=== PATIENT | female | born 1975 | race Caucasian/White ===

== ENCOUNTER → 2016-02-15 | Outpatient (CLI) | payer OTHER ==
[~2016-02-15] MED LIST: OXYC1TAB3 PO
--- NOTE | 2016-02-16 08:38 | DIAGNOSTIC IMAGING REPORT ---
MRI OF THE LEFT ELBOW WITHOUT CONTRAST CLINICAL HISTORY: Left elbow pain. Lateral epicondylitis. COMPARISON STUDY: Left elbow radiographs November 02, 2015. TECHNIQUE: Utilizing a 1.5 Marii magnet and dedicated coil, multiplanar, multiecho imaging of the left elbow was performed without intravenous or intra-articular contrast. FINDINGS: There is a small left elbow joint effusion. No marrow replacement is present. There is no significant marrow edema. There is an abnormal appearance of the common extensor tendon with fluid located between the common extensor tendon and the lateral epicondyle. There is adjacent edema. The common flexor tendon is intact. The ulnar collateral ligament is intact. The radial collateral ligament is not well visualized on this exam. No osteochondral lesion is identified. No mass or fluid collection shown adjacent to the left elbow. The biceps and brachialis insertions are normal. IMPRESSION: 1. Findings consistent with lateral epicondylitis. Fluid signal between the lateral epicondyle and the common extensor tendon suggestive of a full-thickness tendon tear with avulsion from the lateral epicondyle. 2. Indistinctness of the radial collateral ligament. 3. Small left elbow joint effusion. Electronically signed by: Glynn Michele M.D. 02/16/2016 8:37 AM Dictated Date/Time: 02/15/2016 8:55 AM
== END | disposition home or self-care (01) ==
LOC: C.MRI 08:12
PROVIDERS: ATTEND Orthopaedic Surgery Sports Medicine
DX: M77.12 Lateral epicondylitis, left elbow (principal)

== ENCOUNTER 2016-10-11 16:56 | Emergency (ER) | payer OTHER ==
[~2016-10-11] VITALS: Ht 172.7 cm; Wt 78.1 kg
[2016-10-11 17:32] VITALS: TEMP 37; Ht 172.7 cm; Wt 78.1 kg
--- NOTE | 2016-10-11 18:07 | DIAGNOSTIC IMAGING REPORT ---
LEFT ELBOW MIN 3 VIEWS ROUTINE CLINICAL HISTORY: L elbow pain pain COMPARISON: None. DISCUSSION: The bones and joint spaces appear intact. There is no evidence of fracture, dislocation or bony disease. There is no evidence for soft tissue swelling. IMPRESSION: Negative study. The above report was generated using voice recognition software. It may contain grammatical, syntax or spelling errors. Electronically signed by: Andrea Zamora M.D. 10/11/2016 6:05 PM Dictated Date/Time: 10/11/2016 6:05 PM
[2016-10-11] MEDS ORDERED: OXYC1TAB3 PO (18:44)
[2016-10-11 18:50] VITALS: BP 119/69; PULSE 79; O2SAT 97
--- NOTE | 2016-10-11 20:17 | EMERGENCY ROOM VISIT NOTE ---
History First contact with patient: 17:42 Chief Complaint: ELBOW PAIN/INJURY Stated Complaint: LT ELBOW PAIN, TENDON History of Present Illness The patient is a 41 year old female who presents to the Emergency Room with complaints of persistent left elbow pain. The patient reports that she underwent surgery with Dr. Pike from [facility] in [place]. The surgery was performed in December. The patient reports that she had a subsequent MRI after having persistent elbow pain, and was found to have a tendon tear. She underwent another surgery on 03/01/16. The patient now reports a burning sensation through the elbow and forearm, and causing numbness/ tingling/burning of the fourth and fifth fingers. She has also noticed decreased director pediatric strength over the past several months. She reports that Dr. Pike has since then dismissed from the practice, in her office has refused to see her in follow-up. The patient reports that she tried to call [facility], and they also would not see her because of her prior surgical history and association with another orthopedic practice. The patient has not attempted to call other orthopedic offices, or discuss referral with her PCP. The patient reports that she has [facility] insurance. The patient denies any recent trauma to the elbow. She does not sleep with her left elbow bent under her head or pillow. The patient is [id number]. The patient rates her discomfort a 9 out of 10. Review of Systems 10 system review was performed and was negative except for pertinent positives and negatives as indicated in history of present illness Past Medical/Surgical History Medical Problems: (1) Cyst of gallbladder (2) Depressive Disorder Nec (3) Fem Pelv Inflam Dis Nos (4) Fem Pelvic Periton Adh-Post-Op/Inf (5) Ovarian Cyst Nec/Nos (6) Tobacco Use Disorder Surgical Problems: (1) H/O: hysterectomy (2) History of hysterectomy Family History Cancer Diabetes mellitus Gallbladder disease Heart disease Hypertension Seizures Social History Smoking Status: Current Every Day Smoker Alcohol Use: none Drug Use: none Marital Status: Occupation Status: employed Current/Historical Medications Scheduled PRN Oxycodone Ir (Roxicodone Ir), 1-2 TAB PO Q4H PRN for Pain Physical Exam Vital Signs Date Time Temp Pulse Resp B/P (MAP) Pulse Ox O2 Delivery O2 Flow Rate FiO2 10/11/16 18:50 79 16 119/69 97 9/5/17 17:32 37.0 66 18 133/86 100 Room Air Physical Exam CONSTITUTIONAL: Healthy and well nourished. Alert and oriented X 3 with positive affect. Patient appears in mild discomfort from pain. HEENT: Normocephalic, atraumatic. Pupils equal, round and reactive. NECK: Full active range of motion without discomfort. Movement of the neck does not cause any left upper extremity discomfort. RESPIRATORY: Clear to auscultation bilaterally with no wheezing, crackles, rhonchi or stridor. CARDIOVASCULAR: Regular rate and rhythm with no murmurs, rubs or gallops. MUSCULOSKELETAL: Examination of the left elbow shows evidence for a lateral surgical incision. There is no significant induration or evidence of significant scar tissue over this region. The patient has no discomfort with pronation, supination, flexion or extension. She has a positive compression test and positive Tinel at the cubital tunnel. This reproduces discomfort into her fourth and fifth fingers. Patient has mildly weakened director pediatric strength of 4 out of 5 when compared to 5 out of 5 on the right. Capillary refill is less than 2 seconds. INTEGUMENTARY: No rash or other significant dermatologic conditions noted. NEUROLOGIC: Left hand and fingers are grossly sensory intact. Medical Decision & Procedures ER Provider Diagnostic Interpretation: My interpretation of left elbow x-rays does not show any bony lesions, fractures or other significant findings. Radiologist report is as follows: LEFT ELBOW MIN 3 VIEWS ROUTINE CLINICAL HISTORY: L elbow pain pain COMPARISON: None. DISCUSSION: The bones and joint spaces appear intact. There is no evidence of fracture, dislocation or bony disease. There is no evidence for soft tissue swelling. IMPRESSION: Negative study. ED Course Patient history and physical exam were performed. Nurse's notes were reviewed. Vital signs were reviewed and were normal. The patient was advised that her history and clinical exam findings are most consistent with an ulnar neuritis. She was encouraged to avoid any further blunt trauma or injury to the inner aspect of the elbow. I did encourage her to intermittently apply ice. Ibuprofen and Tylenol in alternating fashion for baseline pain relief. She was provided a short prescription for OxyIR as needed for breakthrough pain. The patient was encouraged to try calling other local orthopedic offices to see if they will take on treatment of her ulnar neuritis. If they refuse to see her because of her prior surgical history, she was instructed to follow-up with her PCP for [facility] referral and further treatment. The patient was happy with plan of care, voiced understanding of all discharge instructions, refused any analgesics while in the emergency department, and rated her pain a 6 out of 10 at the conclusion of my exam. Medical Decision Medication Reconcilliation Current Medication List: was personally reviewed by me Blood Pressure Screening Patient's blood pressure: Normal blood pressure Impression Primary Impression: Neuritis of left ulnar nerve Departure Information Prescriptions Oxycodone Ir (Roxicodone Ir) 5 Mg Tab 1-2 TAB PO Q4H Y for Pain, #15 TAB For Initial Treatment Prov: Deonte Diaz PA 10/11/16 Referrals Scotty Diaz DO (PCP) Patient Instructions My [facility]
== END 2016-10-11 18:53 | disposition home or self-care (01) ==
LOC: C.EDB 16:57 → C.EDD 18:53
DX: G56.22 Lesion of ulnar nerve, left upper limb (principal); F32.9 Major depressive disorder, single episode, unspecified; N73.9 Female pelvic inflammatory disease, unspecified; F17.210 Nicotine dependence, cigarettes, uncomplicated; Z80.9 Family history of malignant neoplasm, unspecified; Z83.3 Family history of diabetes mellitus; Z83.79 Family history of other diseases of the digestive system; Z82.49 Family history of ischemic heart disease and other diseases of the circulatory system

== ENCOUNTER → 2017-03-08 | Outpatient (CLI) | payer OTHER ==
--- NOTE | 2017-03-08 17:36 | DIAGNOSTIC IMAGING REPORT ---
CHEST 2 VIEWS ROUTINE HISTORY: Atypical chest pain. COMPARISON: Chest 02/15/2008. FINDINGS: The lungs are clear. Cardiac silhouette is normal in size. No pleural effusions. No pneumothorax. IMPRESSION: No acute process. Electronically signed by: Castro Flores M.D. 03/08/2017 5:35 PM Dictated Date/Time: 03/08/2017 5:34 PM
== END | disposition home or self-care (01) ==
LOC: C.RAD 16:48
PROVIDERS: ATTEND Family Medicine
DX: R07.9 Chest pain, unspecified (principal)

== ENCOUNTER → 2017-03-22 | Outpatient (CLI) | payer OTHER ==
--- NOTE | 2017-03-22 17:50 | EXERCISE STRESS ECHO ---
*NOTICE TO RECEIVING [employer] This information is strictly Confidential and protected under [place] law. [place] law prohibits you from making any further disclosure of this information unless further disclosure is expressly permitted by the written consent of the person to whom it pertains or is authorized by law. A general authorization for the release of medical or other information is not sufficient for this purpose. Hospital accepts no responsibility if the information is made available to any other person, INCLUDING THE PATIENT. Interpretation Summary * Name: MINERVA WYLIE Study Date: 03/22/2017 09:37 AM BP: 88/51 mmHg * Patient Location: [facility] HR: 58 * : 1975 (M/d/yyyy) Gender: Female Height: 68 in * Age: 41 yrs Ethnicity: [place] Weight: 149 lb * Ordering Physician: Scotty Diaz * Referring Physician: Scotty Diaz * Performed By: Herminia Best RCS * * Reason For Study: CHEST PAIN * BSA: 1.8 m2 * -- Conclusions -- * 1. Negative exercise stress echo for ischemia at 92% MPHR. * 2. Negative stress ECG for ischemia. * 3. Excellent functional capacity. Exercised 11:59 min, acheiving 13.4 METS. * 4. No exercise induced chest pain. Normal hemodynamic response to exercise. * 5. Normal resting LV size and function. EF 55-60%. Normal RV size and function. No significant valvular pathology. * 6. No prior studies for comparison. Procedure Details * ECHOEX, CPT #[id number] * ECHO COLOR FLOW, CPT #[id number] * ECHO DOPPLER, CPT #[id number] Left Ventricle * The left ventricle is grossly normal size. * There is normal left ventricular wall thickness. * Ejection Fraction = 55-60%. * Resting wall motion: Normal. Stress wall motion: Appropriate increase in Left ventricular systolic function and decrease in cavity size. No stress induced segmental wall motion abnormalities. Right Ventricle * The right ventricle is grossly normal size. * The right ventricular systolic function is normal as assessed by tricuspid annular plane systolic excursion (TAPSE) (normal >1.5 cm). Atria * The left atrial size is normal. * Borderline right atrial enlargement. * No ASD detected; PFO is not assessed. Mitral Valve * The mitral valve is grossly normal. * There is no mitral valve stenosis. * There is trace mitral regurgitation. Tricuspid Valve * The tricuspid valve is not well visualized, but is grossly normal. * There is no tricuspid stenosis. * There is trace tricuspid regurgitation. Aortic Valve * The aortic valve opens well. * Aortic valve sclerosis mild, without significant aortic valvular stenosis. * No hemodynamically significant valvular aortic stenosis. * Trace aortic regurgitation. Stress Parameters * Normal baseline electrocardiogram. * Stress ECG: No ST changes. No arrhythmias. * No arrhythmia were noted with stress. * The stress portion of this study was personally supervised by the undersigned interpreting physician. * Rest heart rate was '58' BPM. * Rest blood pressure was '88/51' * Maximum heart rate achieved was 166 bpm. * Maximum heart rate was 92 % of maximum age-predicted heart rate. * Maximum blood pressure was '132/75' * Total exercise time was '11:59' * Maximum exercise MET level achieved was '13.40' METS * Maximum treadmill speed was '4.20' miles per hour. * Maximum treadmill elevation was '16.00'% grade. Left Ventricular Findings with Stress * The study was technically adequate. MMode 2D Measurements and Calculations IVSd 1.0 cm IVSs 1.3 cm LVIDd 4.4 cm LVIDs 2.8 cm LVPWd 0.95 cm LVPWs 1.4 cm IVS/LVPW 1.1 FS 35.2 % EDV(Teich) 87.0 ml ESV(Teich) 30.7 ml EF(Teich) 64.7 % EDV(cubed) 84.3 ml ESV(cubed) 23.0 ml EF(cubed) 72.7 % % IVS thick 24.6 % % LVPW thick 50.4 % LV mass(C)d 142.1 grams LV mass(C)dI 78.8 grams/m\S\2 LV mass(C)s 121.3 grams LV mass(C)sI 67.2 grams/m\S\2 SV(Teich) 56.3 ml SI(Teich) 31.2 ml/m\S\2 SV(cubed) 61.3 ml SI(cubed) 34.0 ml/m\S\2 Ao root diam 2.8 cm Ao root area 6.2 cm\S\2 LA dimension 2.9 cm LA/Ao 1.0 LVOT diam 2.0 cm LVOT area 3.0 cm\S\2 LVAd ap4 28.3 cm\S\2 LVLd ap4 7.0 cm EDV(MOD-sp4) 92.9 ml EDV(sp4-el) 97.3 ml LVAs ap4 17.7 cm\S\2 LVLs ap4 6.1 cm ESV(MOD-sp4) 42.3 ml ESV(sp4-el) 43.5 ml EF(MOD-sp4) 54.4 % EF(sp4-el) 55.3 % LVAd ap2 28.4 cm\S\2 LVLd ap2 7.0 cm EDV(MOD-sp2) 95.1 ml EDV(sp2-el) 98.1 ml LVAs ap2 15.7 cm\S\2 LVLs ap2 5.5 cm ESV(MOD-sp2) 37.0 ml ESV(sp2-el) 37.9 ml EF(MOD-sp2) 61.1 % EF(sp2-el) 61.4 % LVLd %diff -0.42 % EDV(MOD-bp) 94.2 ml LVLs %diff -11.43 % ESV(MOD-bp) 41.1 ml EF(MOD-bp) 56.4 % SV(MOD-sp4) 50.5 ml SI(MOD-sp4) 28.0 ml/m\S\2 SV(MOD-sp2) 58.1 ml SI(MOD-sp2) 32.2 ml/m\S\2 SV(MOD-bp) 53.1 ml SI(MOD-bp) 29.4 ml/m\S\2 SV(sp4-el) 53.8 ml SI(sp4-el) 29.9 ml/m\S\2 SV(sp2-el) 60.2 ml SI(sp2-el) 33.4 ml/m\S\2 Doppler Measurements and Calculations MV E max michael 89.5 cm/sec MV A max michael 43.7 cm/sec MV E/A 2.0 MV P1/2t max michael 94.0 cm/sec MV P1/2t 102.2 msec MVA(P1/2t) 2.2 cm\S\2 MV dec slope 269.5 cm/sec\S\2 MV dec time 0.30 sec Ao V2 max 144.9 cm/sec Ao max PG 8.4 mmHg Ao max PG (full) 0.17 mmHg LALA(V,A) 3.0 cm\S\2 LALA(V,D) 3.0 cm\S\2 LV V1 max PG 8.2 mmHg LV V1 max 143.4 cm/sec PA V2 max 90.6 cm/sec PA max PG 3.3 mmHg TR max michael 210.1 cm/sec
== END | disposition home or self-care (01) ==
LOC: C.CPL 09:30
PROVIDERS: ATTEND Family Medicine
DX: R07.9 Chest pain, unspecified (principal)

== ENCOUNTER → 2017-05-16 | Outpatient (CLI) | payer OTHER ==
[~2017-05-16] MED LIST changes: +ONDA4TAB46 PO
--- NOTE | 2017-05-16 08:15 | DIAGNOSTIC IMAGING REPORT ---
NECK ULTRASOUND CLINICAL HISTORY: Palpable right neck lump. COMPARISON STUDY: Sonography of the right upper neck at site of palpable abnormality was performed. TECHNIQUE: Sonography of the thyroid gland was performed. FINDINGS: Note is made of a 7 mm x 6 mm x 5 mm cystic appearing right upper neck lesion which represents the palpable abnormality. This is located within the deep subcutaneous tissues. Note is made of color flow suggestive of a vessel either within the wall or the adjacent soft tissues of this lesion. No additional abnormalities are identified. IMPRESSION: 7 mm subcutaneous cystic lesion of the right upper neck which represents the palpable abnormality. Color flow suggestive of a vessel either within the adjacent soft tissues or the wall of this lesion. This lesion is likely benign however ultrasound-guided fine needle aspiration could be performed for confirmation. Electronically signed by: Glynn Michele M.D. 05/16/2017 8:13 AM Dictated Date/Time: 05/16/2017 8:09 AM
== END | disposition home or self-care (01) ==
LOC: C.ULTRBC 07:51
PROVIDERS: ATTEND Family Medicine
DX: R22.1 Localized swelling, mass and lump, neck (principal)

== ENCOUNTER 2017-05-25 10:39 | Emergency (ER) | payer OTHER ==
[~2017-05-25] VITALS: Ht 172.7 cm; Wt 69.0 kg
[2017-05-25 10:49] VITALS: TEMP 36.8; O2SAT 99; Ht 172.7 cm; Wt 69.0 kg
--- NOTE | 2017-05-25 11:11 | DIAGNOSTIC IMAGING REPORT ---
CHEST ONE VIEW PORTABLE HISTORY: Atypical CHEST PAIN COMPARISON: Chest 03/08/2017. FINDINGS: The heart is mildly enlarged. This has progressed in the interval. No pneumothorax. No pleural effusions. Perihilar/lower lobe interstitial and vascular thickening. This is also new from the prior study. Possible small patchy density within the periphery of the left midlung zone. IMPRESSION: 1. Interval development of cardiomegaly and perihilar/lower lobe interstitial and vascular thickening. This favors mild pulmonary edema. However, an atypical pneumonitis could also have a similar appearance. 2. There is also suggestion of a small patchy density within the peripheral left midlung zone. 3. Follow up chest x-ray in 1 month is recommended to ensure resolution. Electronically signed by: Castro Flores M.D. 05/25/2017 11:10 AM Dictated Date/Time: 05/25/2017 11:07 AM
[2017-05-25] MEDS ORDERED: KETOROLAC TROMETHAMINE 30 MG/ML VIAL IV STA (11:20)
[2017-05-25] MEDS ORDERED: ONDANSETRON INJ 2 MG/ML 2 ML VIAL IV STA (11:20)
[2017-05-25] MEDS ORDERED: GI COCKTAIL PO STA (11:20)
--- NOTE | 2017-05-25 11:25 | EMERGENCY ROOM VISIT NOTE ---
History Report prepared by [facility]: Chloe De Los Santos Under the Supervision of: Dr. Rajiv Shell M.D. First contact with patient: 10:51 Chief Complaint: CHEST PAIN Stated Complaint: CHEST AND STOMACH PAIN Nursing Triage Summary: pt reports she has had intermittent mid center chest pain and right chest pain for the past month. pt reports pain radiates through to her back. pt also reports "my whole chest hurts even if you just touch it." pt reports she has seen her pcp and "i don't remember what heart dr." pt reports this am the pain woke her up and pain increased. pt reports feels short of breath. pt denies any nausea. History of Present Illness The patient is a 41 year old white female with a past medical history of a hysterectomy, cholecystectomy who presents to the ED with a cc of intermittent lower central chest pain beginning a month ago . Positive upper abdominal pain. Negative hx of blood clots, control, recent travel. The patient described her chest pain as "a grabbing pain". She denies any modifying or worsening factors. She denies any allergies to medication. The patient notes tobacco use but denies any drug or alcohol use. The patient had a negative stress echo in March. Source of History: patient Onset: a month ago Position: chest Quality: other (grabbing) Timing: intermittent Modifying Factors (Worsening): other (none) Modifying Factors (Relieving): other (none) Associated Symptoms: + chest pain, + abdominal pain Review of Systems See HPI for pertinent positives and negatives. A total of ten systems were reviewed and were otherwise negative. Past Medical & Surgical Medical Problems: (1) Cyst of gallbladder (2) Depressive Disorder Nec (3) Endometriosis (4) Fem Pelv Inflam Dis Nos (5) Fem Pelvic Periton Adh-Post-Op/Inf (6) Ovarian Cyst Nec/Nos (7) Tobacco Use Disorder Surgical Problems: (1) H/O: hysterectomy (2) History of delivery (3) History of hysterectomy (4) History of laparoscopy (5) History of tonsillectomy Family History Cancer Diabetes mellitus Gallbladder disease Heart disease Hypertension Seizures Social History Smoking Status: Current Every Day Smoker Alcohol Use: none Drug Use: none Marital Status: Occupation Status: employed Current/Historical Medications Scheduled PRN Ondansetron Hcl (Zofran), 4 MG PO Q8H PRN for Nausea Oxycodone Immediate Rel Tab (Roxicodone Ir), 0.5-1 TAB PO TID PRN for Pain Allergies Coded Allergies: No Known Allergies (Verified , 05/25/17) Physical Exam Vital Signs Date Time Temp Pulse Resp B/P (MAP) Pulse Ox O2 Delivery O2 Flow Rate FiO2 05/25/17 14:04 80 20 130/78 95 05/25/17 12:33 71 18 100/71 98 Room Air 05/25/17 11:41 89 16 113/65 98 Room Air 05/25/17 11:00 75 16 111/75 97 Room Air 05/25/17 10:54 78 05/25/17 10:49 99 Room Air 05/25/17 10:49 98 Room Air 05/25/17 10:49 36.8 79 24 133/87 99 Room Air Physical Exam GENERAL: Awake, alert, well-appearing, tearful, in pain, NAD HENT: Normocephalic, atraumatic. EYES: Normal conjunctiva. Sclera non-icteric. NECK: Supple. No nuchal rigidity. FROM. RESPIRATORY: CTAB, no rhonchi, wheezing, crackles CARDIAC: RRR, no MRG ABDOMEN: Soft, BS+. Mild epigastric discomfort, non surgical abdomen. MSK: Lower reproducible sternal pain, no LE edema, symmetric 2+ DP pulses. NEURO: GCS 15, CN 2-12 intact, moves all 4s on command SKIN: No rash or jaundice noted. Medical Decision & Procedures ER Provider Diagnostic Interpretation: Radiology results as stated below per my review and radiologist interpretation: (CHEST FOR PE) ANGIO WITH FINDINGS: Pulmonary arterial vasculature enhances appropriately. There is mild peribronchial thickening throughout both hemithoraces. Findings of moderate mediastinal and to a lesser extent hilar adenopathy. Right hilar nodes measure to 1.8 cm. Left hilar nodes are similar. Appear to be matted nodes in the pretracheal and subcarinal region with subcarinal basilio pathology measuring to 2 cm. There appears to be a mild degree of esophageal soft tissue. This extends through the distal esophageal region. Limited evaluation the upper abdomen suggest the possibility of poor periportal adenopathy although this area was not specifically scanned. There is a consolidative infiltrate versus focal mass medial aspect left base. This measures 3.1 x 2.0 cm. Mass likely L disease including focal pulmonary infarct. IMPRESSION: 1. Study is negative for pulmonary embolus. 2. Moderate mediastinal and hilar adenopathy. 3. Moderate esophageal wall thickening versus matted adenopathy. L4. Consolidative infiltrate medial aspect left lung base versus parenchymal mass/infarct. This measures 3.1 x 1.8 cm. 5. Diagnostic considerations must include inflammatory process and consolidative infiltrate with reactive adenopathy, versus the possibility of a neoplastic process. 6. Further follow-up is recommended. The above report was generated using voice recognition software. It may contain grammatical, syntax or spelling errors. Electronically signed by: Andrea Zamora M.D. CHEST ONE VIEW PORTABLE FINDINGS: The heart is mildly enlarged. This has progressed in the interval. No pneumothorax. No pleural effusions. Perihilar/lower lobe interstitial and vascular thickening. This is also new from the prior study. Possible small patchy density within the periphery of the left midlung zone. IMPRESSION: 1. Interval development of cardiomegaly and perihilar/lower lobe interstitial and vascular thickening. This favors mild pulmonary edema. However, an atypical pneumonitis could also have a similar appearance. 2. There is also suggestion of a small patchy density within the peripheral left midlung zone. 3. Follow up chest x-ray in 1 month is recommended to ensure resolution. Electronically signed by: Castro Flores M.D. Laboratory Results 05/25/17 11:09 Red Blood Count 4.67, Mean Corpuscular Volume 90.6, Mean Corpuscular Hemoglobin 30.4, Mean Corpuscular Hemoglobin Concent 33.6, Mean Platelet Volume 11.0, Neutrophils (%) (Auto) 66.3, Lymphocytes (%) (Auto) 22.4, Monocytes (%) (Auto) 7.4, Eosinophils (%) (Auto) 3.7, Basophils (%) (Auto) 0.1, Neutrophils # (Auto) 6.29, Lymphocytes # (Auto) 2.13, Monocytes # (Auto) 0.70, Eosinophils # (Auto) 0.35, Basophils # (Auto) 0.01 05/25/17 11:09 Test 05/25/17 11:09 White Blood Count 9.49 K/uL (4.8-10.8) Red Blood Count 4.67 M/uL (4.2-5.4) Hemoglobin 14.2 g/dL (12.0-16.0) Hematocrit 42.3 % (37-47) Mean Corpuscular Volume 90.6 fL (80-100) Mean Corpuscular Hemoglobin 30.4 pg (25-34) Mean Corpuscular Hemoglobin Concent 33.6 g/dl (32-36) Platelet Count 241 K/uL (130-400) Mean Platelet Volume 11.0 fL (7.4-10.4) Neutrophils (%) (Auto) 66.3 % Lymphocytes (%) (Auto) 22.4 % Monocytes (%) (Auto) 7.4 % Eosinophils (%) (Auto) 3.7 % Basophils (%) (Auto) 0.1 % Neutrophils # (Auto) 6.29 K/uL (1.4-6.5) Lymphocytes # (Auto) 2.13 K/uL (1.2-3.4) Monocytes # (Auto) 0.70 K/uL (0.11-0.59) Eosinophils # (Auto) 0.35 K/uL (0-0.5) Basophils # (Auto) 0.01 K/uL (0-0.2) RDW Standard Deviation 45.2 fL (36.4-46.3) RDW Coefficient of Variation 13.6 % (11.5-14.5) Immature Granulocyte % (Auto) 0.1 % Immature Granulocyte # (Auto) 0.01 K/uL (0.00-0.02) Prothrombin Time 10.2 SECONDS (9.0-12.0) Prothromb Time International Ratio 1.0 (0.9-1.1) Activated Partial Thromboplast Time 28.6 SECONDS (21.0-31.0) Partial Thromboplastin Ratio 1.1 Anion Gap 6.0 mmol/L (3-11) Est Creatinine Clear Calc Drug Dose 103.7 ml/min Estimated GFR () 120.6 Estimated GFR (Non- 104.0 BUN/Creatinine Ratio 14.8 (10-20) Calcium Level 9.0 mg/dl (8.5-10.1) Magnesium Level 2.0 mg/dl (1.8-2.4) Total Bilirubin 0.4 mg/dl (0.2-1) Direct Bilirubin < 0.1 mg/dl (0-0.2) Aspartate Amino Transf (AST/SGOT) 19 U/L (15-37) Alanine Aminotransferase (ALT/SGPT) 32 U/L (12-78) Alkaline Phosphatase 87 U/L (45-117) Troponin I < 0.015 ng/ml (0-0.045) Pro-B-Type Natriuretic Peptide 68 pg/ml (0-450) Total Protein 7.2 gm/dl (6.4-8.2) Albumin 3.8 gm/dl (3.4-5.0) Lipase 80 U/L (73-393) Laboratory results reviewed by me Medications Administered Medications (Trade) Dose Ordered Sig/Saul Route Start Time Stop Time Status Last Admin Dose Admin Ketorolac Tromethamine (Toradol Inj) 30 mg NOW STAT IV 05/25/17 11:20 05/25/17 11:21 DC 05/25/17 11:39 30 MG Ondansetron HCl (Zofran Inj) 4 mg NOW STAT IV 05/25/17 11:20 05/25/17 11:21 DC 05/25/17 11:38 4 MG Famotidine (Pepcid Tab) 20 mg NOW ONCE PO 05/25/17 11:30 05/25/17 11:31 DC 05/25/17 11:39 20 MG Al Hydroxide/Mg Hydroxide (Maalox Susp) 30 ml STK-MED ONCE .ROUTE 05/25/17 11:33 05/25/17 11:34 DC 05/25/17 11:38 30 ML Lidocaine HCl (Viscous Lidocaine 2% Soln) 20 ml STK-MED ONCE .ROUTE 05/25/17 11:34 05/25/17 11:35 DC 05/25/17 11:39 20 ML ECG Per My Interpretation Indication: chest pain Rate (beats per minute): 89 Rhythm: normal sinus Findings: other (normal intervals normal axis, no STS changes or TWI, no evidence of right heart stain) ED Course 1104: The patient was evaluated in room A12B. A complete history and physical exam was performed. 1214: I updated the patient on her test results. 1317: On reassessment, the patient is feeling better. 1330: Discussed the patient's case with Dr. Resendiz- Thoracic Surgery . He will see the patient on Monday for follow up. 1333: I updated the patient on the treatment plan. She is agreeable. 1401: I reevaluated the patient. Discussed results and discharge instructions: She verbalized understanding and agreement. The patient is ready for discharge. Medical Decision The patient is a 41 year old white female with a past medical history of a hysterectomy, cholecystectomy who presents to the ED with a cc of intermittent lower central chest pain beginning a month ago Nursing notes reviewed. Ancillary studies and prior records reviewed. Differential diagnosis: Etiologies such as cardiac ischemia, aortic dissection, pulmonary embolism, pneumonia, pneumothorax, musculoskeletal, infections, pericarditis, myocarditis , esophageal rupture, gastrointestinal, appendicitis, diverticulitis, PUD, biliary pathology, UTI, pancreatitis, obstruction, mesenteric ischemia, aortic pathology, infections, inflammatory bowel disease, renal colic, as well as others were entertained. Patient was seen and evaluated the bedside. Patient was complaining of some lower central chest pain along with some epigastric discomfort. This been ongoing 1 month. Of note the patient did have a negative stress echocardiogram back in March. The patient states that nothing was making her pain any better. Patient states the pain was worse with palpation. This is also confirmed on exam. The patient also did have some epigastric discomfort on exam. Patient had blood work completed, EKG, troponin, chest x-ray. Patient's EKG no signs of ischemia or arrhythmia. Patient had a negative troponin. Less likely ACS. Patient white blood cell count within normal limits. In the chest x-ray does not show a focal consolidation. There was concern for possible effusion and/or pneumonitis. CT PE protocol was ordered given the chest x-ray and clinical gestalt. Patient CT was negative for PE but did show a questionable left lower lobe mass versus infarct versus inflammatory disease. Upon reassessment of the patient the patient was informed of these findings and the patient was feeling mildly improved. I did discuss the patient's case with the on-call thoracic surgeon who would like to see the patient in clinic on Monday. The patient does have an unremarkable EKG and fairly reassuring blood work. The CT unfortunately somewhat undifferentiated but I believe that the follow-up with Dr. Alfonso will help elucidate some of these unsure findings as the etiology of the chest findings is broad. I discussed the patient with the case manager specialist who would help make the appointment for the patient. Patient was told to follow-up and to return if she had any worsening of symptoms. Patient was given strict follow-up, discharge, and return precautions. All questions were answered. Patient was deemed suitable for outpatient follow-up at this time. Patient agreed with the plan of care and was safely discharged home. Medication Reconcilliation Current Medication List: was personally reviewed by me Blood Pressure Screening Patient's blood pressure: Normal blood pressure Consults Time Called: 1319 Consulting Physician: Dr. Resendiz- Thoracic Surgery Returned Call: 1330 Discussed the patient's case with Dr. Resendiz- Thoracic Surgery . He will see the patient on Monday for follow up. Impression Primary Impression: Chest wall pain Additional Impression: Lung mass Scribe Attestation The scribe's documentation has been prepared under my direction and personally reviewed by me in its entirety. I confirm that the note above accurately reflects all work, treatment, procedures, and medical decision making performed by me. Departure Information Dispostion Home / Self-Care Prescriptions Ondansetron Hcl (ZOFRAN) 4 Mg Tab 4 MG PO Q8H Y for Nausea, #12 TAB Take with water Prov: Rajiv Shell M.D. 05/25/17 Oxycodone Immediate Rel Tab (ROXICODONE IR) 5 Mg Tab 0.5-1 TAB PO TID Y for Pain for 5 Days, #12 TAB Take w/ food Prov: Rajiv Shell M.D. 05/25/17 Referrals Scotty Diaz DO (PCP) Abdoul Reesndiz MD Forms Call Back Authorization, HOME CARE DOCUMENTATION FORM, IMPORTANT VISIT INFORMATION Patient Instructions Chest Pain - [facility], [facility] Additional Instructions Please return to the emergency department if you have worsening or recurrent symptoms not amenable to at-home treatment. Please call for a follow-up appointment with her primary care physician. Please take your medications as prescribed. If you have other concerns and/or complaints please feel free to also call your primary care physician's office or return the ED for further evaluation, management, and treatment. You received narcotic or benzodiazepene medication while in the emergency room today. This is an addictive medication that may cause drowziness as well as constipation. Do not drive, operate heavy machinery, or drink alcohol under the influence of this medication. You may take 800 mg Ibuprofen every 6 hours as needed for pain/fever with food unless told by your physician not to take NSAIDs. You may take tylenol 1000 mg every 6 hours as needed for pain/fever unless told by your physician to not take it or have liver problems. You may take motrin and tylenol separately or at the same time. If you still have discomfort you may take the narcotic medication. Please be advised that these medications are habit forming, can make you sleepy, and can cause breathing issues. Do not use if you require your full attention. Take only as prescribed. Take your medications as prescribed. You have been examined and treated today on an emergency basis only. This is not a substitute for, or an effort to provide, complete comprehensive medical care. It is impossible to recognize and treat all injuries or illnesses in a single emergency department visit. It is therefore important that you follow up closely with [facility], your PCP, and/or your specialist(s). Call as soon as possible for an appointment. Thank you for your time and consideration. I look forward to speaking with you again soon. Please don't hesitate to call us if you have any questions. Problem Qualifiers
[2017-05-25] MEDS ORDERED: FAMOTIDINE 20 MG TAB PO ONE (11:30)
[2017-05-25 11:31] LABS: BASO % 0.1 %; BASO ABS # 0.01 K/uL (0-0.2); EOS % 3.7 %; EOS ABS # 0.35 K/uL (0-0.5); HEMATOCRIT 42.3 % (37-47); HEMOGLOBIN 14.2 g/dL (12.0-16.0); IG# 0.01 K/uL (0.00-0.02); LYMPH % 22.4 %; LYMPH ABS # 2.13 K/uL (1.2-3.4); MEAN CELL VOLUME 90.6 fL (80-100); MEAN CORPUSCULAR HEMOGLOBIN 30.4 pg (25-34); MEAN CORPUSCULAR HGB CONC 33.6 g/dl (32-36); MONO % 7.4 %; NEUT % 66.3 %; NEUT ABS # 6.29 K/uL (1.4-6.5); PLATELET COUNT 241 K/uL (130-400); RED CELL DISTRIBUTION WIDTH CV 13.6 % (11.5-14.5); RED CELL DISTRIBUTION WIDTH SD 45.2 fL (36.4-46.3); WHITE BLOOD COUNT 9.49 K/uL (4.8-10.8)
[2017-05-25] MEDS ORDERED: ALUMINUM/MAGNESIUM SUSP 30 ML UDC ONE (11:33)
[2017-05-25] MEDS ORDERED: LIDOCAINE HCL 2% VISC SOLN 20 ML UDC ONE (11:34)
[2017-05-25 11:40] LABS: PTT PATIENT 28.6 SECONDS (21.0-31.0)
[2017-05-25 12:01] LABS: ALBUMIN 3.8 gm/dl (3.4-5.0); ALT/SGPT 32 U/L (12-78); AST/SGOT 19 U/L (15-37); BLOOD UREA NITROGEN 11 mg/dl (7-18); CARBON DIOXIDE 25 mmol/L (21-32); CREATININE 0.72 mg/dl (0.60-1.20); GLUCOSE 81 mg/dl (70-99); LIPASE 80 U/L (73-393); POTASSIUM 3.7 mmol/L (3.5-5.1); SODIUM 138 mmol/L (136-145)
[2017-05-25 12:07] LABS: ALKALINE PHOSPHATASE 87 U/L (45-117); TOTAL PROTEIN 7.2 gm/dl (6.4-8.2)
[2017-05-25] MEDS ORDERED: OPTIRAY 320 IV PRN (12:15)
--- NOTE | 2017-05-25 12:44 | DIAGNOSTIC IMAGING REPORT ---
(CHEST FOR PE) ANGIO WITH CT DOSE: 225.73 mGy.cm HISTORY: Chest pain dyspnea TECHNIQUE: Multiaxial CT images of the chest were performed following the intravenous administration of contrast to evaluate the pulmonary arteries. Maximal intensity projection images were also obtained. A dose lowering technique was utilized adhering to the principles of ALARA. COMPARISON STUDY: None. FINDINGS: Pulmonary arterial vasculature enhances appropriately. There is mild peribronchial thickening throughout both hemithoraces. Findings of moderate mediastinal and to a lesser extent hilar adenopathy. Right hilar nodes measure to 1.8 cm. Left hilar nodes are similar. Appear to be matted nodes in the pretracheal and subcarinal region with subcarinal basilio pathology measuring to 2 cm. There appears to be a mild degree of esophageal soft tissue. This extends through the distal esophageal region. Limited evaluation the upper abdomen suggest the possibility of poor periportal adenopathy although this area was not specifically scanned. There is a consolidative infiltrate versus focal mass medial aspect left base. This measures 3.1 x 2.0 cm. Mass likely L disease including focal pulmonary infarct. IMPRESSION: 1. Study is negative for pulmonary embolus. 2. Moderate mediastinal and hilar adenopathy. 3. Moderate esophageal wall thickening versus matted adenopathy. L4. Consolidative infiltrate medial aspect left lung base versus parenchymal mass/infarct. This measures 3.1 x 1.8 cm. 5. Diagnostic considerations must include inflammatory process and consolidative infiltrate with reactive adenopathy, versus the possibility of a neoplastic process. 6. Further follow-up is recommended. The above report was generated using voice recognition software. It may contain grammatical, syntax or spelling errors. Electronically signed by: Andrea Zamora M.D. 05/25/2017 12:43 PM Dictated Date/Time: 05/25/2017 12:35 PM
[2017-05-25] MEDS ORDERED: OXYC1TAB3 PO ×2 (13:50→14:25)
[2017-05-25] MEDS ORDERED: ONDA4TAB46 PO ×2 (13:50→14:25)
[2017-05-25 14:04] VITALS: BP 130/78; PULSE 80; O2SAT 95
== END 2017-05-25 14:05 | disposition home or self-care (01) ==
LOC: C.EDB 10:40 → C.EDA 14:05
DX: R07.89 Other chest pain (principal); R91.8 Other nonspecific abnormal finding of lung field; F17.200 Nicotine dependence, unspecified, uncomplicated; F32.9 Major depressive disorder, single episode, unspecified; N83.209 Unspecified ovarian cyst, unspecified side; N73.9 Female pelvic inflammatory disease, unspecified; Z90.710 Acquired absence of both cervix and uterus; Z90.49 Acquired absence of other specified parts of digestive tract

== ENCOUNTER 2017-05-31 18:44 | Inpatient (IN) | payer OTHER ==
[~2017-05-31] VITALS: Ht 172.7 cm; Wt 70.0 kg
[~2017-05-31 18:44] MED LIST changes: -DRGTP25 TD; -POLY335019 PO; -RANI150T85 PO
[2017-05-31] MEDS ORDERED: SODIUM CHLORIDE 0.9% 1000ML 1,000 ML IV STA ×3 (20:01→23:09)
[2017-05-31] MEDS ORDERED: ONDANSETRON INJ 2 MG/ML 2 ML VIAL IV STA (20:01)
[2017-05-31] MEDS: HYDROmorphone INJ 1 MG/ML SYR IV PRN ×3 (20:14→23:21)
[2017-05-31 20:31] LABS: BASO % 0.1 %; BASO ABS # 0.01 K/uL (0-0.2); EOS % 2.2 %; EOS ABS # 0.23 K/uL (0-0.5); HEMOGLOBIN 14.7 g/dL (12.0-16.0); IG# 0.03 K/uL (0.00-0.02); LYMPH % 14.3 %; LYMPH ABS # 1.53 K/uL (1.2-3.4); MEAN CORPUSCULAR HEMOGLOBIN 30.8 pg (25-34); MEAN CORPUSCULAR HGB CONC 34.2 g/dl (32-36); MEAN PLATELET VOLUME 10.7 fL (7.4-10.4); MONO % 10.1 %; MONO ABS # 1.08 K/uL (0.11-0.59); NEUT ABS # 7.79 K/uL (1.4-6.5); PLATELET COUNT 229 K/uL (130-400); RED CELL DISTRIBUTION WIDTH CV 13.4 % (11.5-14.5); RED CELL DISTRIBUTION WIDTH SD 44.2 fL (36.4-46.3); WHITE BLOOD COUNT 10.67 K/uL (4.8-10.8)
--- NOTE | 2017-05-31 20:31 | DIAGNOSTIC IMAGING REPORT ---
CHEST ONE VIEW PORTABLE CLINICAL HISTORY: Chest pain. COMPARISON STUDY: Chest CT May 31, 2017. FINDINGS: There is no pneumothorax or pleural effusion. Asymmetric left lower lung interstitial thickening and a left lower lobe retrocardiac nodular opacity are better depicted on prior chest CT performed earlier today. There is no evidence for pulmonary edema. IMPRESSION: Redemonstration of a left lower lung retrocardiac nodular opacity and asymmetric interstitial thickening within the left lower lung, as shown on chest CT performed earlier today. No change in appearance of the chest. Electronically signed by: Glynn Michele M.D. 05/31/2017 8:30 PM Dictated Date/Time: 05/31/2017 8:25 PM
[2017-05-31 20:42] LABS: PTT PATIENT 29.2 SECONDS (21.0-31.0)
[2017-05-31 20:51] LABS: ALBUMIN 3.7 gm/dl (3.4-5.0); ALT/SGPT 110 U/L (12-78); AST/SGOT 29 U/L (15-37); BLOOD UREA NITROGEN 5 mg/dl (7-18); CALCIUM 9.2 mg/dl (8.5-10.1); CARBON DIOXIDE 27 mmol/L (21-32); CREATININE 0.71 mg/dl (0.60-1.20); GLUCOSE 90 mg/dl (70-99); LIPASE 73 U/L (73-393); POTASSIUM 3.7 mmol/L (3.5-5.1); SODIUM 136 mmol/L (136-145)
[2017-05-31 20:56] LABS: ALKALINE PHOSPHATASE 102 U/L (45-117); CKMB < 0.5 ng/ml (0.5-3.6); TOTAL PROTEIN 7.6 gm/dl (6.4-8.2)
--- NOTE | 2017-05-31 21:12 | EMERGENCY ROOM VISIT NOTE ---
History Report prepared by [facility]: Veronique Liz Under the Supervision of: Dr. Antoni Shepherd M.D. First contact with patient: 19:51 Chief Complaint: PAIN (GENERALIZED) Stated Complaint: TUMORS ON CHEST, SEVERE PAIN History of Present Illness The patient is a 41 year old female who presents to the Emergency Room with complaints of constant chest pain since May 25, 2017. She notes that she has had the pain for two months, though it was intermittent. She currently rates her pain a 9/10 in severity with lying still. She notes her pain is worsened with breathing. She reports abdominal pain as well that has been ongoing for the same amount of time. She reports a loss of appetite. She has a history of tumors in her chest and liver, which she just found out about last week. She denies any family history of tumors. She reports a family history of blood clots and cancer. She was prescribed Oxycodone by Dr. Resendiz, thoracic surgeon. She denies any recent biopsies. She reports having a CT scan today at 0630 this morning. She reports neck pain. She states that she feels constipated , though she notes it is not new. Pt denies LOC, headache, fevers, chills, diaphoresis, visual changes, breathing difficulties, nausea, vomiting, back pain , melena, hematochezia, urinary symptoms, numbness, weakness, lymphadenopathy, rash, or other complaints. Source of History: patient Onset: since May 25, 2017 Position: chest Symptom Intensity: 9/10 Timing: constant Associated Symptoms: + abdominal pain Note: Notes loss of appetite and constipation. Review of Systems See HPI for pertinent positives and negatives. A total of ten systems were reviewed and were otherwise negative. Past Medical & Surgical Medical Problems: (1) Cyst of gallbladder (2) Depressive Disorder Nec (3) Endometriosis (4) Fem Pelv Inflam Dis Nos (5) Fem Pelvic Periton Adh-Post-Op/Inf (6) Ovarian Cyst Nec/Nos (7) Tobacco Use Disorder Surgical Problems: (1) H/O: hysterectomy (2) History of delivery (3) History of hysterectomy (4) History of laparoscopy (5) History of tonsillectomy Family History Blood clots Cancer Diabetes mellitus Gallbladder disease Heart disease Hypertension Seizures Social History Smoking Status: Current Some Day Smoker Alcohol Use: none Drug Use: none Marital Status: Occupation Status: employed Current/Historical Medications No Active Prescriptions or Reported Meds Allergies Coded Allergies: No Known Allergies (Verified , 05/31/17) Physical Exam Vital Signs Date Time Temp Pulse Resp B/P (MAP) Pulse Ox O2 Delivery O2 Flow Rate FiO2 05/31/17 23:20 73 18 92/43 93 Room Air 05/31/17 22:20 66 17 111/50 99 Room Air 05/31/17 22:10 74 05/31/17 21:00 89 22 116/64 98 Room Air 05/31/17 20:19 109 20 99 Room Air 05/31/17 20:18 98 Room Air 05/31/17 20:18 98 Room Air 05/31/17 18:49 37.0 106 18 98/64 98 Room Air Physical Exam GENERAL: Awake, alert, very uncomfortable-appearing, in no distress HENT: Normocephalic, atraumatic. Oropharynx unremarkable. EYES: Normal conjunctiva. Sclera non-icteric. NECK: Supple. No nuchal rigidity. FROM. No masses. RESPIRATORY: Clear to auscultation. No wheezes. No rales. Normal respiratory effort. CARDIAC: Normal rate. Normal rhythm. No murmurs. No rubs. Extremities warm and well perfused. Pulses equal. No JVD. GI: Soft, non-distended. RUQ tenderness to palpation. No rebound or guarding. No masses. RECTAL: Deferred. MUSCULOSKELETAL: Atraumatic. Chest examination reveals no tenderness. No joint edema. LOWER EXTREMITIES: Calves are equal size bilaterally and non-tender. No edema. No discoloration. NEURO: Normal sensorium. No sensory or motor deficits noted. SKIN: No rash or jaundice noted. Medical Decision & Procedures ER Provider Diagnostic Interpretation: Radiology results as stated below per my review and radiologist interpretation: CHEST ONE VIEW PORTABLE CLINICAL HISTORY: Chest pain. COMPARISON STUDY: Chest CT May 31, 2017. FINDINGS: There is no pneumothorax or pleural effusion. Asymmetric left lower lung interstitial thickening and a left lower lobe retrocardiac nodular opacity are better depicted on prior chest CT performed earlier today. There is no evidence for pulmonary edema. IMPRESSION: Redemonstration of a left lower lung retrocardiac nodular opacity and asymmetric interstitial thickening within the left lower lung, as shown on chest CT performed earlier today. No change in appearance of the chest. Electronically signed by: Glynn Michele M.D. 05/31/2017 8:30 PM Dictated Date/Time: 05/31/2017 8:25 PM Laboratory Results 05/31/17 20:20 Red Blood Count 4.78, Mean Corpuscular Volume 90.0, Mean Corpuscular Hemoglobin 30.8, Mean Corpuscular Hemoglobin Concent 34.2, Mean Platelet Volume 10.7, Neutrophils (%) (Auto) 73.0, Lymphocytes (%) (Auto) 14.3, Monocytes (%) (Auto) 10.1, Eosinophils (%) (Auto) 2.2, Basophils (%) (Auto) 0.1, Neutrophils # (Auto ) 7.79, Lymphocytes # (Auto) 1.53, Monocytes # (Auto) 1.08, Eosinophils # (Auto ) 0.23, Basophils # (Auto) 0.01 05/31/17 20:20 Test 05/31/17 20:20 White Blood Count 10.67 K/uL (4.8-10.8) Red Blood Count 4.78 M/uL (4.2-5.4) Hemoglobin 14.7 g/dL (12.0-16.0) Hematocrit 43.0 % (37-47) Mean Corpuscular Volume 90.0 fL (80-100) Mean Corpuscular Hemoglobin 30.8 pg (25-34) Mean Corpuscular Hemoglobin Concent 34.2 g/dl (32-36) Platelet Count 229 K/uL (130-400) Mean Platelet Volume 10.7 fL (7.4-10.4) Neutrophils (%) (Auto) 73.0 % Lymphocytes (%) (Auto) 14.3 % Monocytes (%) (Auto) 10.1 % Eosinophils (%) (Auto) 2.2 % Basophils (%) (Auto) 0.1 % Neutrophils # (Auto) 7.79 K/uL (1.4-6.5) Lymphocytes # (Auto) 1.53 K/uL (1.2-3.4) Monocytes # (Auto) 1.08 K/uL (0.11-0.59) Eosinophils # (Auto) 0.23 K/uL (0-0.5) Basophils # (Auto) 0.01 K/uL (0-0.2) RDW Standard Deviation 44.2 fL (36.4-46.3) RDW Coefficient of Variation 13.4 % (11.5-14.5) Immature Granulocyte % (Auto) 0.3 % Immature Granulocyte # (Auto) 0.03 K/uL (0.00-0.02) Prothrombin Time 10.5 SECONDS (9.0-12.0) Prothromb Time International Ratio 1.0 (0.9-1.1) Activated Partial Thromboplast Time 29.2 SECONDS (21.0-31.0) Partial Thromboplastin Ratio 1.1 Anion Gap 5.0 mmol/L (3-11) Est Creatinine Clear Calc Drug Dose 105.2 ml/min Estimated GFR () 122.6 Estimated GFR (Non- 105.8 BUN/Creatinine Ratio 6.7 (10-20) Calcium Level 9.2 mg/dl (8.5-10.1) Total Bilirubin 0.6 mg/dl (0.2-1) Direct Bilirubin 0.2 mg/dl (0-0.2) Aspartate Amino Transf (AST/SGOT) 29 U/L (15-37) Alanine Aminotransferase (ALT/SGPT) 110 U/L (12-78) Alkaline Phosphatase 102 U/L (45-117) Total Creatine Kinase 40 U/L (26-192) Creatine Kinase MB < 0.5 ng/ml (0.5-3.6) Creatine Kinase MB Ratio (0-3.0) Troponin I < 0.015 ng/ml (0-0.045) Total Protein 7.6 gm/dl (6.4-8.2) Albumin 3.7 gm/dl (3.4-5.0) Lipase 73 U/L (73-393) Laboratory results reviewed by me Medications Administered Medications (Trade) Dose Ordered Sig/Saul Route Start Time Stop Time Status Last Admin Dose Admin Ondansetron HCl (Zofran Inj) 4 mg NOW STAT IV 05/31/17 20:01 05/31/17 20:03 DC 05/31/17 20:14 4 MG Sodium Chloride 1,000 ml @ 999 mls/hr Q1H1M STAT IV 05/31/17 20:01 05/31/17 21:01 DC 05/31/17 20:14 999 MLS/HR Hydromorphone HCl (Dilaudid Inj) 1 mg Q15M PRN IV 4/25/18 20:15 06/14/17 20:14 05/31/17 23:21 1 MG Sodium Chloride 1,000 ml @ 999 mls/hr Q1H1M STAT IV 05/31/17 23:09 06/01/17 00:09 DC 05/31/17 23:09 999 MLS/HR Sodium Chloride 1,000 ml @ 125 mls/hr Q8H STAT IV 05/31/17 23:09 06/01/17 07:08 05/31/17 23:09 125 MLS/HR Promethazine HCl 12.5 mg/Sodium Chloride 50.5 ml @ 204 mls/hr NOW STAT IV 05/31/17 23:09 05/31/17 23:23 DC 05/31/17 23:31 204 MLS/HR ECG Per My Interpretation Indication: chest pain Rate (beats per minute): 94 Rhythm: normal sinus Findings: no acute ischemic change, no ectopy ED Course 1957: The patient was evaluated in room C2B. A complete history and physical exam was performed. 2001: Ordered Sodium Chloride 1,000 ml @ 999 mls/hr IV and Zofran 4 mg IV 2015: Ordered Dilaudid 1 mg IV 2021: I spoke with Dr. Michele, radiologist. We discussed the patient's case. He agrees with the treatment plan. 2: I reassessed the patient at this time. She is resting. 9: Ordered Promethazine HCl 12.5 mg/Sodium Chloride 50.5 ml @ 204 mls/hr IV, Sodium Chloride 1,000 ml @ 125 mls/hr IV, and Sodium Chloride 1,000 ml @ 999 mls /hr IV 2310: I reassessed the patient at this time. I discussed the results and treatment plan with the patient. I answered all pertaining questions that she had. She expressed understanding and verbalized agreement. The patient will be further evaluated. 2313: I spoke with Dr. Rodriguez, [facility] [place]. We discussed the patient's case. The patient will be evaluated by the [facility] for further management. Medical Decision Prior records/ancillary studies reviewed. Triage Nursing notes reviewed and agree them. Additional history obtained from the family. The patient's history was concerning for chest pain. Differential diagnosis: Etiologies such as complication of recently diagnosed tumors, cardiac ischemia, aortic dissection, pulmonary embolism, pneumonia, pneumothorax, musculoskeletal , infections, pericarditis, myocarditis, esophageal rupture, gastrointestinal, as well as others were entertained. Physical examination: As above. ER treatment provided: IV normal saline 2 IV Zofran 2 IV Dilaudid times multiple doses On reassessment the patient was still nauseated. IV Phenergan Diagnostic interpretation by me: The electrocardiogram was negative for pathologic change. The labs revealed an unremarkable CBC and chemistry panel. Cardiac markers negative. Imaging studies: Chest x-ray and CT scan as above The patient is still very symptomatic. I believe she needs IV treatment for her pain and nausea. The patient and significant other feel comfortable with this plan. Consultation: A consultation was placed with the hospitalist. The case was discussed and diagnostics were reviewed. The patient was evaluated in the ER for further treatment. Medication Reconcilliation Current Medication List: was personally reviewed by me Blood Pressure Screening Patient's blood pressure: Normal blood pressure Consults Time Called: 2016 Consulting Physician: Dr. Michele, radiologist Returned Call: [address] Michele, radiologist. We discussed the patient's case. He agrees with the treatment plan. Additional Consults: Time Called: 2312 Consulted Physician: Dr. Rodriguez [facility] hospitalist Additional Comments: I spoke with MARYLIN Liriano hospitalist. We discussed the patient's case. The patient will be evaluated by the [facility] for further management. Impression Primary Impression: Chest pain Additional Impression: Metastatic cancer Scribe Attestation The scribe's documentation has been prepared under my direction and personally reviewed by me in its entirety. I confirm that the note above accurately reflects all work, treatment, procedures, and medical decision making performed by me. Departure Information Dispostion Being Evaluated By Hospitalist Prescriptions No Active Prescriptions or Reported Meds Referrals Scotty Diaz DO (PCP) Patient Instructions My [facility] Problem Qualifiers
--- NOTE | 2017-05-31 22:01 | DIAGNOSTIC IMAGING REPORT ---
CT ANGIOGRAPHY OF THE CHEST, PULMONARY EMBOLUS PROTOCOL CLINICAL HISTORY: Severe pleuritic chest pain. COMPARISON STUDY: Chest CT May 31, 2017 at 6:48 AM and May 25, 2017. TECHNIQUE: Following IV administration of 95 mL of [id number]-320, helical axial images of the chest were obtained utilizing the pulmonary embolus protocol. Maximal intensity projections and sagittal and coronal reformats were viewed on an independent 3D workstation. IV contrast was administered without complication. A dose lowering technique was utilized adhering to the principles of ALARA. CT DOSE: 306.09 mGycm FINDINGS: No pulmonary emboli are identified. There is no evidence of thoracic aortic dissection. The size of the heart is normal. There is no pericardial effusion. Note is made of multiple mildly enlarged mediastinal and left hilar lymph nodes. Index left hilar node measures 1.1 cm in short axis diameter. A right paratracheal lymph node measures approximately 1.2 cm. A mildly enlarged subcarinal lymph node is noted. Note is made of a 3.4 x 2.4 cm left lower lobe mass-like opacity. There is interlobular septal thickening within the left lower lobe and a portion of the lingula. There is thickening of the bronchovascular bundles within the left lower lobe. No pneumothorax or pleural effusion is noted. Note is made of an indeterminate 7 mm sclerotic focus within the T2 vertebral body. Visualized portions of the upper abdomen demonstrate numerous hepatic lesions, including a 2.7 cm right hepatic lobe lesion. There are confluent lesions within the lateral segment of the liver. IMPRESSION: 1. No pulmonary emboli identified. 2. 3.4 x 2.4 cm irregular left lower lobe lesion suggestive of bronchogenic carcinoma. 3. Innumerable hepatic metastases. 4. Interlobular and bronchovascular bundle thickening within the left lower lobe and a portion of the lingula which favors lymphangitic spread of tumor. 5. Mild mediastinal and left hilar lymphadenopathy which suggests basilio spread of disease. Electronically signed by: Glynn Michele M.D. 05/31/2017 9:59 PM Dictated Date/Time: 05/31/2017 9:46 PM
[2017-05-31] MEDS ORDERED: PROMETHAZINE HCL INJ 12.5 MG in SODIUM CHLORIDE 0.9% 50ML 50 ML IV STA (23:09)
[2017-06-01] MEDS ORDERED: MoRPHine SULFATE 4 MG/ML 1 ML CARP\\VIAL IV PRN ×2 (00:45→07:45)
[2017-06-01] MEDS ORDERED: ALUMINUM/MAGNESIUM/SIMETH (MAALOX MAX) 30 ML UDC PO PRN (00:45)
[2017-06-01] MEDS ORDERED: MAGNESIUM HYDROXIDE SUSP 30 ML UDC PO PRN (00:45)
[2017-06-01] MEDS ORDERED: ACETAMINOPHEN 325 MG TAB PO PRN (00:45)
--- NOTE | 2017-06-01 01:08 | History and Physical ---
History & Physical Date & Time of Service: Jun 01, 2017 at 00:06 Chief Complaint: Tumors On Chest, Severe Pain Primary Care Physician: Scotty Diaz DO History of Present Illness Source: patient, family, clinic records, hospital records 41 yo F smoker with recent ED visit 05/25 for Chest pain found to have possible Left lower lung mass, negative PE , negative cardiac workup , discharged with f /u to Dr. Resendiz 05/29 who planned for repeat CT chest today and endobronchial u/s with biopsy tomorrow. CT chest this am 3.5cm /2.43 cm irregular left lower lobe mass lesion suggestive of lung carcinoma with multiple hepatic masses, and mediastinal lymphadenopathy. CT abdomen multiple metastatic foci of liver. She had been scheduled Astrid tomorrow for consultation She presents today for worsening chest pain throughout the day. She tried oxycodone she received from last visit in addition to nausea medication. Due to patients sedation with narcotics, she could not give history. Patient's constant burning pleuritic central chest pain radiating to the back. Pain has not subsided significantly since ED visit on 05/25. + nausea, + night sweats , fatigue, loss of 10 lbs in 4-6 wks. NO SOB, no cough, fever, chills. Thurs/Fri , Left sided abdominal pain of tearing quality which has resolved. NO diarrhea , constipation.Patient reports 6 cigs/ day for last 12 years. In ED, patient arrived today with normal O2 saturation afebrile. CT for PE was performed which was negative for PE but was consistent with morning CT chest results of Left lower lung mass suggestive of bronchogenic carcinoma. Past Medical/Surgical History Medical Problems: (1) Back pain (2) Chest wall pain (3) Cyst of gallbladder (4) Depressive Disorder Nec (5) Endometriosis (6) Fem Pelv Inflam Dis Nos (7) Fem Pelvic Periton Adh-Post-Op/Inf (8) Lung mass (9) Neuritis of left ulnar nerve (10) Neuritis of left ulnar nerve (11) Ovarian Cyst Nec/Nos (12) Tobacco Use Disorder Surgical Problems: (1) H/O: hysterectomy (2) History of delivery (3) History of hysterectomy (4) History of laparoscopy (5) History of tonsillectomy Family History Blood clots Cancer Diabetes mellitus Gallbladder disease Heart disease Hypertension Seizures Social History Smoking Status: Current Some Day Smoker Drug Use: none Marital Status: Housing status: lives with family Occupational Status: employed Immunizations History of Influenza Vaccine: No History of Tetanus Vaccine?: Unknown History of Pneumococcal: No History of Hepatitis B Vaccine: Unknown Allergies Coded Allergies: No Known Allergies (Verified , 05/31/17) Home Medications No Active Prescriptions or Reported Meds Review of Systems Constitutional: + sweats, + weight loss, + weakness, No fever, No chills Respiratory: + sputum, + shortness of breath, No cough, No hemoptysis Cardiovascular: + chest pain (central), No edema, No palpitations Abdomen: + pain (RuQ pain), + nausea, + vomiting Genitourinary - Female: No dysuria, No urinary frequency, No urinary urgency Hematologic / Lymphatic: + night sweats, No abnormal bleeding/bruising, No swollen lymph nodes Integumentary: No rash, No itch Physical Exam Vital Signs Date Time Temp Pulse Resp B/P (MAP) Pulse Ox O2 Delivery O2 Flow Rate FiO2 05/31/17 23:20 73 18 92/43 93 Room Air 05/31/17 22:20 66 17 111/50 99 Room Air 05/31/17 22:10 74 05/31/17 21:00 89 22 116/64 98 Room Air 05/31/17 20:19 109 20 99 Room Air 05/31/17 20:18 98 Room Air 05/31/17 20:18 98 Room Air 05/31/17 18:49 37.0 106 18 98/64 98 Room Air GENERAL: alert, no distress EYE EXAM: normal conjunctiva, PERRL and EOM's grossly intact OROPHARYNX: no exudate, no erythema, lips, buccal mucosa, and tongue normal and mucous membranes are moist NECK: supple, no nuchal rigidity, no adenopathy, non-tender LUNGS: bilateral scattered rhonchi HEART: no murmurs, S1 normal and S2 normal ABDOMEN: RUQ tenderness to palpation, no masses, no rebound or guarding. BACK: Back is symmetrical on inspection and there is no deformity, no midline tenderness, SKIN: no rashes and no bruising UPPER EXTREMITIES: upper extremities are grossly normal. LOWER EXTREMITIES: No pitting edema. NEURO EXAM: difficult to asses, somnolent s/p Dilaudid administration Diagnostics Laboratory Results Results Past 24 Hours Test 4/25/18 20:20 Range/Units White Blood Count 10.67 4.8-10.8 K/uL Red Blood Count 4.78 4.2-5.4 M/uL Hemoglobin 14.7 12.0-16.0 g/dL Hematocrit 43.0 37-47 % Mean Corpuscular Volume 90.0 80-100 fL Mean Corpuscular Hemoglobin 30.8 25-34 pg Mean Corpuscular Hemoglobin Concent 34.2 32-36 g/dl Platelet Count 229 130-400 K/uL Mean Platelet Volume 10.7 7.4-10.4 fL Neutrophils (%) (Auto) 73.0 % Lymphocytes (%) (Auto) 14.3 % Monocytes (%) (Auto) 10.1 % Eosinophils (%) (Auto) 2.2 % Basophils (%) (Auto) 0.1 % Neutrophils # (Auto) 7.79 1.4-6.5 K/uL Lymphocytes # (Auto) 1.53 1.2-3.4 K/uL Monocytes # (Auto) 1.08 0.11-0.59 K/uL Eosinophils # (Auto) 0.23 0-0.5 K/uL Basophils # (Auto) 0.01 0-0.2 K/uL RDW Standard Deviation 44.2 36.4-46.3 fL RDW Coefficient of Variation 13.4 11.5-14.5 % Immature Granulocyte % (Auto) 0.3 % Immature Granulocyte # (Auto) 0.03 0.00-0.02 K/uL Prothrombin Time 10.5 9.0-12.0 SECONDS Prothromb Time International Ratio 1.0 0.9-1.1 Activated Partial Thromboplast Time 29.2 21.0-31.0 SECONDS Partial Thromboplastin Ratio 1.1 Sodium Level 136 136-145 mmol/L Potassium Level 3.7 3.5-5.1 mmol/L Chloride Level 104 98-107 mmol/L Carbon Dioxide Level 27 21-32 mmol/L Anion Gap 5.0 3-11 mmol/L Blood Urea Nitrogen 5 7-18 mg/dl Creatinine 0.71 0.60-1.20 mg/dl Est Creatinine Clear Calc Drug Dose 105.2 ml/min Estimated GFR () 122.6 Estimated GFR (Non- 105.8 BUN/Creatinine Ratio 6.7 10-20 Random Glucose 90 70-99 mg/dl Calcium Level 9.2 8.5-10.1 mg/dl Total Bilirubin 0.6 0.2-1 mg/dl Direct Bilirubin 0.2 0-0.2 mg/dl Aspartate Amino Transf (AST/SGOT) 29 15-37 U/L Alanine Aminotransferase (ALT/SGPT) 110 12-78 U/L Alkaline Phosphatase 102 45-117 U/L Total Creatine Kinase 40 26-192 U/L Creatine Kinase MB < 0.5 0.5-3.6 ng/ml Creatine Kinase MB Ratio 0-3.0 Troponin I < 0.015 0-0.045 ng/ml Total Protein 7.6 6.4-8.2 gm/dl Albumin 3.7 3.4-5.0 gm/dl Lipase 73 73-393 U/L Diagnostic Radiology CHEST ONE VIEW PORTABLE CLINICAL HISTORY: Chest pain. COMPARISON STUDY: Chest CT May 31, 2017. FINDINGS: There is no pneumothorax or pleural effusion. Asymmetric left lower lung interstitial thickening and a left lower lobe retrocardiac nodular opacity are better depicted on prior chest CT performed earlier today. There is no evidence for pulmonary edema. IMPRESSION: Redemonstration of a left lower lung retrocardiac nodular opacity and asymmetric interstitial thickening within the left lower lung, as shown on chest CT performed earlier today. No change in appearance of the chest. [~ rep ct add3]] CT ANGIOGRAPHY OF THE CHEST, PULMONARY EMBOLUS PROTOCOL CLINICAL HISTORY: Severe pleuritic chest pain. COMPARISON STUDY: Chest CT May 31, 2017 at 6:48 AM and May 25, 2017. TECHNIQUE: Following IV administration of 95 mL of Optiray-320, helical axial images of the chest were obtained utilizing the pulmonary embolus protocol. Maximal intensity projections and sagittal and coronal reformats were viewed on an independent 3D workstation. IV contrast was administered without complication. A dose lowering technique was utilized adhering to the principles of ALARA. CT DOSE: 306.09 mGycm FINDINGS: No pulmonary emboli are identified. There is no evidence of thoracic aortic dissection. The size of the heart is normal. There is no pericardial effusion. Note is made of multiple mildly enlarged mediastinal and left hilar lymph nodes. Index left hilar node measures 1.1 cm in short axis diameter. A right paratracheal lymph node measures approximately 1.2 cm. A mildly enlarged subcarinal lymph node is noted. Note is made of a 3.4 x 2.4 cm left lower lobe mass-like opacity. There is interlobular septal thickening within the left lower lobe and a portion of the lingula. There is thickening of the bronchovascular bundles within the left lower lobe. No pneumothorax or pleural effusion is noted. Note is made of an indeterminate 7 mm sclerotic focus within the T2 vertebral body. Visualized portions of the upper abdomen demonstrate numerous hepatic lesions, including a 2.7 cm right hepatic lobe lesion. There are confluent lesions within the lateral segment of the liver. IMPRESSION: 1. No pulmonary emboli identified. 2. 3.4 x 2.4 cm irregular left lower lobe lesion suggestive of bronchogenic carcinoma. 3. Innumerable hepatic metastases. 4. Interlobular and bronchovascular bundle thickening within the left lower lobe and a portion of the lingula which favors lymphangitic spread of tumor. 5. Mild mediastinal and left hilar lymphadenopathy which suggests basilio spread of disease. Normal EKG, No change from prior EKG Impression Assessment and Plan 41 yo F smoker with recent ED visit 05/25 for Chest pain found to have possible Left lower lung mass, patient Dr. Resendiz presenting for worsening pleuritic chest pain , CT findings showing LLL mass, multiple Liver masses LLL mass, multiple Hepatic masses, Chest pain , sob - VSS, Chest pain , SOB likely secondary to Carcinoma - considered PE though rule out with CT, pneumonia possible but no fever or leukocytosis - likely noncardiac given unremarkable ekg, negative trop, Repeat Trop x1, - : negative Stress Echo - CXR, CT consistent with LLL mass - CT chest 05/31 shows 3.4 x 2.4 cm LLL lesion - Ct Abdomen 05/31: multiple hepatic masses - Pain control: prn morphine - Consult CT Surgery , will likely need EBUS, BX -NPO before surgery -IV NS maintenance fluids Tobacco use - as recently as last week - 6 cigs/day x 12 years - Smoking cessation counseling DVT PPX - chemical ppx held before surgery - SCD Code status: FULL Resuscitation Status VTE Prophylaxis Will order VTE Prophylaxis: Yes Social Service Consult None Apply Note Total Time: Critical Care 30 - 74 minutes Resident Tracking Resident Involvement: Resident Care Provided Care Provided: Adult Hospital Medicine History Patient seen and examined, chart reviewed, case discussed with Dr. Gage and I agree with his assessment and plan as documented above. Briefly, patient is a 41yo C female with a newly discovered LLL mass suggestive of bronchogenic carcinoma with suspected metastases to the liver and lymphangitic spread. She was being worked up as an outpatient with plan for biopsy per Dr. Resendiz. Patient presents today with severe central CP, 10/10, pleuritic in nature, unrelieved by Oxycodone as well as SOB. On exam patient is hemodynamically stable, adequate oxygenation on room air. She is resting comfortably in NAD after receiving Dilaudid. Heart +S1/S2, regular, no m/r/g, Lungs with equal breath sounds bilaterally, +crackles in left mid lung field, diminished breath sounds in left base, no rales/rhonchi or wheezes. Abdomen with tenderness in RUQ with voluntary guarding, no rebound. Extremities warm, well perfused without clubbing/cyanosis or edema. Labs and imaging reviewed . CT chest negative for PE, notable for 3.4x2.4cm LLL lesion suggestive of bronchogenic carcinoma, possibly lymphangitic and basilio spread of disease. CT abdomen with multiple metastatic foci within the liver. Assessment: 41yo C female with suspected bronchogenic carcinoma, diffusely metastatic disease presenting with severe pleuritic CP. 1. CP well controlled at present s/p Dilaudid. EKG, troponin negative, CT with no evidence of PE. No evidence of infection. Concern for pleurisy. Pain control, anti-inflammatory to start tomorrow 2. Suspected malignancy patient known to Dr. Resendiz. Will consult to assist with tissue diagnosis and management. Consult Oncology 3. Tobacco abuse smoking cessation counseling
[2017-06-01 01:30] VITALS: BP 106/67; PULSE 71; TEMP 36.9; Ht 172.7 cm; Wt 70.0 kg
[2017-06-01] MEDS: ONDANSETRON INJ 2 MG/ML 2 ML VIAL IV PRN ×2 (02:15→14:26)
[2017-06-01] MEDS: SODIUM CHLORIDE 0.9% 1000ML 1,000 ML IV SCH ×2 (02:15→12:21)
[2017-06-01 07:11] VITALS: BP 103/66; PULSE 71; TEMP 37.2; O2SAT 95
--- NOTE | 2017-06-01 07:27 | Family Medicine Progress Note ---
Progress Note Date of Service Jun 01, 2017. Subjective Pt evaluation today including: conversation w/ patient, conversation w/ family , physical exam, chart review, lab review, review of studies, conversation w/ customer relations consultant, review of inpatient medication list Patient feeling nauseous and significant pain in her lower chest and right upper abdomen. States the Zofran has not been helping and the relief from morphine does not last the full 3 hours. She otherwise denies cough. She has some SOB although she attributes this to pain preventing her from taking deep breaths. She denies fevers/chills, palpitations, lower extremity swelling or rashes. She is hungry in hospital while NPO but describes early satiety associated with abdominal stretching increasing pain. Ambulation has been recently limited due to pain. She states no issues with voiding or BM. She mentions her mom also had recurrent breast cancer, and her 21 year old daughter beat follicular thyroid cancer 1 year ago. ROS is unremarkable except as noted above. Objective Vital Signs Date Time Temp Pulse Resp B/P (MAP) Pulse Ox O2 Delivery O2 Flow Rate FiO2 06/01/17 07:11 37.2 71 16 103/66 (78) 95 Room Air 06/01/17 01:30 Room Air 06/01/17 01:30 36.9 71 16 106/67 Room Air 06/01/17 01:22 70 18 102/61 96 Room Air 05/31/17 23:20 73 18 92/43 93 Room Air 05/31/17 22:20 66 17 111/50 99 Room Air 05/31/17 22:10 74 05/31/17 21:00 89 22 116/64 98 Room Air 05/31/17 20:19 109 20 99 Room Air 05/31/17 20:18 98 Room Air 05/31/17 20:18 98 Room Air 05/31/17 18:49 37.0 106 18 98/64 98 Room Air Physical Exam General Appearance: + mild distress (from pain), + thin, + pertinent finding ( Appears fatigued) Eyes: normal inspection ENT: hearing grossly normal Respiratory/Chest: normal breath sounds, no respiratory distress, no accessory muscle use, + pertinent finding (Painful to take deep breaths) Cardiovascular: regular rate, rhythm, no murmur Abdomen: normal bowel sounds, soft, + tenderness (RUQ) Extremities: no pedal edema, no calf tenderness Neurologic/Psychiatric: alert, oriented x 3 Skin: normal color, warm/dry, no rash Laboratory Results Results Past 24 Hours Test 05/31/17 20:20 06/01/17 07:40 Range/Units White Blood Count 10.67 7.26 4.8-10.8 K/uL Red Blood Count 4.78 3.95 4.2-5.4 M/uL Hemoglobin 14.7 12.2 12.0-16.0 g/dL Hematocrit 43.0 35.9 37-47 % Mean Corpuscular Volume 90.0 90.9 80-100 fL Mean Corpuscular Hemoglobin 30.8 30.9 25-34 pg Mean Corpuscular Hemoglobin Concent 34.2 34.0 32-36 g/dl Platelet Count 229 193 130-400 K/uL Mean Platelet Volume 10.7 10.8 7.4-10.4 fL Neutrophils (%) (Auto) 73.0 % Lymphocytes (%) (Auto) 14.3 % Monocytes (%) (Auto) 10.1 % Eosinophils (%) (Auto) 2.2 % Basophils (%) (Auto) 0.1 % Neutrophils # (Auto) 7.79 1.4-6.5 K/uL Lymphocytes # (Auto) 1.53 1.2-3.4 K/uL Monocytes # (Auto) 1.08 0.11-0.59 K/uL Eosinophils # (Auto) 0.23 0-0.5 K/uL Basophils # (Auto) 0.01 0-0.2 K/uL RDW Standard Deviation 44.2 44.8 36.4-46.3 fL RDW Coefficient of Variation 13.4 13.6 11.5-14.5 % Immature Granulocyte % (Auto) 0.3 % Immature Granulocyte # (Auto) 0.03 0.00-0.02 K/uL Prothrombin Time 10.5 9.0-12.0 SECONDS Prothromb Time International Ratio 1.0 0.9-1.1 Activated Partial Thromboplast Time 29.2 21.0-31.0 SECONDS Partial Thromboplastin Ratio 1.1 Sodium Level 136 140 136-145 mmol/L Potassium Level 3.7 3.8 3.5-5.1 mmol/L Chloride Level 104 110 98-107 mmol/L Carbon Dioxide Level 27 25 21-32 mmol/L Anion Gap 5.0 5.0 3-11 mmol/L Blood Urea Nitrogen 5 3 7-18 mg/dl Creatinine 0.71 0.58 0.60-1.20 mg/dl Est Creatinine Clear Calc Drug Dose 105.2 128.7 ml/min Estimated GFR () 122.6 132.7 Estimated GFR (Non- 105.8 114.5 BUN/Creatinine Ratio 6.7 5.0 10-20 Random Glucose 90 77 70-99 mg/dl Calcium Level 9.2 8.1 8.5-10.1 mg/dl Total Bilirubin 0.6 0.7 0.2-1 mg/dl Direct Bilirubin 0.2 0.1 0-0.2 mg/dl Aspartate Amino Transf (AST/SGOT) 29 106 15-37 U/L Alanine Aminotransferase (ALT/SGPT) 110 201 12-78 U/L Alkaline Phosphatase 102 106 45-117 U/L Total Creatine Kinase 40 26-192 U/L Creatine Kinase MB < 0.5 0.5-3.6 ng/ml Creatine Kinase MB Ratio 0-3.0 Troponin I < 0.015 0-0.045 ng/ml Total Protein 7.6 6.1 6.4-8.2 gm/dl Albumin 3.7 2.9 3.4-5.0 gm/dl Lipase 73 73-393 U/L Assessment and Plan 41 yo F smoker with recent ED visit 05/25 for chest pain found to have possible left lower lung mass. Seen by Dr. Resendiz in outpatient setting. Returns to ED to for significantly worsened chest and RUQ pain with CT findings revealing an irregular left lower lobe lesion, mediastinal and hilar lymphadenopathy, and innumerable hepatic lesions. Chest and abdominal pain likely secondary to carcinoma - left lower lobe lesion and innumerable hepatic lesions seen on CT chest and CT abdomen (05/31/17). Negative cardiac work up and CT negative for PE and PNA. - Cardiothoracics consulted. Patient s/p right lymph node biopsy (04/03/27) - pathology pending. Oncology consulted - Pain control: frequency of morphine increased to 2mg q2h. Plans to assess requirement over next 24 hours to determine longer acting medication regimen - Nausea: Zofran increased to 8mg q8h, and Phenergan 12.5mg q6h - IV NSS @ 100cc/hr given nausea and early satiety contributing to decreased PO intake Tobacco use (~6 cigs/day x 12 years per patient) - Smoking cessation counseling VTE ppx - SCD - Chemical ppx held for now, in case of further procedures Code status - FULL Resident Physician Supervision Note: I was present with Dr. Dotson during the history and exam. I discussed the case with the resident and agree with the findings and plan as documented in the note. Unfortunate 41 y/o female with metastatic disease from uncertain primary , likely pulmonary. PLAN 1) Await tissue pathology; consult oncology. 2) Pain control, antiemetics, and bowel regimen to prevent constipation. If PRN medication needed at interval less than 2 hours, consider [employer]. Either way, will calculate needed medications over 24 hours and convert to long acting (MS Contin ) with oxycodone for breakthru pain. Avoid acetaminophen containing combinations given hepatic metastatic burden. 3) Add DVT prophylaxis (held for biopsy). Documented By: Jesse Brantley Continued [facility] stay due to: inadequate oral pain control Discharge planning: uncertain Resident Tracking Resident Involvement: Resident Care Provided Care Provided: Adult Hospital Medicine
[2017-06-01] MEDS ORDERED: MoRPHine SULFATE 2 MG/ML CARP IV PRN (07:45)
[2017-06-01 07:53] LABS: HEMATOCRIT 35.9 % (37-47); HEMOGLOBIN 12.2 g/dL (12.0-16.0); MEAN CELL VOLUME 90.9 fL (80-100); MEAN CORPUSCULAR HEMOGLOBIN 30.9 pg (25-34); MEAN PLATELET VOLUME 10.8 fL (7.4-10.4); PLATELET COUNT 193 K/uL (130-400); RED CELL DISTRIBUTION WIDTH CV 13.6 % (11.5-14.5); RED CELL DISTRIBUTION WIDTH SD 44.8 fL (36.4-46.3); WHITE BLOOD COUNT 7.26 K/uL (4.8-10.8)
[2017-06-01] MEDS: MoRPHine SULFATE 4 MG/ML 1 ML CARP\\VIAL IV PRN ×3 (08:25→16:49)
[2017-06-01 08:27] LABS: CALCIUM 8.1 mg/dl (8.5-10.1); CREATININE 0.58 mg/dl (0.60-1.20); POTASSIUM 3.8 mmol/L (3.5-5.1)
[2017-06-01 10:27] LABS: ALBUMIN 2.9 gm/dl (3.4-5.0); TOTAL PROTEIN 6.1 gm/dl (6.4-8.2)
[2017-06-01] MEDS ORDERED: PROMETHAZINE HCL INJ 12.5 MG in SODIUM CHLORIDE 0.9% 50ML 50 ML IV PRN (11:15)
--- NOTE | 2017-06-01 14:15 | DIAGNOSTIC IMAGING REPORT ---
ULTRASOUND-GUIDED FINAL ASPIRATION OF A RIGHT NECK NODE CLINICAL HISTORY: Right neck mass. Liver mass. Lung mass. Breast mass. COMPARISON STUDY: CT scan dated 05/31/2017, ultrasound dated 05/16/2017 FINDINGS: A timeout was performed. The risks the procedure were explained the patient informed consent was obtained. The options of performing a neck final aspiration biopsy versus performing a liver no aspiration biopsy were discussed with the patient. It was decided to first proceed with the neck fine-needle aspiration biopsy. The patient's right neck was prepped in sterile fashion. The skin was anesthetized 1% lidocaine. 3 samples with a 25-gauge needle were performed. Lesional tissue was obtained. As the neck node is pulmonary positive for carcinoma, it makes most sent to proceed with an excisional biopsy should pathologic material be insufficient to obtain optimal genomic information. It was felt that obtaining tissue would not likely add significant diagnostic information. IMPRESSION: Successful fine-needle aspiration biopsy of a superficial 7 mm right neck lymph node. Initial pathologic review indicates satisfactory material for diagnosis. Electronically signed by: Preston Dumont M.D. 06/01/2017 2:14 PM Dictated Date/Time: 06/01/2017 2:09 PM
[2017-06-01] MEDS ORDERED: MoRPHine SULFATE 2 MG/ML CARP IV STA (14:17)
--- NOTE | 2017-06-01 14:20 | SURGICAL CONSULTATION ---
DATE OF CONSULTATION: 06/01/2017 Ms. Mcgarry was seen today on 06/01/2017. I have just reviewed the patient's CT scan of her abdomen and her chest done this morning. I had tentatively planned to do electromagnetic navigational bronchoscopy and endobronchial ultrasound; however, patient's CT scan with contrast shows she has obvious hepatic metastases. For this reason, I have set her up for a needle biopsy and ultrasound or CT guidance on 06/02/2017. However, the patient developed intractable pain not only in her chest but especially her abdomen. She had to be admitted for parenteral narcotics. She states that she feels a bit better. Her physical exam is underwhelming. She did have a small subcutaneous nodule in her right neck. She also has marked mediastinal adenopathy with left lower lobe lung mass and hepatic metastases. I discussed this case in detail with the radiologist. I also had a very long discussion with the patient this morning. I have explained my suspicion is she has a left lower lobe primary lung carcinoma with lymph node metastases as well as a hepatic metastasis. This may be causing her abdominal pain. At this point, I think it is important for us to get tissue. It is also important for us to get enough tissue to do genomic testing. I discussed this case with radiology and they are going to perform an ultrasound guided or a CT guided biopsy of the liver mass. I am hopeful that they can do a core biopsy, so will have enough tissue for genomic testing. I discussed this in detail with the patient. JULIO CÉSAR
[2017-06-01 15:46] VITALS: BP 110/70; PULSE 70; TEMP 36.7; O2SAT 95
[2017-06-01] MEDS ORDERED: ONDANSETRON INJ 2 MG/ML 2 ML VIAL IV PRN (17:00)
[2017-06-01] MEDS: ONDANSETRON INJ 8 MG in DEXTROSE 5% 50ML 50 ML IV PRN (18:07)
[2017-06-01] MEDS: MoRPHine SULFATE 2 MG/ML CARP IV PRN ×2 (20:45→23:44)
[2017-06-01] MEDS: DOCUSATE SODIUM 100 MG CAP PO SCH (20:48)
[2017-06-01 22:43] VITALS: BP 97/58; PULSE 67; TEMP 37; O2SAT 97
[2017-06-02] MEDS: ONDANSETRON INJ 8 MG in DEXTROSE 5% 50ML 50 ML IV PRN (00:23)
[2017-06-02] MEDS: MoRPHine SULFATE 2 MG/ML CARP IV PRN ×2 (05:29→08:17)
[2017-06-02 05:52] LABS: BASO % 0.3 %; BASO ABS # 0.02 K/uL (0-0.2); EOS % 4.7 %; EOS ABS # 0.34 K/uL (0-0.5); HEMATOCRIT 37.3 % (37-47); HEMOGLOBIN 12.6 g/dL (12.0-16.0); IG# 0.02 K/uL (0.00-0.02); LYMPH % 30.4 %; MEAN CELL VOLUME 91.9 fL (80-100); MEAN CORPUSCULAR HGB CONC 33.8 g/dl (32-36); MEAN PLATELET VOLUME 11.3 fL (7.4-10.4); NEUT % 53.3 %; NEUT ABS # 3.86 K/uL (1.4-6.5); PLATELET COUNT 215 K/uL (130-400); RED CELL DISTRIBUTION WIDTH CV 13.6 % (11.5-14.5); RED CELL DISTRIBUTION WIDTH SD 45.7 fL (36.4-46.3); WHITE BLOOD COUNT 7.24 K/uL (4.8-10.8)
[2017-06-02 06:18] LABS: ALT/SGPT 138 U/L (12-78); AST/SGOT 42 U/L (15-37); BLOOD UREA NITROGEN 7 mg/dl (7-18); CALCIUM 8.3 mg/dl (8.5-10.1); CARBON DIOXIDE 28 mmol/L (21-32); CREATININE 0.75 mg/dl (0.60-1.20); GLUCOSE 80 mg/dl (70-99); SODIUM 139 mmol/L (136-145)
[2017-06-02 06:22] LABS: ALKALINE PHOSPHATASE 105 U/L (45-117); TOTAL PROTEIN 6.6 gm/dl (6.4-8.2)
--- NOTE | 2017-06-02 07:23 | Family Medicine Progress Note ---
Progress Note Date of Service Jun 02, 2017. Subjective Pt evaluation today including: conversation w/ patient, physical exam, chart review, lab review, conversation w/ animal nutrition consultant Pain: Continues to have ongoing pain PO Intake: Good, no nausea Voiding: no voiding problems, no incontinence Today complains of ongoing chest and RUQ abdomen discomfort States that Morphine helps but she is not getting it frequently enough Has been able to sleep Family at bedside and questions answered No new concerns from nursing overnight Constitutional: No fever, No chills, No sweats Eyes: No worsening of vision, No redness, No discharge ENT: No nasal symptoms, No sore throat, No tinnitus Respiratory: No cough, No shortness of breath, No dyspnea on exertion Cardiovascular: + chest pain, No orthopnea, No palpitations Abdomen: + pain (RUQ), No nausea, No vomiting, No diarrhea Musculoskeletal: No joint pain, No muscle pain Female : No urinary frequency Neurologic: No weakness, No numbness/tingling, No vertigo Heme: No clotting problems, No swollen lymph nodes, No night sweats Endo: No fatigue, No excessive thirst, No excessive urination Skin: No rash, No new/changing skin lesions, No color change All Other Systems: Reviewed and Negative Medications Current Inpatient Medications Medications (Trade) Dose Ordered Sig/Saul Route Start Time Stop Time Status Last Admin Dose Admin Acetaminophen (Tylenol Tab) 650 mg Q4H PRN PO 06/01/17 00:45 07/01/17 00:44 Al Hydrox/Mg Hydrox/Simethicone (Maalox Max Susp) 15 ml Q4H PRN PO 06/01/17 00:45 07/01/17 00:44 Magnesium Hydroxide (Milk Of Magnesia Susp) 30 ml Q6H PRN PO 06/01/17 00:45 07/01/17 00:44 Promethazine HCl 12.5 mg/Sodium Chloride 50.5 ml @ 204 mls/hr Q6H PRN IV 06/01/17 11:15 07/01/17 11:14 06/01/17 12:23 204 MLS/HR Docusate Sodium (coLACE CAP) 100 mg BID PO 06/01/17 21:00 07/01/17 20:59 06/02/17 08:17 100 MG Ondansetron HCl 8 mg/Dextrose 54 ml @ 216 mls/hr Q6H PRN IV 06/01/17 17:00 07/01/17 16:59 06/02/17 00:23 216 MLS/HR Enoxaparin Sodium (Lovenox Inj) 40 mg QAM SQ 06/02/17 09:00 07/02/17 08:59 06/02/17 08:58 40 MG Morphine Sulfate (MoRPHine SULFATE INJ) 2 mg Q2H IV 06/02/17 09:00 06/15/17 07:44 06/02/17 10:54 2 MG Fentanyl Citrate (Fentanyl Inj) 25 mcg Q5M PRN IV 06/02/17 12:30 06/02/17 17:00 Hydromorphone HCl (Dilaudid Inj) 0.5 mg Q5M PRN IV 06/02/17 12:30 06/02/17 17:00 Ondansetron HCl (Zofran Inj) 4 mg ONE PRN IV 06/02/17 12:30 06/02/17 17:00 Promethazine HCl 12.5 mg/Sodium Chloride 50.5 ml @ 202 mls/hr ONE PRN IV 06/02/17 12:30 06/02/17 17:00 Ephedrine Sulfate (EpHEDrine SULFATE INJ) 5 mg Q5M PRN IV 06/02/17 12:30 06/02/17 17:00 Atropine Sulfate (Atropine Sulfate 0.1mg/ml Inj) 0.5 mg Q1M PRN IV 06/02/17 12:30 06/02/17 17:00 Acetaminophen/ Hydrocodone Bitart (Yoder 5/325 Tab) 1 tab Q4H PRN PO 06/02/17 13:15 06/16/17 13:14 Objective Vital Signs Date Time Temp Pulse Resp B/P (MAP) Pulse Ox O2 Delivery O2 Flow Rate FiO2 06/02/17 14:09 2 Nasal Cannula 100.0 06/02/17 13:45 36.5 66 16 106/71 99 Nasal Cannula 3 06/02/17 13:35 69 16 118/71 98 Nasal Cannula 3 06/02/17 13:25 60 16 112/76 98 Nasal Cannula 3 06/02/17 13:15 62 16 105/76 98 Nasal Cannula 3 06/02/17 13:06 36.4 72 12 106/57 98 Nasal Cannula 4 06/02/17 08:00 Room Air 06/02/17 07:47 37.0 72 16 92/58 (69) 95 Room Air 06/01/17 23:41 Room Air 06/01/17 22:43 37.0 67 15 97/58 (71) 97 Room Air 06/01/17 16:00 Room Air 06/01/17 15:46 36.7 70 16 110/70 (83) 95 Room Air Physical Exam General Appearance: WD/WN, no apparent distress Eyes: normal inspection, EOMI ENT: hearing grossly normal, pharynx normal Neck: supple, no adenopathy, no JVD Respiratory/Chest: lungs clear, no respiratory distress Cardiovascular: regular rate, rhythm, no gallop, no murmur Abdomen: normal bowel sounds, no organomegaly, no pulsatile mass, + pertinent finding (discomfort with RUQ palpation) Extremities: non-tender, no pedal edema Neurologic/Psychiatric: alert, oriented x 3 Skin: normal color, warm/dry, no rash Lymphatic: no adenopathy Laboratory Results Last 24 Hours Test 06/02/17 05:28 White Blood Count 7.24 K/uL Red Blood Count 4.06 M/uL Hemoglobin 12.6 g/dL Hematocrit 37.3 % Mean Corpuscular Volume 91.9 fL Mean Corpuscular Hemoglobin 31.0 pg Mean Corpuscular Hemoglobin Concent 33.8 g/dl Platelet Count 215 K/uL Mean Platelet Volume 11.3 fL Neutrophils (%) (Auto) 53.3 % Lymphocytes (%) (Auto) 30.4 % Monocytes (%) (Auto) 11.0 % Eosinophils (%) (Auto) 4.7 % Basophils (%) (Auto) 0.3 % Neutrophils # (Auto) 3.86 K/uL Lymphocytes # (Auto) 2.20 K/uL Monocytes # (Auto) 0.80 K/uL Eosinophils # (Auto) 0.34 K/uL Basophils # (Auto) 0.02 K/uL RDW Standard Deviation 45.7 fL RDW Coefficient of Variation 13.6 % Immature Granulocyte % (Auto) 0.3 % Immature Granulocyte # (Auto) 0.02 K/uL Sodium Level 139 mmol/L Potassium Level 4.0 mmol/L Chloride Level 108 mmol/L Carbon Dioxide Level 28 mmol/L Anion Gap 3.0 mmol/L Blood Urea Nitrogen 7 mg/dl Creatinine 0.75 mg/dl Est Creatinine Clear Calc Drug Dose 99.5 ml/min Estimated GFR () 114.8 Estimated GFR (Non- 99.0 BUN/Creatinine Ratio 8.7 Random Glucose 80 mg/dl Calcium Level 8.3 mg/dl Total Bilirubin 0.4 mg/dl Aspartate Amino Transf (AST/SGOT) 42 U/L Alanine Aminotransferase (ALT/SGPT) 138 U/L Alkaline Phosphatase 105 U/L Troponin I < 0.015 ng/ml Total Protein 6.6 gm/dl Albumin 3.0 gm/dl Globulin 3.6 gm/dl Albumin/Globulin Ratio 0.8 Assessment and Plan 41 yo F smoker with multiple recent ED visits for chest pain. On most recent visit, had CT which showed left lung mass likely primary carcinoma, suspected liver metastases caught on imaging. She is day 1 s/p U/S guided bx. Pathology is not sufficient, so additional tissue specimen is required. She is for lymph node biopsy by general surgery today. Current goals of care are achieving adequate pain control. Chest and abdominal pain likely secondary to carcinoma - CT surgery consultation recommendations appreciated - Oncology consultation placed - Surgical evaluation appreciated; to have excisional biopsy today - Will make Morphine 2 mg q2h scheduled to ensure she gets it on time will total 24 hour and give long-acting morphine as needed - Zofran and Phenergan for nausea Tobacco use - Smoking cessation counseling VTE ppx - SCD - Lovenox 40 mg Code status - FULL Disposition - Remain in hospital due to uncontrolled pain - Plan to discharge patient back to home when ready Continued [facility] stay due to: inadequate oral pain control Discharge planning: home Assessment/Plan Resident Physician Supervision Note: I was present with Dr. Lobo during the history and exam. I discussed the case with the resident and agree with the findings and plan as documented in the note. Any exceptions or clarifications are listed here: Pt seen following excisional biopsy - reports pain is routinely 5/10, but was better on the higher dose of morphine, though she would have required it more frequently (q3-4 ) than on the lower q2 standing order. Based on her medication use, will increase and then choose delivery chronically based on choice of medication. Of note, the patient complains of a ripping/tearing left central abdominal pain which has been persistent for some time which occurs with engagement of the abdominal muscles and movement, and abates at rest today. Will discuss and manage with remainder of pain - CT abd reviewed for potential cause.
[2017-06-02 07:47] VITALS: BP 92/58; PULSE 72; TEMP 37; O2SAT 95
[2017-06-02] MEDS: DOCUSATE SODIUM 100 MG CAP PO SCH ×2 (08:17→21:31)
[2017-06-02] MEDS: ENOXAPARIN 40 MG/0.4 ML SYR SQ SCH (08:58)
--- NOTE | 2017-06-02 10:07 | Surgery Consultation ---
Consultation Date of Consultation: Jun 02, 2017. Attending Physician: Jorge Lala MD Reason for Consultation: Posterior neck lymph node biopsy History of Present Illness 41-year-old female that I saw in the clinic a few days ago for evaluation of a right posterior neck mass as well as a small breast mass. She had a recent CT scan shows a lung mass and some hilar lymphadenopathy, and then we performed a CT scan of her abdomen which showed liver metastasis. She was also seen by Dr. Resendiz for evaluation of the lung mass. She had severe pain in her chest and was admitted to the hospital Monday evening. I fine-needle aspiration was performed of the right posterior neck mass and it returned metastatic lung cancer. There was not enough tissue to perform further testing on the specimen , therefore we are being consulted for excisional biopsy of the right posterior neck mass. Past Medical/Surgical History Medical Problems: (1) Chest pain Status: Acute (2) Chest wall pain Status: Acute (3) Lung mass Status: Acute (4) Metastatic cancer Status: Acute (5) Neuritis of left ulnar nerve Status: Acute Past surgical history: Abdominal plasty, section, laparoscopic cholecystectomy, elbow surgery, hysterectomy, lumpectomy Family History Blood clots Cancer Diabetes mellitus Gallbladder disease Heart disease Hypertension Seizures Mother with breast cancer, daughter with thyroid cancer Social History Smoking Status: Former Smoker Drug Use: none Marital Status: Occupation Status: employed Allergies Coded Allergies: No Known Allergies (Verified , 05/31/17) Home Medications No Active Prescriptions or Reported Meds Current Inpatient Medications Current Inpatient Medications Medications (Trade) Dose Ordered Sig/Saul Route Start Time Stop Time Status Last Admin Dose Admin Acetaminophen (Tylenol Tab) 650 mg Q4H PRN PO 06/01/17 00:45 07/01/17 00:44 Al Hydrox/Mg Hydrox/Simethicone (Maalox Max Susp) 15 ml Q4H PRN PO 06/01/17 00:45 07/01/17 00:44 Magnesium Hydroxide (Milk Of Magnesia Susp) 30 ml Q6H PRN PO 06/01/17 00:45 07/01/17 00:44 Promethazine HCl 12.5 mg/Sodium Chloride 50.5 ml @ 204 mls/hr Q6H PRN IV 06/01/17 11:15 07/01/17 11:14 06/01/17 12:23 204 MLS/HR Docusate Sodium (coLACE CAP) 100 mg BID PO 06/01/17 21:00 07/01/17 20:59 06/02/17 08:17 100 MG Ondansetron HCl 8 mg/Dextrose 54 ml @ 216 mls/hr Q6H PRN IV 06/01/17 17:00 07/01/17 16:59 06/02/17 00:23 216 MLS/HR Enoxaparin Sodium (Lovenox Inj) 40 mg QAM SQ 06/02/17 09:00 07/02/17 08:59 06/02/17 08:58 40 MG Morphine Sulfate (MoRPHine SULFATE INJ) 2 mg Q2H IV 06/02/17 09:00 06/15/17 07:44 Review of Systems Ten point review of systems negative except as above Physical Exam Date Time Temp Pulse Resp B/P (MAP) Pulse Ox O2 Delivery O2 Flow Rate FiO2 06/02/17 07:47 37.0 72 16 92/58 (69) 95 Room Air 06/01/17 23:41 Room Air 06/01/17 22:43 37.0 67 15 97/58 (71) 97 Room Air 06/01/17 16:00 Room Air 06/01/17 15:46 36.7 70 16 110/70 (83) 95 Room Air General Appearance: WD/WN, no apparent distress Head: normocephalic, atraumatic Eyes: normal inspection, PERRL, EOMI ENT: normal ENT inspection, hearing grossly normal, TMs normal Neck: supple, thyroid normal, + pertinent finding (On the posterior right neck there is approximately 1 centimeter firm and partially mobile mass in the posterior chain approximately level of C4.) Respiratory/Chest: lungs clear, normal breath sounds, no respiratory distress, no accessory muscle use Cardiovascular: regular rate, rhythm, no edema, no gallop, no JVD, no murmur, normal peripheral pulses Abdomen/GI: normal bowel sounds, non tender, soft, no organomegaly, no pulsatile mass, + pertinent finding (Abdominal incisions well healed, no evidence of hernia) Back: normal inspection, no CVA tenderness, no muscle spasm, normal range of motion Extremities/Musculoskelatal: normal inspection, no calf tenderness, normal capillary refill, no pedal edema Neurologic/Psych: head counselor II-XII nml as tested, no motor/sensory deficits, alert, normal mood/affect, normal reflexes, oriented x 3 Skin: normal color, warm/dry, no rash Laboratory Results Last 24 Hours Test 06/02/17 05:28 White Blood Count 7.24 K/uL Red Blood Count 4.06 M/uL Hemoglobin 12.6 g/dL Hematocrit 37.3 % Mean Corpuscular Volume 91.9 fL Mean Corpuscular Hemoglobin 31.0 pg Mean Corpuscular Hemoglobin Concent 33.8 g/dl Platelet Count 215 K/uL Mean Platelet Volume 11.3 fL Neutrophils (%) (Auto) 53.3 % Lymphocytes (%) (Auto) 30.4 % Monocytes (%) (Auto) 11.0 % Eosinophils (%) (Auto) 4.7 % Basophils (%) (Auto) 0.3 % Neutrophils # (Auto) 3.86 K/uL Lymphocytes # (Auto) 2.20 K/uL Monocytes # (Auto) 0.80 K/uL Eosinophils # (Auto) 0.34 K/uL Basophils # (Auto) 0.02 K/uL RDW Standard Deviation 45.7 fL RDW Coefficient of Variation 13.6 % Immature Granulocyte % (Auto) 0.3 % Immature Granulocyte # (Auto) 0.02 K/uL Sodium Level 139 mmol/L Potassium Level 4.0 mmol/L Chloride Level 108 mmol/L Carbon Dioxide Level 28 mmol/L Anion Gap 3.0 mmol/L Blood Urea Nitrogen 7 mg/dl Creatinine 0.75 mg/dl Est Creatinine Clear Calc Drug Dose 99.5 ml/min Estimated GFR () 114.8 Estimated GFR (Non- 99.0 BUN/Creatinine Ratio 8.7 Random Glucose 80 mg/dl Calcium Level 8.3 mg/dl Total Bilirubin 0.4 mg/dl Aspartate Amino Transf (AST/SGOT) 42 U/L Alanine Aminotransferase (ALT/SGPT) 138 U/L Alkaline Phosphatase 105 U/L Troponin I < 0.015 ng/ml Total Protein 6.6 gm/dl Albumin 3.0 gm/dl Globulin 3.6 gm/dl Albumin/Globulin Ratio 0.8 ABD/PELVIS IV AND ORAL CONT CT DOSE: 547.78 mGycm HISTORY: Pain ABDOMINAL PAIN TECHNIQUE: Multiaxial CT images of the abdomen and pelvis were performed following the use of intravenous and oral contrast. A dose lowering technique was utilized adhering to the principles of ALARA. COMPARISON STUDY: 07/27/2015 FINDINGS: 2.8 x 2.3 cm mass medial left base. Ill-defined parenchymal infiltrative changes left lung base. Right base is clear. Multiple hypodensities within the right as well as left hepatic lobes which were not present on the prior exam. Maximum dimension involving the right hepatic lobe is 2.8 cm. Maximum dimension posterior left hepatic lobe is 2.3 cm. Multiple additional smaller deposits are identified throughout. These is suggestive of metastatic deposits. The spleen is uniform. Pancreas appears unremarkable. Kidneys enhance uniformly. No evidence of mass or hydronephrosis. Moderate increase in fecal load throughout the colon consistent with a component of fecal stasis. Nonobstructive bowel pattern. Bilateral cystic changes of the ovaries. On the left largest measures 2.4 cm and on the right 2.1 cm. There is no significant abdominal pelvic or inguinal adenopathy. IMPRESSION: 1. Multiple metastatic foci within the liver. 2. Prior cholecystectomy. 3. Increased fecal load within the colon consistent with fecal stasis. 4. Bilateral ovarian cysts. The above report was generated using voice recognition software. It may contain grammatical, syntax or spelling errors. [~ rep ct add3]] CT SCAN OF THE CHEST WITHOUT IV CONTRAST CLINICAL HISTORY: Pulmonary nodule. COMPARISON STUDY: Chest CT dated 05/25/2017. Abdominal CT scans dated 05/31/2017 an 07/27/2015. TECHNIQUE: CT scan of the thorax was performed from the thoracic inlet to the upper abdomen. Images are reviewed in the axial, sagittal, and coronal planes. IV contrast was not administered for this examination as per the referring clinician. A dose lowering technique was utilized adhering to the principles of ALARA. CT DOSE: 266.18 mGycm FINDINGS: Thyroid: Imaged portions of the thyroid gland are normal in size and attenuation. Thoracic aorta: The thoracic aorta is normal in caliber and demonstrates standard 3-vessel arch anatomy. Heart: The heart is normal in size and there is a small pericardial effusion. Lungs and pleural spaces: There is a 3.5 x 2.3 cm irregular mass lesion at the medial left lung base seen on image #194. The appearance is highly concerning for neoplasm. Intralobular septal thickening is noted in the left lower lobe and lingula with foci of nodularity. This suggests lymphocytic spread of tumor. Thickening and nodularity seen along the left major fissure on image #135. The right lung appears clear. No airspace consolidation is seen typical for pneumonia and there is no pleural effusion. The trachea and central airways are patent. Mediastinum: There is mediastinal lymphadenopathy. Peritracheal nodes measure up to 11 mm in short axis. A subcarinal node measures up to 12 mm short axis. Glenna: Not well assessed without IV contrast. Axillae: There is no axillary lymphadenopathy. Upper abdomen: There are numerous low-attenuation hepatic lesions identified. The largest is seen in the left lobe and measures up to 4.9 cm. These are new from 2016 and consistent with metastatic disease. Skeletal structures: No lytic or blastic bony lesions are seen. IMPRESSION: 1. There is a 3.5 x 2.3 cm irregular mass lesion at the medial left lung base. This should be considered lung cancer until proven otherwise. 2. Findings are highly concerning for lymphangitic spread of tumor in the left lower lobe and lingula. 3. The right lung appears clear. 4. There is evidence of multifocal hepatic metastatic disease. 5. Mediastinal lymphadenopathy is concerning for metastatic involvement. 6. There is no airspace consolidation typical for pneumonia or pleural effusion. 7. Trace pericardial effusion. Assessment & Plan 41-year-old female with metastatic lung cancer. This was confirmed by FNA of a right posterior neck lymph node, however, there is not enough tissue to perform further testing such as EGFR testing. Excisional biopsy has been determined to be necessary. Plan for excisional biopsy right posterior neck mass The risks of the procedure were discussed to include but are not limited to bleeding, infection, need for future more extensive surgery, seroma/hematoma, damage to surrounding structures and nerve tissue, and the risks of anesthesia The diagnosis, details of the procedure and recovery, and plan of care were discussed the patient, all questions were answered, the patient expressed understanding agrees the plan of care as stated.
--- NOTE | 2017-06-02 10:31 | SURGERY PROGRESS NOTE ---
DATE: 06/02/2017 Ms. Mcgarry was seen today on 06/02/2017. She has been of course devastated by the news that this is a carcinoma. I discussed this case with Dr. Jovan Amador, Dr. Lino Cardenas, and Dr. Jhonathan De Oliveira. I also had a long discussion with the patient, her significant other and her 2 daughters. We are going to proceed with an excision of this mass. Dr. Cardenas will do this today. We do not have enough tissue from FNA of this right subcutaneous neck nodule for any genomic studies, which would probably be first-line. Dr. Cardenas is going to excise this mass. We will not do a frozen section. We will submit it directly to pathology to send off for genomic studies.
[2017-06-02] MEDS: MoRPHine SULFATE 4 MG/ML 1 ML CARP\\VIAL IV SCH ×7 (10:54→22:30)
[2017-06-02] MEDS ORDERED: MIDAZOLAM HCL 1 MG/ML 2ML VIAL ONE (10:55)
[2017-06-02] MEDS ORDERED: FENTANYL CITRATE INJ 50 MCG/1 ML 2 ML VIAL ONE (10:56)
[2017-06-02] MEDS ORDERED: CEFAZOLIN SOD 2000MG/15 ML IV PUSH IV ONE (11:15)
[2017-06-02] MEDS ORDERED: BUPIVACAINE 0.5 % 5 MG/1 ML MPF 30ML VIAL ONE (11:31)
[2017-06-02] MEDS ORDERED: LIDOCAINE/EPINEPHRINE 1% 20 ML VIAL ONE (11:31)
[2017-06-02] MEDS ORDERED: ONDANSETRON INJ 2 MG/ML 2 ML VIAL IV PRN (12:30)
[2017-06-02] MEDS ORDERED: PROMETHAZINE HCL INJ 12.5 MG in SODIUM CHLORIDE 0.9% 50ML 50 ML IV PRN (12:30)
[2017-06-02] MEDS ORDERED: FENTANYL CITRATE INJ 50 MCG/1 ML 2 ML VIAL IV PRN (12:30)
[2017-06-02] MEDS ORDERED: HYDROmorphone INJ 2 MG/ML SYR/VIAL IV PRN (12:30)
[2017-06-02] MEDS ORDERED: ATROPINE SULFATE 0.1 MG/ML 5ML SYR IV PRN (12:30)
[2017-06-02] MEDS ORDERED: EpHEDrine SULFATE INJ 50 MG/ML AMP IV PRN (12:30)
[2017-06-02] MEDS ORDERED: PROPOFOL IV EMULSION 10 MG/ML 20 ML VIAL IV ONE (12:56)
--- NOTE | 2017-06-02 12:56 | [facility] Post Operative Brief Note ---
Immediate Operative Summary Operative Date Jun 02, 2017. Pre-Operative Diagnosis metastatic lung cancer Post-Operative Diagnosis same as preop Procedure(s) Performed Right Posterior Neck Excision Surgeon Dr. Cardenas Electrotype Servicer Surgeon(s) Meño Andrew PA-C Estimated Blood Loss 1ml Findings Consistent with Post-Op Diagnosis 7 mm lymph node excised. Specimens Fresh Specimen: A.) Right Cervical Lymph Node - sent out of room to lab by OR marshall Larson at 1253. Drains None Anesthesia Type MAC Complication(s) none Disposition Accompanied Pt To Recover: no Disposition: Recovery Room / PACU
--- NOTE | 2017-06-02 13:00 | [facility] Operative Report ---
Operative Report Operative Date Jun 02, 2017. Pre-Operative Diagnosis metastatic lung cancer Post-Operative Diagnosis Same Procedure(s) Performed Excisional biopsy right cervical lymph node Surgeon Dr. Cardenas Senior Product Analyst Surgeon(s) Meño Andrew PA-C Estimated Blood Loss 1ml Findings 7 mm lymph node excised and sent as specimen Specimens Fresh Specimen: A.) Right Cervical Lymph Node - sent out of room to lab by BAHMAN Larson at 1253. Drains None Anesthesia MAC/local Complication(s) None Disposition Recovery Room / PACU Indications 41-year-old female with recent diagnosis of metastatic lung cancer. She had an FNA of a cervical lymph node that confirmed the diagnosis, but needs more tissue for further analysis. Plan for excisional biopsy of right posterior neck mass. The risks of the procedure were discussed, all questions were answered, and the patient agreed to proceed with surgery as planned. Description of Procedure The patient was properly identified, consented, and taken to the operating room where she was placed in the lateral decubitus position with the left side down. Monitored anesthesia care was induced. SCDs and a safety belt were placed. Preoperative antibiotics were administered. The patient's right neck was prepped and draped in the standard sterile fashion. Surgical timeout was performed and all parties were in agreement that this was the correct patient and procedure to be performed and we continued as planned. Local anesthetic was injected along the skin incision. A transverse incision was made overlying the mass and deepened down through the subcutaneous tissue with electrocautery. The platysma was divided. The lymph node was circumferentially dissected, excised, and passed off the table as fresh specimen. The stalk was controlled with 3-0 silk tie. The wound was irrigated and hemostasis was confirmed. The skin was closed with interrupted 3-0 Vicryl deep dermal sutures, followed by 4-0 Monocryl running subcuticular suture. Dermabond was placed over the wound. Anesthesia was ceased in the operating room and the patient was taken to the PACU where she recovered without apparent incident. All sponge, instrument and needle counts were correct at the conclusion of the procedure. The patient tolerated the procedure well. The physician's licensed physical therapy assistant was present and scrubbed for the entirety of the case. He was essential in positioning the patient, prepping and draping, retraction and exposure, excision of the lymph node, closure of the skin incision, placement of the dressings. I attest to the content of the Intraoperative Record and any orders documented therein. Any exceptions are noted below.
[2017-06-02] MEDS ORDERED: HYDROCODONE/ACETAMIN 5/325MG TAB PO PRN (13:15)
--- NOTE | 2017-06-02 14:03 | Anesthesiology Progress Note ---
Anesthesia Post Op Note Date & Time Jun 02, 2017 at 14:03 Vital Signs Pain Intensity: 0 Vital Signs Past 12 Hours Date Time Temp Pulse Resp B/P (MAP) Pulse Ox O2 Delivery O2 Flow Rate FiO2 06/02/17 13:45 36.5 66 16 106/71 99 Nasal Cannula 3 06/02/17 13:35 69 16 118/71 98 Nasal Cannula 3 06/02/17 13:25 60 16 112/76 98 Nasal Cannula 3 06/02/17 13:15 62 16 105/76 98 Nasal Cannula 3 06/02/17 13:06 36.4 72 12 106/57 98 Nasal Cannula 4 06/02/17 08:00 Room Air 06/02/17 07:47 37.0 72 16 92/58 (69) 95 Room Air Notes Mental Status: alert / awake / arousable, participated in evaluation Pt Amnestic to Procedure: Yes Nausea / Vomiting: adequately controlled Pain: adequately controlled Airway Patency, RR, SpO2: stable & adequate BP & HR: stable & adequate Hydration State: stable & adequate Anesthetic Complications: no major complications apparent
[2017-06-02 14:09] VITALS: O2SAT 2
[2017-06-02 15:00] VITALS: BP 105/69; PULSE 61; TEMP 37; O2SAT 97
--- NOTE | 2017-06-02 16:51 | Oncology Consultation ---
Oncology/Heme Consultation Date of Consultation: Jun 02, 2017. Attending Physician: Jorge Lala MD Reason for Consultation: Abdominal pain CT evidence of metastatic cancer History of Present Illness Ms. Mcgarry is an otherwise healthy 41 year old woman. She is a <1 PPD smoker. She developed worsening chest and RUQ pain over the last month or two that finally brought her to attention. She lost a bit of weight, but not markedly so. She denies any hemoptysis, changes in bowel habits, breast masses, new or enlarging skin lesions, or unexplained vaginal bleeding. She has noticed a roughly marble-sized nodule in her right neck that has waxed and waned a bit over the last month. Scans here reveal a LLL lung mass, mediastinal adenopathy, and evidence of numerous liver lesions. The right neck nodule, a lymph node, was biopsied by FNA yesterday, with a preliminary interpretation suggesting cancer. She is still in a considerable amount of pain and is using IV morphine every 2-3 hours. The pain is mostly in her RUQ. The morphine helps but she falls behind at night. Past Medical/Surgical History Medical Problems: (1) Chest pain Status: Acute (2) Chest wall pain Status: Acute (3) Lung mass Status: Acute (4) Metastatic cancer Status: Acute (5) Neuritis of left ulnar nerve Status: Acute Family History Blood clots Cancer Diabetes mellitus Gallbladder disease Heart disease Hypertension Seizures Social History Smoking Status: Former Smoker Drug Use: none Marital Status: Occupation Status: employed Allergies Coded Allergies: No Known Allergies (Verified , 06/02/17) Home Medications No Active Prescriptions or Reported Meds Current Inpatient Medications Current Inpatient Medications Medications (Trade) Dose Ordered Sig/Saul Route Start Time Stop Time Status Last Admin Dose Admin Acetaminophen (Tylenol Tab) 650 mg Q4H PRN PO 06/01/17 00:45 07/01/17 00:44 Al Hydrox/Mg Hydrox/Simethicone (Maalox Max Susp) 15 ml Q4H PRN PO 06/01/17 00:45 07/01/17 00:44 Magnesium Hydroxide (Milk Of Magnesia Susp) 30 ml Q6H PRN PO 06/01/17 00:45 07/01/17 00:44 Promethazine HCl 12.5 mg/Sodium Chloride 50.5 ml @ 204 mls/hr Q6H PRN IV 06/01/17 11:15 07/01/17 11:14 06/01/17 12:23 204 MLS/HR Docusate Sodium (coLACE CAP) 100 mg BID PO 06/01/17 21:00 07/01/17 20:59 06/02/17 08:17 100 MG Ondansetron HCl 8 mg/Dextrose 54 ml @ 216 mls/hr Q6H PRN IV 06/01/17 17:00 07/01/17 16:59 06/02/17 00:23 216 MLS/HR Enoxaparin Sodium (Lovenox Inj) 40 mg QAM SQ 06/02/17 09:00 07/02/17 08:59 06/02/17 08:58 40 MG Morphine Sulfate (MoRPHine SULFATE INJ) 2 mg Q2H IV 06/02/17 09:00 06/15/17 07:44 06/02/17 14:59 2 MG Fentanyl Citrate (Fentanyl Inj) 25 mcg Q5M PRN IV 06/02/17 12:30 06/02/17 17:00 Hydromorphone HCl (Dilaudid Inj) 0.5 mg Q5M PRN IV 06/02/17 12:30 06/02/17 17:00 Ondansetron HCl (Zofran Inj) 4 mg ONE PRN IV 06/02/17 12:30 06/02/17 17:00 Promethazine HCl 12.5 mg/Sodium Chloride 50.5 ml @ 202 mls/hr ONE PRN IV 06/02/17 12:30 06/02/17 17:00 Ephedrine Sulfate (EpHEDrine SULFATE INJ) 5 mg Q5M PRN IV 06/02/17 12:30 06/02/17 17:00 Atropine Sulfate (Atropine Sulfate 0.1mg/ml Inj) 0.5 mg Q1M PRN IV 06/02/17 12:30 06/02/17 17:00 Acetaminophen/ Hydrocodone Bitart ([place] 5/325 Tab) 1 tab Q4H PRN PO 06/02/17 13:15 06/16/17 13:14 Review of Systems Constitutional: + weight loss, + fatigue, No fever, No sweats ENT: No nasal symptoms Respiratory: No cough, No hemoptysis Cardiovascular: + chest pain Abdomen: + pain, No nausea, No vomiting, No GI bleeding Musculoskeletal: No joint pain, No muscle pain Genitourinary - Female: No hematuria, No vaginal bleeding Hematologic / Lymphatic: No abnormal bleeding/bruising, No night sweats Physical Exam Date Time Temp Pulse Resp B/P (MAP) Pulse Ox O2 Delivery O2 Flow Rate FiO2 06/02/17 15:00 37.0 61 18 105/69 (81) 97 Room Air 06/02/17 14:09 2 Nasal Cannula 100.0 06/02/17 13:45 36.5 66 16 106/71 99 Nasal Cannula 3 06/02/17 13:35 69 16 118/71 98 Nasal Cannula 3 06/02/17 13:25 60 16 112/76 98 Nasal Cannula 3 06/02/17 13:15 62 16 105/76 98 Nasal Cannula 3 06/02/17 13:06 36.4 72 12 106/57 98 Nasal Cannula 4 06/02/17 08:00 Room Air 06/02/17 07:47 37.0 72 16 92/58 (69) 95 Room Air 06/01/17 23:41 Room Air 06/01/17 22:43 37.0 67 15 97/58 (71) 97 Room Air General Appearance: WD/WN, no apparent distress ENT: pharynx normal Respiratory/Chest: lungs clear Cardiovascular: regular rate, rhythm Abdomen/GI: soft, + tenderness (in the RUQ) Extremities/Musculoskelatal: no pedal edema Neurologic/Psych: alert, oriented x 3 Lymphatic: + cervical node abnormality (round, hard 1 cm right posterior cervical lymph node) Laboratory Results Last 24 Hours Test 06/02/17 05:28 White Blood Count 7.24 K/uL Red Blood Count 4.06 M/uL Hemoglobin 12.6 g/dL Hematocrit 37.3 % Mean Corpuscular Volume 91.9 fL Mean Corpuscular Hemoglobin 31.0 pg Mean Corpuscular Hemoglobin Concent 33.8 g/dl Platelet Count 215 K/uL Mean Platelet Volume 11.3 fL Neutrophils (%) (Auto) 53.3 % Lymphocytes (%) (Auto) 30.4 % Monocytes (%) (Auto) 11.0 % Eosinophils (%) (Auto) 4.7 % Basophils (%) (Auto) 0.3 % Neutrophils # (Auto) 3.86 K/uL Lymphocytes # (Auto) 2.20 K/uL Monocytes # (Auto) 0.80 K/uL Eosinophils # (Auto) 0.34 K/uL Basophils # (Auto) 0.02 K/uL RDW Standard Deviation 45.7 fL RDW Coefficient of Variation 13.6 % Immature Granulocyte % (Auto) 0.3 % Immature Granulocyte # (Auto) 0.02 K/uL Sodium Level 139 mmol/L Potassium Level 4.0 mmol/L Chloride Level 108 mmol/L Carbon Dioxide Level 28 mmol/L Anion Gap 3.0 mmol/L Blood Urea Nitrogen 7 mg/dl Creatinine 0.75 mg/dl Est Creatinine Clear Calc Drug Dose 99.5 ml/min Estimated GFR () 114.8 Estimated GFR (Non- 99.0 BUN/Creatinine Ratio 8.7 Random Glucose 80 mg/dl Calcium Level 8.3 mg/dl Total Bilirubin 0.4 mg/dl Aspartate Amino Transf (AST/SGOT) 42 U/L Alanine Aminotransferase (ALT/SGPT) 138 U/L Alkaline Phosphatase 105 U/L Troponin I < 0.015 ng/ml Total Protein 6.6 gm/dl Albumin 3.0 gm/dl Globulin 3.6 gm/dl Albumin/Globulin Ratio 0.8 Assessment & Plan Ms. Mcgarry's scans are very suggestive of a metastatic malignancy. Based on the pattern, I would suspect a lung primary. Cervical adenopathy is a somewhat uncommon but not rare site of disease for lung cancer. The FNA obtained yesterday sounds like it might not be sufficient for diagnosis. I spoke with Dr. Resendiz today and he will arrange for an excisional biopsy. This should provide ample tissue for both diagnosis and for molecular testing as needed. The treatment of her cancer and prognosis will obviously depend upon her diagnosis. In the meantime, she is still in a great deal of pain and is not getting the relief she needs with her current regimen. I might consider a palliative care consult and a CLINICAL CARE COORDINATOR to help titrate her narcotic dosage.
[2017-06-02] MEDS ORDERED: OXYCODONE/ACETAMINOPHEN 5-325 TAB PO SCH (18:15)
[2017-06-02] MEDS ORDERED: MoRPHine SULFATE 2 MG/ML CARP IV PRN (18:30)
[2017-06-02 19:27] VITALS: BP 103/65; PULSE 68; TEMP 36.7; O2SAT 96
[2017-06-02 22:49] VITALS: BP 102/66; PULSE 55; TEMP 36.6; O2SAT 99
[2017-06-03] MEDS: MoRPHine SULFATE 4 MG/ML 1 ML CARP\\VIAL IV SCH ×6 (00:33→11:26)
[2017-06-03] MEDS: ONDANSETRON INJ 8 MG in DEXTROSE 5% 50ML 50 ML IV PRN ×2 (02:55→11:26)
[2017-06-03 03:22] VITALS: BP 104/68; PULSE 63; TEMP 36.6; O2SAT 95
[2017-06-03 07:26] VITALS: BP 105/64; PULSE 59; TEMP 36.7; O2SAT 94
--- NOTE | 2017-06-03 07:32 | Family Medicine Progress Note ---
Progress Note Date of Service Jun 03, 2017. Subjective Pt evaluation today including: conversation w/ patient, conversation w/ family , physical exam, chart review, lab review Patient remarks that abdominal pain is better controlled today. Constitutional: No fever, No chills, No sweats Respiratory: No cough, No sputum, No wheezing, No shortness of breath Cardiovascular: No chest pain, No palpitations Abdomen: + pain, + nausea, No vomiting, No diarrhea Female : No dysuria Medications Current Inpatient Medications Medications (Trade) Dose Ordered Sig/Saul Route Start Time Stop Time Status Last Admin Dose Admin Acetaminophen (Tylenol Tab) 650 mg Q4H PRN PO 06/01/17 00:45 07/01/17 00:44 Al Hydrox/Mg Hydrox/Simethicone (Maalox Max Susp) 15 ml Q4H PRN PO 06/01/17 00:45 07/01/17 00:44 Magnesium Hydroxide (Milk Of Magnesia Susp) 30 ml Q6H PRN PO 06/01/17 00:45 07/01/17 00:44 Promethazine HCl 12.5 mg/Sodium Chloride 50.5 ml @ 204 mls/hr Q6H PRN IV 06/01/17 11:15 07/01/17 11:14 06/01/17 12:23 204 MLS/HR Docusate Sodium (coLACE CAP) 100 mg BID PO 06/01/17 21:00 07/01/17 20:59 06/03/17 13:15 100 MG Ondansetron HCl 8 mg/Dextrose 54 ml @ 216 mls/hr Q6H PRN IV 06/01/17 17:00 07/01/17 16:59 06/03/17 11:26 216 MLS/HR Enoxaparin Sodium (Lovenox Inj) 40 mg QAM SQ 06/02/17 09:00 07/02/17 08:59 06/03/17 11:30 40 MG Polyethylene (Miralax Powder Packet) 17 gm DAILY PO 06/03/17 09:00 07/03/17 08:59 06/03/17 13:14 17 GM Fentanyl (Duragesic Patch) 25 mcg Q3D@1215 TD 06/03/17 12:15 06/17/17 12:14 06/03/17 13:12 25 MCG Miscellaneous (Fentanyl Patch Remove & Waste) 1 ea Q3D@1214 N/A 06/03/17 12:14 07/03/17 12:13 Miscellaneous Information (Check Fentanyl Patch Placement) 1 ea QS N/A 06/03/17 16:00 07/03/17 15:59 Objective Vital Signs Date Time Temp Pulse Resp B/P (MAP) Pulse Ox O2 Delivery O2 Flow Rate FiO2 06/03/17 07:26 36.7 59 16 105/64 (78) 94 Room Air 06/03/17 03:22 36.6 63 15 104/68 (80) 95 Room Air 06/03/17 00:30 Nasal Cannula 2.0 06/02/17 22:49 36.6 55 15 102/66 (78) 99 Nasal Cannula 2.0 06/02/17 19:27 36.7 68 18 103/65 (78) 96 Nasal Cannula 2.0 06/02/17 15:55 Nasal Cannula 2.0 06/02/17 15:00 37.0 61 18 105/69 (81) 97 Room Air Physical Exam General Appearance: WD/WN, no apparent distress Neck: supple, + pertinent finding (small incision on right lateral neck ) Respiratory/Chest: lungs clear, normal breath sounds, no respiratory distress, no accessory muscle use Cardiovascular: regular rate, rhythm, no edema, no murmur Abdomen: + tenderness (ruq pain, light palpation ) Extremities: non-tender, normal inspection Neurologic/Psychiatric: alert, normal mood/affect, oriented x 3 Skin: normal color, warm/dry, no rash Laboratory Results 06/03/17 07:03 Red Blood Count 4.27, Mean Corpuscular Volume 91.3, Mean Corpuscular Hemoglobin 30.7, Mean Corpuscular Hemoglobin Concent 33.6, Mean Platelet Volume 11.2, Neutrophils (%) (Auto) 59.3, Lymphocytes (%) (Auto) 26.1, Monocytes (%) (Auto) 9.2, Eosinophils (%) (Auto) 5.2, Basophils (%) (Auto) 0.1, Neutrophils # (Auto) 4.52, Lymphocytes # (Auto) 1.99, Monocytes # (Auto) 0.70, Eosinophils # (Auto) 0.40, Basophils # (Auto) 0.01 06/03/17 07:03 Test 06/03/17 07:03 White Blood Count 7.63 K/uL (4.8-10.8) Red Blood Count 4.27 M/uL (4.2-5.4) Hemoglobin 13.1 g/dL (12.0-16.0) Hematocrit 39.0 % (37-47) Mean Corpuscular Volume 91.3 fL (80-100) Mean Corpuscular Hemoglobin 30.7 pg (25-34) Mean Corpuscular Hemoglobin Concent 33.6 g/dl (32-36) Platelet Count 205 K/uL (130-400) Mean Platelet Volume 11.2 fL (7.4-10.4) Neutrophils (%) (Auto) 59.3 % Lymphocytes (%) (Auto) 26.1 % Monocytes (%) (Auto) 9.2 % Eosinophils (%) (Auto) 5.2 % Basophils (%) (Auto) 0.1 % Neutrophils # (Auto) 4.52 K/uL (1.4-6.5) Lymphocytes # (Auto) 1.99 K/uL (1.2-3.4) Monocytes # (Auto) 0.70 K/uL (0.11-0.59) Eosinophils # (Auto) 0.40 K/uL (0-0.5) Basophils # (Auto) 0.01 K/uL (0-0.2) RDW Standard Deviation 44.5 fL (36.4-46.3) RDW Coefficient of Variation 13.4 % (11.5-14.5) Immature Granulocyte % (Auto) 0.1 % Immature Granulocyte # (Auto) 0.01 K/uL (0.00-0.02) Anion Gap 3.0 mmol/L (3-11) Est Creatinine Clear Calc Drug Dose 102.3 ml/min Estimated GFR () 118.6 Estimated GFR (Non- 102.3 BUN/Creatinine Ratio 9.4 (10-20) Calcium Level 8.7 mg/dl (8.5-10.1) Total Bilirubin 0.4 mg/dl (0.2-1) Aspartate Amino Transf (AST/SGOT) 98 U/L (15-37) Alanine Aminotransferase (ALT/SGPT) 141 U/L (12-78) Alkaline Phosphatase 116 U/L (45-117) Total Protein 6.7 gm/dl (6.4-8.2) Albumin 3.2 gm/dl (3.4-5.0) Globulin 3.5 gm/dl (2.5-4.0) Albumin/Globulin Ratio 0.9 (0.9-2) Assessment and Plan 41 yo female with recent dx of metastatic disease--lung mass likely primary lesion, followed by surgery and heme/onc Excision biopsy today---awaiting path results in 3-5 days Plan today; Pain control and discharge planning-- -Patient received approx 30 mg in 24hr period---switching to fentanyl patch 25 mcg. -Will discuss discharge plan with subspecialist Chest and abdominal pain likely secondary to carcinoma - CT surgery consultation recommendations appreciated - Oncology recs; likely primary lung cancer, awaiting path results for prognosis and treatment - Surgical evaluation appreciated; to have excisional biopsy today - Fentanyl patch 25 mcg - Zofran and Phenergan for nausea Tobacco use - Smoking cessation counseling VTE ppx - SCD - Lovenox 40 mg Assessment/Plan Resident Physician Supervision Note: I was present with Dr. Taylor during the history and exam. I discussed the case with the resident and agree with the findings and plan as documented in the note. Any exceptions or clarifications are listed here: Pt reports considerable improvement in pain on 4mg morphine q2hrs without need for breakthrough overnight and through the AM. After discussion, agree w/ transition to fentanyl patch 25mcg, though this is a moderate increase in dose, so would CAREFULLY watch for sedation and pull back to 12.5 mcg if needed, vs. breakthrough. Otherwise, awaiting pathology results and input from oncology. Would likely be stable for outpatient follow up once pain management is settled , if acceptable to consulting services.
[2017-06-03 07:36] LABS: BASO % 0.1 %; BASO ABS # 0.01 K/uL (0-0.2); EOS % 5.2 %; HEMOGLOBIN 13.1 g/dL (12.0-16.0); IG# 0.01 K/uL (0.00-0.02); LYMPH % 26.1 %; LYMPH ABS # 1.99 K/uL (1.2-3.4); MEAN CELL VOLUME 91.3 fL (80-100); MEAN CORPUSCULAR HEMOGLOBIN 30.7 pg (25-34); MEAN CORPUSCULAR HGB CONC 33.6 g/dl (32-36); MEAN PLATELET VOLUME 11.2 fL (7.4-10.4); MONO % 9.2 %; NEUT % 59.3 %; NEUT ABS # 4.52 K/uL (1.4-6.5); PLATELET COUNT 205 K/uL (130-400); RED CELL DISTRIBUTION WIDTH CV 13.4 % (11.5-14.5); RED CELL DISTRIBUTION WIDTH SD 44.5 fL (36.4-46.3); WHITE BLOOD COUNT 7.63 K/uL (4.8-10.8)
[2017-06-03 08:11] LABS: ALBUMIN 3.2 gm/dl (3.4-5.0); CALCIUM 8.7 mg/dl (8.5-10.1); CREATININE 0.73 mg/dl (0.60-1.20)
[2017-06-03 08:14] LABS: TOTAL PROTEIN 6.7 gm/dl (6.4-8.2)
--- NOTE | 2017-06-03 09:05 | SURGERY PROGRESS NOTE ---
DATE: 06/03/2017 Ms. Mcgarry was seen this morning. She had a much quieter night. She underwent her excisional biopsy of right cervical lymph node yesterday by Dr. Cardenas. She tolerated this well. Incision looks fine this morning. The patient really has not walked since she got here. I explained, with metastatic cancer she is to setup for a hypercoagulable state and needs to be ambulating in the hallway. I have ordered that to be done. It should be noted, she is on Lovenox and I am still concerned about her lack of ambulation. Her pain is difficult to control. I would recommend getting her off of the parenteral narcotics. A fentanyl patch would probably be helpful. I will leave that up to the primary service. The patient has not moved her bowels. We will give her MiraLax today. I had a long talk with the patient and her significant other at the bedside. Clinically, I think she looks fine, but she is complaining of pain which is probably due to her hepatic metastases. MTDD
[2017-06-03] MEDS: ENOXAPARIN 40 MG/0.4 ML SYR SQ SCH (11:30)
[2017-06-03] MEDS ORDERED: FENTANYL PATCH REMOVE & WASTE SCH (12:14)
[2017-06-03] MEDS ORDERED: FENTANYL 25 MCG/HR TDSY TD SCH (12:15)
--- NOTE | 2017-06-03 12:31 | Surgery Progress Note ---
Surgery Progress Note Date of Service Jun 03, 2017. Subjective Post OP Day: 1 Pain more controlled today. No new complaints at this time. Objective Vital Signs: Date Time Temp Pulse Resp B/P (MAP) Pulse Ox O2 Delivery O2 Flow Rate FiO2 06/03/17 07:26 36.7 59 16 105/64 (78) 94 Room Air 06/03/17 03:22 36.6 63 15 104/68 (80) 95 Room Air 06/03/17 00:30 Nasal Cannula 2.0 06/02/17 22:49 36.6 55 15 102/66 (78) 99 Nasal Cannula 2.0 06/02/17 19:27 36.7 68 18 103/65 (78) 96 Nasal Cannula 2.0 06/02/17 15:55 Nasal Cannula 2.0 06/02/17 15:00 37.0 61 18 105/69 (81) 97 Room Air 06/02/17 14:09 2 Nasal Cannula 100.0 06/02/17 13:45 36.5 66 16 106/71 99 Nasal Cannula 3 06/02/17 13:35 69 16 118/71 98 Nasal Cannula 3 06/02/17 13:25 60 16 112/76 98 Nasal Cannula 3 06/02/17 13:15 62 16 105/76 98 Nasal Cannula 3 06/02/17 13:06 36.4 72 12 106/57 98 Nasal Cannula 4 Incision(s): clean, dry, intact, no erythema, no drainage Laboratory Results: Results Past 24 Hours Test 06/03/17 07:03 Range/Units White Blood Count 7.63 4.8-10.8 K/uL Red Blood Count 4.27 4.2-5.4 M/uL Hemoglobin 13.1 12.0-16.0 g/dL Hematocrit 39.0 37-47 % Mean Corpuscular Volume 91.3 80-100 fL Mean Corpuscular Hemoglobin 30.7 25-34 pg Mean Corpuscular Hemoglobin Concent 33.6 32-36 g/dl Platelet Count 205 130-400 K/uL Mean Platelet Volume 11.2 7.4-10.4 fL Neutrophils (%) (Auto) 59.3 % Lymphocytes (%) (Auto) 26.1 % Monocytes (%) (Auto) 9.2 % Eosinophils (%) (Auto) 5.2 % Basophils (%) (Auto) 0.1 % Neutrophils # (Auto) 4.52 1.4-6.5 K/uL Lymphocytes # (Auto) 1.99 1.2-3.4 K/uL Monocytes # (Auto) 0.70 0.11-0.59 K/uL Eosinophils # (Auto) 0.40 0-0.5 K/uL Basophils # (Auto) 0.01 0-0.2 K/uL RDW Standard Deviation 44.5 36.4-46.3 fL RDW Coefficient of Variation 13.4 11.5-14.5 % Immature Granulocyte % (Auto) 0.1 % Immature Granulocyte # (Auto) 0.01 0.00-0.02 K/uL Sodium Level 139 136-145 mmol/L Potassium Level 4.0 3.5-5.1 mmol/L Chloride Level 106 98-107 mmol/L Carbon Dioxide Level 30 21-32 mmol/L Anion Gap 3.0 3-11 mmol/L Blood Urea Nitrogen 7 7-18 mg/dl Creatinine 0.73 0.60-1.20 mg/dl Est Creatinine Clear Calc Drug Dose 102.3 ml/min Estimated GFR () 118.6 Estimated GFR (Non- 102.3 BUN/Creatinine Ratio 9.4 10-20 Random Glucose 88 70-99 mg/dl Calcium Level 8.7 8.5-10.1 mg/dl Total Bilirubin 0.4 0.2-1 mg/dl Aspartate Amino Transf (AST/SGOT) 98 15-37 U/L Alanine Aminotransferase (ALT/SGPT) 141 12-78 U/L Alkaline Phosphatase 116 45-117 U/L Total Protein 6.7 6.4-8.2 gm/dl Albumin 3.2 3.4-5.0 gm/dl Globulin 3.5 2.5-4.0 gm/dl Albumin/Globulin Ratio 0.9 0.9-2 Assessment & Plan 41-year-old female with metastatic lung cancer. s/p excisional biopsy of right cervical lymph node with Dr. Cardenas Patient seen and examined with Dr. Cardenas. Incision clean, dry and intact. Pain more controlled today. General Surgery will continue to follow peripherally. Please call with any questions or concerns.
[2017-06-03] MEDS: POLYETHYLENE (MIRALAX) 17 GM PACK PO SCH (13:14)
[2017-06-03] MEDS: DOCUSATE SODIUM 100 MG CAP PO SCH ×2 (13:15→20:46)
[2017-06-03 14:52] VITALS: BP 106/69; PULSE 88; TEMP 37.1; O2SAT 94
[2017-06-03] MEDS: CHECK FENTANYL PATCH PLACEMENT SCH ×2 (15:54→23:38)
[2017-06-03] MEDS: MoRPHine SULFATE 2 MG/ML CARP IV PRN ×4 (16:37→23:32)
[2017-06-03 23:09] VITALS: BP 96/57; PULSE 63; TEMP 36.9; O2SAT 98
[2017-06-04] MEDS ORDERED: OXYCODONE HCL IR 5 MG TAB (IMMEDIATE RELEASE) PO SCH
[2017-06-04 05:59] LABS: BASO % 0.2 %; BASO ABS # 0.02 K/uL (0-0.2); EOS % 4.5 %; EOS ABS # 0.42 K/uL (0-0.5); HEMATOCRIT 42.6 % (37-47); HEMOGLOBIN 14.5 g/dL (12.0-16.0); IG# 0.02 K/uL (0.00-0.02); LYMPH % 22.4 %; LYMPH ABS # 2.07 K/uL (1.2-3.4); MEAN CELL VOLUME 91.2 fL (80-100); MEAN PLATELET VOLUME 11.4 fL (7.4-10.4); MONO % 7.4 %; MONO ABS # 0.68 K/uL (0.11-0.59); NEUT % 65.3 %; NEUT ABS # 6.04 K/uL (1.4-6.5); PLATELET COUNT 254 K/uL (130-400); RED CELL DISTRIBUTION WIDTH CV 13.2 % (11.5-14.5); RED CELL DISTRIBUTION WIDTH SD 44.2 fL (36.4-46.3); WHITE BLOOD COUNT 9.25 K/uL (4.8-10.8)
[2017-06-04 06:22] LABS: ALBUMIN 3.3 gm/dl (3.4-5.0); CALCIUM 9.1 mg/dl (8.5-10.1); CREATININE 0.66 mg/dl (0.60-1.20); POTASSIUM 3.7 mmol/L (3.5-5.1)
[2017-06-04 06:25] LABS: TOTAL PROTEIN 7.5 gm/dl (6.4-8.2)
[2017-06-04 07:08] VITALS: BP 105/64; PULSE 58; TEMP 36.9; O2SAT 96
[2017-06-04] MEDS: CHECK FENTANYL PATCH PLACEMENT SCH ×2 (07:50→15:42)
--- NOTE | 2017-06-04 07:54 | Family Medicine Progress Note ---
Progress Note Date of Service Jun 04, 2017. Assessment and Plan 41 yo female with recent dx of metastatic disease--lung mass likely primary lesion, followed by surgery and heme/onc Excision biopsy today---awaiting path results in 3-5 days Plan today; Pain control and discharge planning-- -Patient tolerating Fentanyl patch--yesterday patient was prescribed 2mg morphine q 3 for break through pain experienced in the interim of reaching Fentanyl steady state. -Plan on dcing today--with fentanyl patch for pain control. Chest and abdominal pain likely secondary to carcinoma - CT surgery consultation recommendations appreciated - Oncology recs; likely primary lung cancer, awaiting path results for prognosis and treatment - Surgical evaluation appreciated; to have excisional biopsy today - Fentanyl patch 25 mcg - Zofran and Phenergan for nausea Tobacco use - Smoking cessation counseling VTE ppx - SCD - Lovenox 40 mg Assessment/Plan See discharge summary
--- NOTE | 2017-06-04 07:54 | Discharge Instructions ---
Discharge Instructions Date of Service Jun 04, 2017. Admission Reason for Admission: Abnormal Ct Scan, Chest Pain Activity Recommendations . Current Hospital Diet Patient's current hospital diet: Regular Diet Procedures Procedures Performed: Right Posterior Neck Excision Medical Emergencies . Who to Call and When: Medical Emergencies: If at any time you feel your situation is an emergency, please call 911 immediately. . Non-Emergent Contact . . "Provider Documentation" section prepared by Obdulio Taylor. .
[2017-06-04] MEDS: POLYETHYLENE (MIRALAX) 17 GM PACK PO SCH (07:58)
[2017-06-04] MEDS: MoRPHine SULFATE 2 MG/ML CARP IV PRN ×3 (07:59→15:46)
[2017-06-04] MEDS: DOCUSATE SODIUM 100 MG CAP PO SCH (08:57)
[2017-06-04] MEDS: ENOXAPARIN 40 MG/0.4 ML SYR SQ SCH (08:58)
--- NOTE | 2017-06-04 10:10 | Surgery Progress Note ---
Surgery Progress Note Date of Service Jun 04, 2017. Subjective Post OP Day: 2 Objective Vital Signs: Date Time Temp Pulse Resp B/P (MAP) Pulse Ox O2 Delivery O2 Flow Rate FiO2 06/04/17 08:53 Room Air 06/04/17 07:08 36.9 58 16 105/64 (78) 96 Room Air 06/03/17 23:29 Nasal Cannula 2.0 06/03/17 23:09 36.9 63 14 96/57 (70) 98 Room Air 06/03/17 16:00 Room Air 06/03/17 14:52 37.1 88 18 106/69 (81) 94 Room Air General Appearance: WD/WN, no apparent distress Incision(s): clean, dry, intact, no erythema, no drainage Laboratory Results: Results Past 24 Hours Test 06/04/17 05:26 Range/Units White Blood Count 9.25 4.8-10.8 K/uL Red Blood Count 4.67 4.2-5.4 M/uL Hemoglobin 14.5 12.0-16.0 g/dL Hematocrit 42.6 37-47 % Mean Corpuscular Volume 91.2 80-100 fL Mean Corpuscular Hemoglobin 31.0 25-34 pg Mean Corpuscular Hemoglobin Concent 34.0 32-36 g/dl Platelet Count 254 130-400 K/uL Mean Platelet Volume 11.4 7.4-10.4 fL Neutrophils (%) (Auto) 65.3 % Lymphocytes (%) (Auto) 22.4 % Monocytes (%) (Auto) 7.4 % Eosinophils (%) (Auto) 4.5 % Basophils (%) (Auto) 0.2 % Neutrophils # (Auto) 6.04 1.4-6.5 K/uL Lymphocytes # (Auto) 2.07 1.2-3.4 K/uL Monocytes # (Auto) 0.68 0.11-0.59 K/uL Eosinophils # (Auto) 0.42 0-0.5 K/uL Basophils # (Auto) 0.02 0-0.2 K/uL RDW Standard Deviation 44.2 36.4-46.3 fL RDW Coefficient of Variation 13.2 11.5-14.5 % Immature Granulocyte % (Auto) 0.2 % Immature Granulocyte # (Auto) 0.02 0.00-0.02 K/uL Sodium Level 137 136-145 mmol/L Potassium Level 3.7 3.5-5.1 mmol/L Chloride Level 105 98-107 mmol/L Carbon Dioxide Level 31 21-32 mmol/L Anion Gap 1.0 3-11 mmol/L Blood Urea Nitrogen 7 7-18 mg/dl Creatinine 0.66 0.60-1.20 mg/dl Est Creatinine Clear Calc Drug Dose 113.1 ml/min Estimated GFR () 127.2 Estimated GFR (Non- 109.7 BUN/Creatinine Ratio 10.7 10-20 Random Glucose 90 70-99 mg/dl Calcium Level 9.1 8.5-10.1 mg/dl Total Bilirubin 0.4 0.2-1 mg/dl Aspartate Amino Transf (AST/SGOT) 33 15-37 U/L Alanine Aminotransferase (ALT/SGPT) 111 12-78 U/L Alkaline Phosphatase 126 45-117 U/L Total Protein 7.5 6.4-8.2 gm/dl Albumin 3.3 3.4-5.0 gm/dl Globulin 4.2 2.5-4.0 gm/dl Albumin/Globulin Ratio 0.8 0.9-2 Assessment & Plan 06/04/17 Patient seen and examined with Dr. Cardenas- patient ambulating in [facility]. Doing well, pain controlled at this time. Incision healing nicely, no signs of infection. Possible D/C today. 06/03/17 41-year-old female with metastatic lung cancer. s/p excisional biopsy of right cervical lymph node with Dr. Cardenas Patient seen and examined with Dr. Cardenas. Incision clean, dry and intact. Pain more controlled today. General Surgery will continue to follow peripherally. Please call with any questions or concerns.
--- NOTE | 2017-06-04 10:13 | SURGERY PROGRESS NOTE ---
DATE: 06/04/2017 Jose looks better this morning. Her pain is a bit better controlled. She has been ambulating in the hallways. She is on room air. She still has breakthrough pain requiring parenteral narcotics; however, the medical service is working on this. Currently, I would get her to the point where she can be discharged. When we get the results of the genomic studies, I mean the molecular studies back, it will help Dr. De Oliveira determine her next course of therapy.
--- NOTE | 2017-06-04 12:09 | Hematology/Oncology Prog Note ---
Hematology/Onc Progress Note Date of Service Jun 04, 2017. Diagnoses This metastatic carcinoma rule out primary lung carcinoma Medications Medications Administered Medications (Trade) Dose Ordered Sig/Saul Route Start Time Stop Time Status Last Admin Dose Admin Ondansetron HCl (Zofran Inj) 4 mg NOW STAT IV 05/31/17 20:01 05/31/17 20:03 DC 05/31/17 20:14 4 MG Sodium Chloride 1,000 ml @ 999 mls/hr Q1H1M STAT IV 05/31/17 20:01 05/31/17 21:01 DC 05/31/17 20:14 999 MLS/HR Hydromorphone HCl (Dilaudid Inj) 1 mg Q15M PRN IV 05/31/17 20:15 06/01/17 01:06 DC 05/31/17 23:21 1 MG Sodium Chloride 1,000 ml @ 999 mls/hr Q1H1M STAT IV 05/31/17 23:09 06/01/17 00:09 DC 05/31/17 23:09 999 MLS/HR Sodium Chloride 1,000 ml @ 125 mls/hr Q8H STAT IV 05/31/17 23:09 06/01/17 03:31 DC 05/31/17 23:09 125 MLS/HR Promethazine HCl 12.5 mg/Sodium Chloride 50.5 ml @ 204 mls/hr NOW STAT IV 05/31/17 23:09 05/31/17 23:23 DC 05/31/17 23:31 204 MLS/HR Ondansetron HCl (Zofran Inj) 4 mg Q6H PRN IV 06/01/17 00:45 06/01/17 16:55 DC 06/01/17 14:26 4 MG Morphine Sulfate (MoRPHine SULFATE INJ) 4 mg Q3H PRN IV 06/01/17 00:45 06/01/17 07:32 DC 06/01/17 02:15 4 MG Sodium Chloride 1,000 ml @ 100 mls/hr Q10H IV 06/01/17 01:00 06/01/17 20:59 DC 06/01/17 12:21 100 MLS/HR Morphine Sulfate (MoRPHine SULFATE INJ) 4 mg Q3H PRN IV 06/01/17 07:45 06/01/17 16:55 DC 06/01/17 16:49 4 MG Promethazine HCl 12.5 mg/Sodium Chloride 50.5 ml @ 204 mls/hr Q6H PRN IV 06/01/17 11:15 07/01/17 11:14 06/01/17 12:23 204 MLS/HR Morphine Sulfate (MoRPHine SULFATE INJ) 2 mg NOW STAT IV 06/01/17 14:17 06/01/17 14:21 DC 06/01/17 14:25 2 MG Morphine Sulfate (MoRPHine SULFATE INJ) 2 mg Q2H PRN IV 06/01/17 17:00 06/02/17 08:54 DC 06/02/17 08:17 2 MG Docusate Sodium (coLACE CAP) 100 mg BID PO 06/01/17 21:00 07/01/17 20:59 06/04/17 08:57 100 MG Ondansetron HCl 8 mg/Dextrose 54 ml @ 216 mls/hr Q6H PRN IV 06/01/17 17:00 07/01/17 16:59 06/03/17 11:26 216 MLS/HR Enoxaparin Sodium (Lovenox Inj) 40 mg QAM SQ 06/02/17 09:00 07/02/17 08:59 06/04/17 08:58 40 MG Morphine Sulfate (MoRPHine SULFATE INJ) 2 mg Q2H IV 06/02/17 09:00 06/02/17 18:19 DC 06/02/17 17:05 2 MG Cefazolin Sodium (Ancef 2000mg Iv Push) 2,000 mg PREOP ONCE IV 06/02/17 11:15 06/02/17 11:16 DC 06/02/17 12:19 2,000 MG Bupivacaine HCl (Marcaine 0.5% MPF Inj) 30 ml STK-MED ONCE .ROUTE 06/02/17 11:31 06/02/17 11:32 DC 06/02/17 12:56 4 ML Lidocaine/ Epinephrine (Xylocaine/Epine 1% Inj) 20 ml STK-MED ONCE .ROUTE 06/02/17 11:31 06/02/17 11:32 DC 06/02/17 12:55 4 ML Oxycodone/ Acetaminophen (Percocet 5-325mg Tab) 1 tab Q4H PO 06/02/17 18:15 06/02/17 19:25 DC 4/27/18 18:48 1 TAB Morphine Sulfate (MoRPHine SULFATE INJ) 4 mg Q2H IV 06/02/17 20:30 06/03/17 12:07 DC 06/03/17 11:26 4 MG Polyethylene (Miralax Powder Packet) 17 gm DAILY PO 06/03/17 09:00 07/03/17 08:59 06/04/17 07:58 17 GM Fentanyl (Duragesic Patch) 25 mcg Q3D@1215 TD 06/03/17 12:15 06/17/17 12:14 06/03/17 13:12 25 MCG Miscellaneous Information (Check Fentanyl Patch Placement) 1 ea QS N/A 06/03/17 16:00 07/03/17 15:59 06/04/17 07:50 1 EA Morphine Sulfate (MoRPHine SULFATE INJ) 2 mg Q2H PRN IV 06/03/17 16:00 06/17/17 15:59 06/04/17 11:56 2 MG Subjective She states she has some abdominal pain over right upper quadrant otherwise seems to be doing generally well. The room was a family friend and her fianc Review of Systems: Constitutional: Negative for weight loss, night sweats, or fever Eyes: Negative for event change of vision ENT: Negative for epistaxis, nasal discharge, sore throat, or deafness Cardiovascular: Negative for new chest pain, palpitations, dizziness, diaphoresis. Has had a feeling of some chest tightness leading to this admission Respiratory: Negative for new shortness of breath,hemoptysis, or purulent cough. Gastrointestinal: Negative for diarrhea, hematemesis, melena, nausea, vomiting , or dyspepsia Integumentary (skin): Negative for rash or jaundice discoloration Genitourinary: Negative for urinary frequency, hematuria, or dysuria Neurological: Negative for weakness, seizure activity, headache, or dizziness Lymphatic/Hematologic: Negative for petechiae, bleeding or new adenopathy Musculoskeletal: Negative for new joint or back pain Allergic/Immunologic: Negative for unusual rash or pruritis. Vital Signs Vital Signs Past 12 Hours Date Time Temp Pulse Resp B/P (MAP) Pulse Ox O2 Delivery O2 Flow Rate FiO2 06/04/17 08:53 Room Air 06/04/17 07:08 36.9 58 16 105/64 (78) 96 Room Air Physical Exam Constitutional: vitals are stable. Eyes: Eyes are MARSHALL EOMI without conjuctival erythema or icterus. ENT: External examination was negative for masses. Neck: Negative for masses or palpable thyromegaly Gastrointestinal: No palpable hepatic or splenomegaly. The abdomen was soft with normal bowel sounds. Lymphatic system: there was no palpable peripheral lymphadenopathy Musculoskeletal System: The musculoskeletal system seemed concordant with age. Skin: The skin was negative for jaundice. Neurologic exam: The exam was negative for any focal findings. Deep tendon reflexes were equal and symmetrical. Psychiatric exam: Was essentially negative with normal mood and effect. Breast exam: Not done today Laboratory Last 24 Hours Test 06/04/17 05:26 White Blood Count 9.25 K/uL Red Blood Count 4.67 M/uL Hemoglobin 14.5 g/dL Hematocrit 42.6 % Mean Corpuscular Volume 91.2 fL Mean Corpuscular Hemoglobin 31.0 pg Mean Corpuscular Hemoglobin Concent 34.0 g/dl Platelet Count 254 K/uL Mean Platelet Volume 11.4 fL Neutrophils (%) (Auto) 65.3 % Lymphocytes (%) (Auto) 22.4 % Monocytes (%) (Auto) 7.4 % Eosinophils (%) (Auto) 4.5 % Basophils (%) (Auto) 0.2 % Neutrophils # (Auto) 6.04 K/uL Lymphocytes # (Auto) 2.07 K/uL Monocytes # (Auto) 0.68 K/uL Eosinophils # (Auto) 0.42 K/uL Basophils # (Auto) 0.02 K/uL RDW Standard Deviation 44.2 fL RDW Coefficient of Variation 13.2 % Immature Granulocyte % (Auto) 0.2 % Immature Granulocyte # (Auto) 0.02 K/uL Sodium Level 137 mmol/L Potassium Level 3.7 mmol/L Chloride Level 105 mmol/L Carbon Dioxide Level 31 mmol/L Anion Gap 1.0 mmol/L Blood Urea Nitrogen 7 mg/dl Creatinine 0.66 mg/dl Est Creatinine Clear Calc Drug Dose 113.1 ml/min Estimated GFR () 127.2 Estimated GFR (Non- 109.7 BUN/Creatinine Ratio 10.7 Random Glucose 90 mg/dl Calcium Level 9.1 mg/dl Total Bilirubin 0.4 mg/dl Aspartate Amino Transf (AST/SGOT) 33 U/L Alanine Aminotransferase (ALT/SGPT) 111 U/L Alkaline Phosphatase 126 U/L Total Protein 7.5 gm/dl Albumin 3.3 gm/dl Globulin 4.2 gm/dl Albumin/Globulin Ratio 0.8 Assessment & Plan 21-year-old female with radiologic findings consistent with metastatic neoplasm. Biopsies are currently pending. She seems comfortable. Results of the pathology and biomarkers are still pending. I reviewed with her and her family that it could be a good 3-5 working days before we know any of the biomarkers. Will probably have results of histology late tomorrow. I stated that no matter what is found our goal is to try and diminish the burden of tumors and hopefully create a good response (tumor diminsihment) and along with that the setting of a chronic disease. With that then she will have a follow-up in our clinic.
[2017-06-04] MEDS ORDERED: OXYC1TAB3 PO (14:46)
[2017-06-04] MEDS ORDERED: DRGTP25 TD (14:46)
[2017-06-04] MEDS ORDERED: RANI150T85 PO (14:47)
[2017-06-04 14:55] VITALS: BP 98/61; PULSE 69; TEMP 36.4; O2SAT 96
--- NOTE | 2017-06-04 15:06 | Discharge Instructions ---
Discharge Instructions Date of Service Jun 04, 2017. Admission Reason for Admission: Abnormal Ct Scan, Chest Pain Discharge Discharge Diagnosis / Problem: Metastatic Disease Discharge Goals Goal(s): Decrease discomfort, Improve function, Improve nutritional status, Learn about illness Activity Recommendations Activity Limitations: per Instructions/Follow-up section . Instructions / Follow-Up Instructions / Follow-Up Ms. Mcgarry, In addition to following up closely with your oncologist and surgeon, we are discharging with the following recommendations: 1. Pain control--apply a new Fentanyl patch 25 mcg every 3 days. We have also prescribed Oxycodone 5mg for break through pain which can be taken every 6 hours. 2. Antacid medications--take Zantac 150 mg BID for 2 weeks 3. Bowel regimen--take one packet of Miralax daily Your results for your biopsy should be available in the next 3-[address] Resendiz and Dr. De Oliveira's office will be contacting you. We also recommend that you also follow up with your primary care doctor. We will forward all information pertaining to your hospitalization to these providers. It was a pleasure to take care of you. You and your family are very special people. We wish you well. Thank you, Dr. Иван Taylor Current Hospital Diet Patient's current hospital diet: Regular Diet Discharge Diet Recommended Diet: Regular Diet Procedures Procedures Performed: Right Posterior Neck Excision Pending Studies Studies pending at discharge: no Laboratory Results 06/04/17 05:26 Red Blood Count 4.67, Mean Corpuscular Volume 91.2, Mean Corpuscular Hemoglobin 31.0, Mean Corpuscular Hemoglobin Concent 34.0, Mean Platelet Volume 11.4, Neutrophils (%) (Auto) 65.3, Lymphocytes (%) (Auto) 22.4, Monocytes (%) (Auto) 7.4, Eosinophils (%) (Auto) 4.5, Basophils (%) (Auto) 0.2, Neutrophils # (Auto) 6.04, Lymphocytes # (Auto) 2.07, Monocytes # (Auto) 0.68, Eosinophils # (Auto) 0.42, Basophils # (Auto) 0.02 06/04/17 05:26 Test 06/04/17 05:26 White Blood Count 9.25 K/uL (4.8-10.8) Red Blood Count 4.67 M/uL (4.2-5.4) Hemoglobin 14.5 g/dL (12.0-16.0) Hematocrit 42.6 % (37-47) Mean Corpuscular Volume 91.2 fL (80-100) Mean Corpuscular Hemoglobin 31.0 pg (25-34) Mean Corpuscular Hemoglobin Concent 34.0 g/dl (32-36) Platelet Count 254 K/uL (130-400) Mean Platelet Volume 11.4 fL (7.4-10.4) Neutrophils (%) (Auto) 65.3 % Lymphocytes (%) (Auto) 22.4 % Monocytes (%) (Auto) 7.4 % Eosinophils (%) (Auto) 4.5 % Basophils (%) (Auto) 0.2 % Neutrophils # (Auto) 6.04 K/uL (1.4-6.5) Lymphocytes # (Auto) 2.07 K/uL (1.2-3.4) Monocytes # (Auto) 0.68 K/uL (0.11-0.59) Eosinophils # (Auto) 0.42 K/uL (0-0.5) Basophils # (Auto) 0.02 K/uL (0-0.2) RDW Standard Deviation 44.2 fL (36.4-46.3) RDW Coefficient of Variation 13.2 % (11.5-14.5) Immature Granulocyte % (Auto) 0.2 % Immature Granulocyte # (Auto) 0.02 K/uL (0.00-0.02) Anion Gap 1.0 mmol/L (3-11) Est Creatinine Clear Calc Drug Dose 113.1 ml/min Estimated GFR () 127.2 Estimated GFR (Non- 109.7 BUN/Creatinine Ratio 10.7 (10-20) Calcium Level 9.1 mg/dl (8.5-10.1) Total Bilirubin 0.4 mg/dl (0.2-1) Aspartate Amino Transf (AST/SGOT) 33 U/L (15-37) Alanine Aminotransferase (ALT/SGPT) 111 U/L (12-78) Alkaline Phosphatase 126 U/L (45-117) Total Protein 7.5 gm/dl (6.4-8.2) Albumin 3.3 gm/dl (3.4-5.0) Globulin 4.2 gm/dl (2.5-4.0) Albumin/Globulin Ratio 0.8 (0.9-2) Medical Emergencies . Who to Call and When: Medical Emergencies: If at any time you feel your situation is an emergency, please call 911 immediately. . Non-Emergent Contact Non-Emergency issues call your: Primary Care Provider, Oncologist, Surgeon Call Non-Emergent contact if: you have a fever, temperature is above 100.5, your pain is not controlled, your pain is worsening, your pain is concerning you . . "Provider Documentation" section prepared by Obdulio Taylor. .
[2017-06-04] MEDS ORDERED: POLY335019 PO (15:10)
[2017-06-04 16:06] VITALS: BP 98/61; PULSE 69; TEMP 36.4; O2SAT 96
--- NOTE | 2017-06-04 17:39 | Discharge Summary ---
Discharge Summary Date of Service Jun 04, 2017. Discharge Summary Admission Date: Jun 01, 2017 at 00:48 Discharge Date: Jun 04, 2017 Discharge Disposition: Home Principal Diagnosis: Metastatic disease Immunizations: Have You Had Influenza Vaccine: No History of Tetanus Vaccine?: Unknown History of Pneumococcal: No History of Hepatitis B Vaccine: Unknown Procedures: ULTRASOUND-GUIDED FINAL ASPIRATION OF A RIGHT NECK NODE CLINICAL HISTORY: Right neck mass. Liver mass. Lung mass. Breast mass. COMPARISON STUDY: CT scan dated 05/31/2017, ultrasound dated 05/16/2017 FINDINGS: A timeout was performed. The risks the procedure were explained the patient informed consent was obtained. The options of performing a neck final aspiration biopsy versus performing a liver no aspiration biopsy were discussed with the patient. It was decided to first proceed with the neck fine-needle aspiration biopsy. The patient's right neck was prepped in sterile fashion. The skin was anesthetized 1% lidocaine. 3 samples with a 25-gauge needle were performed. Lesional tissue was obtained. As the neck node is pulmonary positive for carcinoma, it makes most sent to proceed with an excisional biopsy should pathologic material be insufficient to obtain optimal genomic information. It was felt that obtaining tissue would not likely add significant diagnostic information. IMPRESSION: Successful fine-needle aspiration biopsy of a superficial 7 mm right neck lymph node. Initial pathologic review indicates satisfactory material for diagnosis. CHEST ONE VIEW PORTABLE CLINICAL HISTORY: Chest pain. COMPARISON STUDY: Chest CT May 31, 2017. FINDINGS: There is no pneumothorax or pleural effusion. Asymmetric left lower lung interstitial thickening and a left lower lobe retrocardiac nodular opacity are better depicted on prior chest CT performed earlier today. There is no evidence for pulmonary edema. IMPRESSION: Redemonstration of a left lower lung retrocardiac nodular opacity and asymmetric interstitial thickening within the left lower lung, as shown on chest CT performed earlier today. No change in appearance of the chest. CT ANGIOGRAPHY OF THE CHEST, PULMONARY EMBOLUS PROTOCOL CLINICAL HISTORY: Severe pleuritic chest pain. COMPARISON STUDY: Chest CT May 31, 2017 at 6:48 AM and May 25, 2017. TECHNIQUE: Following IV administration of 95 mL of Optiray-320, helical axial images of the chest were obtained utilizing the pulmonary embolus protocol. Maximal intensity projections and sagittal and coronal reformats were viewed on an independent 3D workstation. IV contrast was administered without complication. A dose lowering technique was utilized adhering to the principles of ALARA. CT DOSE: 306.09 mGycm FINDINGS: No pulmonary emboli are identified. There is no evidence of thoracic aortic dissection. The size of the heart is normal. There is no pericardial effusion. Note is made of multiple mildly enlarged mediastinal and left hilar lymph nodes. Index left hilar node measures 1.1 cm in short axis diameter. A right paratracheal lymph node measures approximately 1.2 cm. A mildly enlarged subcarinal lymph node is noted. Note is made of a 3.4 x 2.4 cm left lower lobe mass-like opacity. There is interlobular septal thickening within the left lower lobe and a portion of the lingula. There is thickening of the bronchovascular bundles within the left lower lobe. No pneumothorax or pleural effusion is noted. Note is made of an indeterminate 7 mm sclerotic focus within the T2 vertebral body. Visualized portions of the upper abdomen demonstrate numerous hepatic lesions, including a 2.7 cm right hepatic lobe lesion. There are confluent lesions within the lateral segment of the liver. IMPRESSION: 1. No pulmonary emboli identified. 2. 3.4 x 2.4 cm irregular left lower lobe lesion suggestive of bronchogenic carcinoma. 3. Innumerable hepatic metastases. 4. Interlobular and bronchovascular bundle thickening within the left lower lobe and a portion of the lingula which favors lymphangitic spread of tumor. 5. Mild mediastinal and left hilar lymphadenopathy which suggests basilio spread of disease. Medication Reconciliation New Medications: Oxycodone Ir (Roxicodone Ir) 5 Mg Tab 5 MG PO Q6H PRN for Pain for 7 Days, #28 TAB Polyethylene Glycol 3350 (Miralax) 1 Pow Pow 17 GM PO DAILY for 15 Days, #255 GM Ranitidine (Zantac) 150 Mg Tab 150 MG PO BID for 14 Days, #28 TAB Fentanyl (Fentanyl) 25 Mcg Tdsy 25 MCG TD Q3D@1215 for 30 Days, #10 EA Discharge Exam Review of Systems: Constitutional: No fever, No chills, No sweats Respiratory: No cough, No sputum, No wheezing, No shortness of breath, No dyspnea on exertion Abdomen: + pain, + constipation, No nausea, No vomiting Physical Exam: General Appearance: WD/WN, no apparent distress Neck: supple, + pertinent finding Respiratory/Chest: chest non-tender, lungs clear, normal breath sounds, no respiratory distress Cardiovascular: regular rate, rhythm, no edema, no gallop, no murmur Abdomen / GI: + tenderness (RUQ and diffussed abdominal tenderness ) Neurologic/Psychiatric: alert, normal mood/affect, normal reflexes, oriented x 3 Skin: normal color, warm/dry, no rash Hospital Course 41 yo female with dx of metastatic disease--lung mass likely primary lesion, with numerous liver mets and subcutaneous cervical nodes. Followed by surgery and heme/onc--seen by Dr. De Oliveira, Dr. Alfonso and Dr. Cardenas FNA of a cervical node did not yield enough tissue and excisional biopsy was subsequently performed and sent for pathology. The remainder of the patients hospital course centered around supportive care and pain control. Plan at discharge; Currently awaiting excisional biopsy results--3-5 days. In the meantime, we are controlling the patients severe RUQ pain with a 25 mcg Fentanyl patch and Oxy IR 5mg q6hrs. We are also giving symptomatic medications for reflux and constipation. Total Time Spent: Greater than 30 minutes This includes examination of the patient, discharge planning, medication reconciliation, and communication with other providers. Discharge Instructions Please refer to the electronic Patient Visit Report (Discharge Instructions) for additional information. Follow-Up Follow up with heme/onc and CT surgery Additional Copies To Bryant Cardenas DO; Jhonathan De Oliveira MD; Abdoul Resendiz MD Assessment/Plan Resident Physician Supervision Note: I was present with Dr. Taylor during the history and exam. I discussed the case with the resident and agree with the findings and plan as documented in the note. Any exceptions or clarifications are listed here: Pain control considerably improved on fentanyl patch and will transition to PO oxy for breakthrough at discharge. Pt reports feeling bloating/constipation since escalation of opiate therapy, so rec'd increased bowel regimen with primary care titration. Also reporting some epigastric discomfort and belching, so addition of H2 jessica for GI irritation without N/V. Pending pathology to be followed outpatient by oncology.
== END 2017-06-04 18:00 | disposition home or self-care (01) | DRG 824 ==
LOC: C.EDB 18:45 → C.MSN 06-01 00:48 → ENRESERV 06-01 01:19
PROVIDERS: ADMIT Internal Medicine; ATTEND Family Medicine
PROC: 07B13ZX Excision of Right Neck Lymphatic, Percutaneous Approach, Diagnostic (ICD-10-PCS; principal; 2017-06-01)
PROC: 07B10ZX Excision of Right Neck Lymphatic, Open Approach, Diagnostic (ICD-10-PCS; 2017-06-02)
DX: C77.9 Secondary and unspecified malignant neoplasm of lymph node, unspecified (principal); C78.7 Secondary malignant neoplasm of liver and intrahepatic bile duct; C34.32 Malignant neoplasm of lower lobe, left bronchus or lung; F32.9 Major depressive disorder, single episode, unspecified; F17.210 Nicotine dependence, cigarettes, uncomplicated; Z80.3 Family history of malignant neoplasm of breast; Z80.7 Family history of other malignant neoplasms of lymphoid, hematopoietic and related tissues

== ENCOUNTER → 2017-05-31 | Outpatient (CLI) | payer OTHER ==
[~2017-05-31] MED LIST changes: +DRGTP25 TD; +OPTIRAY 320 IV PRN; +POLY335019 PO; +RANI150T85 PO
--- NOTE | 2017-05-31 07:29 | DIAGNOSTIC IMAGING REPORT ---
ABD/PELVIS IV AND ORAL CONT CT DOSE: 547.78 mGycm HISTORY: Pain ABDOMINAL PAIN TECHNIQUE: Multiaxial CT images of the abdomen and pelvis were performed following the use of intravenous and oral contrast. A dose lowering technique was utilized adhering to the principles of ALARA. COMPARISON STUDY: 07/27/2015 FINDINGS: 2.8 x 2.3 cm mass medial left base. Ill-defined parenchymal infiltrative changes left lung base. Right base is clear. Multiple hypodensities within the right as well as left hepatic lobes which were not present on the prior exam. Maximum dimension involving the right hepatic lobe is 2.8 cm. Maximum dimension posterior left hepatic lobe is 2.3 cm. Multiple additional smaller deposits are identified throughout. These is suggestive of metastatic deposits. The spleen is uniform. Pancreas appears unremarkable. Kidneys enhance uniformly. No evidence of mass or hydronephrosis. Moderate increase in fecal load throughout the colon consistent with a component of fecal stasis. Nonobstructive bowel pattern. Bilateral cystic changes of the ovaries. On the left largest measures 2.4 cm and on the right 2.1 cm. There is no significant abdominal pelvic or inguinal adenopathy. IMPRESSION: 1. Multiple metastatic foci within the liver. 2. Prior cholecystectomy. 3. Increased fecal load within the colon consistent with fecal stasis. 4. Bilateral ovarian cysts. The above report was generated using voice recognition software. It may contain grammatical, syntax or spelling errors. Electronically signed by: Andrea Zamora M.D. 05/31/2017 7:28 AM Dictated Date/Time: 05/31/2017 7:19 AM
== END | disposition home or self-care (01) ==
LOC: C.CTS 06:32
PROVIDERS: ATTEND Surgery
DX: R10.9 Unspecified abdominal pain (principal)

== ENCOUNTER → 2017-05-31 | Outpatient (CLI) | payer OTHER ==
[~2017-05-31] MED LIST changes: -OPTIRAY 320 IV PRN
--- NOTE | 2017-05-31 07:59 | DIAGNOSTIC IMAGING REPORT ---
CT SCAN OF THE CHEST WITHOUT IV CONTRAST CLINICAL HISTORY: Pulmonary nodule. COMPARISON STUDY: Chest CT dated 05/25/2017. Abdominal CT scans dated 05/31/2017 an 07/27/2015. TECHNIQUE: CT scan of the thorax was performed from the thoracic inlet to the upper abdomen. Images are reviewed in the axial, sagittal, and coronal planes. IV contrast was not administered for this examination as per the referring clinician. A dose lowering technique was utilized adhering to the principles of ALARA. CT DOSE: 266.18 mGycm FINDINGS: Thyroid: Imaged portions of the thyroid gland are normal in size and attenuation. Thoracic aorta: The thoracic aorta is normal in caliber and demonstrates standard 3-vessel arch anatomy. Heart: The heart is normal in size and there is a small pericardial effusion. Lungs and pleural spaces: There is a 3.5 x 2.3 cm irregular mass lesion at the medial left lung base seen on image #194. The appearance is highly concerning for neoplasm. Intralobular septal thickening is noted in the left lower lobe and lingula with foci of nodularity. This suggests lymphocytic spread of tumor. Thickening and nodularity seen along the left major fissure on image #135. The right lung appears clear. No airspace consolidation is seen typical for pneumonia and there is no pleural effusion. The trachea and central airways are patent. Mediastinum: There is mediastinal lymphadenopathy. Peritracheal nodes measure up to 11 mm in short axis. A subcarinal node measures up to 12 mm short axis. Glenna: Not well assessed without IV contrast. Axillae: There is no axillary lymphadenopathy. Upper abdomen: There are numerous low-attenuation hepatic lesions identified. The largest is seen in the left lobe and measures up to 4.9 cm. These are new from 2016 and consistent with metastatic disease. Skeletal structures: No lytic or blastic bony lesions are seen. IMPRESSION: 1. There is a 3.5 x 2.3 cm irregular mass lesion at the medial left lung base. This should be considered lung cancer until proven otherwise. 2. Findings are highly concerning for lymphangitic spread of tumor in the left lower lobe and lingula. 3. The right lung appears clear. 4. There is evidence of multifocal hepatic metastatic disease. 5. Mediastinal lymphadenopathy is concerning for metastatic involvement. 6. There is no airspace consolidation typical for pneumonia or pleural effusion. 7. Trace pericardial effusion. Electronically signed by: Donaldo Velazquez M.D. 05/31/2017 7:58 AM Dictated Date/Time: 05/31/2017 7:45 AM
== END | disposition home or self-care (01) ==
LOC: C.CTS 06:51
PROVIDERS: ATTEND Surgery
DX: R59.0 Localized enlarged lymph nodes (principal); R91.1 Solitary pulmonary nodule

== ENCOUNTER 2017-06-17 10:55 | Inpatient (IN) | payer BC, OTHER ==
[~2017-06-17] VITALS: Ht 172.7 cm; Wt 65.6 kg
[~2017-06-17 10:55] MED LIST changes: +DRGTP25 TD; -ONDA4TAB46 PO; -OXYC1TAB3 PO; +POLY335019 PO; +RANI150T85 PO
[2017-06-17] MEDS ORDERED: SODIUM CHLORIDE 0.9% 1000ML 500 ML IV STA (11:10)
[2017-06-17] MEDS ORDERED: ONDANSETRON INJ 2 MG/ML 2 ML VIAL IV STA (11:10)
[2017-06-17] MEDS ORDERED: OPTIRAY 320 IV PRN (11:15)
[2017-06-17] MEDS ORDERED: HYDROmorphone INJ 2 MG/ML SYR/VIAL IV PRN (11:15)
[2017-06-17] MEDS ORDERED: HYDROmorphone INJ 1 MG/ML SYR ONE ×2 (11:26→12:11)
[2017-06-17 11:29] LABS: BASO % 0.1 %; BASO ABS # 0.01 K/uL (0-0.2); EOS % 5.1 %; EOS ABS # 0.37 K/uL (0-0.5); HEMOGLOBIN 14.1 g/dL (12.0-16.0); IG# 0.01 K/uL (0.00-0.02); LYMPH % 15.2 %; LYMPH ABS # 1.11 K/uL (1.2-3.4); MEAN CORPUSCULAR HEMOGLOBIN 29.9 pg (25-34); MEAN CORPUSCULAR HGB CONC 33.6 g/dl (32-36); MEAN PLATELET VOLUME 10.4 fL (7.4-10.4); MONO % 9.3 %; MONO ABS # 0.68 K/uL (0.11-0.59); NEUT % 70.2 %; PLATELET COUNT 242 K/uL (130-400); RED CELL DISTRIBUTION WIDTH CV 12.9 % (11.5-14.5); RED CELL DISTRIBUTION WIDTH SD 42.4 fL (36.4-46.3); WHITE BLOOD COUNT 7.28 K/uL (4.8-10.8)
[2017-06-17 11:47] LABS: ALBUMIN 3.5 gm/dl (3.4-5.0); ALT/SGPT 45 U/L (12-78); BLOOD UREA NITROGEN 8 mg/dl (7-18); CALCIUM 8.7 mg/dl (8.5-10.1); CARBON DIOXIDE 28 mmol/L (21-32); CREATININE 0.76 mg/dl (0.60-1.20); GLUCOSE 87 mg/dl (70-99); POTASSIUM 3.7 mmol/L (3.5-5.1); SODIUM 137 mmol/L (136-145)
[2017-06-17] MEDS ORDERED: DRGTP12 TD (11:49)
[2017-06-17] MEDS ORDERED: FNTTP25 TD (11:49)
[2017-06-17] MEDS ORDERED: RANITAB6 PO (11:49)
[2017-06-17] MEDS ORDERED: ATV1 PO (11:49)
[2017-06-17 11:50] LABS: PTT PATIENT 29.2 SECONDS (21.0-31.0)
[2017-06-17] MEDS ORDERED: GABA100C13 PO (11:50)
--- NOTE | 2017-06-17 11:53 | DIAGNOSTIC IMAGING REPORT ---
CHEST ONE VIEW PORTABLE HISTORY: 41 years-old Female sob acute shortness of breath COMPARISON: Chest radiograph 05/31/2017, CTA chest 05/31/2017 TECHNIQUE: Portable AP view of the chest FINDINGS: Cardiac silhouette is within normal limits. Subsegmental mixed interstitial and alveolar opacities of the left lung base and left perihilar distribution are noted without pneumothorax, large pleural effusion or overt pulmonary edema. Previously described focal lesion of the basal left lower lobe is again noted measuring up to 2.5 cm. Bones of the chest appear grossly intact. IMPRESSION: 2.5 cm nodule of the left lower lobe redemonstrated with associated mixed interstitial and alveolar opacities of the left lung base and left perihilar distribution suggesting postobstructive pneumonitis and/or metastatic disease. The above report was generated using voice recognition software. It may contain grammatical, syntax or spelling errors. Electronically signed by: Teddy Montoya M.D. 06/17/2017 11:51 AM Dictated Date/Time: 06/17/2017 11:46 AM
[2017-06-17 11:57] LABS: ALKALINE PHOSPHATASE 116 U/L (45-117); AST/SGOT 37 U/L (15-37); TOTAL PROTEIN 7.3 gm/dl (6.4-8.2)
[2017-06-17] MEDS ORDERED: HYDROmorphone INJ 1 MG/ML SYR IV PRN (12:15)
--- NOTE | 2017-06-17 12:36 | DIAGNOSTIC IMAGING REPORT ---
(CHEST FOR PE) ANGIO WITH CT DOSE: 545.55 mGy.cm HISTORY: 41 years-old Female presents with acute atypical chest pain. History of stage IV lung cancer TECHNIQUE: Multiple CTA images of the chest were obtained after the intravenous administration of 119 ml Optiray 320. Coronal and sagittal MIPS were obtained from the axial data set and were submitted for review. A dose lowering technique was utilized adhering to the principles of ALARA. COMPARISON: CT abdomen and pelvis of same day, CTA chest 05/31/2017, CT abdomen and pelvis 05/31/2017 FINDINGS: CTA: Heart is normal in size without large pericardial effusion. Thoracic aorta is normal in course and caliber without aneurysm or dissection. The imaged great vessels appear patent. The pulmonary arterial tree is opacified to the level of the subsegmental branches and demonstrates no focal filling defects to suggest pulmonary thromboembolic disease. CT CHEST: No dominant thyroid nodule identified. Multiple enlarged hilar and mediastinal lymph nodes redemonstrated with stable 11 mm right hilar lymph node, stable 12 mm left hilar lymph node and unchanged 11 mm right paratracheal lymph node considered as index lesions. Interval development of a trace left pleural effusion. Mild subsegmental dependent right basilar atelectasis. No suspicious pulmonary nodules or masses about the right lung. Irregular soft tissue attenuating mass of the basal left lower lobe redemonstrated measuring 3.4 x 2.7 cm on image 77 series 4, previously measured at 3.4 x 2.4 cm. There is progressive adjacent consolidative opacities about the left lower lobe with progressive nodular intralobular septal thickening throughout the left lung involving the left upper and lower lobes with moderate diffuse left lung bronchial wall thickening. No pneumothorax. Multiple hepatic metastasis redemonstrated. 8 mm sclerotic focus involves left aspect of the T2 vertebral body on image 226 series 4 which appears unchanged. No additional suspicious lytic or blastic bony lesions. IMPRESSION: 1. Irregular soft tissue attenuating mass of the basal left lower lobe redemonstrated, 3.4 cm compatible with primary bronchogenic carcinoma with progressively worsened nodular intralobular septal thickening throughout the left lung compatible with lymphangitic carcinomatosis. 2. No acute aortic pathology or evidence of pulmonary thromboembolic disease. 3. Development of trace left pleural effusion with worsened consolidative opacities about the left lower lobe suggesting postobstructive postobstructive pneumonitis. 4. Hilar and mediastinal lymphatic metastasis. 5. Subsegmental right basilar opacities suggest atelectasis. 6. Multiple hepatic metastasis redemonstrated. The above report was generated using voice recognition software. It may contain grammatical, syntax or spelling errors. Electronically signed by: Teddy Montoya M.D. 06/17/2017 12:35 PM Dictated Date/Time: 06/17/2017 12:23 PM
--- NOTE | 2017-06-17 12:47 | DIAGNOSTIC IMAGING REPORT ---
ABDOMEN AND PELVIS CT WITH IV CONTRAST HISTORY: Acute generalized abdominal pain with hepatic metastasis. ABD PAIN, tumors--poss bleeding, IV CONTRAST ONLY TECHNIQUE: Multiaxial CT images of the abdomen and pelvis were performed following the use of intravenous contrast. A dose lowering technique was utilized adhering to the principles of ALARA. COMPARISON STUDY: CTA chest of same day, CT abdomen and pelvis 05/31/2017 FINDINGS: Findings of the lung bases as described on CTA chest of same day. Trace pericardial effusion. No pneumatosis or pneumoperitoneum. Multiple ill-defined hepatic metastasis redemonstrated throughout the right and left hepatic lobes without significant change from comparison study. Prior cholecystectomy. Mild intrahepatic biliary ductal dilation is likely postsurgical. Spleen, pancreas and adrenal glands are within normal limits. Mild periportal lymph nodes are seen measuring up to 1.3 cm in short axis suggesting hepatic metastasis. Contrast within the bilateral renal collecting systems. Kidneys and ureters and bladder are unremarkable. 5.9 cm ovoid cyst of the left ovary with mild free fluid within the dependent pelvis. Uterus appears surgically absent. No abnormality of the right adnexum. Aorta appears normal. No bulky adenopathy. No bowel obstruction or focal bowel wall thickening. Visualized appendix appears normal. There are a few loops of mildly prominent nondilated fluid-filled small bowel the central abdomen along with a few loops of small bowel which demonstrate internal fecal material. Soft tissues are unremarkable. No suspicious lytic or blastic bony lesions to suggest osseous metastasis. IMPRESSION: 1. Multiple hepatic metastasis redemonstrated. 2. Findings of the bilateral lung bases, further characterized and discussed on CTA chest of same day. 3. No bowel obstruction or focal bowel wall thickening. 4. No evidence of osseous metastatic disease. 5. A few loops of mildly prominent nondilated fluid-filled small bowel within the left midabdomen are nonspecific and may reflect enteritis or ileus. 6. 5.9 cm left ovarian cyst with mild free pelvic fluid. 7. Prior cholecystectomy. Electronically signed by: Teddy Montoya M.D. 06/17/2017 12:46 PM Dictated Date/Time: 06/17/2017 12:35 PM
[2017-06-17] MEDS ORDERED: SODIUM CHLORIDE 0.9% 1000ML 1,000 ML IV SCH (13:31)
--- NOTE | 2017-06-17 13:44 | EMERGENCY ROOM VISIT NOTE ---
History Report prepared by [facility]: Jhonathan Mercedes Under the Supervision of: Dr. Donaldo Robertson M.D. First contact with patient: 11:02 Chief Complaint: RESPIRATORY PROBLEMS Stated Complaint: STAGE 4 LUNG CANCER - SEVERE PAIN History of Present Illness The patient is a 41 year old female who presents to the Emergency Room with complaints of constant right-sided abdominal pain beginning yesterday. The patient states that she has a history of stage four lung cancer which has metastasized to her neck and liver. She notes that she was here on 06/04/2017 for similar pain and was discharged with pain medication. She reports that her current pain feels similar to her pain when she last came into the emergency department. The patient states that her abdominal pain radiates into her right shoulder. She notes that her abdomen occasionally becomes distended. She also complains of SOB and nausea. She denies any vomiting, fever, and recent trauma that would worsen her symptoms. She reports that movement and breathing makes her pain worse. The patient states that she has no history of blood clots but notes that she has a family history of blood clots. Source of History: patient Onset: yesterday Position: abdomen (right-sided) Timing: constant Modifying Factors (Worsening): breathing, movement Associated Symptoms: + SOB, + nausea, No fevers, No vomiting Note: The patient also complains of right shoulder pain and occasional distension. Review of Systems See HPI for pertinent positives & negatives. A total of 10 systems reviewed and were otherwise negative. Past Medical & Surgical Medical Problems: (1) Abnormal CT scan (2) Cyst of gallbladder (3) Depressive Disorder Nec (4) Endometriosis (5) Fem Pelv Inflam Dis Nos (6) Fem Pelvic Periton Adh-Post-Op/Inf (7) Intractable pain (8) Lung cancer (9) Metastatic cancer to lung (10) Metastatic primary lung cancer (11) Ovarian Cyst Nec/Nos (12) Tobacco Use Disorder Surgical Problems: (1) H/O: hysterectomy (2) History of delivery (3) History of hysterectomy (4) History of laparoscopy (5) History of tonsillectomy (6) Hx of elbow surgery Family History Blood clots Cancer Diabetes mellitus Gallbladder disease Heart disease Hypertension Seizures Social History Smoking Status: Former Smoker Alcohol Use: none Drug Use: none Marital Status: single Housing Status: lives with family Occupation Status: employed Current/Historical Medications Scheduled Fentanyl (Fentanyl), 12 MCG TD CQ72HR Fentanyl (Fentanyl), 25 MCG TD CQ72HR Gabapentin (Neurontin), 100 MG PO TID Ranitidine Hcl (Zantac 150 Maximum Streng), 150 MG PO BID Scheduled PRN Lorazepam (Lorazepam), 1 MG PO BID PRN for Anxiety Allergies Coded Allergies: No Known Allergies (Verified , 06/02/17) Physical Exam Vital Signs Date Time Temp Pulse Resp B/P (MAP) Pulse Ox O2 Delivery O2 Flow Rate FiO2 06/17/17 12:25 67 15 92 06/17/17 11:55 73 22 06/17/17 11:12 71 06/17/17 11:10 97 Room Air 06/17/17 11:10 97 Room Air 06/17/17 11:07 113/77 06/17/17 10:58 36.4 81 18 122/81 94 Room Air Physical Exam GENERAL: Patient is in no acute distress. HEENT: No acute trauma, normocephalic atraumatic, mucous membranes moist, no nasal congestion, no scleral icterus. NECK: No stridor, no adenopathy, no meningismus, trachea is midline. LUNGS: Decreased breath sounds bilaterally, splinting to take a deep breath, no wheezes, no rhonchi, increased respiratory rate. HEART: Without murmurs gallops or rubs, regular rate and rhythm. ABDOMEN: Soft, nontender, bowel sounds positive, no hernias, no peritonitis. EXTREMITIES: No cyanosis or edema, full range of motion of all the joints without pain or difficulty, no signs for acute trauma. NEUROLOGIC: Oriented x 3, no acute motor or sensory deficits, no focal weakness. SKIN: No rash, no jaundice, no diaphoresis. Medical Decision & Procedures ER Provider Diagnostic Interpretation: Radiology results as stated below per my review and radiologist interpretation: (CHEST FOR PE) ANGIO WITH FINDINGS: CTA: Heart is normal in size without large pericardial effusion. Thoracic aorta is normal in course and caliber without aneurysm or dissection. The imaged great vessels appear patent. The pulmonary arterial tree is opacified to the level of the subsegmental branches and demonstrates no focal filling defects to suggest pulmonary thromboembolic disease. CT CHEST: No dominant thyroid nodule identified. Multiple enlarged hilar and mediastinal lymph nodes redemonstrated with stable 11 mm right hilar lymph node, stable 12 mm left hilar lymph node and unchanged 11 mm right paratracheal lymph node considered as index lesions. Interval development of a trace left pleural effusion. Mild subsegmental dependent right basilar atelectasis. No suspicious pulmonary nodules or masses about the right lung. Irregular soft tissue attenuating mass of the basal left lower lobe redemonstrated measuring 3.4 x 2.7 cm on image 77 series 4, previously measured at 3.4 x 2.4 cm. There is progressive adjacent consolidative opacities about the left lower lobe with progressive nodular intralobular septal thickening throughout the left lung involving the left upper and lower lobes with moderate diffuse left lung bronchial wall thickening. No pneumothorax. Multiple hepatic metastasis redemonstrated. 8 mm sclerotic focus involves left aspect of the T2 vertebral body on image 226 series 4 which appears unchanged. No additional suspicious lytic or blastic bony lesions. IMPRESSION: 1. Irregular soft tissue attenuating mass of the basal left lower lobe redemonstrated, 3.4 cm compatible with primary bronchogenic carcinoma with progressively worsened nodular intralobular septal thickening throughout the left lung compatible with lymphangitic carcinomatosis. 2. No acute aortic pathology or evidence of pulmonary thromboembolic disease. 3. Development of trace left pleural effusion with worsened consolidative opacities about the left lower lobe suggesting postobstructive postobstructive pneumonitis. 4. Hilar and mediastinal lymphatic metastasis. 5. Subsegmental right basilar opacities suggest atelectasis. 6. Multiple hepatic metastasis redemonstrated. The above report was generated using voice recognition software. It may contain grammatical, syntax or spelling errors. Electronically signed by: Teddy Montoya M.D. 06/17/2017 12:35 PM CHEST ONE VIEW PORTABLE FINDINGS: Cardiac silhouette is within normal limits. Subsegmental mixed interstitial and alveolar opacities of the left lung base and left perihilar distribution are noted without pneumothorax, large pleural effusion or overt pulmonary edema. Previously described focal lesion of the basal left lower lobe is again noted measuring up to 2.5 cm. Bones of the chest appear grossly intact. IMPRESSION: 2.5 cm nodule of the left lower lobe redemonstrated with associated mixed interstitial and alveolar opacities of the left lung base and left perihilar distribution suggesting postobstructive pneumonitis and/or metastatic disease. The above report was generated using voice recognition software. It may contain grammatical, syntax or spelling errors. Electronically signed by: Teddy Montoya M.D. 06/17/2017 11:51 AM ABDOMEN AND PELVIS CT WITH IV CONTRAST FINDINGS: Findings of the lung bases as described on CTA chest of same day. Trace pericardial effusion. No pneumatosis or pneumoperitoneum. Multiple ill-defined hepatic metastasis redemonstrated throughout the right and left hepatic lobes without significant change from comparison study. Prior cholecystectomy. Mild intrahepatic biliary ductal dilation is likely postsurgical. Spleen, pancreas and adrenal glands are within normal limits. Mild periportal lymph nodes are seen measuring up to 1.3 cm in short axis suggesting hepatic metastasis. Contrast within the bilateral renal collecting systems. Kidneys and ureters and bladder are unremarkable. 5.9 cm ovoid cyst of the left ovary with mild free fluid within the dependent pelvis. Uterus appears surgically absent. No abnormality of the right adnexum. Aorta appears normal. No bulky adenopathy. No bowel obstruction or focal bowel wall thickening. Visualized appendix appears normal. There are a few loops of mildly prominent nondilated fluid-filled small bowel the central abdomen along with a few loops of small bowel which demonstrate internal fecal material. Soft tissues are unremarkable. No suspicious lytic or blastic bony lesions to suggest osseous metastasis. IMPRESSION: 1. Multiple hepatic metastasis redemonstrated. 2. Findings of the bilateral lung bases, further characterized and discussed on CTA chest of same day. 3. No bowel obstruction or focal bowel wall thickening. 4. No evidence of osseous metastatic disease. 5. A few loops of mildly prominent nondilated fluid-filled small bowel within the left midabdomen are nonspecific and may reflect enteritis or ileus. 6. 5.9 cm left ovarian cyst with mild free pelvic fluid. 7. Prior cholecystectomy. Electronically signed by: Teddy Montoya M.D. 06/17/2017 12:46 PM Laboratory Results 06/17/17 11:21 Red Blood Count 4.72, Mean Corpuscular Volume 89.0, Mean Corpuscular Hemoglobin 29.9, Mean Corpuscular Hemoglobin Concent 33.6, Mean Platelet Volume 10.4, Neutrophils (%) (Auto) 70.2, Lymphocytes (%) (Auto) 15.2, Monocytes (%) (Auto) 9.3, Eosinophils (%) (Auto) 5.1, Basophils (%) (Auto) 0.1, Neutrophils # (Auto) 5.10, Lymphocytes # (Auto) 1.11, Monocytes # (Auto) 0.68, Eosinophils # (Auto) 0.37, Basophils # (Auto) 0.01 06/17/17 11:21 Test 06/17/17 11:21 06/17/17 13:05 White Blood Count 7.28 K/uL (4.8-10.8) Red Blood Count 4.72 M/uL (4.2-5.4) Hemoglobin 14.1 g/dL (12.0-16.0) Hematocrit 42.0 % (37-47) Mean Corpuscular Volume 89.0 fL (80-100) Mean Corpuscular Hemoglobin 29.9 pg (25-34) Mean Corpuscular Hemoglobin Concent 33.6 g/dl (32-36) Platelet Count 242 K/uL (130-400) Mean Platelet Volume 10.4 fL (7.4-10.4) Neutrophils (%) (Auto) 70.2 % Lymphocytes (%) (Auto) 15.2 % Monocytes (%) (Auto) 9.3 % Eosinophils (%) (Auto) 5.1 % Basophils (%) (Auto) 0.1 % Neutrophils # (Auto) 5.10 K/uL (1.4-6.5) Lymphocytes # (Auto) 1.11 K/uL (1.2-3.4) Monocytes # (Auto) 0.68 K/uL (0.11-0.59) Eosinophils # (Auto) 0.37 K/uL (0-0.5) Basophils # (Auto) 0.01 K/uL (0-0.2) RDW Standard Deviation 42.4 fL (36.4-46.3) RDW Coefficient of Variation 12.9 % (11.5-14.5) Immature Granulocyte % (Auto) 0.1 % Immature Granulocyte # (Auto) 0.01 K/uL (0.00-0.02) Prothrombin Time 10.1 SECONDS (9.0-12.0) Prothromb Time International Ratio 1.0 (0.9-1.1) Activated Partial Thromboplast Time 29.2 SECONDS (21.0-31.0) Partial Thromboplastin Ratio 1.1 Anion Gap 4.0 mmol/L (3-11) Est Creatinine Clear Calc Drug Dose 98.2 ml/min Estimated GFR () 112.9 Estimated GFR (Non- 97.4 BUN/Creatinine Ratio 11.2 (10-20) Calcium Level 8.7 mg/dl (8.5-10.1) Total Bilirubin 0.4 mg/dl (0.2-1) Aspartate Amino Transf (AST/SGOT) 37 U/L (15-37) Alanine Aminotransferase (ALT/SGPT) 45 U/L (12-78) Alkaline Phosphatase 116 U/L (45-117) Troponin I < 0.015 ng/ml (0-0.045) Total Protein 7.3 gm/dl (6.4-8.2) Albumin 3.5 gm/dl (3.4-5.0) Globulin 3.8 gm/dl (2.5-4.0) Albumin/Globulin Ratio 0.9 (0.9-2) Urine Color YELLOW Urine Appearance CLEAR (CLEAR) Urine pH 5.0 (4.5-7.5) Urine Specific [place] > 1.045 (1.000-1.030) Urine Protein NEG (NEG) Urine Glucose (UA) NEG (NEG) Urine Ketones NEG (NEG) Urine Occult Blood TRACE (NEG) Urine Nitrite NEG (NEG) Urine Bilirubin NEG (NEG) Urine Urobilinogen NEG (NEG) Urine Leukocyte Esterase NEG (NEG) Urine WBC (Auto) 1-5 /hpf (0-5) Urine RBC (Auto) 0-4 /hpf (0-4) Urine Hyaline Casts (Auto) 1-5 /lpf (0-5) Urine Epithelial Cells (Auto) 10-20 /lpf (0-5) Urine Bacteria (Auto) NEG (NEG) Laboratory results reviewed by me. Medications Administered Medications (Trade) Dose Ordered Sig/Saul Route Start Time Stop Time Status Last Admin Dose Admin Sodium Chloride 500 ml @ 999 mls/hr Q31M STAT IV 06/17/17 11:10 06/17/17 11:40 DC 06/17/17 11:33 999 MLS/HR Ondansetron HCl (Zofran Inj) 4 mg NOW STAT IV 06/17/17 11:10 06/17/17 11:14 DC 06/17/17 11:33 4 MG Hydromorphone HCl (Dilaudid Inj) 1 mg STK-MED ONCE .ROUTE 06/17/17 11:26 06/17/17 11:27 DC 06/17/17 11:32 1 MG Hydromorphone HCl (Dilaudid Inj) 1 mg STK-MED ONCE .ROUTE 06/17/17 12:11 06/17/17 12:12 DC 06/17/17 12:18 1 MG ECG Per My Interpretation Indication: abdominal pain Rate (beats per minute): 66 Rhythm: normal sinus Findings: no ectopy, other (No ST elevation, no PVCs) ED Course 1106: The patient was evaluated in room C9. A complete history and physical exam was performed. 1110: Zofran Inj 4mg IV, Sodium Chloride 500 ml @ 999 mls/hr IV 1115: Dilaudid Inj 1mg IV 1130: I discussed the patients case with Dr. Carrillo Hematology, Medical Oncology, [facility]. We discussed options for the patient. He suggests admission for pain control. 1305: I reevaluated and updated the patient. 1307: Upon reexamination the patient is stable. I discussed results and treatment plan with the patient. She verbalizes agreement and understanding. I spoke with Dr. Blackwell of the [facility] Hospitalist Service. We discussed the patient' s results and findings. The patient will be evaluated by Dr. Blackwell for further management. Medical Decision Differential diagnoses include: worsening tumor burden, PE, pneumonia, pneumothorax, NH, renal/liver failure, UTI, and tumor bleeding. There is no leukocytosis or concerning anemia. No significant electrolyte abnormality, kidney failure, hepatitis. EKG shows a sinus rhythm, no acute ischemia. Cardiac enzyme testing 1 is not consistent with acute cardiac injury. Chest CT does not show PE, multiple findings consistent with metastases and tumor were seen. Abdominal and pelvis CT shows multiple masses in the liver, no evidence for intra-abdominal bleeding. No bowel obstruction. Chest film does not show pneumonia or pneumothorax, no free air. Urinalysis does not show infection. The patient received IV Dilaudid and IV Zofran. She received IV saline. Patient presents with increasing pain. The pain appears to be coming from her tumors and metastases. Her pain is not controlled as an outpatient. Hematology oncology did visit the patient here in the ED. A hospital stay for symptom control was advised. I spoke to the patient and case management. She is feeling better since being medicated. The on-call hospitalist was consulted. Medication Reconcilliation Current Medication List: was personally reviewed by me Blood Pressure Screening Patient's blood pressure: Normal blood pressure Blood pressure disposition: Did not require urgent referral Consults Time Called: 1128 Consulting Physician: Dr. Carrillo - Hematology, Medical Oncology, [facility] Returned Call: 1130 I discussed the patients case with Dr. Carrillo. We discussed options for the patient. He suggests admission for pain control. Additional Consults: Time Called: 1301 Consulted Physician: Dr. Blackwell - Hospitalist, [facility] Returned Call: [phone] Additional Comments: Discussed the patient's case. The patient will be evaluated for further management. Impression Primary Impression: Right-sided chest pain Additional Impressions: RUQ abdominal pain Failure of outpatient treatment Metastatic disease Scribe Attestation The scribe's documentation has been prepared under my direction and personally reviewed by me in its entirety. I confirm that the note above accurately reflects all work, treatment, procedures, and medical decision making performed by me. Departure Information Dispostion Being Evaluated By Hospitalist Referrals Scotty Diaz DO (PCP) Patient Instructions My [facility] Problem Qualifiers
[2017-06-17] MEDS ORDERED: HYDROmorphone HCL 0.5MG/ML 50 ML CASSETTE IV PRN (13:45)
[2017-06-17] MEDS ORDERED: ALUMINUM/MAGNESIUM/SIMETH (MAALOX MAX) 30 ML UDC PO PRN (13:45)
[2017-06-17] MEDS ORDERED: MAGNESIUM HYDROXIDE SUSP 30 ML UDC PO PRN (13:45)
[2017-06-17] MEDS ORDERED: ACETAMINOPHEN 325 MG TAB PO PRN (13:45)
[2017-06-17] MEDS ORDERED: NALOXONE HCL 0.4 MG/1 ML VIAL/CARP IV PRN ×2 (13:45→17:45)
[2017-06-17] MEDS ORDERED: POLYETHYLENE (MIRALAX) 17 GM PACK PO PRN (13:45)
--- NOTE | 2017-06-17 13:49 | History and Physical ---
History & Physical Date & Time of Service: June 17, 2017 at 13:25 Chief Complaint: Stage 4 Lung Cancer - Severe Pain Primary Care Physician: Scotty Diaz DO History of Present Illness Source: patient, family, hospital records 41 y/o F Hx recently diagnosed metastatic lung CA with liver mets. She presents with intractable R upper abdominal pain. The pt is prescribed Fentanyl at 37mcg and Q6H oxycodone 5-10mg. She has not had any relief with this regimen and her pain has been difficult to control in the ER. She denies any CP, SOB, N/V, fevers at present. She does state that she feels better when wearing oxygen but does not have a history of desaturation. The pt is presently awaiting a delivery of an oral immune therapy agent to commence treatment. She has not had any chemotherapy or radiation to date. Past Medical/Surgical History 1) Metastatic lung CA - diagnosed 05/2017 - Primary in LLL - mets to LNs in hilum and mediastinum and liver 2) PID Surgical: 1) Aspiration of superficial LN in R neck 2) Hysterectomy Family History Blood clots Cancer Diabetes mellitus Gallbladder disease Heart disease Hypertension Seizures Former smoker - does not drink alcohol - employed at a [employer] Social History Smoking Status: Former Smoker Drug Use: none Marital Status: Housing status: lives with family Occupational Status: employed Immunizations History of Influenza Vaccine: No History of Tetanus Vaccine?: Unknown History of Pneumococcal: No History of Hepatitis B Vaccine: Unknown Allergies Coded Allergies: No Known Allergies (Verified , 06/02/17) Home Medications Scheduled Fentanyl (Fentanyl), 12 MCG TD CQ72HR Fentanyl (Fentanyl), 25 MCG TD CQ72HR Gabapentin (Neurontin), 100 MG PO TID Ranitidine Hcl (Zantac 150 Maximum Streng), 150 MG PO BID Scheduled PRN Lorazepam (Lorazepam), 1 MG PO BID PRN for Anxiety Review of Systems Constitutional: No fever, No chills, No sweats Eyes: No worsening of vision ENT: No hearing loss, No nasal symptoms Respiratory: No cough, No sputum, No wheezing Cardiovascular: No chest pain, No orthopnea, No PND Abdomen: + pain, No nausea, No vomiting Musculoskeletal: No joint pain Genitourinary - Female: No dysuria, No urinary frequency Neurologic: No memory loss, No paralysis Hematologic / Lymphatic: No abnormal bleeding/bruising Integumentary: No rash Allergic / Immunologic: No environmental allergies Physical Exam Vital Signs Date Time Temp Pulse Resp B/P (MAP) Pulse Ox O2 Delivery O2 Flow Rate FiO2 06/17/17 12:25 67 15 92 06/17/17 11:55 73 22 06/17/17 11:12 71 06/17/17 11:10 97 Room Air 06/17/17 11:10 97 Room Air 06/17/17 11:07 113/77 06/17/17 10:58 36.4 81 18 122/81 94 Room Air General Appearance: WD/WN, no apparent distress Head: normocephalic Eyes: normal inspection ENT: normal ENT inspection Neck: supple, no JVD Respiratory/Chest: chest non-tender, + pertinent finding (Crackles are audible in her left base) Cardiovascular: regular rate, rhythm, no edema, no gallop Abdomen/GI: normal bowel sounds, non tender Extremities/Musculoskelatal: normal inspection, no calf tenderness Neurologic/Psych: bulldozer/loader/compactor/scraper II-XII nml as tested, no motor/sensory deficits, alert, oriented x 3 Skin: normal color Diagnostics Laboratory Results Results Past 24 Hours Test 06/17/17 11:21 06/17/17 13:05 Range/Units White Blood Count 7.28 4.8-10.8 K/uL Red Blood Count 4.72 4.2-5.4 M/uL Hemoglobin 14.1 12.0-16.0 g/dL Hematocrit 42.0 37-47 % Mean Corpuscular Volume 89.0 80-100 fL Mean Corpuscular Hemoglobin 29.9 25-34 pg Mean Corpuscular Hemoglobin Concent 33.6 32-36 g/dl Platelet Count 242 130-400 K/uL Mean Platelet Volume 10.4 7.4-10.4 fL Neutrophils (%) (Auto) 70.2 % Lymphocytes (%) (Auto) 15.2 % Monocytes (%) (Auto) 9.3 % Eosinophils (%) (Auto) 5.1 % Basophils (%) (Auto) 0.1 % Neutrophils # (Auto) 5.10 1.4-6.5 K/uL Lymphocytes # (Auto) 1.11 1.2-3.4 K/uL Monocytes # (Auto) 0.68 0.11-0.59 K/uL Eosinophils # (Auto) 0.37 0-0.5 K/uL Basophils # (Auto) 0.01 0-0.2 K/uL RDW Standard Deviation 42.4 36.4-46.3 fL RDW Coefficient of Variation 12.9 11.5-14.5 % Immature Granulocyte % (Auto) 0.1 % Immature Granulocyte # (Auto) 0.01 0.00-0.02 K/uL Prothrombin Time 10.1 9.0-12.0 SECONDS Prothromb Time International Ratio 1.0 0.9-1.1 Activated Partial Thromboplast Time 29.2 21.0-31.0 SECONDS Partial Thromboplastin Ratio 1.1 Sodium Level 137 136-145 mmol/L Potassium Level 3.7 3.5-5.1 mmol/L Chloride Level 105 98-107 mmol/L Carbon Dioxide Level 28 21-32 mmol/L Anion Gap 4.0 3-11 mmol/L Blood Urea Nitrogen 8 7-18 mg/dl Creatinine 0.76 0.60-1.20 mg/dl Est Creatinine Clear Calc Drug Dose 98.2 ml/min Estimated GFR () 112.9 Estimated GFR (Non- 97.4 BUN/Creatinine Ratio 11.2 10-20 Random Glucose 87 70-99 mg/dl Calcium Level 8.7 8.5-10.1 mg/dl Total Bilirubin 0.4 0.2-1 mg/dl Aspartate Amino Transf (AST/SGOT) 37 15-37 U/L Alanine Aminotransferase (ALT/SGPT) 45 12-78 U/L Alkaline Phosphatase 116 45-117 U/L Troponin I < 0.015 0-0.045 ng/ml Total Protein 7.3 6.4-8.2 gm/dl Albumin 3.5 3.4-5.0 gm/dl Globulin 3.8 2.5-4.0 gm/dl Albumin/Globulin Ratio 0.9 0.9-[address] chest: 1. Irregular soft tissue attenuating mass of the basal left lower lobe redemonstrated, 3.4 cm compatible with primary bronchogenic carcinoma with progressively worsened nodular intralobular septal thickening throughout the left lung compatible with lymphangitic carcinomatosis. 2. No acute aortic pathology or evidence of pulmonary thromboembolic disease. 3. Development of trace left pleural effusion with worsened consolidative opacities about the left lower lobe suggesting postobstructive postobstructive pneumonitis. 4. Hilar and mediastinal lymphatic metastasis. 5. Subsegmental right basilar opacities suggest atelectasis. 6. Multiple hepatic metastasis redemonstrated. Impression Assessment and Plan 41 y/o F Hx recently diagnosed metastatic lung CA with liver mets. She presents with intractable R upper abdominal pain. The pt is prescribed Fentanyl at 37mcg and Q6H oxycodone 5-10mg. She has not had any relief with this regimen and her pain has been difficult to control in the ER. She denies any CP, SOB, N/V, fevers at present. She does state that she feels better when wearing oxygen but does not have a history of desaturation. 1) Intractable pain - the pt will be placed on a HOBBER to determine her requirements. We will increase her Fentanyl to 50mcg. Antiemetics and laxatives provided. She will be monitored on telemetry for respiratory depression. 2) Met lung CA - to commence immune therapy within a few weeks - will follow up with her fine hairer Full code Lovenox prophylaxis Total time for this admit including review of labs, meds, imaging, records - discussion with pt, family and ER attending - 35 min Resuscitation Status VTE Prophylaxis Will order VTE Prophylaxis: Yes
[2017-06-17 13:55] VITALS: O2SAT 92; BMI 22.7
[2017-06-17 13:56] VITALS: BP 101/61; PULSE 61; TEMP 36.7; O2SAT 97
[2017-06-17] MEDS ORDERED: GABAPENTIN 100 MG CAP PO SCH (14:00)
[2017-06-17] MEDS ORDERED: IV FLUIDS COMPLETED PRN (14:00)
[2017-06-17] MEDS: FENTANYL PATCH REMOVE & WASTE SCH (15:29)
[2017-06-17] MEDS: ONDANSETRON INJ 2 MG/ML 2 ML VIAL IV PRN (15:48)
[2017-06-17] MEDS ORDERED: METOCLOPRAMIDE HCL INJ 5 MG/ML 2 ML VIAL ONE (16:39)
[2017-06-17] MEDS: FENTANYL 50 MCG/HR TDSY TD SCH (17:04)
[2017-06-17] MEDS: SODIUM CHLORIDE 0.9% 1000ML 1,000 ML IV SCH (17:41)
[2017-06-17] MEDS ORDERED: PROCHLORPERAZINE INJ 5 MG in SYRINGE 4 ML IV PRN (17:45)
[2017-06-17] MEDS ORDERED: PROCHLORPERAZINE INJ 5 MG in SYRINGE 4 ML IV ONE (18:30)
[2017-06-17] MEDS: MoRPHine SULFATE 1 MG/ML 50 ML PCA CASS IV PRN (19:19)
[2017-06-17 19:31] VITALS: BP 94/59; PULSE 82; TEMP 36.6; O2SAT 90
[2017-06-17 20:00] VITALS: O2SAT 98
[2017-06-17] MEDS: ENOXAPARIN 40 MG/0.4 ML SYR SC SCH (20:41)
[2017-06-17] MEDS: RANITIDINE HCL 150 MG TAB PO SCH (20:41)
[2017-06-17] MEDS ORDERED: DOCUSATE SODIUM/SENNA 50/8.6MG TAB PO SCH (21:00)
[2017-06-17 21:08] VITALS: BP 114/73; PULSE 106; TEMP 36.6; O2SAT 98
[2017-06-17] MEDS: LORAZEPAM 1 MG TAB PO PRN (21:15)
[2017-06-17 23:44] VITALS: BP 114/73; PULSE 106; TEMP 36.6; O2SAT 98
[2017-06-18] VITALS (8 sets, daily range): BP systolic 92–117; BP diastolic 56–73; PULSE 68–98; TEMP 36.4–36.8; O2SAT 95–98; Ht 172.7 cm; Wt 65.6 kg
[2017-06-18] MEDS: CHECK FENTANYL PATCH PLACEMENT SCH ×4 (00:28→21:28)
[2017-06-18] MEDS: ONDANSETRON INJ 2 MG/ML 2 ML VIAL IV PRN (06:01)
[2017-06-18] MEDS: LORAZEPAM 1 MG TAB PO PRN ×3 (07:40→21:28)
[2017-06-18] MEDS ORDERED: PROMETHAZINE HCL INJ 25 MG in SODIUM CHLORIDE 0.9% 50ML 50 ML IV PRN (08:00)
[2017-06-18] MEDS ORDERED: PROMETHAZINE HCL INJ 25 MG/ML 1 ML VIAL IM ONE (08:15)
[2017-06-18] MEDS ORDERED: NURSING VERBAL MED ORDER ONE ×2 (08:45)
[2017-06-18] MEDS: RANITIDINE HCL 150 MG TAB PO SCH ×2 (11:16→21:28)
[2017-06-18] MEDS ORDERED: BISACODYL 10 MG SUPP PR STA (12:16)
--- NOTE | 2017-06-18 13:07 | Oncology Consultation ---
Oncology/Heme Consultation Date of Consultation: June 18, 2017. Attending Physician: Kody Martins MD, PhD Reason for Consultation: Adenocarcinoma the lung Hepatic metastasis Refractory pain History of Present Illness Ms. Guevara is a 41-year-old female that presented in May with 1-2 months of chest and right upper quadrant abdominal pain. CTA of the chest revealed an infiltrate versus focal mass the medial aspect of the left base along with bilateral hilar and mediastinal lymphadenopathy. Multiple hypodensities were also noted in the right as well as left hepatic lobes. She in addition had a palpable high right cervical lymph node that was excised. This revealed metastatic adenocarcinoma. It was consistent with a lung primary. Molecular targets have shown this to be EGF are positive. She is being readied for targeted therapy with a drug afatinib. She called Monday evening stated that her pain had worsened in the right upper quadrant of her abdomen. So much so that it was affecting her breathing. She was told to increase her oxycodone but if the pain was still unbearable that she should make her way to the emergency room. She did so yesterday morning. I visited with her briefly in the emergency room and suggested that that she be admitted for pain control. CT images done yesterday continued to show the same findings. Her blood work both CBC and general chemistries are all stable. She is now on a PNEUDRAULIC SYSTEMS MECHANIC pump and the pain seems fairly well controlled. She is being visited with her by her daughters and fiestela and enjoying Mother's Day. Past Medical/Surgical History Medical Problems: (1) Chest pain Status: Acute (2) Chest wall pain Status: Acute (3) Failure of outpatient treatment Status: Acute (4) Lung mass Status: Acute (5) Metastatic cancer Status: Acute (6) Metastatic disease Status: Acute (7) Neuritis of left ulnar nerve Status: Acute (8) Right-sided chest pain Status: Acute (9) RUQ abdominal pain Status: Acute Family History Blood clots Cancer Diabetes mellitus Gallbladder disease Heart disease Hypertension Seizures Mother and sister both have breast cancer Social History Former smoker Smoking Status: Former Smoker Drug Use: none Marital Status: Housing Status: lives with family Occupation Status: employed Allergies Coded Allergies: No Known Allergies (Verified , 06/02/17) Home Medications Scheduled Fentanyl (Fentanyl), 12 MCG TD CQ72HR Fentanyl (Fentanyl), 25 MCG TD CQ72HR Gabapentin (Neurontin), 100 MG PO TID Ranitidine Hcl (Zantac 150 Maximum Streng), 150 MG PO BID Scheduled PRN Lorazepam (Lorazepam), 1 MG PO BID PRN for Anxiety Current Inpatient Medications Current Inpatient Medications Medications (Trade) Dose Ordered Sig/Saul Route Start Time Stop Time Status Last Admin Dose Admin Ioversol (Optiray 320) 100 ml UD PRN IV 06/17/17 11:15 06/21/17 11:14 Fentanyl (Duragesic Patch) 50 mcg Q72H TD 06/17/17 15:30 07/01/17 15:29 06/17/17 17:04 50 MCG Ranitidine HCl (zANTac TAB) 150 mg BID PO 06/17/17 21:00 07/17/17 20:59 06/18/17 11:16 150 MG Enoxaparin Sodium (Lovenox Inj) 40 mg Q24H SC 06/17/17 21:00 07/17/17 20:59 06/17/17 20:41 40 MG Acetaminophen (Tylenol Tab) 650 mg Q4H PRN PO 06/17/17 13:45 07/17/17 13:44 Al Hydrox/Mg Hydrox/Simethicone (Maalox Max Susp) 15 ml Q4H PRN PO 06/17/17 13:45 07/17/17 13:44 Magnesium Hydroxide (Milk Of Magnesia Susp) 30 ml Q12H PRN PO 06/17/17 13:45 07/17/17 13:44 Ondansetron HCl (Zofran Inj) 4 mg Q6H PRN IV 06/17/17 13:45 07/17/17 13:44 06/18/17 06:01 4 MG Polyethylene (Miralax Powder Packet) 17 gm DAILY PRN PO 06/17/17 13:45 07/17/17 13:44 Miscellaneous (Iv Fluids Completed) 1 ea PRN PRN N/A 06/17/17 14:00 06/17/18 13:59 Miscellaneous (Fentanyl Patch Remove & Waste) 1 ea Q3D@1529 N/A 06/17/17 15:29 07/17/17 15:28 06/17/17 15:29 1 EA Miscellaneous Information (Check Fentanyl Patch Placement) 1 ea QS N/A 06/18/17 00:00 07/18/17 00:00 06/18/17 08:00 1 EA Metoclopramide HCl (Reglan Inj) 5 mg Q6H PRN IV. 06/17/17 16:45 07/17/17 16:44 Naloxone HCl (Narcan Inj) 0.1 mg Q5M PRN IV 06/17/17 17:45 07/17/17 17:44 Morphine Sulfate (moRPHine SULFATE PNEUDRAULIC SYSTEMS MECHANIC) 50 mg PRN PRN IV 06/17/17 17:45 07/01/17 17:44 06/17/17 19:19 50 MG Sodium Chloride 1,000 ml @ 15 mls/hr Q24H IV 06/17/17 17:41 07/17/17 17:40 06/17/17 17:41 15 MLS/HR Prochlorperazine Edisylate 5 mg/ Syringe 5 ml @ 5 mls/min Q12H PRN IV 06/17/17 17:45 07/17/17 17:44 Lorazepam (Ativan Tab) 1 mg TID PRN PO 06/18/17 08:15 07/17/17 13:44 Promethazine HCl 25 mg/Sodium Chloride 51 ml @ 204 mls/hr Q6H PRN IV 06/18/17 08:00 07/18/17 07:59 06/18/17 09:06 204 MLS/HR Bisacodyl (Dulcolax Supp) 10 mg DAILY PRN OR 06/18/17 12:30 07/18/17 12:29 Polyethylene (Miralax Powder Packet) 17 gm DAILY PO 06/19/17 09:00 07/19/17 08:59 Review of Systems Constitutional: Negative for weight loss, night sweats, or fever Eyes: Negative for event change of vision ENT: Negative for epistaxis, nasal discharge, sore throat, or deafness Cardiovascular: Negative for chest pain, palpitations, dizziness, diaphoresis Respiratory: Negative for hemoptysis, or purulent cough Gastrointestinal: Negative for diarrhea, hematemesis, melena, nausea, vomiting , or dyspepsia Integumentary (skin): Negative for rash or jaundice discoloration Genitourinary: Negative for urinary frequency, hematuria, or dysuria Neurological: Negative for weakness, seizure activity, headache, or dizziness Lymphatic/Hematologic: Negative for petechiae, bleeding or new adenopathy Musculoskeletal: Negative for new joint or back pain Allergic/Immunologic: Negative for unusual rash or pruritis. Physical Exam Date Time Temp Pulse Resp B/P (MAP) Pulse Ox O2 Delivery O2 Flow Rate FiO2 06/18/17 11:16 36.8 98 16 109/71 (84) 97 Room Air 06/18/17 07:08 36.7 68 18 92/57 (69) 96 Nasal Cannula 3.0 06/18/17 04:00 36.7 73 18 97/57 (70) 95 Nasal Cannula 2.0 06/18/17 04:00 Nasal Cannula 2.0 06/18/17 00:00 Nasal Cannula 2.0 06/17/17 23:44 36.6 106 18 114/73 (87) 98 Nasal Cannula 2.0 06/17/17 21:08 36.6 106 28 114/73 (87) 98 Nasal Cannula 2.0 06/17/17 20:00 98 Nasal Cannula 2.0 06/17/17 19:31 36.6 82 20 94/59 (71) 90 Room Air 06/17/17 14:46 36.4 67 15 113/77 92 06/17/17 13:56 36.7 61 18 101/61 (74) 97 Room Air 06/17/17 13:55 92 Room Air Constitutional: vitals are stable. Eyes: Eyes are MARSHALL EOMI without conjuctival erythema or icterus. ENT: External examination was negative for masses. Neck: Negative for masses or palpable thyromegaly Respiratory: Lung sounds were generally clear bilaterally Cardiovascular: Heart was RRR without significant murmur, gallops aoe rubs Gastrointestinal: No palpable hepatic or splenomegaly. The abdomen was soft today while on narcotics and with normal bowel sounds. Lymphatic system: there was no palpable peripheral lymphadenopathy Musculoskeletal System: The musculoskeletal system seemed concordant with age. Skin: The skin was negative for jaundice. Neurologic exam: The exam was negative for any focal findings. Deep tendon reflexes were equal and symmetrical. Psychiatric exam: Was essentially negative with normal mood and effect. Breast exam:Not done Extremities: negative fro tenderness or edema Laboratory Results Last 24 Hours Test 06/17/17 13:05 Urine Color YELLOW Urine Appearance CLEAR Urine pH 5.0 Urine Specific [place] > 1.045 Urine Protein NEG Urine Glucose (UA) NEG Urine Ketones NEG Urine Occult Blood TRACE Urine Nitrite NEG Urine Bilirubin NEG Urine Urobilinogen NEG Urine Leukocyte Esterase NEG Urine WBC (Auto) 1-5 /hpf Urine RBC (Auto) 0-4 /hpf Urine Hyaline Casts (Auto) 1-5 /lpf Urine Epithelial Cells (Auto) 10-20 /lpf Urine Bacteria (Auto) NEG Assessment & Plan Metastatic EGFR positive lung adenocarcinoma. The patient is being readied for targeted therapy with afatinib. Her pain relegated to the liver and metastasis to the liver has grown uncontrollable. I would recommend that Dr. Karie Ham become involved. Dr. Gomez can follow her then in our clinic. She currently is on a PNEUDRAULIC SYSTEMS MECHANIC pump and pain is reasonably controlled at this time. We will continue to follow along with you. Reviewed with Dr. aMrtins and appreciate his help in her care.
[2017-06-18] MEDS: MoRPHine SULFATE 1 MG/ML 50 ML PCA CASS IV PRN (14:42)
--- NOTE | 2017-06-18 15:29 | Progress Note ---
Subjective Date of Service: June 18, 2017. Subjective Pt evaluation today including: conversation w/ patient, conversation w/ family , physical exam, chart review, lab review, review of studies, conversation w/ farm service consultant, review of inpatient medication list Was having significant nausea vomiting after admission, which helped with Phenergan IV, No more nausea vomiting, tolerate some breakfast, Is on morphine drip for pain control Report constipation, no bowel movement for 2-3 days Problem List Medical Problems: (1) Chest pain Status: Acute (2) Chest wall pain Status: Acute (3) Failure of outpatient treatment Status: Acute (4) Lung mass Status: Acute (5) Metastatic cancer Status: Acute (6) Metastatic disease Status: Acute (7) Neuritis of left ulnar nerve Status: Acute (8) Right-sided chest pain Status: Acute (9) RUQ abdominal pain Status: Acute Review of Systems Constitutional: + weakness, + fatigue, No fever, No chills, No sweats, No weight loss, No problem reported Eyes: No worsening of vision, No eye pain, No redness, No discharge, No diplopia ENT: No hearing loss, No unusual epistaxis, No nasal symptoms, No sore throat, No tinnitus, No dental problems, No trouble swallowing Respiratory: No cough, No sputum, No wheezing, No shortness of breath, No dyspnea on exertion, No dyspnea at rest, No hemoptysis Cardiac: No chest pain, No orthopnea, No PND, No edema, No claudication, No palpitations Abdomen: No pain, No nausea, No vomiting, No diarrhea, No constipation Musculoskeletal: No joint pain, No muscle pain, No swelling, No calf pain Female : No dysuria, No urinary frequency, No hematuria, No incontinence, No abnormal vaginal bleeding, No vaginal discharge Neurologic: No memory loss, No paralysis, No weakness, No numbness/tingling, No vertigo, No balance problems Psychiatric: No depression symptoms, No anhedonism, No anxiety, No insomnia, No substance abuse Heme: No abnormal bleeding/bruising, No clotting problems, No swollen lymph nodes, No night sweats Endo: No fatigue, No excessive thirst, No excessive urination Skin: No rash, No itch, No new/changing skin lesions, No color change, No bleeding Objective Vital Signs Date Time Temp Pulse Resp B/P (MAP) Pulse Ox O2 Delivery O2 Flow Rate FiO2 06/18/17 14:46 36.6 73 16 93/56 (68) 98 Nasal Cannula 2.0 06/18/17 11:16 36.8 98 16 109/71 (84) 97 Room Air 06/18/17 07:08 36.7 68 18 92/57 (69) 96 Nasal Cannula 3.0 06/18/17 04:00 36.7 73 18 97/57 (70) 95 Nasal Cannula 2.0 06/18/17 04:00 Nasal Cannula 2.0 06/18/17 00:00 Nasal Cannula 2.0 06/17/17 23:44 36.6 106 18 114/73 (87) 98 Nasal Cannula 2.0 06/17/17 21:08 36.6 106 28 114/73 (87) 98 Nasal Cannula 2.0 06/17/17 20:00 98 Nasal Cannula 2.0 06/17/17 19:31 36.6 82 20 94/59 (71) 90 Room Air Physical Exam General Appearance: WD/WN, no apparent distress, + cachetic, + thin Eyes: normal inspection, PERRL, EOMI, sclerae normal ENT: normal ENT inspection, hearing grossly normal, pharynx normal Neck: supple, no adenopathy, thyroid normal, no JVD, no carotid bruits, trachea midline Respiratory/Chest: chest non-tender, normal breath sounds, no respiratory distress, no accessory muscle use, + decreased breath sounds Cardiovascular: regular rate, rhythm, no edema, no gallop, no JVD, no murmur Abdomen: normal bowel sounds, non tender, soft, no organomegaly, no pulsatile mass Extremities: normal range of motion, non-tender, normal inspection, no pedal edema, no calf tenderness, normal capillary refill, pelvis stable Neurologic/Psychiatric: software test and validation engineer II-XII nml as tested, no motor/sensory deficits, alert, normal mood/affect, oriented x 3 Skin: normal color, warm/dry, no rash Lymphatic: no adenopathy Assessment and Plan 41 y/o F admitted on June 17, 2017 with intractable R upper abdominal pain She has recently diagnosed metastatic lung CA with liver mets. At home she was on fentanyl at 37mcg and Q6H oxycodone 5-10mg. CT chest upon admission: 1. Irregular soft tissue attenuating mass of the basal left lower lobe redemonstrated, 3.4 cm compatible with primary bronchogenic carcinoma with progressively worsened nodular intralobular septal thickening throughout the left lung compatible with lymphangitic carcinomatosis. 2. No acute aortic pathology or evidence of pulmonary thromboembolic disease. 3. Development of trace left pleural effusion with worsened consolidative opacities about the left lower lobe suggesting postobstructive postobstructive pneumonitis. 4. Hilar and mediastinal lymphatic metastasis. 5. Subsegmental right basilar opacities suggest atelectasis. 6. Multiple hepatic metastasis redemonstrated. Intractable pain nausea vomiting, Help with Phenergan, and [facility] of morphine We will continue supportive care, continue [facility] morphine pump, Hematology saw patient, discussed with him, continue supportive care, DC telemetry, request Dr. Gomez consultation for home pain medicine regimen Full code Lovenox prophylaxis Continued [facility] stay due to: multiple IV medications needed Discharge planning: home
[2017-06-18] MEDS: SODIUM CHLORIDE 0.9% 1000ML 1,000 ML IV SCH (17:53)
[2017-06-18] MEDS: ENOXAPARIN 40 MG/0.4 ML SYR SC SCH (21:28)
[2017-06-19] VITALS (7 sets, daily range): BP systolic 100–110; BP diastolic 63–70; PULSE 68–94; TEMP 36.3–37; O2SAT 94–97
[2017-06-19] MEDS: MoRPHine SULFATE 1 MG/ML 50 ML PCA CASS IV PRN ×3 (07:19→23:28)
[2017-06-19] MEDS: CHECK FENTANYL PATCH PLACEMENT SCH ×2 (08:00→15:21)
[2017-06-19] MEDS ORDERED: SENNA 8.6 MG TAB PO ONE (09:08)
--- NOTE | 2017-06-19 09:13 | Hospitalist Progress Note ---
Hospitalist Progress Note Date of Service June 19, 2017. Subjective Pt evaluation today including: conversation w/ patient, conversation w/ family , physical exam, chart review, lab review, review of studies, review of inpatient medication list Patient seen and evaluated. No acute events overnight. Patient reports some RUQ abdominal pain but much improved with LEGAL COMPLIANCE OFFICER pump. Continues to have nausea without emesis. Is having some LUQ tenderness and states it makes her nausea feel worse. She also complains of feeling fatigued and drowsy. Patient states she is due to start treatment for her cancer in approx. one week. She states she does not have much of an appetite but is trying to eat small bites throughout the day. Also trying to drink her boost. Discussed with primary RN as has concerns over oversedation and how she continues to have pain and nausea. Will discuss with him any concerns he may have and give some reassurance. RN reports yesterday patient had a panic attack which she has never had before due to feeling overwhelmed by the whole process. Will appreciate Dr. Ham's input to help find a management regimen that still promotes quality of life. Constitutional: + fatigue, No fever, No chills Respiratory: No cough, No shortness of breath Cardiovascular: No chest pain, No palpitations Abdomen: + pain (RUQ (improved with pain medication); some LUQ discomfort), + nausea, No vomiting, No diarrhea, No constipation Musculoskeletal: No swelling, No calf pain Female : No dysuria Heme: No abnormal bleeding/bruising Medications Current Inpatient Medications Medications (Trade) Dose Ordered Sig/Saul Route Start Time Stop Time Status Last Admin Dose Admin Ioversol (Optiray 320) 100 ml UD PRN IV 06/17/17 11:15 06/21/17 11:14 Fentanyl (Duragesic Patch) 50 mcg Q72H TD 06/17/17 15:30 07/01/17 15:29 06/17/17 17:04 50 MCG Ranitidine HCl (zANTac TAB) 150 mg BID PO 06/17/17 21:00 07/17/17 20:59 06/18/17 21:28 150 MG Enoxaparin Sodium (Lovenox Inj) 40 mg Q24H SC 06/17/17 21:00 07/17/17 20:59 06/18/17 21:28 40 MG Acetaminophen (Tylenol Tab) 650 mg Q4H PRN PO 06/17/17 13:45 07/17/17 13:44 Al Hydrox/Mg Hydrox/Simethicone (Maalox Max Susp) 15 ml Q4H PRN PO 06/17/17 13:45 07/17/17 13:44 Magnesium Hydroxide (Milk Of Magnesia Susp) 30 ml Q12H PRN PO 06/17/17 13:45 07/17/17 13:44 Ondansetron HCl (Zofran Inj) 4 mg Q6H PRN IV 06/17/17 13:45 07/17/17 13:44 06/18/17 06:01 4 MG Polyethylene (Miralax Powder Packet) 17 gm DAILY PRN PO 06/17/17 13:45 07/17/17 13:44 06/18/17 18:31 17 GM Miscellaneous (Iv Fluids Completed) 1 ea PRN PRN N/A 06/17/17 14:00 06/17/18 13:59 Miscellaneous (Fentanyl Patch Remove & Waste) 1 ea Q3D@1529 N/A 06/17/17 15:29 07/17/17 15:28 06/17/17 15:29 1 EA Miscellaneous Information (Check Fentanyl Patch Placement) 1 ea QS N/A 06/18/17 00:00 07/18/17 00:00 06/18/17 21:28 1 EA Metoclopramide HCl (Reglan Inj) 5 mg Q6H PRN IV. 06/17/17 16:45 07/17/17 16:44 Naloxone HCl (Narcan Inj) 0.1 mg Q5M PRN IV 06/17/17 17:45 07/17/17 17:44 Morphine Sulfate (moRPHine SULFATE LEGAL COMPLIANCE OFFICER) 50 mg PRN PRN IV 06/17/17 17:45 07/01/17 17:44 06/19/17 07:19 50 MG Sodium Chloride 1,000 ml @ 15 mls/hr Q24H IV 06/17/17 17:41 07/17/17 17:40 06/18/17 17:53 15 MLS/HR Prochlorperazine Edisylate 5 mg/ Syringe 5 ml @ 5 mls/min Q12H PRN IV 06/17/17 17:45 07/17/17 17:44 Lorazepam (Ativan Tab) 1 mg TID PRN PO 06/18/17 08:15 07/17/17 13:44 06/18/17 21:28 1 MG Promethazine HCl 25 mg/Sodium Chloride 51 ml @ 204 mls/hr Q6H PRN IV 06/18/17 08:00 07/18/17 07:59 06/18/17 09:06 204 MLS/HR Bisacodyl (Dulcolax Supp) 10 mg DAILY PRN MD 06/18/17 12:30 07/18/17 12:29 Polyethylene (Miralax Powder Packet) 17 gm DAILY PO 06/19/17 08:00 07/19/17 08:59 Senna (Senokot Tab) 17.2 mg QAM PO 06/20/17 08:00 07/20/17 07:59 Objective Vital Signs Date Time Temp Pulse Resp B/P (MAP) Pulse Ox O2 Delivery O2 Flow Rate FiO2 06/19/17 07:11 36.8 72 18 100/63 (75) 97 Nasal Cannula 3.0 06/19/17 00:00 37.0 76 16 100/65 (77) 94 Room Air 06/19/17 00:00 95 Nasal Cannula 2.0 06/18/17 20:00 95 Nasal Cannula 2.0 06/18/17 19:49 36.4 74 20 93/58 (70) 95 Room Air 06/18/17 18:28 36.5 75 18 117/73 (88) 96 Nasal Cannula 2.0 06/18/17 16:00 98 Nasal Cannula 2.0 06/18/17 14:46 36.6 73 16 93/56 (68) 98 Nasal Cannula 2.0 06/18/17 11:16 36.8 98 16 109/71 (84) 97 Room Air Physical Exam General Appearance: no apparent distress, + pertinent finding (appears ill) Eyes: sclerae normal ENT: hearing grossly normal Neck: supple, no JVD, trachea midline Respiratory/Chest: lungs clear, normal breath sounds, no respiratory distress, no accessory muscle use Cardiovascular: regular rate, rhythm, no gallop, no murmur Abdomen: normal bowel sounds, + tenderness (with palpation of RUQ and some with LUQ; no guarding or rigidity to support an acute abdomen) Extremities: no pedal edema, no calf tenderness Neurologic/Psychiatric: alert Skin: normal color, warm/dry Assessment and Plan 41 y/o F admitted on June 17, 2017 with intractable R upper abdominal pain She has recently diagnosed metastatic lung CA with liver mets. Intractable RUQ Abdominal Pain 2/2 Metastatic Lung CA with Liver Mets: - Home dose of Fentanyl 37 mcg was increased to 50 mcg - Continue anti-emetics PRN - Maintain good bowel regimen - Dulcolax PRN, Miralax/MOM PRN, will add Senna SAUL - Heme/Onc following - awaiting afatinib treatment initiation - Palliative consultation - appreciate recommendations by Dr. Ham for assistance with pain control on D/C GERD: Ranitidine 150 mg BID DVT Prophylaxis: Lovenox Code Status: FULL RESUSCITATION Disposition: Obtain good pain control prior to D/C Continued [facility] stay due to: inadequate oral pain control Discharge planning: home
[2017-06-19] MEDS: RANITIDINE HCL 150 MG TAB PO SCH ×2 (09:41→20:32)
[2017-06-19] MEDS: ONDANSETRON INJ 2 MG/ML 2 ML VIAL IV PRN (09:45)
[2017-06-19] MEDS: POLYETHYLENE (MIRALAX) 17 GM PACK PO SCH (09:52)
[2017-06-19] MEDS: METOCLOPRAMIDE HCL INJ 5 MG/ML 2 ML VIAL IV. PRN (12:20)
[2017-06-19] MEDS ORDERED: LORAZEPAM 2 MG/ML 1 ML VIAL IV PRN (14:15)
[2017-06-19] MEDS ORDERED: ONDANSETRON INJ 2 MG/ML 2 ML VIAL IV PRN (14:30)
[2017-06-19] MEDS ORDERED: METHADONE HCL 5 MG TAB PO STA (15:06)
--- NOTE | 2017-06-19 15:12 | Palliative Care Consultation ---
Consultation Date of Consultation: June 19, 2017. Requesting Physician: Dr Martins Attending Physician: Dr Galan Reason for Consultation: Assist with pain management in cancer patient History of Present Illness Patient is a 41-year-old female who presented in May with a 1-2 month history right-sided chest pain /right upper quadrant pain and was ultimately found to have adenocarcinoma consistent with lung primary. Patient is followed by heme on skin is planned for treatment with afatinib. Patient was admitted for severe pain. Patient had been placed on a fentanyl patch at home which was increased to 37 mcg and increased again to 50 mcg during this admission. Patient was also started on morphine SKILL LABOR at 2 mg/h with a bolus of 4 mg every 30 minutes as needed. In the past 8 hours patient has required 20 mg of IV morphine for comfort. Patient is reluctant to use SKILL LABOR due to nauseated associated with morphine and therefore waits until pain is quite severe. Patient's present at bedside, discussed using methadone to help with pain management and to decrease sedation associated with opioids. Patient reports she has had little to no sedation with the fentanyl. Patient is also on Ativan 3 times daily. Sx; Pain Duration - 2 months Timing - constant PPt factors: deep breath, pressure on RUQ Alleviating factors: Fentanyl patch, prn oxy at home - on Morphine SKILL LABOR inpt Discussed methadone and its onset of action as well as potentiation of other opioids patient is taking with both patient and , both would like to proceed with starting methadone. Spoke with Dr. Galan regarding plan for initiating methadonewill start 5 mg 3 times daily, decrease SKILL LABOR bolus dose to 2 mg every 30 minutes as needed and continue current continuous dose of 2 mg/h. Patient becomes sedated with decrease her continuous to 1 mg. Patient has been aware that it will take 5-7 days to reach steady state on the current dose of methadone.Calculating her current morphine use expect her to need approximately 20 mg of methadone daily. Past Medical/Surgical History Medical History: No significant past medical history except for the recent diagnosis of metastatic adeno carcinoma-lung primary. Surgical History: Node biopsy Family History Positive for blood clots, cancer, diabetes, gallbladder disease, heart disease, hypertension, and seizures Social History Smoking Status: Former Smoker History of Alcohol Use: No Drug Use: none Marital Status: Housing Status: lives with family Occupation Status: employed Patient has 6 daughters she has 3 in college 1 still at home age 17 and 1 daughter planning to get soon. Review of Systems Constitutional: No fever, No chills Eyes: No worsening of vision ENT: No hearing loss Respiratory: No cough Cardiac: + chest pain (Right-sided chest pain with deep inspiration, felt to be related to her liver metastases) Abdomen: + pain (Right upper quadrant pain) Musculoskeletal: No joint pain Female : No dysuria Neurologic: No memory loss Psychiatric: No anxiety Skin: No new/changing skin lesions Allergies Coded Allergies: No Known Allergies (Verified , 06/02/17) Medications Current Inpatient Medications Medications (Trade) Dose Ordered Sig/Saul Route Start Time Stop Time Status Last Admin Dose Admin Ioversol (Optiray 320) 100 ml UD PRN IV 06/17/17 11:15 06/21/17 11:14 Fentanyl (Duragesic Patch) 50 mcg Q72H TD 06/17/17 15:30 07/01/17 15:29 06/17/17 17:04 50 MCG Ranitidine HCl (zANTac TAB) 150 mg BID PO 06/17/17 21:00 07/17/17 20:59 06/19/17 09:41 150 MG Enoxaparin Sodium (Lovenox Inj) 40 mg Q24H SC 06/17/17 21:00 07/17/17 20:59 06/18/17 21:28 40 MG Acetaminophen (Tylenol Tab) 650 mg Q4H PRN PO 06/17/17 13:45 07/17/17 13:44 Al Hydrox/Mg Hydrox/Simethicone (Maalox Max Susp) 15 ml Q4H PRN PO 06/17/17 13:45 07/17/17 13:44 Magnesium Hydroxide (Milk Of Magnesia Susp) 30 ml Q12H PRN PO 06/17/17 13:45 07/17/17 13:44 Polyethylene (Miralax Powder Packet) 17 gm DAILY PRN PO 06/17/17 13:45 07/17/17 13:44 06/18/17 18:31 17 GM Miscellaneous (Iv Fluids Completed) 1 ea PRN PRN N/A 06/17/17 14:00 06/17/18 13:59 Miscellaneous (Fentanyl Patch Remove & Waste) 1 ea Q3D@1529 N/A 06/17/17 15:29 07/17/17 15:28 06/17/17 15:29 1 EA Miscellaneous Information (Check Fentanyl Patch Placement) 1 ea QS N/A 06/18/17 00:00 07/18/17 00:00 06/19/17 08:00 1 EA Metoclopramide HCl (Reglan Inj) 5 mg Q6H PRN IV. 06/17/17 16:45 07/17/17 16:44 06/19/17 12:20 5 MG Naloxone HCl (Narcan Inj) 0.1 mg Q5M PRN IV 06/17/17 17:45 07/17/17 17:44 Morphine Sulfate (moRPHine SULFATE SKILL LABOR) 50 mg PRN PRN IV 06/17/17 17:45 07/01/17 17:44 06/19/17 07:19 50 MG Sodium Chloride 1,000 ml @ 15 mls/hr Q24H IV 06/17/17 17:41 07/17/17 17:40 06/18/17 17:53 15 MLS/HR Prochlorperazine Edisylate 5 mg/ Syringe 5 ml @ 5 mls/min Q12H PRN IV 06/17/17 17:45 07/17/17 17:44 Lorazepam (Ativan Tab) 1 mg TID PRN PO 06/18/17 08:15 07/17/17 13:44 06/18/17 21:28 1 MG Promethazine HCl 25 mg/Sodium Chloride 51 ml @ 204 mls/hr Q6H PRN IV 06/18/17 08:00 07/18/17 07:59 06/18/17 09:06 204 MLS/HR Bisacodyl (Dulcolax Supp) 10 mg DAILY PRN AL 06/18/17 12:30 07/18/17 12:29 Polyethylene (Miralax Powder Packet) 17 gm DAILY PO 06/19/17 08:00 07/19/17 08:59 06/19/17 09:52 17 GM Senna (Senokot Tab) 17.2 mg QAM PO 06/20/17 08:00 07/20/17 07:59 Lorazepam (Ativan Inj) 0.5 mg Q8H PRN IV 06/19/17 14:15 07/19/17 14:14 Lorazepam 0.5 mg/ Syringe 1 ml @ 1 mls/min Q8H PRN IV 06/19/17 14:30 07/19/17 14:29 Ondansetron HCl 8 mg/Dextrose 54 ml @ 216 mls/hr Q6H PRN IV 06/19/17 15:00 07/19/17 14:59 Physical Exam Date Time Temp Pulse Resp B/P (MAP) Pulse Ox O2 Delivery O2 Flow Rate FiO2 06/19/17 12:07 36.3 94 20 100/70 (80) 94 Nasal Cannula 2.0 06/19/17 08:00 97 Nasal Cannula 2.0 06/19/17 07:11 36.8 72 18 100/63 (75) 97 Nasal Cannula 3.0 06/19/17 00:00 37.0 76 16 100/65 (77) 94 Room Air 06/19/17 00:00 95 Nasal Cannula 2.0 06/18/17 20:00 95 Nasal Cannula 2.0 06/18/17 19:49 36.4 74 20 93/58 (70) 95 Room Air 06/18/17 18:28 36.5 75 18 117/73 (88) 96 Nasal Cannula 2.0 06/18/17 16:00 98 Nasal Cannula 2.0 General Appearance: no apparent distress Eyes: EOMI ENT: hearing grossly normal Neck: supple Respiratory: no respiratory distress Cardiovascular: regular rate, rhythm, no edema Abdomen: non tender (No tenderness with light to moderate palpation), soft Musculoskeletal: normal tone Neurologic/Psychiatric: alert, oriented x 3 Skin: warm/dry Assessment & Plan Palliative Performance Scale: 50 % (Due to pain, prior level of functioning was 100%) (1) Palliative care encounter Assessment & Plan: Met with patient and , agreeable to initiating methadone to assist with pain control. Will follow as an outpatient in the palliative care clinic. (2) Intractable pain Status: Acute Assessment & Plan: Improved control with increase in fentanyl patch and current morphine SKILL LABOR. Would initiate methadone at 5 mg 3 times daily, continue morphine continuous dose at 2 mg/h, with decrease bolus dose to 2 mg every 30 minutes as needed as methadone will potentiate her current opioids. Will monitor for sedation as well as pain control. Expect methadone to take 5-7 days to reach steady state at initial dose. (3) RUQ abdominal pain Status: Acute Assessment & Plan: Due to liver metastases, we will start methadone to assist with pain control (4) Metastatic disease Status: Acute Assessment & Plan: Patient with metastatic disease on upon presentation. Counseling and Coordination Total time 70 minutes with greater than 50% of time spent at bedside discussing treatment options as well as goals of care. Reviewed methadone use and side effects as well as its expected potentiation of current opioids.
[2017-06-19] MEDS: ONDANSETRON INJ 8 MG in DEXTROSE 5% 50ML 50 ML IV PRN (16:57)
[2017-06-19] MEDS: SODIUM CHLORIDE 0.9% 1000ML 1,000 ML IV SCH (20:31)
[2017-06-19] MEDS: ENOXAPARIN 40 MG/0.4 ML SYR SC SCH (20:32)
[2017-06-19] MEDS: METHADONE HCL 5 MG TAB PO SCH (20:32)
[2017-06-19] MEDS: LORAZEPAM INJ 0.5 MG in SYRINGE 0.75 ML IV PRN (21:22)
[2017-06-19 22:32] LABS: HEMATOCRIT 37.1 % (37-47); HEMOGLOBIN 12.5 g/dL (12.0-16.0)
[2017-06-19 22:55] LABS: CALCIUM 8.4 mg/dl (8.5-10.1); CREATININE 0.69 mg/dl (0.60-1.20); POTASSIUM 3.8 mmol/L (3.5-5.1)
--- NOTE | 2017-06-19 23:53 | Progress Note ---
Progress Note Date of Service June 19, 2017. Progress Note Called for red material in stool. FOBT + Vitals stable. Repeat H/H shows decreased Hb, but acceptable range. No increase in BUN on BMP. Patient constipated. Colace added. Trend CBC. Primary to assess/investigate further. Resident Tracking Resident Involvement: Resident Care Provided Care Provided: Adult [facility] Medicine
[2017-06-20] VITALS (9 sets, daily range): BP systolic 95–107; BP diastolic 58–68; PULSE 64–78; TEMP 36.7–36.9; O2SAT 90–96
[2017-06-20] MEDS: ONDANSETRON INJ 8 MG in DEXTROSE 5% 50ML 50 ML IV PRN ×3 (03:30→17:37)
[2017-06-20 06:43] LABS: BASO % 0.2 %; BASO ABS # 0.02 K/uL (0-0.2); EOS % 5.2 %; EOS ABS # 0.42 K/uL (0-0.5); HEMOGLOBIN 12.7 g/dL (12.0-16.0); IG# 0.01 K/uL (0.00-0.02); LYMPH ABS # 1.45 K/uL (1.2-3.4); MEAN CELL VOLUME 89.8 fL (80-100); MEAN CORPUSCULAR HGB CONC 33.4 g/dl (32-36); MONO % 10.9 %; MONO ABS # 0.88 K/uL (0.11-0.59); NEUT % 65.6 %; NEUT ABS # 5.28 K/uL (1.4-6.5); PLATELET COUNT 241 K/uL (130-400); RED CELL DISTRIBUTION WIDTH CV 12.6 % (11.5-14.5); RED CELL DISTRIBUTION WIDTH SD 41.5 fL (36.4-46.3); WHITE BLOOD COUNT 8.06 K/uL (4.8-10.8)
[2017-06-20 07:00] LABS: ALBUMIN 2.8 gm/dl (3.4-5.0); CALCIUM 8.4 mg/dl (8.5-10.1); CREATININE 0.6 mg/dl (0.60-1.20)
[2017-06-20 07:03] LABS: TOTAL PROTEIN 6.3 gm/dl (6.4-8.2)
[2017-06-20] MEDS: METOCLOPRAMIDE HCL INJ 5 MG/ML 2 ML VIAL IV. PRN ×2 (08:02→17:23)
[2017-06-20] MEDS: CHECK FENTANYL PATCH PLACEMENT SCH ×3 (08:05→16:01)
[2017-06-20] MEDS: DOCUSATE SODIUM 100 MG CAP PO SCH ×2 (08:35→20:17)
[2017-06-20] MEDS: METHADONE HCL 5 MG TAB PO SCH ×3 (08:36→20:16)
[2017-06-20] MEDS: SENNA 8.6 MG TAB PO SCH (08:37)
[2017-06-20] MEDS: RANITIDINE HCL 150 MG TAB PO SCH ×2 (08:37→20:17)
[2017-06-20] MEDS: POLYETHYLENE (MIRALAX) 17 GM PACK PO SCH (08:38)
[2017-06-20] MEDS ORDERED: MAGNESIUM CITRATE 296 ML/BTL PO SCH (09:00)
[2017-06-20] MEDS ORDERED: KETOROLAC TROMETHAMINE 15 MG/ML VIAL IV ONE (10:45)
[2017-06-20] MEDS ORDERED: KETOROLAC TROMETHAMINE 30 MG/ML VIAL ONE (11:00)
[2017-06-20] MEDS ORDERED: SOD PHOSPHATE/SOD BIPHOSPHATE ENEMA 132 ML BTL PR PRN (11:00)
--- NOTE | 2017-06-20 11:55 | Hematology/Oncology Prog Note ---
Hematology/Onc Progress Note Date of Service June 20, 2017. Diagnoses Metastatic adenocarcinoma of the lung Medications Medications Administered Medications (Trade) Dose Ordered Sig/Saul Route Start Time Stop Time Status Last Admin Dose Admin Sodium Chloride 500 ml @ 999 mls/hr Q31M STAT IV 06/17/17 11:10 06/17/17 11:40 DC 06/17/17 11:33 999 MLS/HR Ondansetron HCl (Zofran Inj) 4 mg NOW STAT IV 06/17/17 11:10 06/17/17 11:14 DC 06/17/17 11:33 4 MG Hydromorphone HCl (Dilaudid Inj) 1 mg STK-MED ONCE .ROUTE 06/17/17 11:26 06/17/17 17:41 DC 06/17/17 11:32 1 MG Hydromorphone HCl (Dilaudid Inj) 1 mg STK-MED ONCE .ROUTE 06/17/17 12:11 06/17/17 17:41 DC 06/17/17 12:18 1 MG Fentanyl (Duragesic Patch) 50 mcg Q72H TD 06/17/17 15:30 07/01/17 15:29 06/17/17 17:04 50 MCG Hydromorphone HCl (Dilaudid Creative Arts Music Therapist) 25 mg PRN PRN IV 06/17/17 13:45 06/17/17 17:41 DC 06/17/17 15:47 25 MG Sodium Chloride 1,000 ml @ 15 mls/hr Q24H IV 06/17/17 13:31 06/17/17 17:41 DC 06/17/17 13:31 15 MLS/HR Lorazepam (Ativan Tab) 1 mg BID PRN PO 06/17/17 13:45 06/18/17 08:01 DC 06/18/17 07:40 1 MG Ranitidine HCl (zANTac TAB) 150 mg BID PO 06/17/17 21:00 07/17/17 20:59 06/20/17 08:37 150 MG Enoxaparin Sodium (Lovenox Inj) 40 mg Q24H SC 06/17/17 21:00 07/17/17 20:59 06/19/17 20:32 40 MG Ondansetron HCl (Zofran Inj) 4 mg Q6H PRN IV 06/17/17 13:45 06/19/17 14:24 DC 06/19/17 09:45 4 MG Polyethylene (Miralax Powder Packet) 17 gm DAILY PRN PO 06/17/17 13:45 07/17/17 13:44 06/18/17 18:31 17 GM Miscellaneous (Fentanyl Patch Remove & Waste) 1 ea Q3D@1529 N/A 06/17/17 15:29 07/17/17 15:28 06/17/17 15:29 1 EA Miscellaneous Information (Check Fentanyl Patch Placement) 1 ea QS N/A 06/18/17 00:00 07/18/17 00:00 06/20/17 08:05 1 EA Metoclopramide HCl (Reglan Inj) 5 mg Q6H PRN IV. 06/17/17 16:45 07/17/17 16:44 06/20/17 08:02 5 MG Metoclopramide HCl (Reglan Inj) 10 mg STK-MED ONCE .ROUTE 06/17/17 16:39 06/17/17 17:44 DC 06/17/17 16:53 10 MG Morphine Sulfate (moRPHine SULFATE ASSOCIATE FINANCIAL REPRESENTATIVE) 50 mg PRN PRN IV 06/17/17 17:45 07/01/17 17:44 06/19/17 23:28 50 MG Sodium Chloride 1,000 ml @ 15 mls/hr Q24H IV 06/17/17 17:41 07/17/17 17:40 06/19/17 20:31 15 MLS/HR Prochlorperazine Edisylate 5 mg/ Syringe 5 ml @ 5 mls/min NOW ONCE IV 06/17/17 18:30 06/17/17 18:31 DC 06/17/17 18:26 5 MLS/MIN Lorazepam (Ativan Tab) 1 mg TID PRN PO 06/18/17 08:15 07/17/17 13:44 06/18/17 21:28 1 MG Promethazine HCl 25 mg/Sodium Chloride 51 ml @ 204 mls/hr Q6H PRN IV 06/18/17 08:00 06/20/17 11:09 DC 06/18/17 09:06 204 MLS/HR Bisacodyl (Dulcolax Supp) 10 mg NOW STAT AL 06/18/17 12:16 06/18/17 12:21 DC 06/18/17 16:13 10 MG Polyethylene (Miralax Powder Packet) 17 gm DAILY PO 06/19/17 08:00 07/19/17 08:59 06/20/17 08:38 17 GM Senna (Senokot Tab) 17.2 mg QAM PO 06/20/17 08:00 07/20/17 07:59 06/20/17 08:37 17.2 MG Senna (Senokot Tab) 17.2 mg 0908 ONCE PO 06/19/17 09:08 06/19/17 09:15 DC 06/19/17 12:18 17.2 MG Lorazepam 0.5 mg/ Syringe 1 ml @ 1 mls/min Q8H PRN IV 06/19/17 14:30 07/19/17 14:29 06/19/17 21:22 1 MLS/MIN Ondansetron HCl 8 mg/Dextrose 54 ml @ 216 mls/hr Q6H PRN IV 06/19/17 15:00 07/19/17 14:59 06/20/17 08:35 216 MLS/HR Methadone HCl (Dolophine Tab) 5 mg NOW STAT PO 06/19/17 15:06 06/19/17 15:23 DC 06/19/17 15:53 5 MG Methadone HCl (Dolophine Tab) 5 mg TID PO 06/19/17 20:00 07/03/17 19:59 06/20/17 08:36 5 MG Docusate Sodium (coLACE CAP) 100 mg BID PO 06/20/17 08:00 07/20/17 07:59 06/20/17 08:35 100 MG Ketorolac Tromethamine (Toradol Inj) 30 mg STK-MED ONCE .ROUTE 06/20/17 11:00 06/20/17 11:01 DC 06/20/17 11:04 30 MG Subjective Her pain this seems to be becoming under control. She still has some mild constipation now and time at time of course feels sedated. ASSOCIATE FINANCIAL REPRESENTATIVE pump is still being used. Review of Systems: Constitutional: Negative for night sweats, or fever Eyes: Negative for event change of vision ENT: Negative for epistaxis, nasal discharge, sore throat, or deafness Cardiovascular: Negative for chest pain, palpitations, dizziness, diaphoresis Respiratory: Negative for new shortness of breath,hemoptysis, or purulent cough Gastrointestinal: Negative for diarrhea, hematemesis, melena, nausea, vomiting , or dyspepsia Integumentary (skin): Negative for rash or jaundice discoloration Genitourinary: Negative for urinary frequency, hematuria, or dysuria Neurological: Negative for weakness, seizure activity, headache, or dizziness Lymphatic/Hematologic: Negative for petechiae, bleeding or new adenopathy Musculoskeletal: Negative for new joint or back pain Allergic/Immunologic: Negative for unusual rash or pruritis. Vital Signs Vital Signs Past 12 Hours Date Time Temp Pulse Resp B/P (MAP) Pulse Ox O2 Delivery O2 Flow Rate FiO2 06/20/17 10:53 36.9 64 18 100/65 (77) 94 Room Air 06/20/17 08:00 92 Room Air 2.0 06/20/17 06:56 36.8 78 20 95/58 (70) 92 Room Air 06/20/17 03:31 36.9 74 18 99/61 (74) 96 Room Air 06/20/17 00:00 95 Nasal Cannula 2.0 06/20/17 00:00 95 Nasal Cannula 2.0 Physical Exam Constitutional: vitals are stable. Eyes: Eyes are MARSHALL EOMI without conjuctival erythema or icterus. ENT: External examination was negative for masses. Neck: Negative for masses or palpable thyromegaly Respiratory: Lung sounds were generally clear bilaterally Cardiovascular: Heart was RRR without significant murmur, gallops aoe rubs Gastrointestinal: No palpable hepatic or splenomegaly. The abdomen was soft with normal bowel sounds. Lymphatic system: there was no palpable peripheral lymphadenopathy Musculoskeletal System: The musculoskeletal system seemed concordant with age. Skin: The skin was negative for jaundice. Neurologic exam: The exam was negative for any focal findings. Deep tendon reflexes were equal and symmetrical. Psychiatric exam: Was essentially negative with normal mood and effect. Breast exam: Not done Extremities: negative for edema Laboratory Last 24 Hours Test 06/19/17 21:15 06/19/17 22:19 06/20/17 06:06 Stool Occult Blood POSITIVE Hemoglobin 12.5 g/dL 12.7 g/dL Hematocrit 37.1 % 38.0 % Sodium Level 140 mmol/L 139 mmol/L Potassium Level 3.8 mmol/L 4.0 mmol/L Chloride Level 104 mmol/L 105 mmol/L Carbon Dioxide Level 32 mmol/L 29 mmol/L Anion Gap 4.0 mmol/L 5.0 mmol/L Blood Urea Nitrogen 9 mg/dl 6 mg/dl Creatinine 0.69 mg/dl 0.60 mg/dl Est Creatinine Clear Calc Drug Dose 108.2 ml/min 124.4 ml/min Estimated GFR () 125.3 131.2 Estimated GFR (Non- 108.1 113.2 BUN/Creatinine Ratio 12.5 10.5 Random Glucose 99 mg/dl 85 mg/dl Calcium Level 8.4 mg/dl 8.4 mg/dl White Blood Count 8.06 K/uL Red Blood Count 4.23 M/uL Mean Corpuscular Volume 89.8 fL Mean Corpuscular Hemoglobin 30.0 pg Mean Corpuscular Hemoglobin Concent 33.4 g/dl Platelet Count 241 K/uL Mean Platelet Volume 11.0 fL Neutrophils (%) (Auto) 65.6 % Lymphocytes (%) (Auto) 18.0 % Monocytes (%) (Auto) 10.9 % Eosinophils (%) (Auto) 5.2 % Basophils (%) (Auto) 0.2 % Neutrophils # (Auto) 5.28 K/uL Lymphocytes # (Auto) 1.45 K/uL Monocytes # (Auto) 0.88 K/uL Eosinophils # (Auto) 0.42 K/uL Basophils # (Auto) 0.02 K/uL RDW Standard Deviation 41.5 fL RDW Coefficient of Variation 12.6 % Immature Granulocyte % (Auto) 0.1 % Immature Granulocyte # (Auto) 0.01 K/uL Total Bilirubin 0.4 mg/dl Aspartate Amino Transf (AST/SGOT) 21 U/L Alanine Aminotransferase (ALT/SGPT) 28 U/L Alkaline Phosphatase 85 U/L Total Protein 6.3 gm/dl Albumin 2.8 gm/dl Globulin 3.5 gm/dl Albumin/Globulin Ratio 0.8 Lipase 98 U/L Assessment & Plan Metastatic adenocarcinoma of the lung with refractory pain. Appreciate Dr. Gomez's help. She will have a follow-up in our clinic in the near future. The drug afatinib has been ordered and hopefully will soon begin as a form of targeted therapy for cancer.
[2017-06-20] MEDS: PROMETHAZINE HCL INJ 12.5 MG in SODIUM CHLORIDE 0.9% 50ML 50 ML IV PRN (12:21)
--- NOTE | 2017-06-20 12:45 | Hospitalist Progress Note ---
Hospitalist Progress Note Date of Service June 20, 2017. Subjective Pt evaluation today including: conversation w/ patient, conversation w/ family , physical exam, chart review, lab review, review of inpatient medication list Patient reporting some improvement with pain. Still having some nausea but feels less sedated today. Also has a headache today. Having only small bowel movements that are straining. Had some slightly blood tinged stool. Is heme + Carries a H/O hemorrhoids and were present upon placement of Dulcolax suppository per nursing staff. Hemoglobin is stable. Will obtain KUB to further determine stool burden and get a more aggressive bowel regimen. She is slowly eating a little bit more with meals Constitutional: + problem reported (headache), No fever, No chills Respiratory: No cough, No shortness of breath Abdomen: + pain, + nausea, + constipation, + GI bleeding, No vomiting, No diarrhea Musculoskeletal: No swelling, No calf pain Female : No dysuria Heme: No abnormal bleeding/bruising Medications Current Inpatient Medications Medications (Trade) Dose Ordered Sig/Saul Route Start Time Stop Time Status Last Admin Dose Admin Ioversol (Optiray 320) 100 ml UD PRN IV 06/17/17 11:15 06/21/17 11:14 Fentanyl (Duragesic Patch) 50 mcg Q72H TD 06/17/17 15:30 07/01/17 15:29 06/17/17 17:04 50 MCG Ranitidine HCl (zANTac TAB) 150 mg BID PO 06/17/17 21:00 07/17/17 20:59 06/20/17 08:37 150 MG Enoxaparin Sodium (Lovenox Inj) 40 mg Q24H SC 06/17/17 21:00 07/17/17 20:59 06/19/17 20:32 40 MG Acetaminophen (Tylenol Tab) 650 mg Q4H PRN PO 06/17/17 13:45 07/17/17 13:44 Al Hydrox/Mg Hydrox/Simethicone (Maalox Max Susp) 15 ml Q4H PRN PO 06/17/17 13:45 07/17/17 13:44 Magnesium Hydroxide (Milk Of Magnesia Susp) 30 ml Q12H PRN PO 06/17/17 13:45 07/17/17 13:44 Polyethylene (Miralax Powder Packet) 17 gm DAILY PRN PO 06/17/17 13:45 07/17/17 13:44 06/18/17 18:31 17 GM Miscellaneous (Iv Fluids Completed) 1 ea PRN PRN N/A 06/17/17 14:00 06/17/18 13:59 Miscellaneous (Fentanyl Patch Remove & Waste) 1 ea Q3D@1529 N/A 06/17/17 15:29 07/17/17 15:28 06/17/17 15:29 1 EA Miscellaneous Information (Check Fentanyl Patch Placement) 1 ea QS N/A 06/18/17 00:00 07/18/17 00:00 06/20/17 08:05 1 EA Metoclopramide HCl (Reglan Inj) 5 mg Q6H PRN IV. 06/17/17 16:45 07/17/17 16:44 06/20/17 08:02 5 MG Naloxone HCl (Narcan Inj) 0.1 mg Q5M PRN IV 06/17/17 17:45 07/17/17 17:44 Morphine Sulfate (moRPHine SULFATE [employer]) 50 mg PRN PRN IV 06/17/17 17:45 07/01/17 17:44 06/19/17 23:28 50 MG Sodium Chloride 1,000 ml @ 15 mls/hr Q24H IV 06/17/17 17:41 07/17/17 17:40 06/19/17 20:31 15 MLS/HR Prochlorperazine Edisylate 5 mg/ Syringe 5 ml @ 5 mls/min Q12H PRN IV 06/17/17 17:45 07/17/17 17:44 Lorazepam (Ativan Tab) 1 mg TID PRN PO 06/18/17 08:15 07/17/17 13:44 06/18/17 21:28 1 MG Bisacodyl (Dulcolax Supp) 10 mg DAILY PRN [place] 06/18/17 12:30 07/18/17 12:29 Polyethylene (Miralax Powder Packet) 17 gm DAILY PO 06/19/17 08:00 07/19/17 08:59 06/20/17 08:38 17 GM Senna (Senokot Tab) 17.2 mg QAM PO 06/20/17 08:00 07/20/17 07:59 06/20/17 08:37 17.2 MG Lorazepam (Ativan Inj) 0.5 mg Q8H PRN IV 06/19/17 14:15 07/19/17 14:14 Lorazepam 0.5 mg/ Syringe 1 ml @ 1 mls/min Q8H PRN IV 06/19/17 14:30 07/19/17 14:29 06/19/17 21:22 1 MLS/MIN Ondansetron HCl 8 mg/Dextrose 54 ml @ 216 mls/hr Q6H PRN IV 06/19/17 15:00 07/19/17 14:59 06/20/17 08:35 216 MLS/HR Methadone HCl (Dolophine Tab) 5 mg TID PO 06/19/17 20:00 07/03/17 19:59 06/20/17 08:36 5 MG Docusate Sodium (coLACE CAP) 100 mg BID PO 06/20/17 08:00 07/20/17 07:59 06/20/17 08:35 100 MG Sodium Biphosphate/ Sodium Phosphate (Fleet Enema) 132 ml DAILY PRN [place] 06/20/17 11:00 07/20/17 10:59 Promethazine HCl 12.5 mg/Sodium Chloride 50.5 ml @ 204 mls/hr Q6H PRN IV 06/20/17 11:15 07/20/17 11:14 06/20/17 12:21 204 MLS/HR Objective Vital Signs Date Time Temp Pulse Resp B/P (MAP) Pulse Ox O2 Delivery O2 Flow Rate FiO2 06/20/17 10:53 36.9 64 18 100/65 (77) 94 Room Air 06/20/17 08:00 92 Room Air 2.0 06/20/17 06:56 36.8 78 20 95/58 (70) 92 Room Air 06/20/17 03:31 36.9 74 18 99/61 (74) 96 Room Air 06/20/17 00:00 95 Nasal Cannula 2.0 06/20/17 00:00 95 Nasal Cannula 2.0 06/19/17 23:32 36.7 68 16 108/66 (80) 97 Nasal Cannula 2.0 06/19/17 19:47 36.8 77 20 108/68 (81) 94 Room Air 5/14/18 16:00 Room Air 06/19/17 15:46 36.5 70 20 110/70 (83) 95 Room Air Physical Exam General Appearance: no apparent distress Eyes: sclerae normal ENT: hearing grossly normal Neck: supple, no JVD, trachea midline Respiratory/Chest: lungs clear, normal breath sounds, no respiratory distress, no accessory muscle use Cardiovascular: regular rate, rhythm, no gallop, no murmur Abdomen: normal bowel sounds, + tenderness Extremities: no pedal edema, no calf tenderness Neurologic/Psychiatric: alert Skin: normal color, warm/dry Laboratory Results Last 24 Hours Test 06/19/17 21:15 06/19/17 22:19 06/20/17 06:06 Stool Occult Blood POSITIVE Hemoglobin 12.5 g/dL 12.7 g/dL Hematocrit 37.1 % 38.0 % Sodium Level 140 mmol/L 139 mmol/L Potassium Level 3.8 mmol/L 4.0 mmol/L Chloride Level 104 mmol/L 105 mmol/L Carbon Dioxide Level 32 mmol/L 29 mmol/L Anion Gap 4.0 mmol/L 5.0 mmol/L Blood Urea Nitrogen 9 mg/dl 6 mg/dl Creatinine 0.69 mg/dl 0.60 mg/dl Est Creatinine Clear Calc Drug Dose 108.2 ml/min 124.4 ml/min Estimated GFR () 125.3 131.2 Estimated GFR (Non- 108.1 113.2 BUN/Creatinine Ratio 12.5 10.5 Random Glucose 99 mg/dl 85 mg/dl Calcium Level 8.4 mg/dl 8.4 mg/dl White Blood Count 8.06 K/uL Red Blood Count 4.23 M/uL Mean Corpuscular Volume 89.8 fL Mean Corpuscular Hemoglobin 30.0 pg Mean Corpuscular Hemoglobin Concent 33.4 g/dl Platelet Count 241 K/uL Mean Platelet Volume 11.0 fL Neutrophils (%) (Auto) 65.6 % Lymphocytes (%) (Auto) 18.0 % Monocytes (%) (Auto) 10.9 % Eosinophils (%) (Auto) 5.2 % Basophils (%) (Auto) 0.2 % Neutrophils # (Auto) 5.28 K/uL Lymphocytes # (Auto) 1.45 K/uL Monocytes # (Auto) 0.88 K/uL Eosinophils # (Auto) 0.42 K/uL Basophils # (Auto) 0.02 K/uL RDW Standard Deviation 41.5 fL RDW Coefficient of Variation 12.6 % Immature Granulocyte % (Auto) 0.1 % Immature Granulocyte # (Auto) 0.01 K/uL Total Bilirubin 0.4 mg/dl Aspartate Amino Transf (AST/SGOT) 21 U/L Alanine Aminotransferase (ALT/SGPT) 28 U/L Alkaline Phosphatase 85 U/L Total Protein 6.3 gm/dl Albumin 2.8 gm/dl Globulin 3.5 gm/dl Albumin/Globulin Ratio 0.8 Lipase 98 U/L Assessment and Plan 41 y/o F admitted on June 17, 2017 with intractable R upper abdominal pain She has recently diagnosed metastatic lung CA with liver mets. Intractable RUQ Abdominal Pain 2/2 Metastatic Lung CA with Liver Mets: SLOW IMPROVEMENT - Home dose of Fentanyl 37 mcg was increased to 50 mcg and tolerating well - Continue anti-emetics PRN - Increased Zofran 8 mg seems to be working with Reglan the most helpful - Obtain KUB as evidence of significant stool burden on CT - will increase aggressiveness of regimen with treatment from the top and bottom; Continue Senna , Miralax, and will perform fleet enema - which evacuation of stool may ultimately improve pain - Methadone 5 mg TID initiated and will titrate up as necessary - likely 5-7 days for max effect and will then titrate [employer] down - Heme/Onc following - awaiting afatinib treatment initiation - Palliative consultation - appreciate recommendations by Dr. Ham for assistance with pain control on D/C GERD: Ranitidine 150 mg BID DVT Prophylaxis: Lovenox Code Status: FULL RESUSCITATION Disposition: Obtain good pain control prior to D/C - possible extended stay due to need for slow titration and wean from [employer] as patient is having severe cancer related pain but also some adverse effects (nausea/sedation) with some medications Continued [facility] stay due to: multiple IV medications needed Discharge planning: home
--- NOTE | 2017-06-20 14:13 | DIAGNOSTIC IMAGING REPORT ---
KUB CLINICAL HISTORY: 41 years-old Female presenting with Abdominal Pain; Stool Impaction, stage IV lung cancer, history of cholecystectomy. TECHNIQUE: Single supine view of the abdomen was obtained. COMPARISON: CT from 06/17/2017. FINDINGS: Cholecystectomy clips noted. Moderate stool burden throughout the colon. Nonobstructive bowel gas pattern. No gross pneumoperitoneum allowing for supine technique. Allowing for bowel gas and stool, no calcifications to suggest nephrolithiasis. Osseous structures normal. Lung bases clear. IMPRESSION: 1. Moderate stool burden consistent with constipation. No obstruction or gross free air. Electronically signed by: Jovan Whitfield M.D. 06/20/2017 2:12 PM Dictated Date/Time: 06/20/2017 2:10 PM
[2017-06-20] MEDS: FENTANYL 50 MCG/HR TDSY TD SCH (15:23)
[2017-06-20] MEDS: BISACODYL 10 MG SUPP PR PRN (15:23)
[2017-06-20] MEDS: FENTANYL PATCH REMOVE & WASTE SCH (15:33)
--- NOTE | 2017-06-20 16:20 | Palliative Care Progress Note ---
Palliative Care Progress Note Date of Service June 20, 2017. Subjective Pt evaluation today including: conversation w/ patient, conversation w/ family , physical exam, chart review, conversation w/ websphere commerce consultant, review of inpatient medication list Pain: Patient comfortable on exam, worst pain today was 5/10. PO Intake: Fair to poor, due to nausea Voiding: no voiding problems Patient still reluctant to use morphine [employer] RECRUITER, due to sedation. Patient's dose of Phenergan was decreased to 12.5 mg which has improved her drowsiness. Staff reports patient appears brighter, less sedated, no increased signs of pain. Pain is in the right upper quadrant and along the right rib cage, max intensity is 5 out of 10. Pain increases with deep inspiration, pain is relieved with fentanyl patch, and morphine [employer] RES[employer] RECRUITER. Patient started on methadone yesterday -do not expect any significant decrease in pain this early. Carefully monitoring for increased sedation as methadone can potentiate her other opioids. Review of Systems Constitutional: No fever, No chills Eyes: No worsening of vision ENT: No hearing loss Respiratory: No cough Cardiac: + chest pain (Right-sided lower rib pain and area of liver) Abdomen: + pain (Right upper quadrant pain, improved per patient) Musculoskeletal: No joint pain Female : No dysuria Neurologic: No memory loss Psychiatric: No depression symptoms Skin: + new/changing skin lesions Objective Vital Signs Date Time Temp Pulse Resp B/P (MAP) Pulse Ox O2 Delivery O2 Flow Rate FiO2 06/20/17 15:39 36.8 67 16 104/67 (79) 95 06/20/17 10:53 36.9 64 18 100/65 (77) 94 Room Air 06/20/17 08:00 92 Room Air 2.0 06/20/17 06:56 36.8 78 20 95/58 (70) 92 Room Air 06/20/17 03:31 36.9 74 18 99/61 (74) 96 Room Air 06/20/17 00:00 95 Nasal Cannula 2.0 06/20/17 00:00 95 Nasal Cannula 2.0 06/19/17 23:32 36.7 68 16 108/66 (80) 97 Nasal Cannula 2.0 06/19/17 19:47 36.8 77 20 108/68 (81) 94 Room Air Physical Exam General Appearance: + mild distress (Patient lying on her left side, no acute distress, less sedated on exam) Eyes: EOMI ENT: hearing grossly normal Neck: supple Respiratory/Chest: no respiratory distress Cardiovascular: regular rate, rhythm, no edema Abdomen: soft, + tenderness (Mild tenderness with palpation in the right upper quadrant, improved from yesterday per patient report during exam) Extremities: normal range of motion Neurologic/Psychiatric: + pertinent finding (Slightly drowsy due to multiple medications including morphine and Phenergan) Skin: + pertinent finding (No increased pallor) Laboratory Results Last 24 Hours Test 06/19/17 21:15 06/19/17 22:19 06/20/17 06:06 Stool Occult Blood POSITIVE Hemoglobin 12.5 g/dL 12.7 g/dL Hematocrit 37.1 % 38.0 % Sodium Level 140 mmol/L 139 mmol/L Potassium Level 3.8 mmol/L 4.0 mmol/L Chloride Level 104 mmol/L 105 mmol/L Carbon Dioxide Level 32 mmol/L 29 mmol/L Anion Gap 4.0 mmol/L 5.0 mmol/L Blood Urea Nitrogen 9 mg/dl 6 mg/dl Creatinine 0.69 mg/dl 0.60 mg/dl Est Creatinine Clear Calc Drug Dose 108.2 ml/min 124.4 ml/min Estimated GFR () 125.3 131.2 Estimated GFR (Non- 108.1 113.2 BUN/Creatinine Ratio 12.5 10.5 Random Glucose 99 mg/dl 85 mg/dl Calcium Level 8.4 mg/dl 8.4 mg/dl White Blood Count 8.06 K/uL Red Blood Count 4.23 M/uL Mean Corpuscular Volume 89.8 fL Mean Corpuscular Hemoglobin 30.0 pg Mean Corpuscular Hemoglobin Concent 33.4 g/dl Platelet Count 241 K/uL Mean Platelet Volume 11.0 fL Neutrophils (%) (Auto) 65.6 % Lymphocytes (%) (Auto) 18.0 % Monocytes (%) (Auto) 10.9 % Eosinophils (%) (Auto) 5.2 % Basophils (%) (Auto) 0.2 % Neutrophils # (Auto) 5.28 K/uL Lymphocytes # (Auto) 1.45 K/uL Monocytes # (Auto) 0.88 K/uL Eosinophils # (Auto) 0.42 K/uL Basophils # (Auto) 0.02 K/uL RDW Standard Deviation 41.5 fL RDW Coefficient of Variation 12.6 % Immature Granulocyte % (Auto) 0.1 % Immature Granulocyte # (Auto) 0.01 K/uL Total Bilirubin 0.4 mg/dl Aspartate Amino Transf (AST/SGOT) 21 U/L Alanine Aminotransferase (ALT/SGPT) 28 U/L Alkaline Phosphatase 85 U/L Total Protein 6.3 gm/dl Albumin 2.8 gm/dl Globulin 3.5 gm/dl Albumin/Globulin Ratio 0.8 Lipase 98 U/L Assessment and Plan (1) Palliative care encounter Assessment & Plan: Assisting with pain management. Patient started on methadoneexpect to reach steady state in 5-7 days. Patient also with constipation which may be increasing her pain. Plan to continue methadone at 5 mg 3 times daily for the next 2 weeks, can be titrated as an outpatient. (2) Intractable pain Status: Acute Assessment & Plan: Improving on increased fentanyl patch, morphine [employer] RECRUITER. 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 Working on improving pain control. (4) Metastatic disease Status: Acute Assessment & Plan: Patient to start chemotherapy as per Onc Palliative Performance Scale: 40 % Continued [facility] stay due to: inadequate oral pain control, multiple IV medications needed Discharge planning: home Counseling and Coordination Total time 35 minutes with greater than 50% of the time spent at bedside assessing patient, reviewing treatment options regarding her pain management, as well as follow-up after she is discharged.
[2017-06-20] MEDS: SODIUM CHLORIDE 0.9% 1000ML 1,000 ML IV SCH (17:41)
[2017-06-20] MEDS: MoRPHine SULFATE 1 MG/ML 50 ML PCA CASS IV PRN (19:32)
[2017-06-20] MEDS: ENOXAPARIN 40 MG/0.4 ML SYR SC SCH (20:17)
[2017-06-21] VITALS (8 sets, daily range): BP systolic 99–111; BP diastolic 61–74; PULSE 60–83; TEMP 36.4–36.9; O2SAT 92–99
[2017-06-21] MEDS: CHECK FENTANYL PATCH PLACEMENT SCH ×4 (08:00→23:59)
[2017-06-21] MEDS: ONDANSETRON INJ 8 MG in DEXTROSE 5% 50ML 50 ML IV PRN (08:20)
[2017-06-21] MEDS: DOCUSATE SODIUM 100 MG CAP PO SCH ×2 (09:11→20:16)
[2017-06-21] MEDS: RANITIDINE HCL 150 MG TAB PO SCH ×2 (09:11→20:16)
[2017-06-21] MEDS: SENNA 8.6 MG TAB PO SCH (09:12)
[2017-06-21] MEDS: METHADONE HCL 5 MG TAB PO SCH ×3 (09:15→20:21)
[2017-06-21] MEDS: POLYETHYLENE (MIRALAX) 17 GM PACK PO SCH (09:16)
[2017-06-21] MEDS ORDERED: MILK AND MOLASSES ENEMA PR ONE (10:15)
[2017-06-21] MEDS: METOCLOPRAMIDE HCL INJ 5 MG/ML 2 ML VIAL IV. PRN (11:54)
--- NOTE | 2017-06-21 13:30 | Hospitalist Progress Note ---
Hospitalist Progress Note Date of Service June 21, 2017. Subjective Pt evaluation today including: conversation w/ patient, conversation w/ family , physical exam, chart review, review of studies, review of inpatient medication list Patient reporting some better improvement with pain but still drowsy and still with nausea. Having only small BMs and will try milk of molasses. Reviewed KUB and compared CT with patient and . Obtaining MRI brain to R/O metastasis to brain to explain nausea. Hopefully in the next day or two will titrate [employer] down. Constitutional: No fever, No chills Respiratory: No shortness of breath Cardiovascular: No chest pain Abdomen: + pain, + nausea, + constipation, No vomiting, No diarrhea Musculoskeletal: No swelling, No calf pain Female : No dysuria Heme: No abnormal bleeding/bruising Medications Current Inpatient Medications Medications (Trade) Dose Ordered Sig/Saul Route Start Time Stop Time Status Last Admin Dose Admin Fentanyl (Duragesic Patch) 50 mcg Q72H TD 06/17/17 15:30 07/01/17 15:29 06/20/17 15:23 50 MCG Ranitidine HCl (zANTac TAB) 150 mg BID PO 06/17/17 21:00 07/17/17 20:59 06/21/17 09:11 150 MG Enoxaparin Sodium (Lovenox Inj) 40 mg Q24H SC 06/17/17 21:00 07/17/17 20:59 06/20/17 20:17 40 MG Acetaminophen (Tylenol Tab) 650 mg Q4H PRN PO 06/17/17 13:45 07/17/17 13:44 Al Hydrox/Mg Hydrox/Simethicone (Maalox Max Susp) 15 ml Q4H PRN PO 06/17/17 13:45 07/17/17 13:44 Magnesium Hydroxide (Milk Of Magnesia Susp) 30 ml Q12H PRN PO 06/17/17 13:45 07/17/17 13:44 Polyethylene (Miralax Powder Packet) 17 gm DAILY PRN PO 06/17/17 13:45 07/17/17 13:44 06/18/17 18:31 17 GM Miscellaneous (Iv Fluids Completed) 1 ea PRN PRN N/A 06/17/17 14:00 06/17/18 13:59 Miscellaneous (Fentanyl Patch Remove & Waste) 1 ea Q3D@1529 N/A 06/17/17 15:29 07/17/17 15:28 06/20/17 15:33 1 EA Miscellaneous Information (Check Fentanyl Patch Placement) 1 ea QS N/A 06/18/17 00:00 07/18/17 00:00 06/21/17 08:00 1 EA Metoclopramide HCl (Reglan Inj) 5 mg Q6H PRN IV. 06/17/17 16:45 07/17/17 16:44 06/21/17 11:54 5 MG Naloxone HCl (Narcan Inj) 0.1 mg Q5M PRN IV 06/17/17 17:45 07/17/17 17:44 Morphine Sulfate (moRPHine SULFATE [employer] A[employer]) 50 mg PRN PRN IV 06/17/17 17:45 07/01/17 17:44 06/20/17 19:32 50 MG Sodium Chloride 1,000 ml @ 15 mls/hr Q24H IV 06/17/17 17:41 07/17/17 17:40 06/19/17 20:31 15 MLS/HR Prochlorperazine Edisylate 5 mg/ Syringe 5 ml @ 5 mls/min Q12H PRN IV 06/17/17 17:45 07/17/17 17:44 Lorazepam (Ativan Tab) 1 mg TID PRN PO 06/18/17 08:15 07/17/17 13:44 06/18/17 21:28 1 MG Bisacodyl (Dulcolax Supp) 10 mg DAILY PRN [place] 06/18/17 12:30 07/18/17 12:29 06/20/17 15:23 10 MG Polyethylene (Miralax Powder Packet) 17 gm DAILY PO 06/19/17 08:00 07/19/17 08:59 06/21/17 09:16 17 GM Senna (Senokot Tab) 17.2 mg QAM PO 06/20/17 08:00 07/20/17 07:59 06/21/17 09:12 17.2 MG Lorazepam (Ativan Inj) 0.5 mg Q8H PRN IV 06/19/17 14:15 07/19/17 14:14 Lorazepam 0.5 mg/ Syringe 1 ml @ 1 mls/min Q8H PRN IV 06/19/17 14:30 07/19/17 14:29 06/19/17 21:22 1 MLS/MIN Ondansetron HCl 8 mg/Dextrose 54 ml @ 216 mls/hr Q6H PRN IV 06/19/17 15:00 07/19/17 14:59 06/21/17 08:20 216 MLS/HR Methadone HCl (Dolophine Tab) 5 mg TID PO 06/19/17 20:00 07/03/17 19:59 06/21/17 09:15 5 MG Docusate Sodium (coLACE CAP) 100 mg BID PO 06/20/17 08:00 07/20/17 07:59 06/21/17 09:11 100 MG Sodium Biphosphate/ Sodium Phosphate (Fleet Enema) 132 ml DAILY PRN [place] 06/20/17 11:00 07/20/17 10:59 06/20/17 14:51 132 ML Promethazine HCl 12.5 mg/Sodium Chloride 50.5 ml @ 204 mls/hr Q6H PRN IV 06/20/17 11:15 07/20/17 11:14 06/20/17 12:21 204 MLS/HR Objective Vital Signs Date Time Temp Pulse Resp B/P (MAP) Pulse Ox O2 Delivery O2 Flow Rate FiO2 06/21/17 11:29 36.5 75 20 99/61 (74) 93 Room Air 06/21/17 08:00 93 Room Air 06/21/17 07:28 36.9 79 20 111/67 (82) 93 Room Air 06/21/17 04:00 36.7 60 16 103/67 (79) 99 Nasal Cannula 2.0 06/21/17 00:30 Room Air 06/20/17 23:33 36.8 74 18 107/68 (81) 90 Room Air 06/20/17 19:45 36.7 64 20 100/65 (77) 95 Room Air 06/20/17 16:00 94 Room Air 2.0 06/20/17 15:39 36.8 67 16 104/67 (79) 95 Physical Exam General Appearance: no apparent distress ENT: hearing grossly normal Neck: supple, no JVD Respiratory/Chest: lungs clear, normal breath sounds, no respiratory distress, no accessory muscle use Cardiovascular: regular rate, rhythm, no gallop, no murmur Abdomen: normal bowel sounds, + distended Extremities: no calf tenderness Neurologic/Psychiatric: alert Skin: normal color, warm/dry Assessment and Plan 41 y/o F admitted on June 17, 2017 with intractable R upper abdominal pain She has recently diagnosed metastatic lung CA with liver mets. Intractable RUQ Abdominal Pain 2/2 Metastatic Lung CA with Liver Mets: SLOW IMPROVEMENT - Tolerating Fentanyl 50 mcg Q72H - Continue anti-emetics PRN - Increased Zofran 8 mg seems to be working with Reglan the most helpful - Obtain MRI R/O brain metastasis - Obtain KUB as evidence of significant stool burden on CT - will increase aggressiveness of regimen with treatment from the top and bottom; Continue Senna , Miralax, and will perform fleet enema - which evacuation of stool may ultimately improve pain - Methadone 5 mg TID initiated and will titrate up as necessary - likely 5-7 days for max effect and will then titrate [employer] down - Heme/Onc following - awaiting afatinib treatment initiation - Palliative consultation - appreciate recommendations by Dr. Ham for assistance with pain control on D/C Opiate-Induced Constipation: - KUB supports slow movement of stool burden will continue bowel regimen - Will try milk of molasses - can ultimately increase aggressiveness of oral laxatives pending some improvement with nausea GERD: Ranitidine 150 mg BID DVT Prophylaxis: Lovenox Code Status: FULL RESUSCITATION Disposition: Obtain good pain control prior to D/C - possible extended stay due to need for slow titration and wean from [employer] A[employer] as patient is having severe cancer related pain but also some adverse effects (nausea/sedation) with some medications Continued [facility] stay due to: multiple IV medications needed Discharge planning: home
[2017-06-21] MEDS: LORAZEPAM INJ 0.5 MG in SYRINGE 0.75 ML IV PRN ×2 (14:54→22:29)
[2017-06-21] MEDS ORDERED: MoRPHine SULFATE 4 MG/ML 1 ML CARP\\VIAL IV PRN (15:00)
[2017-06-21] MEDS ORDERED: LORAZEPAM 1 MG TAB PO SCH (15:15)
[2017-06-21] MEDS ORDERED: LORAZEPAM 2 MG/ML 1 ML VIAL IV PRN (15:30)
[2017-06-21] MEDS ORDERED: GADAVIST IV PRN (17:15)
--- NOTE | 2017-06-21 18:00 | DIAGNOSTIC IMAGING REPORT ---
Brain MRI WITH AND WITHOUT CONTRAST HISTORY: evaluate for brain metastases, intractable vomiting, lung cancer TECHNIQUE: Multiplanar multisequence MRI of the brain was performed both before and after the intravenous administration of contrast. COMPARISON STUDY: None. FINDINGS: Mild mucosal thickening within the ethmoid air cells and a few opacified left mastoid air cells. The major vascular flow-voids at the skull base are well-maintained. The ventricles are normal in size. There is no mass, midline shift, or acute infarct. There are probably 8 scattered enhancing lesion seen within the brain. Dominant lesion seen within the right middle cerebellar duct measures 8 mm. Some of the larger lesions demonstrate mild surrounding edema. Dominant lesion within the supratentorial brain within the left parietal lobe measures 7 mm. IMPRESSION: Scattered subcentimeter enhancing lesions within the brain consistent with metastatic disease. Electronically signed by: Castro Flores M.D. 06/21/2017 5:59 PM Dictated Date/Time: 06/21/2017 5:52 PM
[2017-06-21] MEDS ORDERED: FENTANYL PATCH REMOVE & WASTE ONE (18:44)
[2017-06-21] MEDS ORDERED: FENTANYL 50 MCG/HR TDSY TD ONE (18:45)
[2017-06-21] MEDS ORDERED: DEXAMETHASONE INJ 6 MG in SYRINGE 0 ML IV ONE (19:30)
[2017-06-21] MEDS: ENOXAPARIN 40 MG/0.4 ML SYR SC SCH (20:16)
[2017-06-22] VITALS (7 sets, daily range): BP systolic 108–118; BP diastolic 64–74; PULSE 67–77; TEMP 36.6–36.9; O2SAT 92–95
[2017-06-22] MEDS: DEXAMETHASONE INJ 4 MG in SYRINGE 0 ML IV SCH ×3 (04:06→20:40)
[2017-06-22] MEDS: SENNA 8.6 MG TAB PO SCH (08:11)
[2017-06-22] MEDS: RANITIDINE HCL 150 MG TAB PO SCH ×2 (08:11→20:38)
[2017-06-22] MEDS: DOCUSATE SODIUM 100 MG CAP PO SCH ×2 (08:12→20:38)
[2017-06-22] MEDS: POLYETHYLENE (MIRALAX) 17 GM PACK PO SCH (08:12)
[2017-06-22] MEDS: METHADONE HCL 5 MG TAB PO SCH ×3 (08:12→20:37)
[2017-06-22] MEDS: CHECK FENTANYL PATCH PLACEMENT SCH ×3 (08:12→23:58)
--- NOTE | 2017-06-22 09:44 | Radiation Oncology Consult ---
Radiation Oncology Consult Date / Reason June 22, 2017. Dr. Galan has been kind enough to ask us to see an inpatient Ms. Mcgarry for evaluation of the role of palliative radiation following diagnosis of multiple brain metastasis. Physicians Medical Oncologist: Dr. Carrillo Radiation Oncologist: Dr. Giuseppe Gomez Diagnosis (1) Palliative care encounter Additional Notes: Assisting with pain management. Patient started on methadoneexpect to reach steady state in 5-7 days. Patient also with constipation which may be increasing her pain. Plan to continue methadone at 5 mg 3 times daily for the next 2 weeks, can be titrated as an outpatient. 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 Initiate methadone 5 mg 3 times daily yesterday (3) RUQ abdominal pain Additional Notes: Due to liver involvement of her adenocarcinoma. Working on improving pain control. (4) Metastatic disease Location: Liver and brain Stage: IV Additional Notes: Patient to start chemotherapy as per Onc (5) Lung cancer metastatic to brain History of Present Illness Is a [id number]. [place] female who recently presented to the emergency department on May 25 with a complaint of chest pain. Chest x-ray showed interval development of cardiomegaly and perihilar/lower lobe interstitial and vascular thickening. CT scan recommended. Chest for PE Showed moderate mediastinal and to a lesser extent hilar adenopathy. The right hilar node measured 1.8 cm with similar left hilar nodes. Subcarinal node measuring 2 cm. There was a infiltrate versus focal mass at the left base measuring 3.1 x 2.0 cm 05/31/2017. Chest CT scan without contrast IMPRESSION: 1. There is a 3.5 x 2.3 cm irregular mass lesion at the medial left lung base. This should be considered lung cancer until proven otherwise. 2. Findings are highly concerning for lymphangitic spread of tumor in the left lower lobe and lingula. 3. The right lung appears clear. 4. There is evidence of multifocal hepatic metastatic disease. 5. Mediastinal lymphadenopathy is concerning for metastatic involvement. 6. There is no airspace consolidation typical for pneumonia or pleural effusion. He is just a whole brain note that he is good you can treat 7. Trace pericardial effusion. 05/31/2017. CT scan of the abdomen and pelvis. IMPRESSION: 1. Multiple metastatic foci within the liver. 2. Prior cholecystectomy. Yes okay 100 spell that the okay hold 3. Increased fecal load within the colon consistent with fecal stasis. 4. Bilateral ovarian cysts. 06/01/2017. FNA of a palpable neck mass. FINAL DIAGNOSIS NECK, RIGHT, ULTRASOUND-GUIDED ASPIRATION: 1. MALIGNANT CELLS PRESENT CONSISTENT WITH METASTATIC ADENOCARCINOMA, LUNG PRIMARY. 06/02/2017. Biopsy of right cervical lymph node revealed metastatic carcinoma. FINAL DIAGNOSIS LYMPH NODE, RIGHT CERVICAL, BIOPSY: 1. METASTATIC ADENOCARCINOMA CONSISTENT WITH A LUNG PRIMARY. 06/17/2017. CT scan of the chest revealed an irregular soft tissue mass at the basal left lower lobe measuring 3.4 cm. This is compatible with a primary lung carcinoma with progressively worsening nodular intralobular septal thickening throughout the left lung. This is compatible with lymphangitic carcinomatosis. There is evidence of hilar and mediastinal lymphatic metastasis and evidence of multiple hepatic metastasis. 06/17/2017. CT scan of the abdomen and pelvis revealed multiple hepatic metastatic lesions. 06/20/2017. Patient seen by Dr. Carrillo for medical oncology evaluation. He is recommended treatment with Afatinib which has been approved and ordered with delivery pending. 06/21/2017. Patient undergoes brain MRI due to intractable vomiting. IMPRESSION : Scattered subcentimeter enhancing lesions within the brain consistent withmetastatic disease. On review 7-8 lesions were identified largest measuring 8 mm. 06/22/2017. Thin slice MRI of the brain performed. 6 enhancing lesions are visualized. The 2 largest are an 8 mm ring-enhancing lesion within the right middle cerebellar peduncle as well as an 8 mm lesion within the left lateral cerebellar hemisphere. These were consistent with metastatic disease. 06/22/2017. Patient seen by radiation oncology for evaluation and discussion of the palliative treatment options. Pacemaker Hx Pacemaker: No Past History Past Medical/Surgical History: Arthritis, Cancer, Depression, Other Chemotherapy History History of Chemotherapy: Patient is to be treated with Afatanib. It has been ordered but not yet started. Social History Smoking Status: Former Smoker Hx Tobacco Use In Past Year?: Yes Quit Date: May 25, 2017 Do You Dip or Chew Tobacco: No Hx Alcohol Use: No Hx Substance Use : No Allergies Coded Allergies: No Known Allergies (Verified , 06/02/17) Home Medications Scheduled Fentanyl (Fentanyl), 12 MCG TD CQ72HR Fentanyl (Fentanyl), 25 MCG TD CQ72HR Gabapentin (Neurontin), 100 MG PO TID Ranitidine Hcl (Zantac 150 Maximum Streng), 150 MG PO BID Scheduled PRN Lorazepam (Lorazepam), 1 MG PO BID PRN for Anxiety Review of Systems Ear/Hearing: Ear Side: Bilateral Hearing Ability: Normal Hearing Aid: None Gastrointestinal: Gastrointestinal: Nausea (She has been prescribed anti-emetics. Nausea likely related to the brain metastasis. She was started on Decadron which is helping.) Edema: Present?: No Location Body Site Modifier: Bilateral Respiratory: Symptoms: WNL Psychological: Comments: Depressed. Has been crying. Support system of is with her here. Physical Exam Height: 5 (Feet) 8.00 (Inches) 172.7 (Centimeters) 1.7272 (Meters) Weight: 144 (Pounds) 6.4 (Ounces) 65.500 (Kilograms) 16429.000 (Grams) Date Time Temp Pulse Resp B/P (MAP) Pulse Ox O2 Delivery O2 Flow Rate FiO2 06/22/17 07:30 36.7 68 18 115/72 (86) 92 Room Air 06/22/17 04:16 36.6 77 20 108/69 (82) 93 Room Air 06/22/17 00:00 Room Air 06/21/17 23:21 36.5 62 18 101/66 (78) 93 Room Air 06/21/17 20:00 Room Air 06/21/17 19:47 36.8 83 20 111/74 (86) 93 Room Air 06/21/17 16:00 93 Room Air 06/21/17 15:20 36.4 67 18 111/72 (85) 92 Room Air 06/21/17 11:29 36.5 75 20 99/61 (74) 93 Room Air General Appearance: no apparent distress Head: normocephalic Eyes: normal inspection, EOMI ENT: normal ENT inspection, hearing grossly normal Neck: no adenopathy, thyroid normal Respiratory/Chest: lungs clear, no respiratory distress, no accessory muscle use, + decreased breath sounds Cardiovascular: regular rate, rhythm, no gallop, no murmur Abdomen/GI: non tender, soft, no organomegaly Back: no CVA tenderness Extremities: no pedal edema Neurologic/Psych: no motor/sensory deficits, alert, normal mood/affect Skin: warm/dry Pain Management Patient Reports Pain: No Side: Right Pain Location: Abdomen Patient Preferred Pain Scale: 0 - 10 Initial Pain Intensity: 0.0 Level of Consciousness: Spontaneously Alert Relief Measures: Medication - Oral Pain Intervention: See MAR Pain Management Plan Pain management through hospitalist. Laboratory Laboratory Results: were reviewed Pathology Pathology Results: were reviewed, and pertinent findings noted in HPI Imaging Imaging Studies: were reviewed, and pertinent findings noted in HPI Treatment Options I discussed the following treatment options with Ms. Mcgarry. 1. I discussed the possibility of stereotactic treatment to each of the individual lesions. 2. I discussed the possibility of whole brain radiation if the number of lesions is excessive. Assessment & Recommendations In summary Ms. Mcgarry is a 41-year-old female who was recently found to have a primary lung carcinoma with metastatic disease to the liver and to the brain. MRI of the brain is shown multiple lesions the largest of which is 8 mm ranging from 6-8 in number. The patient has been found to be a candidate for afatinib and this is been ordered. We were asked to see the patient to discuss the palliative treatment options for her newly diagnosed brain metastasis. I met with the patient and her . The patient was having significant nausea and vomiting that has been dramatically improved with the initiation of Decadron therapy. I discussed with the patient and her the radiation treatment options. I told her that our preference, when possible, is to treat with stereotactic radiation. I told her that that this consists of focal radiation treatment to each of the identified metastatic lesions in the brain utilizing a limited number of treatments ranging from 1-5. I told her that this treatment can be effective in controlling the localized lesions and tends to have less side effects than does whole brain radiation. However I told her that if she were to have significantly more lesions identified. We may need to consider whole brain radiation. I compared and contrasted to treatment options as far as efficacy and side effect profile. The patient agreed to proceed with radiation treatment. A consent form for the stereotactic treatment was reviewed with the patient and her . In general , we did discuss treatment recommendations for the management of metastatic disease to the brain. I did explain to the patient that most often biopsies are not performed given the patient's previous history of cancer unless the patient plans to undergo surgical resection. We discussed treatment options including surgical resection and radiation therapy. The patient defer surgical intervention and would prefer to undergo radiation therapy. We then discussed the advantages and disadvantages of both whole brain radiation therapy and stereotactic radiosurgery. We did discuss the benefits of whole brain radiation therapy with respect to overall intracranial control and the most significant disadvantages including long-term neurocognitive side effects; we then focused or conversation and stereotactic radiosurgery and explained the benefits which included minimizing radiation therapy to the normal brain and potentially reducing long-term side effects from radiation therapy as well as the disadvantages including the inability to potentially prevent further lesions from developing in the brain. I did explain that after the completion of stereotactic radiosurgery we would follow the patient with an MRI of the brain every 2-3 months which would enable us to potentially diagnose new lesions early while they are still asymptomatic and potentially treatable with stereotactic radiosurgery. The patient would like to undergo stereotactic radiosurgery. The patient will be brought back for CT simulation for treatment planning. We explained the indications, alternatives, benefits, risks and side effects of external beam radiation therapy to the brain. We explain the most common side effects including but not limited to skin erythema, skin break down, hair loss, radiation necrosis, fatigue, short-term memory loss, decreased neurocognitive performance, cerebral edema, hearing loss, damage to cochlea structures, seizures, loss of sensory and or motor function. We explained the treatment planning process and what to expect before during and after treatment. The patient understands and would be willing to consent to treatment. The consent form was reviewed by the patient and the risks were initialed and the consent form was reviewed signed and witnessed. With the patient's consent we proceeded with a CT simulation this afternoon. Following treatment planning we will plan to begin her treatment next week. We also requested a thin slice MRI of the brain which was ordered and performed. This will be utilized for treatment planning. The patient and family had multiple questions which were answered to their full satisfaction. Thank you for allowing us to participate in the care of this patient. This chart was completed in part utilizing [employer] Speech Voice Recognition software. Attempts were made to minimize the grammatical errors, random word insertions, pronoun errors and incomplete sentences. Any formal questions or concerns about the content, text or information contained within the body of this dictation should be directly addressed to the provider for clarification. Arnulfo Gomez MD Department of Radiation Oncology [facility] Molly Sorenson [facility] Total Time In Consultation I spent 15 minutes speaking to the patient in performing examination. I spent 15 minutes reviewing information on completing this note. [place] Total Time (Attending) I spent 30 minutes in discussion of treatment options and risks and side effects. I spent 20 minutes reviewing her scans, her chart and preparation of this document. LLOYD Copy To Joseph Carrillo D.O.; Scotty Diaz, DO
--- NOTE | 2017-06-22 13:09 | Hospitalist Progress Note ---
Hospitalist Progress Note Date of Service June 22, 2017. Subjective Pt evaluation today including: conversation w/ patient, conversation w/ family , physical exam, chart review, review of inpatient medication list Patient seen and evaluated. Unfortunately MRI confirms metastatic disease to the brain. Radiation Onc in to see patient today. Decadron started yesterday and nausea improving. UNHAIRER discontinued. Tolerating Fentanyl and Methadone. Having some increased BMs but may be take some time to fully resolve for her. Does appear more comfortable from an objective standpoint and is reporting some improvement in symptoms. Constitutional: No fever, No chills Respiratory: No shortness of breath Cardiovascular: No chest pain Abdomen: + pain (controlled), + constipation (increasing BMs), No nausea, No vomiting, No diarrhea Musculoskeletal: No swelling Female : No dysuria Heme: No abnormal bleeding/bruising Medications Current Inpatient Medications Medications (Trade) Dose Ordered Sig/Saul Route Start Time Stop Time Status Last Admin Dose Admin Fentanyl (Duragesic Patch) 50 mcg Q72H TD 06/17/17 15:30 07/01/17 15:29 06/20/17 15:23 50 MCG Ranitidine HCl (zANTac TAB) 150 mg BID PO 06/17/17 21:00 07/17/17 20:59 06/22/17 08:11 150 MG Enoxaparin Sodium (Lovenox Inj) 40 mg Q24H SC 06/17/17 21:00 07/17/17 20:59 06/21/17 20:16 40 MG Acetaminophen (Tylenol Tab) 650 mg Q4H PRN PO 06/17/17 13:45 07/17/17 13:44 Al Hydrox/Mg Hydrox/Simethicone (Maalox Max Susp) 15 ml Q4H PRN PO 06/17/17 13:45 07/17/17 13:44 Magnesium Hydroxide (Milk Of Magnesia Susp) 30 ml Q12H PRN PO 06/17/17 13:45 07/17/17 13:44 Polyethylene (Miralax Powder Packet) 17 gm DAILY PRN PO 06/17/17 13:45 07/17/17 13:44 06/18/17 18:31 17 GM Miscellaneous (Iv Fluids Completed) 1 ea PRN PRN N/A 06/17/17 14:00 06/17/18 13:59 Miscellaneous (Fentanyl Patch Remove & Waste) 1 ea Q3D@1529 N/A 06/17/17 15:29 07/17/17 15:28 06/20/17 15:33 1 EA Miscellaneous Information (Check Fentanyl Patch Placement) 1 ea QS N/A 06/18/17 00:00 07/18/17 00:00 06/22/17 08:12 1 EA Metoclopramide HCl (Reglan Inj) 5 mg Q6H PRN IV. 06/17/17 16:45 07/17/17 16:44 06/21/17 11:54 5 MG Prochlorperazine Edisylate 5 mg/ Syringe 5 ml @ 5 mls/min Q12H PRN IV 06/17/17 17:45 07/17/17 17:44 Bisacodyl (Dulcolax Supp) 10 mg DAILY PRN OH 06/18/17 12:30 07/18/17 12:29 06/20/17 15:23 10 MG Polyethylene (Miralax Powder Packet) 17 gm DAILY PO 06/19/17 08:00 07/19/17 08:59 06/22/17 08:12 17 GM Senna (Senokot Tab) 17.2 mg QAM PO 06/20/17 08:00 07/20/17 07:59 06/22/17 08:11 17.2 MG Ondansetron HCl 8 mg/Dextrose 54 ml @ 216 mls/hr Q6H PRN IV 06/19/17 15:00 07/19/17 14:59 06/21/17 08:20 216 MLS/HR Methadone HCl (Dolophine Tab) 5 mg TID PO 06/19/17 20:00 07/03/17 19:59 06/22/17 08:12 5 MG Docusate Sodium (coLACE CAP) 100 mg BID PO 06/20/17 08:00 07/20/17 07:59 06/22/17 08:12 100 MG Sodium Biphosphate/ Sodium Phosphate (Fleet Enema) 132 ml DAILY PRN [place] 06/20/17 11:00 07/20/17 10:59 06/20/17 14:51 132 ML Promethazine HCl 12.5 mg/Sodium Chloride 50.5 ml @ 204 mls/hr Q6H PRN IV 06/20/17 11:15 6/14/18 11:14 06/20/17 12:21 204 MLS/HR Lorazepam (Ativan Tab) 1 mg Q6H PRN PO 06/21/17 15:00 07/17/17 13:44 Morphine Sulfate (MoRPHine SULFATE INJ) 1 mg Q1H PRN IV 06/21/17 15:00 07/05/17 14:59 Lorazepam 0.5 mg/ Syringe 1 ml @ 1 mls/min Q6H PRN IV 06/21/17 15:15 07/19/17 14:29 06/21/17 22:29 1 MLS/MIN Lorazepam (Ativan Inj) 0.5 mg Q6H PRN IV 06/21/17 15:30 07/21/17 15:29 Gadobutrol (Gadavist) 6.5 mmol UD PRN IV 06/21/17 17:15 06/25/17 17:14 Dexamethasone Sodium Phosphate 4 mg/Syringe 1 ml @ 1 mls/min Q8H IV 06/22/17 04:00 07/22/17 03:59 06/22/17 11:28 1 MLS/MIN Objective Vital Signs Date Time Temp Pulse Resp B/P (MAP) Pulse Ox O2 Delivery O2 Flow Rate FiO2 06/22/17 12:18 36.7 75 20 109/64 (79) 95 Room Air 06/22/17 08:00 92 Room Air 06/22/17 07:30 36.7 68 18 115/72 (86) 92 Room Air 06/22/17 04:16 36.6 77 20 108/69 (82) 93 Room Air 06/22/17 00:00 Room Air 06/21/17 23:21 36.5 62 18 101/66 (78) 93 Room Air 06/21/17 20:00 Room Air 06/21/17 19:47 36.8 83 20 111/74 (86) 93 Room Air 06/21/17 16:00 93 Room Air 06/21/17 15:20 36.4 67 18 111/72 (85) 92 Room Air Physical Exam General Appearance: no apparent distress Eyes: sclerae normal ENT: hearing grossly normal Neck: supple, no JVD, trachea midline Respiratory/Chest: lungs clear, normal breath sounds, no respiratory distress, no accessory muscle use Cardiovascular: regular rate, rhythm, no gallop, no murmur Abdomen: normal bowel sounds, soft Extremities: no pedal edema Neurologic/Psychiatric: alert, oriented x 3 Skin: normal color, warm/dry Assessment and Plan 41 y/o F admitted on June 17, 2017 with intractable R upper abdominal pain She has recently diagnosed metastatic lung CA with liver mets. Intractable RUQ Abdominal Pain 2/2 Metastatic Lung CA with Liver and Brain Mets : IMPROVING - Tolerating Fentanyl 50 mcg Q72H and Methadone 5 mg TID with plans to titrate up as necessary and can see Dr. Ham as outpatient - apprec. her consultation - Continue anti-emetics PRN - Increased Zofran 8 mg seems to be working with Reglan the most helpful - Decadron SAUL at this time with good response - Heme/Onc and Radiation Onc following - awaiting afatinib treatment initiation ; plan for palliative brain radiation Opiate-Induced Constipation: IMPROVING - KUB supports slow movement of stool burden will continue bowel regimen; may slowly resolve given amount of burden GERD: Ranitidine 150 mg BID DVT Prophylaxis: Lovenox Code Status: FULL RESUSCITATION Disposition: Obtain good pain control prior to D/C - has required extended stay due to need for slow titration and wean from UNHAIRER as patient is having severe cancer related pain but also some adverse effects (nausea/sedation) with some medications - Given improvements patient may likely discharge in the next coming days - Will need Onc and Radiation Onc F/U; Also F/U with Dr. Ham Discharge planning: home
[2017-06-22] MEDS ORDERED: GADAVIST IV PRN (15:00)
--- NOTE | 2017-06-22 15:02 | DIAGNOSTIC IMAGING REPORT ---
MRI OF THE BRAIN WITHOUT AND WITH IV CONTRAST CLINICAL HISTORY: Brain metastasis. LUNG CANCER, PATIENT THERAPY SCAN. COMPARISON STUDY: 06/21/2017 TECHNIQUE: MRI of the brain was performed from the vertex to the skull base utilizing various T1 and T2 weighted sequences. Following the IV administration of 6.5 mL of Gadavist contrast, additional enhanced images were obtained. FINDINGS: Thin section 3-D post gadolinium axial images were acquired. Coronal and sagittal images were reformatted. The previously identified multiple enhancing metastatic lesions are more difficult to visualize on the 3-D BOWSER sequence. 6 enhancing lesions are visualized. The 2 largest are in 8mm ring-enhancing lesion within the right middle cerebellar peduncle, as well as an 8 mm lesion within the left lateral cerebellar hemisphere. IMPRESSION: Multiple infra and supra tentorial enhancing lesions consistent with metastatic disease. Electronically signed by: Preston Dumont M.D. 06/22/2017 3:01 PM Dictated Date/Time: 06/22/2017 2:51 PM
--- NOTE | 2017-06-22 18:55 | Palliative Care Progress Note ---
Palliative Care Progress Note Date of Service June 22, 2017. 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 Angelia Bowles was present for part of the conversation Patient is much more awake and alert and a morphine DISABILITIES CAREGIVER, patient states her pain is "okay". Patient has now completed 3 full days of methadone, should reach stated he stayed on day 5-7. Patient had a CT scan that showed metastases to the brain, patient was simulated for XRT and started on Decadron. Patient was able to get out of bed easily without any grimace or signs of discomfort. Able to palpate the abdomen with the same amount of pressure as on prior exams without any grimace. Was able to speak with the privately regarding anticipated side effects with radiation therapy and held to help patient in daughter cope with changes. During the exam patient was notified by the pharmacy that her chemo medication was approved and is to be delivered at home tomorrow. Review of Systems Constitutional: No fever, No chills Eyes: No worsening of vision ENT: No hearing loss Respiratory: No cough Cardiac: + chest pain (Right lateral lower ribs improved) Abdomen: + pain (Some left side discomfort, may be related to recent constipation), + nausea (Improving) Female : No dysuria Neurologic: No memory loss Psychiatric: No depression symptoms Skin: + new/changing skin lesions Objective Vital Signs Date Time Temp Pulse Resp B/P (MAP) Pulse Ox O2 Delivery O2 Flow Rate FiO2 06/22/17 16:00 Room Air 06/22/17 15:48 36.6 72 18 118/74 (89) 95 Room Air 06/22/17 12:18 36.7 75 20 109/64 (79) 95 Room Air 06/22/17 08:00 92 Room Air 06/22/17 07:30 36.7 68 18 115/72 (86) 92 Room Air 06/22/17 04:16 36.6 77 20 108/69 (82) 93 Room Air 06/22/17 00:00 Room Air 06/21/17 23:21 36.5 62 18 101/66 (78) 93 Room Air 06/21/17 20:00 Room Air 06/21/17 19:47 36.8 83 20 111/74 (86) 93 Room Air Physical Exam General Appearance: no apparent distress Eyes: EOMI ENT: hearing grossly normal Neck: supple Respiratory/Chest: no respiratory distress Cardiovascular: regular rate, rhythm, no edema Abdomen: soft, + pertinent finding (Mild tenderness in right upper quadrant on palpation) Extremities: normal range of motion Neurologic/Psychiatric: alert, oriented x 3 Skin: warm/dry Assessment and Plan (1) Palliative care encounter Assessment & Plan: Patient started on methadone for cancer related pain, pain control is improving, patient now off morphine DISABILITIES CAREGIVER and is more alert. Patient will follow up 2 weeks after discharge and palliative clinic for continued monitoring of methadone. We will continue current fentanyl patch 50 mcg. (2) Intractable pain Status: Acute Assessment & Plan: Improving (3) RUQ abdominal pain Status: Acute Assessment & Plan: Improved pain control (4) Metastatic disease Status: Acute Assessment & Plan: Now with newly discovered brain metastases, to start oral chemo, and start brain XRT. Palliative Performance Scale: 60 % Continued [facility] stay due to: multiple IV medications needed Discharge planning: home Counseling and Coordination Total time spent 35 minutes with greater than 50% of the time spent at bedside discussing treatment plan, as well as reviewing side effects of XRT, Decadron, and methadone.
[2017-06-22] MEDS: ENOXAPARIN 40 MG/0.4 ML SYR SC SCH (20:39)
[2017-06-22] MEDS: LORAZEPAM INJ 0.5 MG in SYRINGE 0.75 ML IV PRN (21:17)
[2017-06-23] VITALS (8 sets, daily range): BP systolic 96–111; BP diastolic 57–72; PULSE 54–87; TEMP 36.7–36.8; O2SAT 93–98
[2017-06-23] MEDS: DEXAMETHASONE INJ 4 MG in SYRINGE 0 ML IV SCH ×3 (04:35→21:19)
[2017-06-23] MEDS: ONDANSETRON INJ 8 MG in DEXTROSE 5% 50ML 50 ML IV PRN (04:54)
[2017-06-23] MEDS: LORAZEPAM INJ 0.5 MG in SYRINGE 0.75 ML IV PRN ×2 (05:04→21:20)
[2017-06-23] MEDS: POLYETHYLENE (MIRALAX) 17 GM PACK PO SCH ×2 (07:53→21:21)
[2017-06-23] MEDS: RANITIDINE HCL 150 MG TAB PO SCH ×2 (07:53→21:21)
[2017-06-23] MEDS: DOCUSATE SODIUM 100 MG CAP PO SCH ×2 (07:53→21:20)
[2017-06-23] MEDS: SENNA 8.6 MG TAB PO SCH (07:53)
[2017-06-23] MEDS: METHADONE HCL 5 MG TAB PO SCH ×3 (07:53→21:20)
[2017-06-23] MEDS: CHECK FENTANYL PATCH PLACEMENT SCH ×3 (07:54→23:15)
[2017-06-23] MEDS: PROMETHAZINE HCL INJ 12.5 MG in SODIUM CHLORIDE 0.9% 50ML 50 ML IV PRN ×2 (08:27→17:10)
[2017-06-23] MEDS ORDERED: MILK AND MOLASSES ENEMA PR ONE (08:45)
[2017-06-23] MEDS: FENTANYL PATCH REMOVE & WASTE SCH (15:29)
[2017-06-23] MEDS: FENTANYL 50 MCG/HR TDSY TD SCH (16:27)
--- NOTE | 2017-06-23 17:06 | Progress Note ---
Subjective Date of Service: June 23, 2017. Subjective Pt evaluation today including: conversation w/ patient, physical exam, review of inpatient medication list Pain: controlled today PO Intake: adequate Voiding: no voiding problems patient with some increased nausea today, wants to try to have BM, requested enema again no success with milk and molasses enema will increase Miralax to BID received oral targeted therapy today, will allow to start pain controlled awaiting radiation therapy to start Problem List Medical Problems: (1) Chest pain Status: Acute (2) Chest wall pain Status: Acute (3) Failure of outpatient treatment Status: Acute (4) Lung mass Status: Acute (5) Metastatic cancer Status: Acute (6) Metastatic disease Status: Acute (7) Neuritis of left ulnar nerve Status: Acute (8) Right-sided chest pain Status: Acute (9) RUQ abdominal pain Status: Acute Review of Systems Constitutional: + weakness, + fatigue Abdomen: + pain (RUQ), + nausea, + constipation All Other Systems: Reviewed and Negative Medications Current Inpatient Medications Medications (Trade) Dose Ordered Sig/Saul Route Start Time Stop Time Status Last Admin Dose Admin Fentanyl (Duragesic Patch) 50 mcg Q72H TD 06/17/17 15:30 07/01/17 15:29 06/23/17 16:27 50 MCG Ranitidine HCl (zANTac TAB) 150 mg BID PO 06/17/17 21:00 07/17/17 20:59 06/23/17 07:53 150 MG Enoxaparin Sodium (Lovenox Inj) 40 mg Q24H SC 06/17/17 21:00 07/17/17 20:59 06/22/17 20:39 40 MG Acetaminophen (Tylenol Tab) 650 mg Q4H PRN PO 06/17/17 13:45 07/17/17 13:44 Al Hydrox/Mg Hydrox/Simethicone (Maalox Max Susp) 15 ml Q4H PRN PO 06/17/17 13:45 07/17/17 13:44 Magnesium Hydroxide (Milk Of Magnesia Susp) 30 ml Q12H PRN PO 06/17/17 13:45 07/17/17 13:44 Polyethylene (Miralax Powder Packet) 17 gm DAILY PRN PO 06/17/17 13:45 07/17/17 13:44 5/13/18 18:31 17 GM Miscellaneous (Iv Fluids Completed) 1 ea PRN PRN N/A 06/17/17 14:00 06/17/18 13:59 Miscellaneous (Fentanyl Patch Remove & Waste) 1 ea Q3D@1529 N/A 06/17/17 15:29 07/17/17 15:28 06/23/17 15:29 1 EA Miscellaneous Information (Check Fentanyl Patch Placement) 1 ea QS N/A 06/18/17 00:00 07/18/17 00:00 06/23/17 16:29 1 EA Metoclopramide HCl (Reglan Inj) 5 mg Q6H PRN IV. 06/17/17 16:45 07/17/17 16:44 06/21/17 11:54 5 MG Prochlorperazine Edisylate 5 mg/ Syringe 5 ml @ 5 mls/min Q12H PRN IV 06/17/17 17:45 07/17/17 17:44 Bisacodyl (Dulcolax Supp) 10 mg DAILY PRN ME 06/18/17 12:30 07/18/17 12:29 06/20/17 15:23 10 MG Senna (Senokot Tab) 17.2 mg QAM PO 06/20/17 08:00 07/20/17 07:59 06/23/17 07:53 17.2 MG Ondansetron HCl 8 mg/Dextrose 54 ml @ 216 mls/hr Q6H PRN IV 06/19/17 15:00 07/19/17 14:59 06/23/17 04:54 216 MLS/HR Methadone HCl (Dolophine Tab) 5 mg TID PO 06/19/17 20:00 07/03/17 19:59 06/23/17 14:09 5 MG Docusate Sodium (coLACE CAP) 100 mg BID PO 06/20/17 08:00 07/20/17 07:59 06/23/17 07:53 100 MG Sodium Biphosphate/ Sodium Phosphate (Fleet Enema) 132 ml DAILY PRN ME 06/20/17 11:00 07/20/17 10:59 06/20/17 14:51 132 ML Promethazine HCl 12.5 mg/Sodium Chloride 50.5 ml @ 204 mls/hr Q6H PRN IV 06/20/17 11:15 07/20/17 11:14 06/23/17 08:27 204 MLS/HR Lorazepam (Ativan Tab) 1 mg Q6H PRN PO 06/21/17 15:00 07/17/17 13:44 Morphine Sulfate (MoRPHine SULFATE INJ) 1 mg Q1H PRN IV 06/21/17 15:00 07/05/17 14:59 Lorazepam 0.5 mg/ Syringe 1 ml @ 1 mls/min Q6H PRN IV 06/21/17 15:15 07/19/17 14:29 06/23/17 05:04 1 MLS/MIN Lorazepam (Ativan Inj) 0.5 mg Q6H PRN IV 06/21/17 15:30 07/21/17 15:29 Gadobutrol (Gadavist) 6.5 mmol UD PRN IV 06/21/17 17:15 06/25/17 17:14 Dexamethasone Sodium Phosphate 4 mg/Syringe 1 ml @ 1 mls/min Q8H IV 06/22/17 04:00 07/22/17 03:59 06/23/17 12:09 1 MLS/MIN Gadobutrol (Gadavist) 6.5 mmol UD PRN IV 06/22/17 15:00 06/26/17 14:59 Polyethylene (Miralax Powder Packet) 17 gm BID PO 06/23/17 20:00 07/19/17 08:59 Objective Vital Signs Date Time Temp Pulse Resp B/P (MAP) Pulse Ox O2 Delivery O2 Flow Rate FiO2 06/23/17 15:43 36.7 87 18 100/64 (76) 94 Room Air 06/23/17 12:17 36.7 68 18 96/60 (72) 94 Room Air 06/23/17 08:00 95 Room Air 06/23/17 07:36 36.7 65 18 102/64 (77) 95 Room Air 06/23/17 04:58 36.7 79 18 98/57 (71) 94 Room Air 06/23/17 00:00 Room Air 06/22/17 23:59 36.9 67 16 109/70 (83) 95 Room Air 06/22/17 20:01 36.7 73 18 108/70 (83) 92 Room Air Physical Exam General Appearance: WD/WN, no apparent distress Eyes: normal inspection, EOMI, sclerae normal ENT: normal ENT inspection, hearing grossly normal, pharynx normal Neck: supple, no adenopathy, no JVD, trachea midline Respiratory/Chest: chest non-tender, lungs clear, normal breath sounds, no respiratory distress, no accessory muscle use Cardiovascular: regular rate, rhythm, no edema, no gallop, no JVD, no murmur Abdomen: normal bowel sounds, soft, no organomegaly, + tenderness (RUQ) Extremities: normal range of motion, non-tender, normal inspection, no pedal edema, no calf tenderness 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, no motor/sensory deficits, alert, normal mood/affect, oriented x 3 Skin: normal color, warm/dry, no rash Assessment and Plan 41 yo female with intractable pain, nausea, constipation in setting of metastatic lung cancer, adenocarcinoma - Intractable pain secondary to metastatic lung adenocarcinoma, liver lesions continue Fentanyl patch at 50mcg, continue Methadone 5mg TID, pain is well controlled without Morphine IV Morphine IV PRN but not needing follow up with palliative care in two weeks to go over pain control received oral targeted therapy today, can start today - Brain mets: plan on starting radiation therapy as soon as possible may be able to perform stereotactic therapy instead of whole brain no treatment yet today continue Decadron 4mg q8 - Nausea: likely due to metastatic disease in brain Decadron 4mg IV q8 continue Zofran, Phenergan more nausea today, may be due to constipation - Constipation: large formed stool after milk of molasses enema two days ago continue bowel regimen to keep her regular with narcotics continue enema PRN increase Miralax to BID today - Anxiety: related to pain and malignancy Ativan PRN, helping Continued [facility] stay due to: multiple IV medications needed Discharge planning: home
[2017-06-23] MEDS: ENOXAPARIN 40 MG/0.4 ML SYR SC SCH (21:20)
--- NOTE | 2017-06-23 21:22 | Palliative Care Progress Note ---
Palliative Care Progress Note Date of Service June 23, 2017. Subjective Pt evaluation today including: conversation w/ patient, conversation w/ family , physical exam, chart review, review of inpatient medication list Pain: Improving PO Intake: Improving Voiding: no voiding problems Patient states her pain is adequately controlled, continues to have nausea, but improving. Patient was able to eat a regular diet for dinner Review of Systems Constitutional: No fever, No chills Eyes: No worsening of vision ENT: No hearing loss Respiratory: No cough Cardiac: No chest pain Abdomen: + pain (Patient reports improving), + nausea Female : No dysuria Neurologic: No memory loss Psychiatric: No anxiety Objective Vital Signs Date Time Temp Pulse Resp B/P (MAP) Pulse Ox O2 Delivery O2 Flow Rate FiO2 06/23/17 19:28 36.8 67 16 109/67 (81) 93 Room Air 06/23/17 16:00 94 Room Air 06/23/17 15:43 36.7 87 18 100/64 (76) 94 Room Air 06/23/17 12:17 36.7 68 18 96/60 (72) 94 Room Air 06/23/17 08:00 95 Room Air 06/23/17 07:36 36.7 65 18 102/64 (77) 95 Room Air 06/23/17 04:58 36.7 79 18 98/57 (71) 94 Room Air 06/23/17 00:00 Room Air 06/22/17 23:59 36.9 67 16 109/70 (83) 95 Room Air Physical Exam General Appearance: no apparent distress Eyes: EOMI ENT: hearing grossly normal Neck: supple Respiratory/Chest: no respiratory distress Cardiovascular: regular rate, rhythm Abdomen: non tender (No grimace with palpation in the right upper quadrant), soft Extremities: normal range of motion Neurologic/Psychiatric: alert, oriented x 3 Skin: warm/dry Assessment and Plan (1) Palliative care encounter Assessment & Plan: Patient started on methadone for pain control, in order to control pain with minimal sedation. Patient has received 12 doses of methadone so far, expect her to reach steady state over the next few days. Patient to call to make follow-up appointment as an outpatient if she is discharged over the weekend. If patient is still inpatient on Monday will assess her pain and make a methadone adjustment if needed prior to discharge. Prescription for methadone is placed in patient's chart as well as business card with number for patient to call to make follow-up appointment (2) Intractable pain Status: Acute Assessment & Plan: Improving with methadone (3) RUQ abdominal pain Status: Acute Assessment & Plan: Likely secondary to liver metastases, improving with methadone (4) Metastatic disease Status: Acute Assessment & Plan: Patient now found to have brain metastases, plan for XRT as well as chemo. Palliative Performance Scale: 60 % Continued [facility] stay due to: multiple IV medications needed Discharge planning: home Counseling and Coordination Total time spent 35 minutes with greater than 50% of the time spent at bedside discussing pain control, nausea control, other treatments that can be continued at home.
[2017-06-24] VITALS (8 sets, daily range): BP systolic 102–108; BP diastolic 62–67; PULSE 53–71; TEMP 36.7–36.8; O2SAT 94–96
[2017-06-24] MEDS: DEXAMETHASONE INJ 4 MG in SYRINGE 0 ML IV SCH ×3 (04:29→20:59)
[2017-06-24] MEDS: ONDANSETRON INJ 8 MG in DEXTROSE 5% 50ML 50 ML IV PRN (04:53)
[2017-06-24] MEDS ORDERED: DXM/4 PO (05:27)
[2017-06-24] MEDS ORDERED: ONDA8TAB62 SL (05:27)
[2017-06-24] MEDS ORDERED: CLC100 PO (05:27)
[2017-06-24] MEDS ORDERED: DRGTP50 TD (05:27)
[2017-06-24] MEDS ORDERED: MRLP17 PO (05:27)
[2017-06-24] MEDS ORDERED: MTH5 PO (05:27)
[2017-06-24] MEDS ORDERED: DLCS PR (05:27)
--- NOTE | 2017-06-24 05:35 | Discharge Instructions ---
Discharge Instructions Date of Service June 24, 2017. Admission Reason for Admission: Intractable Pain, Metastatic Primary Lung Cancer Discharge Discharge Diagnosis / Problem: Metastatic lung adenocarcinoma, brain metastases , pain, nausea Discharge Goals Goal(s): Decrease discomfort, Improve function, Improve disease control Activity Recommendations Activity Limitations: resume your previous activity . Instructions / Follow-Up Instructions / Follow-Up Medications: - DECADRON: 4mg every 8 hours, continue this dose until instructed to change by oncology - METHADONE: 5mg q8 hours as needed for pain - FENTANYL: dose increased to 50mcg patch, change every 72 hours - ZOFRAN: take every 6 hours regularly to stay ahead of nausea - MIRALAX, COLACE, DULCOLAX: take as prescribed to help prevent constipation Metastatic lung adenocarcinoma: new finding of brain metastases plan to use Decadron to continue to control swelling in brain call [phone] on Monday to speak with radiation oncology for further instructions on when you start your treatments follow up with Dr. De Oliveira next week in the office to discuss care, discuss targeted therapy that you started follow up with Dr. Ham in two weeks for pain control Constipation: stay well hydrated, take daily fiber supplement (Metamucil, etc) take Miralax twice a day scheduled take Colace twice a day scheduled can use suppository as needed if stools every become loose you can back off on the above regimen Nausea: take Zofran every 6 hours to stay ahead of nausea Decadron should help Current Hospital Diet Patient's current hospital diet: Regular Diet Discharge Diet Recommended Diet: Regular Diet Pending Studies Studies pending at discharge: no Medical Emergencies . Who to Call and When: Medical Emergencies: If at any time you feel your situation is an emergency, please call 911 immediately. . Non-Emergent Contact Non-Emergency issues call your: Oncologist Call Non-Emergent contact if: your pain is not controlled, you have any medication questions . . "Provider Documentation" section prepared by Kishore Galan. . [place] Drug Monitoring Program Search Results: no issues identified
[2017-06-24] MEDS ORDERED: GILOTRIF PO SCH (06:00)
[2017-06-24] MEDS: GILOTRIF 40 MG PO SCH (06:11)
[2017-06-24] MEDS: CHECK FENTANYL PATCH PLACEMENT SCH ×2 (08:05→15:25)
[2017-06-24] MEDS: POLYETHYLENE (MIRALAX) 17 GM PACK PO SCH ×2 (08:06→21:00)
[2017-06-24] MEDS: RANITIDINE HCL 150 MG TAB PO SCH ×2 (08:06→20:59)
[2017-06-24] MEDS: SENNA 8.6 MG TAB PO SCH (08:06)
[2017-06-24] MEDS: METHADONE HCL 5 MG TAB PO SCH ×3 (08:06→20:59)
[2017-06-24] MEDS: DOCUSATE SODIUM 100 MG CAP PO SCH ×2 (08:06→20:59)
[2017-06-24 08:51] LABS: BASO % 0.1 %; BASO ABS # 0.01 K/uL (0-0.2); EOS % 0.5 %; EOS ABS # 0.07 K/uL (0-0.5); HEMATOCRIT 43.7 % (37-47); HEMOGLOBIN 14.7 g/dL (12.0-16.0); IG# 0.05 K/uL (0.00-0.02); LYMPH % 9.4 %; LYMPH ABS # 1.33 K/uL (1.2-3.4); MEAN CELL VOLUME 89.2 fL (80-100); MEAN CORPUSCULAR HGB CONC 33.6 g/dl (32-36); MEAN PLATELET VOLUME 10.9 fL (7.4-10.4); MONO % 4.2 %; NEUT % 85.4 %; NEUT ABS # 12.07 K/uL (1.4-6.5); PLATELET COUNT 325 K/uL (130-400); RED CELL DISTRIBUTION WIDTH CV 12.9 % (11.5-14.5); RED CELL DISTRIBUTION WIDTH SD 41.8 fL (36.4-46.3); WHITE BLOOD COUNT 14.13 K/uL (4.8-10.8)
[2017-06-24] MEDS: PROMETHAZINE HCL INJ 12.5 MG in SODIUM CHLORIDE 0.9% 50ML 50 ML IV PRN (08:53)
[2017-06-24 09:21] LABS: CALCIUM 9.1 mg/dl (8.5-10.1); CREATININE 0.74 mg/dl (0.60-1.20)
--- NOTE | 2017-06-24 10:23 | Progress Note ---
Subjective Date of Service: June 24, 2017. Subjective Pt evaluation today including: conversation w/ patient, conversation w/ family , physical exam, lab review, review of inpatient medication list Pain: controlled PO Intake: improving, some nausea this AM Voiding: no voiding problems discussed results of thin slice MRI brain, only 6 areas of metastatic disease identified patient and significant other relieved, can get stereotactic therapy discussed that it will likely start this week, will need to contact radiation oncology patient with nausea this AM requested Phenergan discussed trying Zofran ODT today to see if we can control symptoms with PO meds still no BM without enema pain is controlled, no changes needed checked labs today, WBC 14k due to Decadron, otherwise labs stable Problem List Medical Problems: (1) Chest pain Status: Acute (2) Chest wall pain Status: Acute (3) Failure of outpatient treatment Status: Acute (4) Lung mass Status: Acute (5) Metastatic cancer Status: Acute (6) Metastatic disease Status: Acute (7) Neuritis of left ulnar nerve Status: Acute (8) Right-sided chest pain Status: Acute (9) RUQ abdominal pain Status: Acute Review of Systems Constitutional: + weakness, + fatigue Abdomen: + pain, + nausea, + constipation All Other Systems: Reviewed and Negative Medications Current Inpatient Medications Medications (Trade) Dose Ordered Sig/Saul Route Start Time Stop Time Status Last Admin Dose Admin Fentanyl (Duragesic Patch) 50 mcg Q72H TD 06/17/17 15:30 07/01/17 15:29 06/23/17 16:27 50 MCG Ranitidine HCl (zANTac TAB) 150 mg BID PO 06/17/17 21:00 07/17/17 20:59 06/24/17 08:06 150 MG Enoxaparin Sodium (Lovenox Inj) 40 mg Q24H SC 06/17/17 21:00 07/17/17 20:59 06/23/17 21:20 40 MG Acetaminophen (Tylenol Tab) 650 mg Q4H PRN PO 06/17/17 13:45 07/17/17 13:44 Al Hydrox/Mg Hydrox/Simethicone (Maalox Max Susp) 15 ml Q4H PRN PO 06/17/17 13:45 07/17/17 13:44 Magnesium Hydroxide (Milk Of Magnesia Susp) 30 ml Q12H PRN PO 06/17/17 13:45 07/17/17 13:44 Polyethylene (Miralax Powder Packet) 17 gm DAILY PRN PO 06/17/17 13:45 07/17/17 13:44 06/18/17 18:31 17 GM Miscellaneous (Iv Fluids Completed) 1 ea PRN PRN N/A 06/17/17 14:00 06/17/18 13:59 Miscellaneous (Fentanyl Patch Remove & Waste) 1 ea Q3D@1529 N/A 06/17/17 15:29 07/17/17 15:28 06/23/17 15:29 1 EA Miscellaneous Information (Check Fentanyl Patch Placement) 1 ea QS N/A 06/18/17 00:00 07/18/17 00:00 06/24/17 08:05 1 EA Metoclopramide HCl (Reglan Inj) 5 mg Q6H PRN IV. 06/17/17 16:45 07/17/17 16:44 06/21/17 11:54 5 MG Prochlorperazine Edisylate 5 mg/ Syringe 5 ml @ 5 mls/min Q12H PRN IV 06/17/17 17:45 07/17/17 17:44 Bisacodyl (Dulcolax Supp) 10 mg DAILY PRN SC 06/18/17 12:30 07/18/17 12:29 06/20/17 15:23 10 MG Senna (Senokot Tab) 17.2 mg QAM PO 06/20/17 08:00 07/20/17 07:59 06/24/17 08:06 17.2 MG Ondansetron HCl 8 mg/Dextrose 54 ml @ 216 mls/hr Q6H PRN IV 06/19/17 15:00 07/19/17 14:59 06/24/17 04:53 216 MLS/HR Methadone HCl (Dolophine Tab) 5 mg TID PO 06/19/17 20:00 07/03/17 19:59 06/24/17 08:06 5 MG Docusate Sodium (coLACE CAP) 100 mg BID PO 06/20/17 08:00 07/20/17 07:59 06/24/17 08:06 100 MG Sodium Biphosphate/ Sodium Phosphate (Fleet Enema) 132 ml DAILY PRN SC 06/20/17 11:00 6/14/18 10:59 06/20/17 14:51 132 ML Promethazine HCl 12.5 mg/Sodium Chloride 50.5 ml @ 204 mls/hr Q6H PRN IV 06/20/17 11:15 07/20/17 11:14 06/24/17 08:53 204 MLS/HR Lorazepam (Ativan Tab) 1 mg Q6H PRN PO 06/21/17 15:00 07/17/17 13:44 Morphine Sulfate (MoRPHine SULFATE INJ) 1 mg Q1H PRN IV 06/21/17 15:00 07/05/17 14:59 Lorazepam 0.5 mg/ Syringe 1 ml @ 1 mls/min Q6H PRN IV 06/21/17 15:15 07/19/17 14:29 06/23/17 21:20 1 MLS/MIN Lorazepam (Ativan Inj) 0.5 mg Q6H PRN IV 06/21/17 15:30 07/21/17 15:29 Gadobutrol (Gadavist) 6.5 mmol UD PRN IV 06/21/17 17:15 06/25/17 17:14 Dexamethasone Sodium Phosphate 4 mg/Syringe 1 ml @ 1 mls/min Q8H IV 06/22/17 04:00 07/22/17 03:59 06/24/17 04:29 1 MLS/MIN Gadobutrol (Gadavist) 6.5 mmol UD PRN IV 06/22/17 15:00 06/26/17 14:59 Polyethylene (Miralax Powder Packet) 17 gm BID PO 06/23/17 20:00 07/19/17 08:59 06/24/17 08:06 17 GM Non-Formulary Medication (Non-Formulary Patient'S Own Med) 1 ea DAILY@0600 PO 06/24/17 06:00 07/24/17 05:59 06/24/17 06:11 1 EA Ondansetron HCl (Zofran Odt) 8 mg Q6H PRN PO 06/24/17 08:30 07/24/17 08:29 Objective Vital Signs Date Time Temp Pulse Resp B/P (MAP) Pulse Ox O2 Delivery O2 Flow Rate FiO2 06/24/17 08:45 36.7 71 18 102/63 (76) 96 06/24/17 08:00 96 Room Air 06/24/17 04:27 36.8 56 16 105/67 (80) 96 Room Air 06/24/17 00:00 Room Air 06/23/17 23:13 36.8 54 16 111/72 (85) 98 Room Air 06/23/17 19:28 36.8 67 16 109/67 (81) 93 Room Air 06/23/17 16:00 94 Room Air 06/23/17 15:43 36.7 87 18 100/64 (76) 94 Room Air 06/23/17 12:17 36.7 68 18 96/60 (72) 94 Room Air Physical Exam General Appearance: WD/WN, no apparent distress Eyes: normal inspection, EOMI, sclerae normal ENT: normal ENT inspection, hearing grossly normal, pharynx normal Neck: supple, no adenopathy, no JVD, trachea midline Respiratory/Chest: chest non-tender, lungs clear, normal breath sounds, no respiratory distress, no accessory muscle use Cardiovascular: regular rate, rhythm, no edema, no gallop, no JVD, no murmur Abdomen: normal bowel sounds, non tender, soft, no organomegaly Extremities: normal range of motion, non-tender, normal inspection, no pedal edema, no calf tenderness 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, no motor/sensory deficits, alert, normal mood/affect, oriented x 3 Skin: normal color, warm/dry, no rash Lymphatic: no adenopathy Laboratory Results Last 24 Hours Test 06/24/17 08:32 White Blood Count 14.13 K/uL Red Blood Count 4.90 M/uL Hemoglobin 14.7 g/dL Hematocrit 43.7 % Mean Corpuscular Volume 89.2 fL Mean Corpuscular Hemoglobin 30.0 pg Mean Corpuscular Hemoglobin Concent 33.6 g/dl Platelet Count 325 K/uL Mean Platelet Volume 10.9 fL Neutrophils (%) (Auto) 85.4 % Lymphocytes (%) (Auto) 9.4 % Monocytes (%) (Auto) 4.2 % Eosinophils (%) (Auto) 0.5 % Basophils (%) (Auto) 0.1 % Neutrophils # (Auto) 12.07 K/uL Lymphocytes # (Auto) 1.33 K/uL Monocytes # (Auto) 0.60 K/uL Eosinophils # (Auto) 0.07 K/uL Basophils # (Auto) 0.01 K/uL RDW Standard Deviation 41.8 fL RDW Coefficient of Variation 12.9 % Immature Granulocyte % (Auto) 0.4 % Immature Granulocyte # (Auto) 0.05 K/uL Sodium Level 138 mmol/L Potassium Level 4.0 mmol/L Chloride Level 104 mmol/L Carbon Dioxide Level 26 mmol/L Anion Gap 8.0 mmol/L Blood Urea Nitrogen 11 mg/dl Creatinine 0.74 mg/dl Est Creatinine Clear Calc Drug Dose 100.9 ml/min Estimated GFR () 116.6 Estimated GFR (Non- 100.6 BUN/Creatinine Ratio 15.4 Random Glucose 115 mg/dl Calcium Level 9.1 mg/dl Magnesium Level 2.0 mg/dl Assessment and Plan 41 yo female with intractable pain, nausea, constipation in setting of metastatic lung cancer, adenocarcinoma - Intractable pain secondary to metastatic lung adenocarcinoma, liver lesions continue Fentanyl patch at 50mcg, continue Methadone 5mg TID, pain is well controlled without Morphine IV follow up with palliative care in two weeks to go over pain control started Afatinib on 06/23, tolerating well thus far - Brain mets: plan on starting radiation therapy as soon as possible may be able to perform stereotactic therapy instead of whole brain, only 6 spots on brain, largest are 8mm continue Decadron 4mg q8 - Nausea: likely due to metastatic disease in brain Decadron 4mg IV q8 continue Zofran 8mg ODT q6, Phenergan less nausea today, eating breakfast - Constipation: large formed stool after milk of molasses enema three days ago continue bowel regimen to keep her regular with narcotics continue enema PRN increase Miralax to BID will stay well hydrated, fiber supplement on discharge - Anxiety: related to pain and malignancy Ativan PRN, helping will keep today to see if nausea can be controlled with oral Zofran and Decadron may be ready for discharge tomorrow if feeling well Continued [facility] stay due to: multiple IV medications needed Discharge planning: home
[2017-06-24] MEDS: ONDANSETRON 8MG OD TAB PO PRN ×2 (15:25→21:00)
[2017-06-24] MEDS: ENOXAPARIN 40 MG/0.4 ML SYR SC SCH (21:00)
[2017-06-24] MEDS: LORAZEPAM INJ 0.5 MG in SYRINGE 0.75 ML IV PRN (21:00)
[2017-06-25] MEDS: CHECK FENTANYL PATCH PLACEMENT SCH ×3 (01:13→15:33)
[2017-06-25] MEDS: ONDANSETRON 8MG OD TAB PO PRN ×3 (04:01→18:49)
[2017-06-25] MEDS: DEXAMETHASONE INJ 4 MG in SYRINGE 0 ML IV SCH ×3 (04:01→20:07)
[2017-06-25 04:56] VITALS: BP 112/69; PULSE 55; TEMP 36.6; O2SAT 97
[2017-06-25] MEDS: GILOTRIF 40 MG PO SCH (06:04)
[2017-06-25 08:07] VITALS: BP 108/71; PULSE 53; TEMP 36.6; O2SAT 96
[2017-06-25] MEDS: RANITIDINE HCL 150 MG TAB PO SCH ×2 (08:36→20:07)
[2017-06-25] MEDS: SENNA 8.6 MG TAB PO SCH (08:36)
[2017-06-25] MEDS: DOCUSATE SODIUM 100 MG CAP PO SCH ×2 (08:36→20:07)
[2017-06-25] MEDS: POLYETHYLENE (MIRALAX) 17 GM PACK PO SCH ×2 (08:37→20:08)
[2017-06-25] MEDS: METHADONE HCL 5 MG TAB PO SCH ×3 (08:42→20:06)
[2017-06-25 11:40] VITALS: BP 104/70; PULSE 54; TEMP 36.6; O2SAT 96
[2017-06-25] MEDS: BISACODYL 10 MG SUPP PR PRN (14:44)
[2017-06-25] MEDS ORDERED: MILK AND MOLASSES ENEMA PR ONE (15:15)
[2017-06-25 15:32] VITALS: BP 116/73; PULSE 61; TEMP 36.7; O2SAT 95
[2017-06-25 18:59] VITALS: BP 114/73; PULSE 61; TEMP 36.6; O2SAT 96
[2017-06-25] MEDS: ENOXAPARIN 40 MG/0.4 ML SYR SC SCH (20:09)
[2017-06-25] MEDS: LORAZEPAM 1 MG TAB PO PRN (20:16)
--- NOTE | 2017-06-25 21:50 | Progress Note ---
Subjective Date of Service: June 25, 2017. Subjective Pt evaluation today including: conversation w/ patient, conversation w/ family , physical exam, review of inpatient medication list Pain: controlled PO Intake: adequate, no vomiting Voiding: no voiding problems patient nervous about going home, no BM for three days and now she is eating more tried a suppository, no success tried an enema, had moderate BM discussed going home in the evening, anxious about maybe having radiation treatment tomorrow she [place], discussed that we will keep her here overnight for possible radiation tomorrow if no treatment planned, then she can go home and return when radiation onc ready Problem List Medical Problems: (1) Chest pain Status: Acute (2) Chest wall pain Status: Acute (3) Failure of outpatient treatment Status: Acute (4) Lung mass Status: Acute (5) Metastatic cancer Status: Acute (6) Metastatic disease Status: Acute (7) Neuritis of left ulnar nerve Status: Acute (8) Right-sided chest pain Status: Acute (9) RUQ abdominal pain Status: Acute Review of Systems Constitutional: + weakness, + fatigue Abdomen: + constipation All Other Systems: Reviewed and Negative Medications Current Inpatient Medications Medications (Trade) Dose Ordered Sig/Saul Route Start Time Stop Time Status Last Admin Dose Admin Fentanyl (Duragesic Patch) 50 mcg Q72H TD 06/17/17 15:30 07/01/17 15:29 06/23/17 16:27 50 MCG Ranitidine HCl (zANTac TAB) 150 mg BID PO 06/17/17 21:00 07/17/17 20:59 06/25/17 20:07 150 MG Enoxaparin Sodium (Lovenox Inj) 40 mg Q24H SC 06/17/17 21:00 07/17/17 20:59 06/25/17 20:09 40 MG Acetaminophen (Tylenol Tab) 650 mg Q4H PRN PO 06/17/17 13:45 07/17/17 13:44 Al Hydrox/Mg Hydrox/Simethicone (Maalox Max Susp) 15 ml Q4H PRN PO 06/17/17 13:45 07/17/17 13:44 Magnesium Hydroxide (Milk Of Magnesia Susp) 30 ml Q12H PRN PO 06/17/17 13:45 07/17/17 13:44 Polyethylene (Miralax Powder Packet) 17 gm DAILY PRN PO 06/17/17 13:45 07/17/17 13:44 06/18/17 18:31 17 GM Miscellaneous (Iv Fluids Completed) 1 ea PRN PRN N/A 06/17/17 14:00 06/17/18 13:59 Miscellaneous (Fentanyl Patch Remove & Waste) 1 ea Q3D@1529 N/A 06/17/17 15:29 07/17/17 15:28 06/23/17 15:29 1 EA Miscellaneous Information (Check Fentanyl Patch Placement) 1 ea QS N/A 06/18/17 00:00 07/18/17 00:00 06/25/17 15:33 1 EA Metoclopramide HCl (Reglan Inj) 5 mg Q6H PRN IV. 06/17/17 16:45 07/17/17 16:44 06/21/17 11:54 5 MG Prochlorperazine Edisylate 5 mg/ Syringe 5 ml @ 5 mls/min Q12H PRN IV 06/17/17 17:45 07/17/17 17:44 Bisacodyl (Dulcolax Supp) 10 mg DAILY PRN [place] 06/18/17 12:30 07/18/17 12:29 06/25/17 14:44 10 MG Senna (Senokot Tab) 17.2 mg QAM PO 06/20/17 08:00 07/20/17 07:59 06/25/17 08:36 17.2 MG Ondansetron HCl 8 mg/Dextrose 54 ml @ 216 mls/hr Q6H PRN IV 06/19/17 15:00 07/19/17 14:59 06/24/17 04:53 216 MLS/HR Methadone HCl (Dolophine Tab) 5 mg TID PO 06/19/17 20:00 07/03/17 19:59 06/25/17 20:06 5 MG Docusate Sodium (coLACE CAP) 100 mg BID PO 06/20/17 08:00 07/20/17 07:59 06/25/17 20:07 100 MG Sodium Biphosphate/ Sodium Phosphate (Fleet Enema) 132 ml DAILY PRN [place] 06/20/17 11:00 07/20/17 10:59 06/20/17 14:51 132 ML Promethazine HCl 12.5 mg/Sodium Chloride 50.5 ml @ 204 mls/hr Q6H PRN IV 06/20/17 11:15 07/20/17 11:14 06/24/17 08:53 204 MLS/HR Lorazepam (Ativan Tab) 1 mg Q6H PRN PO 06/21/17 15:00 07/17/17 13:44 06/25/17 20:16 1 MG Morphine Sulfate (MoRPHine SULFATE INJ) 1 mg Q1H PRN IV 06/21/17 15:00 07/05/17 14:59 Lorazepam 0.5 mg/ Syringe 1 ml @ 1 mls/min Q6H PRN IV 06/21/17 15:15 07/19/17 14:29 06/24/17 21:00 1 MLS/MIN Lorazepam (Ativan Inj) 0.5 mg Q6H PRN IV 06/21/17 15:30 07/21/17 15:29 Dexamethasone Sodium Phosphate 4 mg/Syringe 1 ml @ 1 mls/min Q8H IV 06/22/17 04:00 07/22/17 03:59 06/25/17 20:07 1 MLS/MIN Gadobutrol (Gadavist) 6.5 mmol UD PRN IV 06/22/17 15:00 06/26/17 14:59 Polyethylene (Miralax Powder Packet) 17 gm BID PO 06/23/17 20:00 07/19/17 08:59 06/25/17 20:08 17 GM Non-Formulary Medication (Non-Formulary Patient'S Own Med) 1 ea DAILY@0600 PO 06/24/17 06:00 07/24/17 05:59 06/25/17 06:04 1 EA Ondansetron HCl (Zofran Odt) 8 mg Q6H PRN PO 06/24/17 08:30 07/24/17 08:29 06/25/17 18:49 8 MG Objective Vital Signs Date Time Temp Pulse Resp B/P (MAP) Pulse Ox O2 Delivery O2 Flow Rate FiO2 06/25/17 18:59 36.6 61 18 114/73 (87) 96 06/25/17 16:00 Room Air 06/25/17 15:32 36.7 61 16 116/73 (87) 95 Room Air 06/25/17 11:40 36.6 54 18 104/70 (81) 96 06/25/17 09:00 Room Air 06/25/17 08:07 36.6 53 18 108/71 (83) 96 06/25/17 04:56 36.6 55 19 112/69 (83) 97 Room Air 06/25/17 00:30 Room Air 06/24/17 23:12 36.8 53 19 104/65 (78) 94 Room Air Physical Exam General Appearance: WD/WN, no apparent distress Eyes: normal inspection, EOMI, sclerae normal ENT: normal ENT inspection, hearing grossly normal, pharynx normal Neck: supple, no adenopathy, no JVD, trachea midline Respiratory/Chest: chest non-tender, lungs clear, normal breath sounds, no respiratory distress, no accessory muscle use Cardiovascular: regular rate, rhythm, no edema, no gallop, no JVD, no murmur Abdomen: normal bowel sounds, non tender, soft, no organomegaly Extremities: normal range of motion, non-tender, normal inspection, no pedal edema, no calf tenderness 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, no motor/sensory deficits, alert, normal mood/affect, oriented x 3 Skin: normal color, warm/dry, no rash Assessment and Plan 41 yo female with intractable pain, nausea, constipation in setting of metastatic lung cancer, adenocarcinoma - Intractable pain secondary to metastatic lung adenocarcinoma, liver lesions continue Fentanyl patch at 50mcg, continue Methadone 5mg TID, pain is well controlled without Morphine IV follow up with palliative care in two weeks to go over pain control started Afatinib on 06/23, tolerating well thus far - Brain mets: plan on starting radiation therapy as soon as possible may be able to perform stereotactic therapy instead of whole brain, only 6 spots on brain, largest are 8mm continue Decadron 4mg q8 call radiation oncology in the morning to see if she is ready for treatments , if not, then d/c to home - Nausea: likely due to metastatic disease in brain Decadron 4mg IV q8 continue Zofran 8mg ODT q6, Phenergan no nausea for 36 hours, eating well - Constipation: large formed stool after milk of molasses today continue bowel regimen to keep her regular with narcotics continue suppository PRN at home increase Miralax to BID will stay well hydrated, fiber supplement on discharge - Anxiety: related to pain and malignancy Ativan PRN, helping check with radiation oncology tomorrow AM about treatment, is there treatment planned for Monday? if no treatment, then d/c to home, can return day of first treatment Continued [facility] stay due to: multiple IV medications needed Discharge planning: home
[2017-06-25 22:59] VITALS: BP 105/62; PULSE 52; TEMP 36.8; O2SAT 97
[2017-06-26] MEDS: LORAZEPAM INJ 0.5 MG in SYRINGE 0.75 ML IV PRN ×3 (02:21→23:42)
[2017-06-26] MEDS: CHECK FENTANYL PATCH PLACEMENT SCH ×4 (02:21→23:43)
[2017-06-26] MEDS: ONDANSETRON 8MG OD TAB PO PRN ×2 (02:22→12:40)
[2017-06-26] MEDS: DEXAMETHASONE INJ 4 MG in SYRINGE 0 ML IV SCH ×3 (03:57→20:05)
[2017-06-26] MEDS: GILOTRIF 40 MG PO SCH (06:03)
[2017-06-26 06:06] VITALS: BP 113/75; PULSE 85; TEMP 36.7; O2SAT 94
[2017-06-26 07:27] VITALS: BP 128/84; PULSE 60; TEMP 36.5; O2SAT 96
[2017-06-26] MEDS: RANITIDINE HCL 150 MG TAB PO SCH ×2 (08:34→20:03)
[2017-06-26] MEDS: SENNA 8.6 MG TAB PO SCH (08:34)
[2017-06-26] MEDS: METHADONE HCL 5 MG TAB PO SCH ×2 (08:34→13:57)
[2017-06-26] MEDS: DOCUSATE SODIUM 100 MG CAP PO SCH ×2 (08:34→20:02)
[2017-06-26] MEDS: POLYETHYLENE (MIRALAX) 17 GM PACK PO SCH ×2 (08:35→20:00)
--- NOTE | 2017-06-26 14:34 | Hospitalist Progress Note ---
Hospitalist Progress Note Date of Service June 26, 2017. Subjective Pt evaluation today including: conversation w/ patient, conversation w/ family , physical exam, lab review, review of inpatient medication list Voiding: no voiding problems Patient resting in bed. Denies any pain currently. Tearful no radiation today. Planning for discharge tomorrow. Eating and drinking OK. Notes dizziness when time for Dexamethasone- resolves w/ medication. Patient denies any fever, chills, sweats, lightheadedness, vision changes, CP, palpitations, edema, SOB, wheezing, cough, abdominal pain, nausea, vomiting, diarrhea, urinary symptoms, melena, numbness/tingling, weakness, muscle/joint pain, depression, active bleeding, or new skin discoloration/changes. Medications Current Inpatient Medications Medications (Trade) Dose Ordered Sig/Saul Route Start Time Stop Time Status Last Admin Dose Admin Fentanyl (Duragesic Patch) 50 mcg Q72H TD 06/17/17 15:30 07/01/17 15:29 06/23/17 16:27 50 MCG Ranitidine HCl (zANTac TAB) 150 mg BID PO 06/17/17 21:00 07/17/17 20:59 06/26/17 08:34 150 MG Enoxaparin Sodium (Lovenox Inj) 40 mg Q24H SC 06/17/17 21:00 07/17/17 20:59 06/25/17 20:09 40 MG Acetaminophen (Tylenol Tab) 650 mg Q4H PRN PO 06/17/17 13:45 07/17/17 13:44 Al Hydrox/Mg Hydrox/Simethicone (Maalox Max Susp) 15 ml Q4H PRN PO 06/17/17 13:45 07/17/17 13:44 Magnesium Hydroxide (Milk Of Magnesia Susp) 30 ml Q12H PRN PO 06/17/17 13:45 07/17/17 13:44 Polyethylene (Miralax Powder Packet) 17 gm DAILY PRN PO 06/17/17 13:45 07/17/17 13:44 06/18/17 18:31 17 GM Miscellaneous (Iv Fluids Completed) 1 ea PRN PRN N/A 06/17/17 14:00 06/17/18 13:59 Miscellaneous (Fentanyl Patch Remove & Waste) 1 ea Q3D@1529 N/A 06/17/17 15:29 07/17/17 15:28 06/23/17 15:29 1 EA Miscellaneous Information (Check Fentanyl Patch Placement) 1 ea QS N/A 06/18/17 00:00 07/18/17 00:00 06/26/17 08:32 1 EA Metoclopramide HCl (Reglan Inj) 5 mg Q6H PRN IV. 06/17/17 16:45 07/17/17 16:44 06/21/17 11:54 5 MG Prochlorperazine Edisylate 5 mg/ Syringe 5 ml @ 5 mls/min Q12H PRN IV 06/17/17 17:45 07/17/17 17:44 Bisacodyl (Dulcolax Supp) 10 mg DAILY PRN [place] 06/18/17 12:30 07/18/17 12:29 06/25/17 14:44 10 MG Senna (Senokot Tab) 17.2 mg QAM PO 06/20/17 08:00 07/20/17 07:59 06/26/17 08:34 17.2 MG Ondansetron HCl 8 mg/Dextrose 54 ml @ 216 mls/hr Q6H PRN IV 06/19/17 15:00 07/19/17 14:59 06/24/17 04:53 216 MLS/HR Methadone HCl (Dolophine Tab) 5 mg TID PO 06/19/17 20:00 07/03/17 19:59 06/26/17 13:57 5 MG Docusate Sodium (coLACE CAP) 100 mg BID PO 06/20/17 08:00 07/20/17 07:59 06/26/17 08:34 100 MG Sodium Biphosphate/ Sodium Phosphate (Fleet Enema) 132 ml DAILY PRN [place] 06/20/17 11:00 07/20/17 10:59 06/20/17 14:51 132 ML Promethazine HCl 12.5 mg/Sodium Chloride 50.5 ml @ 204 mls/hr Q6H PRN IV 06/20/17 11:15 07/20/17 11:14 06/24/17 08:53 204 MLS/HR Lorazepam (Ativan Tab) 1 mg Q6H PRN PO 06/21/17 15:00 07/17/17 13:44 5/20/18 20:16 1 MG Morphine Sulfate (MoRPHine SULFATE INJ) 1 mg Q1H PRN IV 06/21/17 15:00 07/05/17 14:59 Lorazepam 0.5 mg/ Syringe 1 ml @ 1 mls/min Q6H PRN IV 06/21/17 15:15 07/19/17 14:29 06/26/17 02:21 1 MLS/MIN Lorazepam (Ativan Inj) 0.5 mg Q6H PRN IV 06/21/17 15:30 07/21/17 15:29 Dexamethasone Sodium Phosphate 4 mg/Syringe 1 ml @ 1 mls/min Q8H IV 06/22/17 04:00 07/22/17 03:59 06/26/17 12:35 1 MLS/MIN Gadobutrol (Gadavist) 6.5 mmol UD PRN IV 06/22/17 15:00 06/26/17 14:59 Polyethylene (Miralax Powder Packet) 17 gm BID PO 06/23/17 20:00 07/19/17 08:59 06/25/17 20:08 17 GM Non-Formulary Medication (Non-Formulary Patient'S Own Med) 1 ea DAILY@0600 PO 06/24/17 06:00 07/24/17 05:59 06/26/17 06:03 1 EA Ondansetron HCl (Zofran Odt) 8 mg Q6H PRN PO 06/24/17 08:30 07/24/17 08:29 06/26/17 12:40 8 MG Objective Vital Signs Date Time Temp Pulse Resp B/P (MAP) Pulse Ox O2 Delivery O2 Flow Rate FiO2 06/26/17 10:18 Room Air 06/26/17 07:27 36.5 60 18 128/84 (99) 96 06/26/17 06:06 36.7 85 16 113/75 (88) 94 Room Air 06/26/17 00:10 Room Air 06/25/17 22:59 36.8 52 20 105/62 (76) 97 Room Air 06/25/17 18:59 36.6 61 18 114/73 (87) 96 06/25/17 16:00 Room Air 06/25/17 15:32 36.7 61 16 116/73 (87) 95 Room Air Physical Exam General Appearance: no apparent distress Eyes: normal inspection, PERRL ENT: hearing grossly normal Neck: supple Respiratory/Chest: lungs clear, no respiratory distress, no accessory muscle use Cardiovascular: regular rate, rhythm Abdomen: normal bowel sounds, non tender, soft Extremities: no pedal edema, no calf tenderness Neurologic/Psychiatric: alert, oriented x 3, + pertinent finding (anxious/ tearful) Skin: normal color, warm/dry, no rash Assessment and Plan 41 yo female with intractable pain, nausea, constipation in setting of metastatic lung cancer, adenocarcinoma Intractable pain secondary to metastatic lung adenocarcinoma, liver lesions: - Continue Fentanyl patch at 50 mcg, Methadone 5mg TID - Follow-up with palliative care in two weeks to go over pain control - Started Afatinib on 06/23 Brain mets: - Continue Decadron 4mg q8 - Radiation/oncology- working on starting radiation ROSSI Nausea, likely due to metastatic disease in brain: Decadron 4mg IV q8, continue Zofran 8mg ODT q6, Phenergan Constipation: Continue bowel regimen to keep her regular with narcotics- suppository PRN, MiraLAX to BID, stay well hydrated, fiber supplement on discharge Anxiety related to pain and malignancy: Ativan PRN GI prophylaxis: Zantac BID DVT prophylaxis: Lovenox SQ daily Code status: LEVEL I, FULL Dispo: Discharge to home once medically stable- hopefully tomorrow
[2017-06-26 15:16] VITALS: BP 124/82; PULSE 62; TEMP 36.5; O2SAT 96
[2017-06-26] MEDS: FENTANYL 50 MCG/HR TDSY TD SCH (15:46)
--- NOTE | 2017-06-26 15:51 | Palliative Care Progress Note ---
Palliative Care Progress Note Date of Service June 26, 2017. Subjective Pt evaluation today including: conversation w/ patient, conversation w/ family , physical exam, conversation w/ furniture rental consultant Pain: Improved control per patient PO Intake: Good Voiding: no voiding problems Patient reports that she is not having any discomfort in the area of the liver at this time however she does report she is having a little bit of pain where there is a lesion under the left rib cage. Patient's at bedside. Discussed with patient that there is no need to be systolic, and increased dose of methadone will not cause any increased constipation or sedation, patient then did state that the pain control could be a little bit better. Both patient and agreeable to increase the methadone, discussed with attending physician. Will increase methadone to 10 mg twice daily, new prescription written for when patient is discharged. Review of Systems Constitutional: No fever, No chills Eyes: No worsening of vision ENT: No hearing loss Respiratory: No cough Cardiac: + chest pain (Along the left lower rib), No orthopnea Abdomen: + nausea (Controlled with Decadron, patient reports nausea returns just prior to next dose of Decadron dosing), No pain Female : No dysuria Neurologic: No memory loss Psychiatric: No anxiety Objective Vital Signs Date Time Temp Pulse Resp B/P (MAP) Pulse Ox O2 Delivery O2 Flow Rate FiO2 06/26/17 15:16 36.5 62 18 124/82 (96) 96 06/26/17 10:18 Room Air 06/26/17 07:27 36.5 60 18 128/84 (99) 96 06/26/17 06:06 36.7 85 16 113/75 (88) 94 Room Air 06/26/17 00:10 Room Air 06/25/17 22:59 36.8 52 20 105/62 (76) 97 Room Air 06/25/17 18:59 36.6 61 18 114/73 (87) 96 06/25/17 16:00 Room Air Physical Exam General Appearance: no apparent distress Eyes: EOMI ENT: hearing grossly normal Neck: supple Respiratory/Chest: no respiratory distress Abdomen: + pertinent finding (Not distended) Extremities: normal range of motion Neurologic/Psychiatric: alert Skin: warm/dry Assessment and Plan (1) Palliative care encounter Assessment & Plan: Continuing follow patient while inpatient, family given information to make outpatient follow-up appointment for pain control with methadone. Patient still awaiting first course of radiation (2) Intractable pain Status: Acute Assessment & Plan: Much improved, doing very well on fentanyl patch and methadone. Patient states the pain could be a little bit better control, will increase her methadone to 10 mg twice daily. (3) RUQ abdominal pain Status: Acute Assessment & Plan: Improved (4) Metastatic disease Status: Acute Assessment & Plan: Now with new brain metastases, patient was simulated, awaiting first radiation treatment Palliative Performance Scale: 60 % Continued [facility] stay due to: multiple IV medications needed Discharge planning: home Counseling and Coordination Total time 35 minutes with greater than 50% of the time spent at bedside discussing goals of pain control as well as treatment options.
[2017-06-26] MEDS: FENTANYL PATCH REMOVE & WASTE SCH (15:52)
[2017-06-26 16:00] VITALS: O2SAT 96
[2017-06-26] MEDS ORDERED: NURSING VERBAL MED ORDER ONE (16:00)
[2017-06-26 20:00] VITALS: BP 112/67; PULSE 67; TEMP 36.5; O2SAT 95
[2017-06-26] MEDS: METHADONE HCL 10 MG TAB PO SCH (20:05)
[2017-06-26] MEDS: ENOXAPARIN 40 MG/0.4 ML SYR SC SCH (20:08)
[2017-06-27] VITALS (7 sets, daily range): BP systolic 103–126; BP diastolic 62–79; PULSE 54–79; TEMP 36.4–36.8; O2SAT 93–97
[2017-06-27] MEDS: DEXAMETHASONE INJ 4 MG in SYRINGE 0 ML IV SCH (04:12)
[2017-06-27] MEDS: ONDANSETRON 8MG OD TAB PO PRN ×4 (04:16→22:16)
[2017-06-27] MEDS: GILOTRIF 40 MG PO SCH (05:56)
[2017-06-27] MEDS: POLYETHYLENE (MIRALAX) 17 GM PACK PO SCH ×2 (08:00→19:47)
[2017-06-27] MEDS: DOCUSATE SODIUM 100 MG CAP PO SCH ×2 (08:24→19:45)
[2017-06-27] MEDS: METHADONE HCL 10 MG TAB PO SCH (08:24)
[2017-06-27] MEDS: SENNA 8.6 MG TAB PO SCH (08:25)
[2017-06-27] MEDS: RANITIDINE HCL 150 MG TAB PO SCH ×2 (08:26→19:45)
[2017-06-27] MEDS: CHECK FENTANYL PATCH PLACEMENT SCH ×3 (08:26→23:50)
[2017-06-27] MEDS: LORAZEPAM 1 MG TAB PO PRN ×3 (12:03→23:50)
[2017-06-27] MEDS: DEXAMETHASONE 4 MG TAB PO SCH ×2 (12:59→19:46)
[2017-06-27] MEDS ORDERED: AFAT1TAB2 PO (14:19)
--- NOTE | 2017-06-27 14:25 | Hospitalist Progress Note ---
Hospitalist Progress Note Date of Service June 27, 2017. Subjective Pt evaluation today including: conversation w/ patient, conversation w/ family (), physical exam, conversation w/ data migration consultant (Dr. Ham), review of inpatient medication list Voiding: no voiding problems Patient resting in bed. Feeling unwell today. Notes lightheadedness/dizziness/"feeling off" Only had one dose of Ativan yesterday, which is when these symptoms started to arise per Given dose of Ativan now and follow Eating and drinking OK. Discussed w/ Dr. Gomez- change Methadone back to 5 mg TID, to discuss w/ Dr. Agnes Hanson this evening. Patient denies any fever, chills, sweats, vision changes, CP, palpitations, edema, SOB, wheezing, cough, abdominal pain, nausea, vomiting, diarrhea, urinary symptoms, melena, numbness/tingling, weakness, muscle/joint pain, anxiety/depression, active bleeding, or new skin discoloration/changes. Medications Current Inpatient Medications Medications (Trade) Dose Ordered Sig/Saul Route Start Time Stop Time Status Last Admin Dose Admin Fentanyl (Duragesic Patch) 50 mcg Q72H TD 06/17/17 15:30 07/01/17 15:29 06/26/17 15:46 50 MCG Ranitidine HCl (zANTac TAB) 150 mg BID PO 06/17/17 21:00 07/17/17 20:59 06/27/17 08:26 150 MG Enoxaparin Sodium (Lovenox Inj) 40 mg Q24H SC 06/17/17 21:00 07/17/17 20:59 06/26/17 20:08 40 MG Acetaminophen (Tylenol Tab) 650 mg Q4H PRN PO 06/17/17 13:45 07/17/17 13:44 Al Hydrox/Mg Hydrox/Simethicone (Maalox Max Susp) 15 ml Q4H PRN PO 06/17/17 13:45 07/17/17 13:44 Magnesium Hydroxide (Milk Of Magnesia Susp) 30 ml Q12H PRN PO 06/17/17 13:45 07/17/17 13:44 Polyethylene (Miralax Powder Packet) 17 gm DAILY PRN PO 06/17/17 13:45 07/17/17 13:44 06/18/17 18:31 17 GM Miscellaneous (Iv Fluids Completed) 1 ea PRN PRN N/A 06/17/17 14:00 06/17/18 13:59 Miscellaneous (Fentanyl Patch Remove & Waste) 1 ea Q3D@1529 N/A 06/17/17 15:29 07/17/17 15:28 06/26/17 15:52 1 EA Miscellaneous Information (Check Fentanyl Patch Placement) 1 ea QS N/A 06/18/17 00:00 07/18/17 00:00 06/27/17 08:26 1 EA Metoclopramide HCl (Reglan Inj) 5 mg Q6H PRN IV. 06/17/17 16:45 07/17/17 16:44 06/21/17 11:54 5 MG Prochlorperazine Edisylate 5 mg/ Syringe 5 ml @ 5 mls/min Q12H PRN IV 06/17/17 17:45 07/17/17 17:44 Bisacodyl (Dulcolax Supp) 10 mg DAILY PRN [place] 06/18/17 12:30 07/18/17 12:29 06/25/17 14:44 10 MG Senna (Senokot Tab) 17.2 mg QAM PO 06/20/17 08:00 07/20/17 07:59 06/27/17 08:25 17.2 MG Ondansetron HCl 8 mg/Dextrose 54 ml @ 216 mls/hr Q6H PRN IV 06/19/17 15:00 07/19/17 14:59 06/24/17 04:53 216 MLS/HR Docusate Sodium (coLACE CAP) 100 mg BID PO 06/20/17 08:00 07/20/17 07:59 06/27/17 08:24 100 MG Sodium Biphosphate/ Sodium Phosphate (Fleet Enema) 132 ml DAILY PRN [place] 06/20/17 11:00 07/20/17 10:59 06/20/17 14:51 132 ML Promethazine HCl 12.5 mg/Sodium Chloride 50.5 ml @ 204 mls/hr Q6H PRN IV 06/20/17 11:15 07/20/17 11:14 06/24/17 08:53 204 MLS/HR Lorazepam (Ativan Tab) 1 mg Q6H PRN PO 06/21/17 15:00 07/17/17 13:44 06/27/17 12:03 1 MG Morphine Sulfate (MoRPHine SULFATE INJ) 1 mg Q1H PRN IV 06/21/17 15:00 07/05/17 14:59 Lorazepam 0.5 mg/ Syringe 1 ml @ 1 mls/min Q6H PRN IV 06/21/17 15:15 07/19/17 14:29 06/26/17 23:42 1 MLS/MIN Polyethylene (Miralax Powder Packet) 17 gm BID PO 06/23/17 20:00 07/19/17 08:59 06/25/17 20:08 17 GM Non-Formulary Medication (Non-Formulary Patient'S Own Med) 1 ea DAILY@0600 PO 06/24/17 06:00 07/24/17 05:59 06/27/17 05:56 1 EA Ondansetron HCl (Zofran Odt) 8 mg Q6H PRN PO 06/24/17 08:30 07/24/17 08:29 06/27/17 09:26 8 MG Methadone HCl (Dolophine Tab) 5 mg TID PO 06/27/17 20:00 07/03/17 19:59 Dexamethasone (Decadron Tab) 4 mg TID PO 06/27/17 12:30 07/27/17 12:29 06/27/17 12:59 4 MG Objective Vital Signs Date Time Temp Pulse Resp B/P (MAP) Pulse Ox O2 Delivery O2 Flow Rate FiO2 06/27/17 11:23 36.4 79 16 126/79 (95) 93 Room Air 06/27/17 08:00 97 Room Air 06/27/17 07:39 36.6 57 20 107/70 (82) 97 Room Air 06/27/17 04:00 36.8 65 20 110/62 (78) 97 Room Air 06/27/17 00:00 Room Air 06/27/17 00:00 36.7 54 20 104/68 (80) 96 Room Air 06/26/17 20:00 36.5 67 20 112/67 (82) 95 Room Air 06/26/17 16:00 96 Room Air 06/26/17 15:16 36.5 62 18 124/82 (96) 96 Physical Exam General Appearance: no apparent distress Eyes: normal inspection, PERRL ENT: hearing grossly normal Neck: supple Respiratory/Chest: lungs clear, no respiratory distress, no accessory muscle use Cardiovascular: regular rate, rhythm Abdomen: normal bowel sounds, non tender, soft Extremities: no pedal edema, no calf tenderness Neurologic/Psychiatric: alert, oriented x 3, + depressed affect Skin: normal color, warm/dry, no rash Assessment and Plan 41 y/o female with intractable pain, nausea, constipation in setting of metastatic lung cancer, adenocarcinoma Intractable pain secondary to metastatic lung adenocarcinoma, liver lesions, brain mets- STABLE: - Continue Fentanyl patch at 50 mcg, Methadone 5 mg TID, Decadron 4 mg TID - Radiation/oncology- working on starting radiation ROSSI - Palliative care consulted- f/u outpatient within 2 weeks - Hematology/oncology consulted- started Afatinib, f/u outpatient Nausea, likely due to metastatic disease in brain- RESOLVED: Decadron 4mg TID, Zofran 8mg QID PRN, Phenergan PRN Constipation: Continue bowel regimen to keep her regular with narcotics- suppository PRN, MiraLAX to BID, stay well hydrated, fiber supplement on discharge Anxiety related to pain and malignancy: Ativan PRN GI prophylaxis: Zantac BID DVT prophylaxis: Lovenox SQ daily Code status: LEVEL I, FULL Dispo: Discharge to home once medically stable- hopefully within the next 1-2 days
--- NOTE | 2017-06-27 15:51 | Palliative Care Progress Note ---
Palliative Care Progress Note Date of Service June 27, 2017. 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 Increased methadone dose may be playing a part, will decrease back to 5 mg 3 times daily, will hold the 2 PM dose so patient will only receive 15 mg today. Patient still awaiting her first radiation treatment, was told it might not be until later this week. Patient had planned to go home today to await her radiation treatment, but feeling more poorly today, encourage patient to remain inpatient until her dizziness improves. Review of Systems Constitutional: + weakness, No fever, No chills Eyes: No worsening of vision ENT: No hearing loss Respiratory: No cough, No shortness of breath Cardiac: No chest pain Abdomen: + nausea, + constipation (Patient states she moved her bowels last p.m.), + problem reported (Denies abdominal pain) Musculoskeletal: No joint pain Female : No dysuria Neurologic: + problem reported (Increased dizziness and lightheadedness) Objective Vital Signs Date Time Temp Pulse Resp B/P (MAP) Pulse Ox O2 Delivery O2 Flow Rate FiO2 06/27/17 11:23 36.4 79 16 126/79 (95) 93 Room Air 06/27/17 08:00 97 Room Air 06/27/17 07:39 36.6 57 20 107/70 (82) 97 Room Air 06/27/17 04:00 36.8 65 20 110/62 (78) 97 Room Air 06/27/17 00:00 Room Air 06/27/17 00:00 36.7 54 20 104/68 (80) 96 Room Air 06/26/17 20:00 36.5 67 20 112/67 (82) 95 Room Air 06/26/17 16:00 96 Room Air Physical Exam General Appearance: + mild distress (Patient more ill appearing) Eyes: EOMI ENT: hearing grossly normal Neck: supple Respiratory/Chest: lungs clear Cardiovascular: regular rate, rhythm Abdomen: normal bowel sounds, non tender, soft Extremities: normal range of motion Neurologic/Psychiatric: + pertinent finding (Complains of feeling dizzy) Skin: warm/dry Assessment and Plan (1) Palliative care encounter Assessment & Plan: Continue to provide support to patient and family, patient with newly diagnosed brain metastases (2) Intractable pain Status: Acute Assessment & Plan: Improving, continue fentanyl patch, decreased methadone back to 5 mg every 8 hours, assess whether dizziness improves (3) RUQ abdominal pain Status: Acute Assessment & Plan: Nontender on exam today, pain well controlled with fentanyl and methadone, decreasing methadone back down to 5 mg 3 times daily for a total of 15 mg daily (4) Metastatic disease Status: Acute Assessment & Plan: Patient with newly diagnosed brain metastases, patient was simulated, awaiting first round of radiation Palliative Performance Scale: 40 % Continued [facility] stay due to: multiple IV medications needed, other (Dizziness) Discharge planning: home Counseling and Coordination Total time spent 35 minutes with greater than 50% of the time spent at bedside discussing met adjustment and plan of care with patient and family.
[2017-06-27] MEDS: METHADONE HCL 5 MG TAB PO SCH (19:45)
[2017-06-27] MEDS: ENOXAPARIN 40 MG/0.4 ML SYR SC SCH (20:56)
[2017-06-28 00:17] VITALS: BP 106/66; PULSE 61; TEMP 36.7; O2SAT 93
[2017-06-28 04:15] VITALS: BP 118/79; PULSE 79; TEMP 36.5; O2SAT 96
[2017-06-28] MEDS: ONDANSETRON 8MG OD TAB PO PRN ×2 (05:52→13:59)
[2017-06-28] MEDS: LORAZEPAM 1 MG TAB PO PRN ×2 (05:52→13:47)
[2017-06-28] MEDS ORDERED: GILOTRIF 40 MG PO SCH (06:00)
[2017-06-28 06:26] LABS: HEMATOCRIT 44.2 % (37-47); HEMOGLOBIN 15.1 g/dL (12.0-16.0); MEAN CELL VOLUME 89.1 fL (80-100); MEAN CORPUSCULAR HEMOGLOBIN 30.4 pg (25-34); MEAN CORPUSCULAR HGB CONC 34.2 g/dl (32-36); MEAN PLATELET VOLUME 10.7 fL (7.4-10.4); PLATELET COUNT 341 K/uL (130-400); RED CELL DISTRIBUTION WIDTH CV 12.9 % (11.5-14.5); RED CELL DISTRIBUTION WIDTH SD 41.7 fL (36.4-46.3); WHITE BLOOD COUNT 13.02 K/uL (4.8-10.8)
[2017-06-28 06:56] LABS: CALCIUM 8.9 mg/dl (8.5-10.1); CREATININE 0.8 mg/dl (0.60-1.20); POTASSIUM 4.6 mmol/L (3.5-5.1)
[2017-06-28 07:57] VITALS: BP 97/59; PULSE 60; TEMP 36.7; O2SAT 96
[2017-06-28] MEDS: CHECK FENTANYL PATCH PLACEMENT SCH ×2 (08:04→16:00)
[2017-06-28] MEDS: DOCUSATE SODIUM 100 MG CAP PO SCH (08:05)
[2017-06-28] MEDS: DEXAMETHASONE 4 MG TAB PO SCH ×2 (08:05→13:46)
[2017-06-28] MEDS: METHADONE HCL 5 MG TAB PO SCH ×2 (08:05→13:47)
[2017-06-28] MEDS: RANITIDINE HCL 150 MG TAB PO SCH (08:06)
[2017-06-28] MEDS: SENNA 8.6 MG TAB PO SCH (08:06)
[2017-06-28] MEDS: POLYETHYLENE (MIRALAX) 17 GM PACK PO SCH (08:07)
[2017-06-28] MEDS ORDERED: ATV/1 PO (10:07)
--- NOTE | 2017-06-28 10:19 | Discharge Summary ---
Discharge Summary Date of Service June 28, 2017. Discharge Summary Admission Date: June 17, 2017 at 14:02 Discharge Date: June 28, 2017 Discharge Disposition: Home Principal Diagnosis: lung cancer with mets to brain, intractable pain Problems/Secondary Diagnoses: Intractable pain secondary to metastatic lung adenocarcinoma, liver lesions, brain mets Nausea, likely due to metastatic disease in brain Dizziness Constipation Anxiety related to pain and malignancy Immunizations: Have You Had Influenza Vaccine: No History of Tetanus Vaccine?: Unknown History of Pneumococcal: No History of Hepatitis B Vaccine: Unknown Procedures: (CHEST FOR PE) ANGIO WITH CT DOSE: 545.55 mGy.cm HISTORY: 41 years-old Female presents with acute atypical chest pain. History of stage IV lung cancer TECHNIQUE: Multiple CTA images of the chest were obtained after the intravenous administration of 119 ml Optiray 320. Coronal and sagittal MIPS were obtained from the axial data set and were submitted for review. A dose lowering technique was utilized adhering to the principles of ALARA. COMPARISON: CT abdomen and pelvis of same day, CTA chest 05/31/2017, CT abdomen and pelvis 05/31/2017 FINDINGS: CTA: Heart is normal in size without large pericardial effusion. Thoracic aorta is normal in course and caliber without aneurysm or dissection. The imaged great vessels appear patent. The pulmonary arterial tree is opacified to the level of the subsegmental branches and demonstrates no focal filling defects to suggest pulmonary thromboembolic disease. CT CHEST: No dominant thyroid nodule identified. Multiple enlarged hilar and mediastinal lymph nodes redemonstrated with stable 11 mm right hilar lymph node, stable 12 mm left hilar lymph node and unchanged 11 mm right paratracheal lymph node considered as index lesions. Interval development of a trace left pleural effusion. Mild subsegmental dependent right basilar atelectasis. No suspicious pulmonary nodules or masses about the right lung. Irregular soft tissue attenuating mass of the basal left lower lobe redemonstrated measuring 3.4 x 2.7 cm on image 77 series 4, previously measured at 3.4 x 2.4 cm. There is progressive adjacent consolidative opacities about the left lower lobe with progressive nodular intralobular septal thickening throughout the left lung involving the left upper and lower lobes with moderate diffuse left lung bronchial wall thickening. No pneumothorax. Multiple hepatic metastasis redemonstrated. 8 mm sclerotic focus involves left aspect of the T2 vertebral body on image 226 series 4 which appears unchanged. No additional suspicious lytic or blastic bony lesions. IMPRESSION: 1. Irregular soft tissue attenuating mass of the basal left lower lobe redemonstrated, 3.4 cm compatible with primary bronchogenic carcinoma with progressively worsened nodular intralobular septal thickening throughout the left lung compatible with lymphangitic carcinomatosis. 2. No acute aortic pathology or evidence of pulmonary thromboembolic disease. 3. Development of trace left pleural effusion with worsened consolidative opacities about the left lower lobe suggesting postobstructive postobstructive pneumonitis. 4. Hilar and mediastinal lymphatic metastasis. 5. Subsegmental right basilar opacities suggest atelectasis. 6. Multiple hepatic metastasis redemonstrated. The above report was generated using voice recognition software. It may contain grammatical, syntax or spelling errors. Electronically signed by: Teddy Montoya M.D. 06/17/2017 12:35 PM Dictated Date/Time: 06/17/2017 12:23 PM The status of this report is Signed. Draft = Not yet reviewed or approved by Radiologist. Signed = Reviewed and approved by Radiologist. CHEST ONE VIEW PORTABLE HISTORY: 41 years-old Female sob acute shortness of breath COMPARISON: Chest radiograph 05/31/2017, CTA chest 05/31/2017 TECHNIQUE: Portable AP view of the chest FINDINGS: Cardiac silhouette is within normal limits. Subsegmental mixed interstitial and alveolar opacities of the left lung base and left perihilar distribution are noted without pneumothorax, large pleural effusion or overt pulmonary edema. Previously described focal lesion of the basal left lower lobe is again noted measuring up to 2.5 cm. Bones of the chest appear grossly intact. IMPRESSION: 2.5 cm nodule of the left lower lobe redemonstrated with associated mixed interstitial and alveolar opacities of the left lung base and left perihilar distribution suggesting postobstructive pneumonitis and/or metastatic disease. The above report was generated using voice recognition software. It may contain grammatical, syntax or spelling errors. Electronically signed by: Teddy Montoya M.D. 06/17/2017 11:51 AM Dictated Date/Time: 06/17/2017 11:46 AM The status of this report is Signed. Draft = Not yet reviewed or approved by Radiologist. Signed = Reviewed and approved by Radiologist ABDOMEN AND PELVIS CT WITH IV CONTRAST HISTORY: Acute generalized abdominal pain with hepatic metastasis. ABD PAIN, tumors--poss bleeding, IV CONTRAST ONLY TECHNIQUE: Multiaxial CT images of the abdomen and pelvis were performed following the use of intravenous contrast. A dose lowering technique was utilized adhering to the principles of ALARA. COMPARISON STUDY: CTA chest of same day, CT abdomen and pelvis 05/31/2017 FINDINGS: Findings of the lung bases as described on CTA chest of same day. Trace pericardial effusion. No pneumatosis or pneumoperitoneum. Multiple ill-defined hepatic metastasis redemonstrated throughout the right and left hepatic lobes without significant change from comparison study. Prior cholecystectomy. Mild intrahepatic biliary ductal dilation is likely postsurgical. Spleen, pancreas and adrenal glands are within normal limits. Mild periportal lymph nodes are seen measuring up to 1.3 cm in short axis suggesting hepatic metastasis. Contrast within the bilateral renal collecting systems. Kidneys and ureters and bladder are unremarkable. 5.9 cm ovoid cyst of the left ovary with mild free fluid within the dependent pelvis. Uterus appears surgically absent. No abnormality of the right adnexum. Aorta appears normal. No bulky adenopathy. No bowel obstruction or focal bowel wall thickening. Visualized appendix appears normal. There are a few loops of mildly prominent nondilated fluid-filled small bowel the central abdomen along with a few loops of small bowel which demonstrate internal fecal material. Soft tissues are unremarkable. No suspicious lytic or blastic bony lesions to suggest osseous metastasis. IMPRESSION: 1. Multiple hepatic metastasis redemonstrated. 2. Findings of the bilateral lung bases, further characterized and discussed on CTA chest of same day. 3. No bowel obstruction or focal bowel wall thickening. 4. No evidence of osseous metastatic disease. 5. A few loops of mildly prominent nondilated fluid-filled small bowel within the left midabdomen are nonspecific and may reflect enteritis or ileus. 6. 5.9 cm left ovarian cyst with mild free pelvic fluid. 7. Prior cholecystectomy. Electronically signed by: Teddy Montoya M.D. 06/17/2017 12:46 PM Dictated Date/Time: 06/17/2017 12:35 PM The status of this report is Signed. Draft = Not yet reviewed or approved by Radiologist. Signed = Reviewed and approved by Radiologist [place] CLINICAL HISTORY: 41 years-old Female presenting with Abdominal Pain; Stool Impaction, stage IV lung cancer, history of cholecystectomy. TECHNIQUE: Single supine view of the abdomen was obtained. COMPARISON: CT from 06/17/2017. FINDINGS: Cholecystectomy clips noted. Moderate stool burden throughout the colon. Nonobstructive bowel gas pattern. No gross pneumoperitoneum allowing for supine technique. Allowing for bowel gas and stool, no calcifications to suggest nephrolithiasis. Osseous structures normal. Lung bases clear. IMPRESSION: 1. Moderate stool burden consistent with constipation. No obstruction or gross free air. Electronically signed by: Jovan Whitfield M.D. 06/20/2017 2:12 PM Dictated Date/Time: 06/20/2017 2:10 PM The status of this report is Signed. Draft = Not yet reviewed or approved by Radiologist. Signed = Reviewed and approved by Radiologist MRI OF THE BRAIN WITHOUT AND WITH IV CONTRAST CLINICAL HISTORY: Brain metastasis. LUNG CANCER, PATIENT THERAPY SCAN. COMPARISON STUDY: 06/21/2017 TECHNIQUE: MRI of the brain was performed from the vertex to the skull base utilizing various T1 and T2 weighted sequences. Following the IV administration of 6.5 mL of Gadavist contrast, additional enhanced images were obtained. FINDINGS: Thin section 3-D post gadolinium axial images were acquired. Coronal and sagittal images were reformatted. The previously identified multiple enhancing metastatic lesions are more difficult to visualize on the 3-D BOWSER sequence. 6 enhancing lesions are visualized. The 2 largest are in 8mm ring-enhancing lesion within the right middle cerebellar peduncle, as well as an 8 mm lesion within the left lateral cerebellar hemisphere. IMPRESSION: Multiple infra and supra tentorial enhancing lesions consistent with metastatic disease. Electronically signed by: Preston Dumont M.D. 06/22/2017 3:01 PM Dictated Date/Time: 06/22/2017 2:51 PM The status of this report is Signed. Draft = Not yet reviewed or approved by Radiologist. Signed = Reviewed and approved by Radiologist Consultations: Radiation/oncology Hematology/oncology Palliative care Medication Reconciliation New Medications: Dexamethasone (Decadron) 4 Mg Tab 4 MG PO Q8 for 30 Days, #90 TAB Ondansetron Odt (Zofran Odt) 8 Mg Soltab 8 MG SL Q6H PRN for Nausea, #120 TAB 3 Refills Bisacodyl (Bisac-Evac) 10 Mg Supp 10 MG ME DAILY PRN for Constipation, #30 SUPP 3 Refills Docusate Sodium (Docusate Sodium) 100 Mg Cap 100 MG PO BID, #60 CAP 3 Refills Fentanyl (Fentanyl) 50 Mcg Tdsy 50 MCG TD Q72H, #10 PATCH 0 Refills Methadone HCl (Methadone HCl) 5 Mg Tab 5 MG PO TID, #90 TAB 0 Refills Polyethylene (Miralax) 17 Gm Pow 17 GM PO BID, #1 BTL 3 Refills Changed Medications: Lorazepam (Ativan) 1 Mg Tab 1 MG PO Q6H PRN for Anxiety/Agitation for 30 Days, #120 TAB (Changed from: Lorazepam 1 Mg Tab 1 Mg PO BID PRN Anxiety) Continued Medications: Afatinib Dimaleate (Gilotrif) 40 Mg Tab 40 MG PO DAILY Take on an empty stomach, 1 hour before or 2 hours after food. Gabapentin (Neurontin) 100 Mg Cap 100 MG PO TID Ranitidine Hcl (Zantac 150 Maximum Streng) 150 Mg Tab 150 MG PO BID Discontinued Medications: Fentanyl (Fentanyl) 12 Mcg Tdsy 12 MCG TD CQ72HR Fentanyl (Fentanyl) 25 Mcg Tdsy 25 MCG TD CQ72HR Discharge Exam Review of Systems: Constitutional: No fever, No chills, No sweats, No weakness, No fatigue Eyes: No worsening of vision ENT: No hearing loss Respiratory: No cough, No shortness of breath, No hemoptysis Cardiovascular: No chest pain, No edema, No palpitations Abdomen: No pain, No nausea, No vomiting, No diarrhea, No constipation, No GI bleeding Musculoskeletal: No joint pain, No muscle pain, No swelling, No calf pain Genitourinary - Female: No dysuria, No hematuria Neurologic: No weakness, No numbness/tingling Psychiatric: No depression symptoms, No anxiety Endocrine: No fatigue Hematologic / Lymphatic: No abnormal bleeding/bruising Integumentary: No rash, No itch, No new/changing skin lesions Physical Exam: General Appearance: no apparent distress Eyes: normal inspection, PERRL ENT: hearing grossly normal Neck: supple Respiratory/Chest: lungs clear, no respiratory distress, no accessory muscle use Cardiovascular: regular rate, rhythm Abdomen / GI: normal bowel sounds, non tender, soft Extremities: no calf tenderness, no pedal edema Neurologic/Psychiatric: alert, oriented x 3, + depressed affect Skin: normal color, warm/dry, no rash Hospital Course 41 y/o female with intractable pain, nausea, constipation in setting of metastatic lung cancer, adenocarcinoma Intractable pain secondary to metastatic lung adenocarcinoma, liver lesions, brain mets- STABLE: - Continue Fentanyl patch at 50 mcg, Methadone 5 mg TID, Decadron 4 mg TID - Radiation/oncology- first radiation treatment on 06/28 - Palliative care consulted- f/u outpatient within 2 weeks - Hematology/oncology consulted- Afatinib, f/u outpatient Nausea, likely due to metastatic disease in brain- RESOLVED: Decadron 4mg TID, Zofran 8mg QID PRN, Phenergan PRN Dizziness- RESOLVED: Ativan 1 mg PO QID PRN Constipation- RESOLVED: Continue bowel regimen to keep her regular with narcotics- suppository PRN, MiraLAX to BID, stay well hydrated, fiber supplement on discharge Anxiety related to pain and malignancy: Ativan PRN GI prophylaxis: Zantac BID DVT prophylaxis: Lovenox SQ daily Code status: LEVEL I, FULL Dispo: Discharge to home Total Time Spent: Greater than 30 minutes This includes examination of the patient, discharge planning, medication reconciliation, and communication with other providers. Discharge Instructions Please refer to the electronic Patient Visit Report (Discharge Instructions) for additional information. Follow-Up Please follow-up with your PCP within 5-7 days Please follow-up with Dr. Gomez within 2 weeks Follow-up with Oncology within 1 weeks Follow-up with radiation/oncology as scheduled Please follow-up/keep all of your subspecialty appointments Additional Copies To Scotty Diaz DO
--- NOTE | 2017-06-28 14:00 | Palliative Care Progress Note ---
Palliative Care Progress Note Date of Service June 28, 2017. Subjective Pt evaluation today including: conversation w/ patient, conversation w/ family , physical exam Pain: patient states she is comfortable PO Intake: adequate Voiding: no voiding problems Patient evaluated for follow up. Patients Methadone adjusted yesterday and is taking 5mg TID. She states she does not feel dizzy and does not feel overly sedated today. She also states that her pain is well controlled with the current dosing. No breakthrough pain medications have been needed today. Patient is going down for her first radiation treatment today at 1415. She expresses anxiety related to the treatment procedure for which I confirmed Ativan was available to her. Patient may return home after her radiation treatment. Objective Vital Signs Date Time Temp Pulse Resp B/P (MAP) Pulse Ox O2 Delivery O2 Flow Rate FiO2 06/28/17 08:00 Room Air 06/28/17 07:57 36.7 60 16 97/59 (72) 96 Room Air 06/28/17 04:15 36.5 79 18 118/79 (92) 96 Room Air 06/28/17 00:20 Room Air 06/28/17 00:17 36.7 61 20 106/66 (79) 93 Room Air 06/27/17 20:00 Room Air 06/27/17 18:45 36.4 62 16 103/65 (78) 95 Room Air 06/27/17 16:00 94 Room Air Physical Exam General Appearance: no apparent distress Respiratory/Chest: + decreased breath sounds Cardiovascular: regular rate, rhythm, no edema, no gallop Abdomen: normal bowel sounds, non tender, soft Extremities: normal range of motion, non-tender Neurologic/Psychiatric: oriented x 3 Skin: warm/dry Laboratory Results Last 24 Hours Test 06/28/17 05:36 White Blood Count 13.02 K/uL Red Blood Count 4.96 M/uL Hemoglobin 15.1 g/dL Hematocrit 44.2 % Mean Corpuscular Volume 89.1 fL Mean Corpuscular Hemoglobin 30.4 pg Mean Corpuscular Hemoglobin Concent 34.2 g/dl RDW Standard Deviation 41.7 fL RDW Coefficient of Variation 12.9 % Platelet Count 341 K/uL Mean Platelet Volume 10.7 fL Sodium Level 138 mmol/L Potassium Level 4.6 mmol/L Chloride Level 102 mmol/L Carbon Dioxide Level 32 mmol/L Anion Gap 4.0 mmol/L Blood Urea Nitrogen 14 mg/dl Creatinine 0.80 mg/dl Est Creatinine Clear Calc Drug Dose 93.4 ml/min Estimated GFR () 106.1 Estimated GFR (Non- 91.6 BUN/Creatinine Ratio 17.9 Random Glucose 97 mg/dl Calcium Level 8.9 mg/dl Assessment and Plan Palliative Care Encounter Intractable pain Metastatic disease Palliative Care Recommendations: -Patient pain well controlled today and no breakthrough medication needed. Patient currently tolerating the decrease of Methadone to 5mg po TID. Continue Fentanyl patch as ordered. No changes needed. -Patient first radiation therapy scheduled for 1414 today. Ativan 1 mg po Q6 PRN available for anxiety to the procedure. -Discharge planning remains home. Palliative Performance Scale: 40 % Continued [facility] stay due to: multiple IV medications needed, other (Dizziness) Discharge planning: home Counseling and Coordination Total time spent 35 minutes with > 50% of that time spent assessing the patient and discussing treatment plans with the IDT.
[2017-06-28 15:09] VITALS: BP 97/59; PULSE 60; TEMP 36.7; O2SAT 96
== END 2017-06-28 18:00 | disposition home or self-care (01) | DRG 948 ==
LOC: C.EDB 10:58 → C.MED 14:02 → ENRESERV 14:35 → C.4E 06-18 18:23
PROVIDERS: ADMIT Internal Medicine; ATTEND Hospitalist
DX: G89.3 Neoplasm related pain (acute) (chronic) (principal); C34.32 Malignant neoplasm of lower lobe, left bronchus or lung; C78.7 Secondary malignant neoplasm of liver and intrahepatic bile duct; C79.31 Secondary malignant neoplasm of brain; C77.1 Secondary and unspecified malignant neoplasm of intrathoracic lymph nodes; R11.2 Nausea with vomiting, unspecified; R42 Dizziness and giddiness; T40.3X5A Adverse effect of methadone, initial encounter; K59.03 Drug induced constipation; T40.2X5A Adverse effect of other opioids, initial encounter; T40.4X5A Adverse effect of other synthetic narcotics, initial encounter; F41.9 Anxiety disorder, unspecified; K21.9 Gastro-esophageal reflux disease without esophagitis; Z87.891 Personal history of nicotine dependence; Z79.891 Long term (current) use of opiate analgesic; Z79.899 Other long term (current) drug therapy; Z90.710 Acquired absence of both cervix and uterus; Z80.3 Family history of malignant neoplasm of breast; Z83.2 Family history of diseases of the blood and blood-forming organs and certain disorders involving the immune mechanism; Z82.49 Family history of ischemic heart disease and other diseases of the circulatory system; Z82.0 Family history of epilepsy and other diseases of the nervous system; Z83.79 Family history of other diseases of the digestive system; Z83.3 Family history of diabetes mellitus

== ENCOUNTER → 2017-09-07 | Outpatient (CLI) | payer OTHER ==
[~2017-09-07] MED LIST changes: +AFAT1TAB2 PO; +ATV/1 PO; +DRGTP12 TD; +IMD/2 PO; +MRN/25 PO; +ONDA-170 PO; +PANT40TA PO; -POLY335019 PO; +PRIM50TA29 PO; +RANI150T3 PO; -RANI150T85 PO; +SERT50TA PO
[2017-09-07 15:58] LABS: BASO % 0.1 %; BASO ABS # 0.01 K/uL (0-0.2); EOS % 3.1 %; EOS ABS # 0.23 K/uL (0-0.5); HEMATOCRIT 44.3 % (37-47); HEMOGLOBIN 15.2 g/dL (12.0-16.0); IG# 0.02 K/uL (0.00-0.02); LYMPH % 17.1 %; LYMPH ABS # 1.26 K/uL (1.2-3.4); MEAN CELL VOLUME 86.5 fL (80-100); MEAN CORPUSCULAR HEMOGLOBIN 29.7 pg (25-34); MEAN CORPUSCULAR HGB CONC 34.3 g/dl (32-36); MEAN PLATELET VOLUME 11.5 fL (7.4-10.4); MONO % 8.8 %; MONO ABS # 0.65 K/uL (0.11-0.59); NEUT % 70.6 %; NEUT ABS # 5.21 K/uL (1.4-6.5); PLATELET COUNT 286 K/uL (130-400); RED CELL DISTRIBUTION WIDTH CV 13.6 % (11.5-14.5); RED CELL DISTRIBUTION WIDTH SD 43.1 fL (36.4-46.3); WHITE BLOOD COUNT 7.38 K/uL (4.8-10.8)
[2017-09-07 16:24] LABS: ALBUMIN 3.5 gm/dl (3.4-5.0); ALKALINE PHOSPHATASE 170 U/L (45-117); ALT/SGPT 77 U/L (12-78); AST/SGOT 69 U/L (15-37); BLOOD UREA NITROGEN 12 mg/dl (7-18); CARBON DIOXIDE 24 mmol/L (21-32); CREATININE 0.75 mg/dl (0.60-1.20); GLUCOSE 107 mg/dl (70-99); POTASSIUM 3.6 mmol/L (3.5-5.1); SODIUM 137 mmol/L (136-145); TOTAL PROTEIN 7.3 gm/dl (6.4-8.2)
== END | disposition home or self-care (01) ==
LOC: C.LABSPEC 15:26
PROVIDERS: ATTEND Internal Medicine Hematology & Oncology
DX: C34.32 Malignant neoplasm of lower lobe, left bronchus or lung (principal)

== ENCOUNTER → 2017-09-07 | Outpatient (CLI) | payer OTHER ==
[2017-09-07 14:30] VITALS: BP 102/70; PULSE 116; TEMP 36.7; O2SAT 96
--- NOTE | 2017-09-07 15:38 | Radiation Oncology Follow-Up ---
Radiation Oncology Follow-Up Date of Visit Sep 07, 2017. 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 She received 3,000 cGy. Last Edited By: Isa Greer on Jul 17, 2017 13:43 History of Present Illness Ms. Wylie recently presented to the emergency department on May 25 with a complaint of chest pain. Chest x-ray showed interval development of cardiomegaly and perihilar/lower lobe interstitial and vascular thickening. CT scan recommended. Chest for PE Showed moderate mediastinal and to a lesser extent hilar adenopathy. The right hilar node measured 1.8 cm with similar left hilar nodes. Subcarinal node measuring 2 cm. There was a infiltrate versus focal mass at the left base measuring 3.1 x 2.0 cm 05/31/2017. Chest CT scan without contrast IMPRESSION: 1. There is a 3.5 x 2.3 cm irregular mass lesion at the medial left lung base. This should be considered lung cancer until proven otherwise. 2. Findings are highly concerning for lymphangitic spread of tumor in the left lower lobe and lingula. 3. The right lung appears clear. 4. There is evidence of multifocal hepatic metastatic disease. 5. Mediastinal lymphadenopathy is concerning for metastatic involvement. 6. There is no airspace consolidation typical for pneumonia or pleural effusion. He is just a whole brain note that he is good you can treat 7. Trace pericardial effusion. 05/31/2017. CT scan of the abdomen and pelvis. IMPRESSION: 1. Multiple metastatic foci within the liver. 2. Prior cholecystectomy. Yes okay 100 spell that the okay hold 3. Increased fecal load within the colon consistent with fecal stasis. 4. Bilateral ovarian cysts. 06/01/2017. FNA of a palpable neck mass. FINAL DIAGNOSIS NECK, RIGHT, ULTRASOUND-GUIDED ASPIRATION: 1. MALIGNANT CELLS PRESENT CONSISTENT WITH METASTATIC ADENOCARCINOMA, LUNG PRIMARY. 06/02/2017. Biopsy of right cervical lymph node revealed metastatic carcinoma. FINAL DIAGNOSIS LYMPH NODE, RIGHT CERVICAL, BIOPSY: 1. METASTATIC ADENOCARCINOMA CONSISTENT WITH A LUNG PRIMARY. 06/17/2017. CT scan of the chest revealed an irregular soft tissue mass at the basal left lower lobe measuring 3.4 cm. This is compatible with a primary lung carcinoma with progressively worsening nodular intralobular septal thickening throughout the left lung. This is compatible with lymphangitic carcinomatosis. There is evidence of hilar and mediastinal lymphatic metastasis and evidence of multiple hepatic metastasis. 06/17/2017. CT scan of the abdomen and pelvis revealed multiple hepatic metastatic lesions. 06/20/2017. Patient seen by Dr. Carrillo for medical oncology evaluation. He is recommended treatment with Afatinib which has been approved and ordered with delivery pending. 06/21/2017. Patient undergoes brain MRI due to intractable vomiting. IMPRESSION: Scattered subcentimeter enhancing lesions within the brain consistent withmetastatic disease. On review 7-8 lesions were identified largest measuring 8 mm. 06/22/2017. Thin slice MRI of the brain performed. 6 enhancing lesions are visualized. The 2 largest are an 8 mm ringenhancing lesion within the right middle cerebellar peduncle as well as an 8 mm lesion within the left lateral cerebellar hemisphere. These were consistent with metastatic disease. 06/22/2017. Patient seen by radiation oncology for evaluation and discussion of the palliative treatment options. 07/05/17 status post completion of stereotactic radio therapy to the brain June she received 3000 cGy. Interim History Returns today for one-month follow-up. She had been hospitalized in July due to intractable nausea and vomiting. On August 03, 2017 she had an MRI of the brain. That showed interval decrease in size in the metastatic lesions within the brain. No new metastatic lesions were identified. She has occasional headaches. These occur once per week. When this occurs she takes an Excedrin. Today she has some mild discomfort in the temporal areas. She gives us a level 3. She is on a fentanyl patch 25 mcg/h. Her stated that the dose of the patch has been changed to help decrease side effects. This has been as high as 50. She went down to 12. She currently was put back to 25 mcg. This is also being used for the abdominal pain in association with the liver metastasis. She has been very weak and nauseated over the past week. She has been eating and drinking little. There are concerns for dehydration. Allergies Coded Allergies: No Known Allergies (Verified , 08/25/17) Home Medications Scheduled Afatinib Dimaleate (Gilotrif), 30 MG PO DAILY AT 2200 Dronabinol (Marinol), 2.5 MG PO ACHS Fentanyl (Fentanyl), 25 MCG TD [id number] Pantoprazole (Protonix), 40 MG PO QAM Primidone (Mysoline), 50 MG PO DAILY Sertraline (Zoloft), 1 TAB PO DAILY Scheduled PRN Loperamide Hcl (Imodium), 2 MG PO Q3H PRN for Diarrhea Lorazepam (Ativan), 1 MG PO Q6H PRN for Anxiety Ondansetron Hcl (Zofran), 8 MG PO Q6H PRN for Nausea Ranitidine Hcl (Zantac), 150 MG PO BID PRN for HEARTBURN Review of Systems Gastrointestinal: Symptoms: Nausea, Vomiting, Diarrhea GI Comments: biggest problem Oral: Symptoms: No Problems Respiratory: Symptoms: WNL, SOB With Exertion Urinary: Symptoms: WNL Skin: Symptoms: No Problems Physical Exam Vital Signs Date Time Temp Pulse Resp B/P (MAP) Pulse Ox O2 Delivery O2 Flow Rate FiO2 09/07/17 14:30 36.7 116 14 102/70 96 ECOG Performance Status: 2 Fatigue: Severe General Appearance: + moderate distress (Due to nausea ) Eyes: normal inspection, PERRL, EOMI ENT: normal ENT inspection, hearing grossly normal, + pertinent finding (Mouth appears dehydrated) Neck: no adenopathy, thyroid normal Respiratory/Chest: no respiratory distress, no accessory muscle use, + decreased breath sounds Cardiovascular: no gallop, no murmur, + tachycardia Abdomen: soft, + tenderness (Right upper quadrant) Extremities: no pedal edema Neurologic/Psychiatric: no motor/sensory deficits, + depressed affect Skin: warm/dry Pain Management Patient Reports Pain: Yes Initial Pain Intensity: 3.0 Pain Management Plan This is in the temporal areas. Pain management is through medical oncology. Laboratory Laboratory Results: were reviewed Laboratory Comments: 08/25/2017 labs were stable Pathology Pathology Results: were reviewed, and pertinent findings noted in HPI Imaging Imaging Studies: were reviewed Imaging Comments Patient: MINERVA WYLIE Address1: [address] Med Rec: [id number] Address2: Acct ID: [id number] [facility] Zip: [place] [address] Date: 1975 Sex: F Room/Bed: [facility] Ref Phy: Jada Melendez DO SC: [email or web address] Att Phy: Nelida Rodriguez D.O. Report #: [id number] Marissa Phy: Jada Melendez, Test: [facility] Admit Phy: Nelida Rodriguez D.O. Medical Staff Credentialing Coordinator: NEYDA Interpreting Phy: Castro Flores MD Diagnosis: METASTIC LUNG CA WITH NAUSEA Ordering Phy: Chelsey Keane PA-C Service Date: 08/03/17 Admit Date: 08/03/17 MNE: [id number] CONF: DICTATED BY: Castro Flores M.D.]] CC: Chelsey Keane PA-C Martin, Elizabeth M., D.O. Jada Melendez, Endcc: [~ rep ct add3]] Brain MRI WITH AND WITHOUT CONTRAST HISTORY: Intractable Nausea - progression of metastatic lesions? TECHNIQUE: Multiplanar multisequence MRI of the brain was performed both before and after the intravenous administration of contrast. COMPARISON STUDY: Brain MRI 06/22/2017. FINDINGS: Interval decrease in size in all of the ring-enhancing metastatic lesions seen within the brain. There are total of 5 lesions identified. For comparative purposes the lesion within the left cerebellar hemisphere measures 5 mm, previous measuring 8 mm. No new metastatic lesions identified. The paranasal sinuses are clear. There are few opacified left inferior mastoid air cells, unchanged. The major vascular flow-voids at the skull base are well-maintained. The ventricles and sulci are within normal limits. There is no hematoma or midline shift. IMPRESSION: 1. Interval decrease in size in the metastatic lesions within the brain. No new metastatic lesions identified. 2. No acute infarct. 3. No acute intracranial hemorrhage. Electronically signed by: Castro Flores M.D. 08/03/2017 5:55 PM Dictated Date/Time: 08/03/2017 5:47 PM Assessment & Plan Plan: Patient's case was discussed with Dr. Blank. Will order a MRI of the brain in October. We will have her return to the office following the MRI. We call Dr. De Oliveira's office today in regards to her current status. She appears to be dehydrated. Their office is agreed to see her today. Continued pain management through medical oncology. Total Time In Follow-Up I spent 20 minutes speaking to the patient in performing examination. I spent 15 minutes reviewing information and completing this note. Copy To Jhonathan De Oliveira MD; Jada Melendez,
== END | disposition home or self-care (01) ==
LOC: C.ONC 14:17
PROVIDERS: ATTEND Physician Assistant Medical
DX: Z08 Encounter for follow-up examination after completed treatment for malignant neoplasm (principal); Z92.3 Personal history of irradiation; Z85.118 Personal history of other malignant neoplasm of bronchus and lung; Z85.841 Personal history of malignant neoplasm of brain

== ENCOUNTER 2018-05-14 04:22 | Inpatient (IN) ==
[2018-05-14] MEDS ORDERED: SODIUM CHLORIDE 0.9% 1000ML 1,000 ML IV ONE (04:36)
[2018-05-14] MEDS ORDERED: PIPERACILL/TAZOBAC CONSULT ACTIVE PRN ×2 (04:58→10:20)
[2018-05-14] MEDS ORDERED: VANCOMYCIN HCL 2,000 MG in SODIUM CHLORIDE 0.9% 500 ML IV ONE (04:58)
[2018-05-14] MEDS ORDERED: PIPERACILLIN/TAZOBACTAM 4.5 GM/120 ML BAG IV ONE (04:58)
[2018-05-14] MEDS ORDERED: VANCOMYCIN CONSULT ACTIVE PRN ×2 (04:58→10:20)
[2018-05-14 05:03] LABS: Hematocrit (blood only) 31.8 % (37-47); Hemoglobin 10.3 g/dL (12.0-16.0); Mean Corpuscular Hgb Conc 32.4 g/dL (32-36); Mean Corpuscular Volume 98.5 fL (80-100); Mean Platelet Volume 10.6 fL (7.4-10.4); Nucleated RBC # (auto) 0.12 K/uL (0-0); Nucleated RBC % (auto) 2.1 %; Platelet Count 195 K/uL (130-400); RDW Coefficient of Variation 20.5 % (11.5-14.5); RDW Standard Deviation 68.8 fL (36.4-46.3); Red Blood Count 3.23 M/uL (4.2-5.4); White Blood Count 5.84 K/uL (4.8-10.8)
[2018-05-14 05:13] LABS: Prothrombin Time 10.5 Seconds (9.0-12.0)
[2018-05-14 05:14] LABS: iSTAT Creatinine 0.5 mg/dl (0.6-1.3); iSTAT Hemoglobin 8.5 g/dl (12.0-16.0); iSTAT Ionized Calcium 1.1 mmol/l (1.12-1.32); iSTAT Potassium 3.9 mEq/L (3.3-5.0)
[2018-05-14] MEDS ORDERED: HYDROmorphone INJ 1 MG/ML SYRINGE IV STA (05:22)
[2018-05-14] MEDS ORDERED: ALBUT/IPRATROP 3MG/0.5MG NEB 3 ML VIAL NEB STA (05:22)
[2018-05-14 05:23] LABS: Alanine Aminotransferase 54 U/L (12-78); Albumin Level 2.3 gm/dl (3.4-5.0); Aspartate Aminotransferase 37 U/L (15-37); BUN Creatinine Ratio 15.1 (10-20); Bilirubin Direct 0.3 mg/dl (0-0.2); Blood Urea Nitrogen 7 mg/dl (7-18); Calcium 8.2 mg/dl (8.5-10.1); Carbon Dioxide 25 mmol/L (21-32); Chloride 105 mmol/L (98-107); Creatinine Clr Calc Pharmacy 150.9 ml/min; Est GFR (African American) 139.3; Est GFR (Non-African American) 120.2; Glucose 92 mg/dl (70-99); Magnesium 1.7 mg/dl (1.8-2.4); Sodium 136 mmol/L (136-145)
[2018-05-14 05:28] LABS: Alkaline Phosphatase 250 U/L (45-117); Bilirubin,Total 0.8 mg/dl (0.2-1); Total Protein 5.9 gm/dl (6.4-8.2); Troponin I < 0.015 ng/ml (0-0.045)
[2018-05-14 05:31] LABS: Anisocytosis Present; Basophils # (auto) 0.02 K/uL (0-0.2); Basophils % (auto) 0.3 %; Immature Granulocytes # (auto) 0.34 K/uL (0.00-0.02); Immature Granulocytes % (auto) 5.8 %; Lymphocytes # (auto) 1.25 K/uL (1.2-3.4); Lymphocytes % (auto) 21.4 %; Monocytes # (auto) 0.78 K/uL (0.11-0.59); Monocytes % (auto) 13.4 %; Neutrophils # (auto) 3.45 K/uL (1.4-6.5); Neutrophils % (auto) 59.1 %; Polychromasia 1+; Tear Drop Cells 1+
[2018-05-14] MEDS ORDERED: OPTIRAY 320 125ml IV PRN (05:41)
[2018-05-14 05:46] LABS: Influenza A virus by PCR Neg for Influ A (Neg); Influenza B virus by PCR Neg for Influ B (Neg)
--- NOTE | 2018-05-14 06:15 | Emergency Department Note ---
Entered by Vibha Bee acting as a scribe for ED Provider Note Name: Shagufta Mcgarry Age: 42 Arrives Via: Triage Informant: Patient CC: Shortness of Breath/Dyspnea HPI: The patient is a 42 year old female who presents to the Emergency Room with complaints of worsening shortness of breath starting a few days ago. The patient states that she has metastatic lung cancer that has metastasized to her brain. She states that she was supposed to be on 3 weeks of chemo and then have 1 off, but her white blood cells were low. She states that they switched her to 2 weeks on and 2 weeks off. She reports that she travels to [place] to get her chemo and she last had it on May 02. She notes that she had a gamma knife treatment on her brain on March 06. The patient states that over the last few days she has been having chest pains and difficulty breathing. She notes that she has nothing to help with this at home. The patient notes that she has had a few falls recently, but nothing that has caused injury. The patient's notes that a few weeks ago they thought she had a pneumonia, but after a lung flush and a culture, it was negative. The patient denies a fever, leg swelling, having oxygen at home, a history of pneumonia, wheezing at home, loss of appetite, abnormal drinking, and taking Tylenol or Motrin. ROS: See above HPI for pertinent positives & negatives. A total of 10 systems reviewed and were otherwise negative. Past Medical History: Endometriosis, Cyst of Gallbladder, Neuritis of Left Ulnar Nerve, Gastroenteritis, Immunocompromised Patient, Lung Cancer Metastatic to Brain Past Surgical History: Hysterectomy, C- Section, Tonsillectomy, Laparoscopy, Gamma Knife Treatment Family History: Cancer, Diabetes, Gallbladder Disease, Heart Disease, HTN, Seizures Social History: The patient is , lives with her family, and is employed. She reports she is a Former Smoker. Home Medications: Amino Acids-Protein Supplement Tablet, Fentanyl 75 mcg/hr Transdermal Patch, Gabapentin 100 mg Capsule, Gabapentin 600 mg Tablet, Imodium, Ativan, Zofran, Protonix, Potassium 99 mg tablet, Zantac Allergies No known allergies Physical: Vitals: Temperature: 37.4, Temperature Source: Oral, Pulse Rate: 127, Respiratory Rate: 20, Blood Pressure: 117/77, Blood Pressure Mean: 90, O2 Saturation: 91% on Room Air Exam: GENERAL: Patient is ill appearing and in moderate distress. EYES: No scleral icterus, unremarkable pupils. ENT: Mucous membranes moist, no nasal congestion. NECK: No masses appreciated, no meningismus, trachea is midline. RESPIRATORY: mild tachypnea. Mild dyspnea. Crackles in all lung park. No wheeze, no rhonchi. CARDIOVASCULAR: Tachycardic rate and regular rhythm. No murmurs, rubs, gallops appreciated. GASTROINTESTINAL: Abdomen soft, non-tender, no peritonitis. Bowel sounds positive. No masses appreciated. BACK: No midline tenderness, no CVA tenderness EXTREMITIES: Normal motion all extremities, no cyanosis, no edema. NEUROLOGIC: Alert and oriented, no acute motor or sensory deficits, no focal weakness, cranial nerves grossly intact. SKIN: No rash, no jaundice, no diaphoresis. ED Course: Prior Medical Record, Triage/Nursing Notes, Medications, Allergies reviewed by Me Vital Signs: reviewed and remarkable for tachy, hypoxia Labs: Reviewed and remarkable for not neutropenic, moderate anemia, wnl lactate and negative influenza Interventions: Saline Lock, NSS bolus 1 L IV, Zosyn 4.5gm IV, Vanco 2g IV, Duoneb, Dilaudid 1mg IV Imaging: X ray results are stated below per my interpretation: Chest: 1 view: Diffuse patchy infiltrates primarily right lower lung park and left middle lung park. [facility] Radiologist interpretation reviewed by me: "CTA CHEST: No evidence for pulmonary embolism, accounting for respiratory artifact. Patchy to confluent opacities predominantly involving the mid to lower lung zones. In addition, there is interlobular septal thickening noted predominantly in the lung apices. Scattered ground-glass opacities also suggested. Differential consideration includes pulmonary vascular congestion and asymmetric edema versus subsegmental atelectasis and infection at the lung bases. Please correlate clinically. Subcentimeter dependent pleural effusions noted posteriorly. Thoracic aorta is unremarkable. Cardiac chambers demonstrate no significant abnormalities. No pericardial effusion. No serum mediastinal adenopathy. Right internal jugular approach portacatheter incidentally noted extending to the right atrium. Radiologist: Pj Rodriguez MD" EKG: Per My interpretation: Indication SHOB, Chest Pain. Sinus Tachy 104 bpm without ectopy nor ischemia. QTC 399. Consults: 0601: [place] [place] patient. Reassessments/Times: 0431: The patient was evaluated in room A11B, and a complete history and physical examination were performed. 0500: I reevaluated the patient and updated her on her test results thus far. 0525: I reevaluated the patient and she is having diffuse chest pains. She asked if I could give her something for the pain. 0550: I paged the [facility] [place] at this time. 0552: I reevaluated the patient and she is feeling better. She is on the nebu lizer and thinks that that is helping her breathing. She is agreeable to hospitalization at this facility. 0601: Dr. [place] [place] the patient. Blood pressure: Normal. No Referral necessary Disposition: Hospitalization Differentials: Differential diagnoses includes but is not limited to pneumonia, bronchitis, COPD/Asthma exacerbation, pneumothorax, pulmonary embolism, congestive heart failure, acute coronary syndrome Medical Decision Making: Pleasant 42 yr old female with metastatic lung CA who had chemo 3 weeks ago arrival tachy, shob, febrile with diffuse chest pains and very warm to touch. Temp is not elevated here however. CXR with patchy infiltrates bilaterally. No evidence of failure by exam and she looks quite dehydrated. She was given fluids with improvement in HR. Duoneb helped with breathing. With her cancer, tachy, diffuse chest pains, and shob felt that CT PE indicated. No PE noted but there is diffuse opacites throughout. Query edema vs infection vs other. Given symptoms I do feel this is infectious in nature. EKG and Trop OK so unlikely ACS, myocarditis. She did have cultures obtained and she was started empirically on zosyn/vanco given frequent hospitalizations. She is requiring NC O2 for hypoxia thus will need inpatient treatment. She was not hypotensive thus did not require 30ml/kg IV fluids and is not in septic shock. Hospitalist consulted for further management. Impression: Multifocal Pneumonia Hypoxia Chest Pain Immunosuppressed status Kody Polanco MD The scribe's documentation has been prepared under my direction and personally reviewed by me in its entirety. I confirm that the note above accurately reflects all work, treatment, procedures, and medical decision making performed by me. Impression & Plan Multifocal pneumonia, Hypoxia, Chest pain, Immunosuppressed status Past Med/Surg History Medical History Endometriosis Cyst of gallbladder (Resolved) Neuritis of left ulnar nerve (Acute) Gastroenteritis Immunocompromised patient Lung cancer metastatic to brain (Chronic 06/01/17) "Treatment: SP SRT 07/06/2107. 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 Beliefs That Will Affect Care: None marital status: Current Living Situation: Significant Other current occupational status: employed Other Information That Helps Us Care for You: No Feels Safe at Home: Yes Safety Concerns: Feels Safe At This Time Smoking Status: Former smoker Hx Alcohol Use: No Hx Substance Use: No Results & Data Vital Signs Vital Signs - 24 hr 05/14/18 09:44 05/14/18 10:25 05/14/18 15:20 Temperature 36.7 C 36.7 C Temperature Source Oral Oral Pulse Rate 95 H Pulse Rate [Right Finger] 91 H 96 H Pulse Rhythm [Right Finger] Regular Pulse Strength [Right Finger] Normal Respiratory Rate 18 18 16 Respiratory Effort / Characteristics Non-Labored Spontaneous Respiratory Depth Normal Respiratory Pattern Blood Pressure 102/81 Blood Pressure [Right Arm] 111/76 113/74 Blood Pressure Mean [Right Arm] 87 87 Blood Pressure Position [Right Arm] Lying Pulse Oximetry 95 94 96 Oxygen Delivery Method Nasal Cannula Room Air Room Air Oxygen Flow Rate 3 05/14/18 15:39 05/14/18 16:00 05/14/18 19:36 Temperature 36.5 C Temperature Source Oral Pulse Rate 92 H Pulse Rate [Right Finger] 70 Pulse Rhythm [Right Finger] Pulse Strength [Right Finger] Respiratory Rate 18 Respiratory Effort / Characteristics Respiratory Depth Respiratory Pattern Blood Pressure Blood Pressure [Right Arm] 116/80 Blood Pressure Mean [Right Arm] 92 Blood Pressure Position [Right Arm] Pulse Oximetry 96 Oxygen Delivery Method Nasal Cannula Oxygen Flow Rate 3 2 05/14/18 19:55 05/14/18 23:06 05/15/18 00:00 Temperature 36.7 C Temperature Source Oral Pulse Rate 93 H Pulse Rate [Right Finger] 77 99 H Pulse Rhythm [Right Finger] Pulse Strength [Right Finger] Respiratory Rate 16 20 Respiratory Effort / Characteristics Non-Labored Spontaneous Respiratory Depth Respiratory Pattern Blood Pressure Blood Pressure [Right Arm] 100/68 Blood Pressure Mean [Right Arm] 78 Blood Pressure Position [Right Arm] Pulse Oximetry 91 93 Oxygen Delivery Method Nasal Cannula Oxygen Flow Rate 2 2 05/15/18 00:06 05/15/18 00:52 05/15/18 01:00 Temperature Temperature Source Pulse Rate Pulse Rate [Right Finger] 93 H Pulse Rhythm [Right Finger] Pulse Strength [Right Finger] Respiratory Rate 18 Respiratory Effort / Characteristics Non-Labored Spontaneous Non-Labored Spontaneous Short of Breath Respiratory Depth Normal Respiratory Pattern Regular Blood Pressure Blood Pressure [Right Arm] Blood Pressure Mean [Right Arm] Blood Pressure Position [Right Arm] Pulse Oximetry 88 L 95 Oxygen Delivery Method Nasal Cannula Nasal Cannula Nasal Cannula Oxygen Flow Rate 6 6 6 05/15/18 04:03 05/15/18 04:50 05/15/18 05:35 Temperature 38.3 C H 36.9 C Temperature Source Oral Oral Pulse Rate Pulse Rate [Right Finger] 119 H 117 H Pulse Rhythm [Right Finger] Pulse Strength [Right Finger] Respiratory Rate 20 18 Respiratory Effort / Characteristics Non-Labored Spontaneous Respiratory Depth Normal Respiratory Pattern Blood Pressure Blood Pressure [Right Arm] 145/85 H Blood Pressure Mean [Right Arm] 105 Blood Pressure Position [Right Arm] Lying Pulse Oximetry 95 93 Oxygen Delivery Method Nasal Cannula Nasal Cannula Oxygen Flow Rate 6 5 05/15/18 07:10 05/15/18 07:32 05/15/18 07:51 Temperature 36.8 C Temperature Source Oral Pulse Rate 122 H Pulse Rate [Right Finger] 110 H 72 Pulse Rhythm [Right Finger] Pulse Strength [Right Finger] Respiratory Rate 18 20 Respiratory Effort / Characteristics Spontaneous Respiratory Depth Respiratory Pattern Blood Pressure Blood Pressure [Right Arm] 109/75 Blood Pressure Mean [Right Arm] 86 Blood Pressure Position [Right Arm] Lying Pulse Oximetry 93 95 Oxygen Delivery Method Nasal Cannula Nasal Cannula Oxygen Flow Rate 5 5 Home Medications Current Medication List: was personally reviewed by me Laboratory Data Attestation: I reviewed the patient's lab results. Result diagrams: 05/15/18 07:43 05/15/18 01:43 Lab Results 05/14/18 05/14/18 05/14/18 Range/Units 04:49 04:49 04:49 WBC 5.84 (4.8-10.8) K/uL RBC 3.23 L (4.2-5.4) M/uL Hgb 10.3 L (12.0-16.0) g/dL POC Hgb (12.0-16.0) g/dl Hct 31.8 L (37-47) % POC Hct (37-47) % MCV 98.5 (80-100) fL MCH 31.9 (25-34) pg MCHC 32.4 (32-36) g/dL RDW Std Deviation 68.8 H (36.4-46.3) fL RDW Coeff of Cosmo 20.5 H (11.5-14.5) % Plt Count 195 (130-400) K/uL MPV 10.6 H (7.4-10.4) fL Immature Gran % (Auto) 5.8 % Neut % (Auto) 59.1 % Lymph % (Auto) 21.4 % Menard % (Auto) 13.4 % Eos % (Auto) 0.0 % Baso % (Auto) 0.3 % Immature Gran # (Auto) 0.34 H (0.00-0.02) K/uL Neut # (Auto) 3.45 (1.4-6.5) K/uL Lymph # (Auto) 1.25 (1.2-3.4) K/uL Menard # (Auto) 0.78 H (0.11-0.59) K/uL Eos # (Auto) 0.00 (0-0.5) K/uL Baso # (Auto) 0.02 (0-0.2) K/uL Absolute Nucleated RBC 0.12 H (0-0) K/uL Nucleated RBC % (auto) 2.1 % Polychromasia 1+ Anisocytosis Present Tear Drop Cells 1+ PT 10.5 (9.0-12.0) Seconds INR 1.0 (0.9-1.1) POC Sodium (135-144) mEq/L Sodium 136 (136-145) mmol/L POC Potassium (3.3-5.0) mEq/L Potassium 4.0 (3.5-5.1) mmol/L POC Chloride (101-112) mEq/L Chloride 105 (98-107) mmol/L Carbon Dioxide 25 (21-32) mmol/L POC Total CO2 (24-31) mEq/l Anion Gap 6.0 (3-11) POC Anion Gap (16-25) mmol/L POC BUN (7-18) mg/dl BUN 7 (7-18) mg/dl Creatinine 0.49 L (0.6-1.2) mg/dl POC Creatinine (0.6-1.3) mg/dl Est Cr Clr Drug Dosing 150.9 ml/min Est GFR ( Amer) 139.3 Est GFR (Non-Af Amer) 120.2 BUN/Creatinine Ratio 15.1 (10-20) Glucose 92 (70-99) mg/dl POC Glucose (other) (70-99) mg/dl Lactate (0.4-2.0) mmol/L Calcium 8.2 L (8.5-10.1) mg/dl POC Ioniz Calcium Christ (1.12-1.32) mmol/l Magnesium 1.7 L (1.8-2.4) mg/dl Total Bilirubin 0.8 (0.2-1) mg/dl Direct Bilirubin 0.3 H (0-0.2) mg/dl AST 37 (15-37) U/L ALT 54 (12-78) U/L Alkaline Phosphatase 250 H (45-117) U/L Troponin I < 0.015 (0-0.045) ng/ml Total Protein 5.9 L (6.4-8.2) gm/dl Albumin 2.3 L (3.4-5.0) gm/dl Lipase 43 L (73-393) U/L Urine Color Urine Appearance (Clear) Urine pH (4.5-7.5) Ur Specific [place] (1.000-1.030) Urine Protein (Negative) Urine Glucose (UA) (Negative) Urine Ketones (Negative) Urine Blood (Negative) Urine Nitrite (Negative) Urine Bilirubin (Negative) Urine Urobilinogen (Negative) Ur Leukocyte Esterase (Negative) Urine WBC (Auto) (0-5) /hpf Urine RBC (Auto) (0-4) /hpf U Hyaline Cast (Auto) (0-5) /lpf U Epithel Cells (Auto) (0-5) /lpf Urine Bacteria (Auto) (Negative) Nasal Screen MRSA (PCR) (Negative) Influenza Type A (PCR) (Neg) Influenza Type B (PCR) (Neg) Blood Type Antibody Screen 05/14/18 05/14/18 05/14/18 Range/Units 04:49 04:53 05:01 WBC (4.8-10.8) K/uL RBC (4.2-5.4) M/uL Hgb (12.0-16.0) g/dL POC Hgb 8.5 L (12.0-16.0) g/dl Hct (37-47) % POC Hct 25 L (37-47) % MCV (80-100) fL MCH (25-34) pg MCHC (32-36) g/dL RDW Std Deviation (36.4-46.3) fL RDW Coeff of Cosmo (11.5-14.5) % Plt Count (130-400) K/uL MPV (7.4-10.4) fL Immature Gran % (Auto) % Neut % (Auto) % Lymph % (Auto) % Menard % (Auto) % Eos % (Auto) % Baso % (Auto) % Immature Gran # (Auto) (0.00-0.02) K/uL Neut # (Auto) (1.4-6.5) K/uL Lymph # (Auto) (1.2-3.4) K/uL Menard # (Auto) (0.11-0.59) K/uL Eos # (Auto) (0-0.5) K/uL Baso # (Auto) (0-0.2) K/uL Absolute Nucleated RBC (0-0) K/uL Nucleated RBC % (auto) % Polychromasia Anisocytosis Tear Drop Cells PT (9.0-12.0) Seconds INR (0.9-1.1) POC Sodium 135 (135-144) mEq/L Sodium (136-145) mmol/L POC Potassium 3.9 (3.3-5.0) mEq/L Potassium (3.5-5.1) mmol/L POC Chloride 101 (101-112) mEq/L Chloride (98-107) mmol/L Carbon Dioxide (21-32) mmol/L POC Total CO2 24 (24-31) mEq/l Anion Gap (3-11) POC Anion Gap 15.0 L (16-25) mmol/L POC BUN 6 L (7-18) mg/dl BUN (7-18) mg/dl Creatinine (0.6-1.2) mg/dl POC Creatinine 0.5 L (0.6-1.3) mg/dl Est Cr Clr Drug Dosing ml/min Est GFR ( Amer) Est GFR (Non-Af Amer) BUN/Creatinine Ratio (10-20) Glucose (70-99) mg/dl POC Glucose (other) 98 (70-99) mg/dl Lactate 1.3 (0.4-2.0) mmol/L Calcium (8.5-10.1) mg/dl POC Ioniz Calcium Christ 1.10 L (1.12-1.32) mmol/l Magnesium (1.8-2.4) mg/dl Total Bilirubin (0.2-1) mg/dl Direct Bilirubin (0-0.2) mg/dl AST (15-37) U/L ALT (12-78) U/L Alkaline Phosphatase (45-117) U/L Troponin I (0-0.045) ng/ml Total Protein (6.4-8.2) gm/dl Albumin (3.4-5.0) gm/dl Lipase (73-393) U/L Urine Color Urine Appearance (Clear) Urine pH (4.5-7.5) Ur Specific [place] (1.000-1.030) Urine Protein (Negative) Urine Glucose (UA) (Negative) Urine Ketones (Negative) Urine Blood (Negative) Urine Nitrite (Negative) Urine Bilirubin (Negative) Urine Urobilinogen (Negative) Ur Leukocyte Esterase (Negative) Urine WBC (Auto) (0-5) /hpf Urine RBC (Auto) (0-4) /hpf U Hyaline Cast (Auto) (0-5) /lpf U Epithel Cells (Auto) (0-5) /lpf Urine Bacteria (Auto) (Negative) Nasal Screen MRSA (PCR) (Negative) Influenza Type A (PCR) Neg for Influ A (Neg) Influenza Type B (PCR) Neg for Influ B (Neg) Blood Type Antibody Screen 05/14/18 05/14/18 05/15/18 Range/Units 11:15 11:19 01:35 WBC (4.8-10.8) K/uL RBC (4.2-5.4) M/uL Hgb 8.4 L (12.0-16.0) g/dL POC Hgb (12.0-16.0) g/dl Hct 25.8 L (37-47) % POC Hct (37-47) % MCV (80-100) fL MCH (25-34) pg MCHC (32-36) g/dL RDW Std Deviation (36.4-46.3) fL RDW Coeff of Cosmo (11.5-14.5) % Plt Count (130-400) K/uL MPV (7.4-10.4) fL Immature Gran % (Auto) % Neut % (Auto) % Lymph % (Auto) % [place]ard % (Auto) % Eos % (Auto) % Baso % (Auto) % Immature Gran # (Auto) (0.00-0.02) K/uL Neut # (Auto) (1.4-6.5) K/uL Lymph # (Auto) (1.2-3.4) K/uL Menard # (Auto) (0.11-0.59) K/uL Eos # (Auto) (0-0.5) K/uL Baso # (Auto) (0-0.2) K/uL Absolute Nucleated RBC (0-0) K/uL Nucleated RBC % (auto) % Polychromasia Anisocytosis Tear Drop Cells PT (9.0-12.0) Seconds INR (0.9-1.1) POC Sodium (135-144) mEq/L Sodium (136-145) mmol/L POC Potassium (3.3-5.0) mEq/L Potassium (3.5-5.1) mmol/L POC Chloride (101-112) mEq/L Chloride (98-107) mmol/L Carbon Dioxide (21-32) mmol/L POC Total CO2 (24-31) mEq/l Anion Gap (3-11) POC Anion Gap (16-25) mmol/L POC BUN (7-18) mg/dl BUN (7-18) mg/dl Creatinine (0.6-1.2) mg/dl POC Creatinine (0.6-1.3) mg/dl Est Cr Clr Drug Dosing ml/min Est GFR ( Amer) Est GFR (Non-Af Amer) BUN/Creatinine Ratio (10-20) Glucose (70-99) mg/dl POC Glucose (other) (70-99) mg/dl Lactate (0.4-2.0) mmol/L Calcium (8.5-10.1) mg/dl POC Ioniz Calcium Christ (1.12-1.32) mmol/l Magnesium (1.8-2.4) mg/dl Total Bilirubin (0.2-1) mg/dl Direct Bilirubin (0-0.2) mg/dl AST (15-37) U/L ALT (12-78) U/L Alkaline Phosphatase (45-117) U/L Troponin I (0-0.045) ng/ml Total Protein (6.4-8.2) gm/dl Albumin (3.4-5.0) gm/dl Lipase (73-393) U/L Urine Color Yellow Urine Appearance Clear (Clear) Urine pH 5.0 (4.5-7.5) Ur Specific [place] 1.038 H (1.000-1.030) Urine Protein Negative (Negative) Urine Glucose (UA) Negative (Negative) Urine Ketones Negative (Negative) Urine Blood Trace H (Negative) Urine Nitrite Negative (Negative) Urine Bilirubin Negative (Negative) Urine Urobilinogen Negative (Negative) Ur Leukocyte Esterase 1+ H (Negative) Urine WBC (Auto) 5-10 H (0-5) /hpf Urine RBC (Auto) 0-4 (0-4) /hpf U Hyaline Cast (Auto) 0 (0-5) /lpf U Epithel Cells (Auto) 20-30 H (0-5) /lpf Urine Bacteria (Auto) Negative (Negative) Nasal Screen MRSA (PCR) Negative (Negative) Influenza Type A (PCR) (Neg) Influenza Type B (PCR) (Neg) Blood Type Antibody Screen 05/15/18 05/15/18 05/15/18 Range/Units 01:35 01:43 07:43 WBC 6.57 (4.8-10.8) K/uL RBC 2.87 L (4.2-5.4) M/uL Hgb 9.2 L (12.0-16.0) g/dL POC Hgb (12.0-16.0) g/dl Hct 28.1 L (37-47) % POC Hct (37-47) % MCV 97.9 (80-100) fL MCH 32.1 (25-34) pg MCHC 32.7 (32-36) g/dL RDW Std Deviation 67.4 H (36.4-46.3) fL RDW Coeff of Cosmo 19.6 H (11.5-14.5) % Plt Count 155 (130-400) K/uL MPV 9.8 (7.4-10.4) fL Immature Gran % (Auto) 2.0 % Neut % (Auto) 71.1 % Lymph % (Auto) 17.7 % Menard % (Auto) 9.0 % Eos % (Auto) 0.0 % Baso % (Auto) 0.2 % Immature Gran # (Auto) 0.13 H (0.00-0.02) K/uL Neut # (Auto) 4.68 (1.4-6.5) K/uL Lymph # (Auto) 1.16 L (1.2-3.4) K/uL Menard # (Auto) 0.59 (0.11-0.59) K/uL Eos # (Auto) 0.00 (0-0.5) K/uL Baso # (Auto) 0.01 (0-0.2) K/uL Absolute Nucleated RBC 0.03 H (0-0) K/uL Nucleated RBC % (auto) 0.5 % Polychromasia 1+ Anisocytosis Present Tear Drop Cells PT (9.0-12.0) Seconds INR (0.9-1.1) POC Sodium (135-144) mEq/L Sodium 139 (136-145) mmol/L POC Potassium (3.3-5.0) mEq/L Potassium 3.8 (3.5-5.1) mmol/L POC Chloride (101-112) mEq/L Chloride 108 H (98-107) mmol/L Carbon Dioxide 27 (21-32) mmol/L POC Total CO2 (24-31) mEq/l Anion Gap 4.0 (3-11) POC Anion Gap (16-25) mmol/L POC BUN (7-18) mg/dl BUN 6 L (7-18) mg/dl Creatinine 0.46 L (0.6-1.2) mg/dl POC Creatinine (0.6-1.3) mg/dl Est Cr Clr Drug Dosing 160.7 ml/min Est GFR ( Amer) 142.2 Est GFR (Non-Af Amer) 122.7 BUN/Creatinine Ratio 13.9 (10-20) Glucose 96 (70-99) mg/dl POC Glucose (other) (70-99) mg/dl Lactate (0.4-2.0) mmol/L Calcium 7.7 L (8.5-10.1) mg/dl POC Ioniz Calcium Christ (1.12-1.32) mmol/l Magnesium 1.8 (1.8-2.4) mg/dl Total Bilirubin 0.8 (0.2-1) mg/dl Direct Bilirubin 0.5 H D (0-0.2) mg/dl AST 44 H (15-37) U/L ALT 53 (12-78) U/L Alkaline Phosphatase 263 H (45-117) U/L Troponin I (0-0.045) ng/ml Total Protein 5.1 L (6.4-8.2) gm/dl Albumin 1.9 L (3.4-5.0) gm/dl Lipase (73-393) U/L Urine Color Urine Appearance (Clear) Urine pH (4.5-7.5) Ur Specific [place] (1.000-1.030) Urine Protein (Negative) Urine Glucose (UA) (Negative) Urine Ketones (Negative) Urine Blood (Negative) Urine Nitrite (Negative) Urine Bilirubin (Negative) Urine Urobilinogen (Negative) Ur Leukocyte Esterase (Negative) Urine WBC (Auto) (0-5) /hpf Urine RBC (Auto) (0-4) /hpf U Hyaline Cast (Auto) (0-5) /lpf U Epithel Cells (Auto) (0-5) /lpf Urine Bacteria (Auto) (Negative) Nasal Screen MRSA (PCR) (Negative) Influenza Type A (PCR) (Neg) Influenza Type B (PCR) (Neg) Blood Type O Positive Antibody Screen NEGATIVE Administered Medications Acetaminophen (Tylenol) 650 mg PO Q4H PRN PRN Reason: Pain or Fever Stop: 06/13/18 10:19 Last Admin: 05/15/18 03:25 Dose: 650 mg Documented by: [id number] Acetaminophen/Butalbital/Caffeine (Fioricet) 1 tab PO Q4H PRN PRN Reason: Headache Stop: 06/13/18 13:29 Last Admin: 05/14/18 15:16 Dose: 1 tab Documented by: [id number] Albuterol (Duoneb) 3 ml NEB QIDR [facility] Stop: 06/13/18 18:44 Last Admin: 05/15/18 07:09 Dose: 3 ml Documented by: [id number] Admin: 05/15/18 05:35 Dose: 3 ml Documented by: [id number] Admin: 05/15/18 00:06 Dose: 3 ml Documented by: [id number] Admin: 05/14/18 19:51 Dose: 3 ml Documented by: [id number] Enoxaparin Sodium (Lovenox) 40 mg SQ QAM [facility] Stop: 06/13/18 10:19 Last Admin: 05/15/18 08:16 Dose: Not Given Documented by: [id number] Admin: 05/14/18 11:12 Dose: Not Given Documented by: [id number] Fentanyl (Duragesic) 75 mcg TD Q3D@1100 [facility] Stop: 05/28/18 10:59 Last Admin: 05/14/18 11:08 Dose: 75 mcg Documented by: [id number] Folic Acid (Folvite) 1 mg PO DAILY [facility] Stop: 06/13/18 08:59 Last Admin: 05/15/18 08:13 Dose: 1 mg Documented by: [id number] Admin: 05/14/18 11:06 Dose: 1 mg Documented by: [id number] Hydromorphone HCl (Dilaudid) 1 mg IV Q3H PRN PRN Reason: Pain Stop: 05/28/18 10:19 Last Admin: 05/14/18 23:38 Dose: 1 mg Documented by: [id number] Piperacillin Sod/Tazobactam (Sod 3.375 gm/ Dextrose) 115 mls @ 28.75 mls/hr IV Q8H [facility]; Protocol Stop: 05/21/18 10:59 Last Infusion: 05/15/18 06:25 Dose: 0 mls/hr Documented by: [id number] Admin: 05/15/18 02:20 Dose: 28.8 mls/hr Documented by: [id number] Infusion: 05/15/18 00:11 Dose: 0 mls/hr Documented by: [id number] Admin: 05/14/18 19:40 Dose: 28.8 mls/hr Documented by: [id number] Infusion: 05/14/18 14:52 Dose: 0 mls/hr Documented by: [id number] Admin: 05/14/18 11:06 Dose: 28.8 mls/hr Documented by: [id number] Vancomycin HCl 1,250 mg/ (Sodium Chloride) 275 mls @ 125 mls/hr IV Q8H [facility] Stop: 05/21/18 13:59 Last Infusion: 05/15/18 08:32 Dose: 0 mls/hr Documented by: [id number] Admin: 05/15/18 06:16 Dose: 125 mls/hr Documented by: [id number] Infusion: 05/15/18 00:55 Dose: 0 mls/hr Documented by: [id number] Admin: 05/14/18 22:37 Dose: 125 mls/hr Documented by: [id number] Infusion: 05/14/18 15:41 Dose: 0 mls/hr Documented by: [id number] Admin: 05/14/18 13:07 Dose: 125 mls/hr Documented by: [id number] Sodium Chloride (Nss 1000ml) 1,000 mls @ 125 mls/hr IV .Q8H [facility] Stop: 06/14/18 04:59 Last Admin: 05/15/18 05:27 Dose: 125 mls/hr Documented by: [id number] Miscellaneous (Order Awaiting Action) 1 ea N/A QS [facility] Stop: 06/13/18 15:59 Last Admin: 05/15/18 07:16 Dose: Not Given Documented by: [id number] Admin: 05/15/18 00:11 Dose: Not Given Documented by: [id number] Admin: 05/14/18 15:49 Dose: Not Given Documented by: [id number] Miscellaneous (Fentanyl Patch Remove & Waste) 1 ea N/A Q3D@1059 [facility] Stop: 06/13/18 10:58 Last Admin: 05/14/18 11:06 Dose: 1 ea Documented by: [id number] Cosigned by: [id number] Miscellaneous (Fentanyl Patch Check Placement) 1 ea N/A QS [facility] Stop: 06/13/18 15:59 Last Admin: 05/15/18 08:14 Dose: 1 ea Documented by: [id number] Admin: 05/15/18 00:11 Dose: 1 ea Documented by: [id number] Admin: 05/14/18 16:19 Dose: 1 ea Documented by: [id number] Olanzapine (Zyprexa) 10 mg PO [facility] Stop: 06/13/18 20:59 Last Admin: 05/14/18 21:15 Dose: 10 mg Documented by: [id number] Oxycodone HCl (Roxicodone Immediate Rel) 15 mg PO Q4 PRN PRN Reason: Pain Stop: 05/28/18 10:19 Last Admin: 05/14/18 13:07 Dose: 15 mg Documented by: [id number] Pantoprazole Sodium (Protonix) 40 mg PO [facility] Stop: 06/13/18 10:19 Last Admin: 05/15/18 08:13 Dose: 40 mg Documented by: [id number] Admin: 05/14/18 11:06 Dose: 40 mg Documented by: [id number] Venlafaxine HCl (Effexor Extended Release) 37.5 mg PO [facility] Stop: 06/13/18 10:19 Last Admin: 05/15/18 08:13 Dose: 37.5 mg Documented by: [id number] Admin: 05/14/18 11:06 Dose: 37.5 mg Documented by: [id number] Discontinued Medications Acetaminophen (Tylenol) 650 mg PO NOW STA Stop: 05/15/18 04:55 Last Admin: 05/15/18 05:27 Dose: Not Given Documented by: [id number] Albuterol (Duoneb) 3 ml NEB NOW STA Stop: 05/14/18 05:23 Last Admin: 05/14/18 05:46 Dose: 3 ml Documented by: [id number] Hydromorphone HCl (Dilaudid) 1 mg IV NOW STA Stop: 05/14/18 05:23 Last Admin: 05/14/18 05:46 Dose: 1 mg Documented by: [id number] Hydromorphone HCl (Dilaudid) 1 mg IV Q30M PRN PRN Reason: Pain Stop: 05/28/18 05:51 Last Admin: 05/14/18 09:59 Dose: 1 mg Documented by: [id number] Admin: 05/14/18 08:37 Dose: 1 mg Documented by: [id number] Admin: 05/14/18 06:57 Dose: 1 mg Documented by: [id number] Sodium Chloride (Nss 1000ml) 1,000 mls @ 999 mls/hr IV .Q1H1M ONE Stop: 05/14/18 05:36 Last Infusion: 05/14/18 06:32 Dose: 0 mls/hr Documented by: [id number] Admin: 05/14/18 05:03 Dose: 999 mls/hr Documented by: [id number] Piperacillin Sod/Tazobactam Sod (Zosyn) 4.5 gm in 120 mls @ 240 mls/hr IV NOW ONE Stop: 05/14/18 05:27 Last Infusion: 05/14/18 05:45 Dose: 0 mls/hr Documented by: [id number] Admin: 05/14/18 05:07 Dose: 240 mls/hr Documented by: [id number] Vancomycin HCl 2,000 mg/ (Sodium Chloride) 540 mls @ 200 mls/hr IV NOW ONE Stop: 05/14/18 07:39 Last Infusion: 05/14/18 08:40 Dose: 0 mls/hr Documented by: [id number] Admin: 05/14/18 05:51 Dose: 200 mls/hr Documented by: [id number] Sodium Chloride (Nss 1000ml) 1,000 mls @ 100 mls/hr IV .Q10H JEANNE Stop: 06/13/18 10:59 Last Infusion: 05/15/18 03:58 Dose: 0 mls/hr Documented by: [id number] Admin: 05/14/18 21:14 Dose: 100 mls/hr Documented by: [id number] Infusion: 05/14/18 21:09 Dose: 100 mls/hr Documented by: [id number] Admin: 05/14/18 11:09 Dose: 100 mls/hr Documented by: [id number] Furosemide 20 mg/ Syringe 2 mls @ 4 mls/min IV ONE ONE Stop: 05/15/18 04:01 Last Admin: 05/15/18 03:55 Dose: 4 mls/min Documented by: [id number] Azithromycin 500 mg/ Dextrose 255 mls @ 125 mls/hr IV ONE ONE Stop: 05/15/18 08:17 Last Admin: 05/15/18 08:40 Dose: 125 mls/hr Documented by: [id number] Ioversol (Optiray 320 125ml) 80 ml IV ONCE PRN PRN Reason: Interaction Checking Stop: 05/18/18 05:40 Last Admin: 05/14/18 05:41 Dose: 80 ml Documented by: [id number] Blood Pressure Blood Pressure Findings: Normal blood pressure Blood Pressure Disposition: did not require urgent referral Discharge Plan Visit Data *Final* Discharge Date/Time: 05/14/18 09:44 Chief Complaint: Shortness of Breath/Dyspnea Stated Complaint: SOB, CHEST PAIN ED Provider: Kody Polanco Discharge Problem: Multifocal pneumonia, Hypoxia, Chest pain, Immunosuppressed status Patient Disposition: Admitted As Inpatient Discharge Instructions Interventions: ED Discharge Assessment Last Done: 05/14/18 09:44 Discharge Problem: Chest pain Qualifiers: Chest pain type: chest pain on breathing Qualified Code(s): R07.1 - Chest pain on breathing The scribe's documentation has been prepared under my direction and personally reviewed by me in its entirety. I confirm that the note above accurately reflects all work, treatment, procedures, and medical decision making performed by me.
--- NOTE | 2018-05-14 06:36 | XRay Report ---
XR chest 1V portable CLINICAL HISTORY: Shortness of breath. Tachycardia. COMPARISON STUDY: 07/20/2017 FINDINGS: There is a right-sided A-Port catheter. The heart is at the upper limits of normal in size. There are left mid and lower lung zone airspace opacity suspicious for a pneumonia. Right basilar ai rspace opacities have a more linear configuration and are likely atelectatic. There is no overt failu re. Trace pleural effusions are suspected.[ IMPRESSION: 1. Left mid and lower lung zone airspace opacity suspicious for a pneumonia. Clinical and radiographi c follow-up is recommended 2. Right basilar opacities likely representing subsegmental atelectatic change Electronically signed by: Preston Dumont M.D. 05/14/2018 6:35 AM
--- NOTE | 2018-05-14 06:42 | CT Scan Report ---
CT angio chest PE protocol CT DOSE: 339.72 mGy.cm HISTORY: Chest pain PE TECHNIQUE: Multiaxial CT images of the chest were performed following the intravenous administration of contrast to evaluate the pulmonary arteries. Maximal intensity projection images were also obtaine d. A dose lowering technique was utilized adhering to the principles of ALARA. COMPARISON STUDY: 08/25/2017 FINDINGS: Thoracic aorta is normal. The pulmonary vasculature enhances appropriately. There are no si gnificant filling defects. Mild peribronchial thickening throughout. Bibasilar parenchymal infiltrative change. Central catheter in superior vena cava. IMPRESSION: 1. No evidence of pulmonary embolus. 2. Mid lung and bibasilar parenchymal infiltrative change The above report was generated using voice recognition software. It may contain grammatical, syntax or spelling errors. Electronically signed by: Andrea Zamora M.D. 05/14/2018 6:40 AM
[2018-05-14] MEDS: HYDROmorphone INJ 1 MG/ML SYRINGE IV PRN ×4 (06:57→23:38)
--- NOTE | 2018-05-14 08:39 | History & Physical Report ---
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 She was found to be hypoxic and had multi lobar pneumonia on CT of the chest. She did not have a PE on the CT angiogram. Her last dose of chemotherapy was on 05/02 she is currently receiving Abraxane and Cyramza. She follows with an oncologist in [place] at [facility] named Dr. Kennedy. Afebrile on admission, not neutropenic currently, but with mild tachycardia, and with hypoxia in setting of lung CA on chemotherapy--> needs admission Flu PCR swab negative CT with bibasilar parenchymal infiltrates -Admit to tele -continue IVFs at 100 mLs/hr of NS -continue abx therapy broad spectrum with IV Zosyn and Vanco, and add azithro for atypicals -follow blood cultures -monitor for fever -supportive care with fioricet as needed for headache, tylenol as needed for fever -Duonebs qid scheduled -Pulm consult placed given complex history iwth lung CA-has needed bronchoscopy before with suspected PNA in Feb in [facility] and then was told had sterile cultures (2) Acute respiratory failure with hypoxia: Secondary to PNA -treat PNA as above -continue supplemental O2, currently at 3 LNC to keep POx>90% -Duonebs provded -wean O2 as able to (3) Lung cancer metastatic to brain: With Stage IV adenocarcinoma with mets to liver and brain, LNs, diagnosed in 05/2017. Is s/p gamma knive therapy in 02/2018 for recurrent brain mets Has failed multiple chemotherapy and immunotherapy regimens Now on Cyramza and Abraxane therapy, last dose 05/02/18--> Oncology tells me this is a last resort type of regimen Prognosis very poor overall but pt wishes to continue treatment Follows with Dr. Kennedy in [facility] but also keeps Dr. De Oliveira here "in the loop" -follow CBC -Consult Oncology (4) Immunocompromised patient: secondary to lung CA on chemotherapy (5) Elevated alkaline phosphatase level: Alkphos 250 on admission, with known liver mets, likely secondary to this No abd pain, other LFTs within normal limits -follow LFTs (6) Anemia: Hgb 10.3 on admission, normocytic Other cell lines on CBC normal Could be from chronic disease or perhaps related to chemo? -Oncology following -follow CBC (7) Chest pain on breathing: Likely pleuritic pain due to PNA CT for PE negative for PE Troponin negative ECG with nonspecific TW changes, old anterior infarct, likely lead placement -follow on tele -does have a history of pericarditis mentioned in old records -consider ECHO (8) Depression: -continue olanzapine 10mg po qhs (9) DVT prophylaxis: High risk for DVT given ongoing malignancy Lovenox 40mg SQ qday Dispo-admit to tele FULL CODE History of Present Illness Chief Complaint: Shortness of breath, chest pain Primary Care Provider: Jada Melendez DO This patient is a 42-year-old female with a history of 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 She was found to be hypoxic and had multi lobar pneumonia on CT of the chest. She did not have a PE on the CT angiogram. She denies sore throat, does have a mild headache, denies cough, denies abdominal pain or diarrhea. She does have chronic joint pains which do not seem to be worse than usual. No new rashes. Her last dose of chemotherapy was on 05/02 she is currently receiving Abraxane and Cyramza. She follows with an oncologist in [place] at [facility] named Dr. Kennedy. Allergies Allergy/AdvReac Type Severity Reaction Status Date / Time No Known Allergies Allergy Verified 05/14/18 06:39 Home Medications Home Medications Medication Instructions Recorded Confirmed Type fentanyl 75 mcg/hr transdermal 1 patch TD Q72H 01/05/18 05/14/18 History patch folic acid 1 mg PO DAILY 05/14/18 05/14/18 History granisetron [Sancuso] 1 patch TOPICAL .CHANGE EVERY 5 05/14/18 05/14/18 History DAYS loperamide 2 mg PO Q3H PRN 05/14/18 05/14/18 History lorazepam 1 mg PO Q6 PRN 05/14/18 05/14/18 History olanzapine 10 mg PO HS 05/14/18 05/14/18 History oxycodone 15 mg PO Q4 PRN 05/14/18 05/14/18 History pantoprazole 40 mg PO QAM 05/14/18 05/14/18 History venlafaxine 37.5 mg PO QAM 05/14/18 05/14/18 History Past Med/Surg History Medical History Endometriosis Cyst of gallbladder (Resolved) Neuritis of left ulnar nerve (Acute) Gastroenteritis Immunocompromised patient Lung cancer metastatic to brain (Chronic 06/01/17) "Treatment: SP SRT 07/06/2107. 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 Required: No Beliefs That Will Affect Care: None marital status: Current Living Situation: Significant Other current occupational status: employed Other Information That Helps Us Care for You: No Feels Safe at Home: Yes Safety Concerns: Feels Safe At This Time Smoking Status: Former smoker Hx Alcohol Use: No Hx Substance Use: No Review of Systems All systems reviewed & are unremarkable except as noted in HPI & below Physical Exam Vital Signs (Past 24 Hours): Last Vital Signs Temp 37.3 C 05/14/18 05:07 Pulse 101 H 05/14/18 07:14 Resp 20 05/14/18 07:14 BP 118/81 05/14/18 07:14 Pulse Ox 95 05/14/18 07:14 Constitutional: + ill appearing and average body habitus; no acute distress Eyes: PERRL, conjunctivae normal, anicteric sclerae ENMT: external ear and nose normal, oropharynx normal Ears: no EAC abnormality and no TM abnormality Nose: no external nose abnormality and nasal mucous membranes not dry Mouth: no lip abnormality and no oropharynx abnormality Neck: trachea midline, no thyromegaly Respiratory: normal respiratory effort (with 3LNC in place); not tachypneic Auscultation: + crackles (bilateral lower lung park) and + rhonchi (bilat lower lung park); no wheezes Cardiovascular: RRR, no murmur, no edema Chest (Breasts): Chest: + vascular access device or port (on right side of chest, no erythema ) Gastrointestinal (Abdomen): normal bowel sounds, soft, nontender, no hepatosplenomegaly Musculoskeletal: Extremities: extremities normal to inspection; no cyanosis and no clubbing Skin: + rash (acneiform rash on face) Neurologic: moves all extremities and awake; no focal motor deficits Psychiatric: Orientation: alert and oriented x 3 Eye Contact: good eye contact Affect: + flat affect Thought Process: goal directed thought process Results & Data Laboratory Results 05/15/18 05/15/18 05/15/18 Range/Units 01:43 01:35 01:35 Hgb 8.4 L (12.0-16.0) g/dL Hct 25.8 L (37-47) % Sodium 139 (136-145) mmol/L Potassium 3.8 (3.5-5.1) mmol/L Chloride 108 H (98-107) mmol/L Carbon Dioxide 27 (21-32) mmol/L Anion Gap 4.0 (3-11) BUN 6 L (7-18) mg/dl Creatinine 0.46 L (0.6-1.2) mg/dl Est Cr Clr Drug Dosing 160.7 ml/min Est GFR ( Amer) 142.2 Est GFR (Non-Af Amer) 122.7 BUN/Creatinine Ratio 13.9 (10-20) Glucose 96 (70-99) mg/dl Calcium 7.7 L (8.5-10.1) mg/dl Magnesium 1.8 (1.8-2.4) mg/dl Total Bilirubin 0.8 (0.2-1) mg/dl Direct Bilirubin 0.5 H D (0-0.2) mg/dl AST 44 H (15-37) U/L ALT 53 (12-78) U/L Alkaline Phosphatase 263 H (45-117) U/L Total Protein 5.1 L (6.4-8.2) gm/dl Albumin 1.9 L (3.4-5.0) gm/dl Urine Color Urine Appearance (Clear) Urine pH (4.5-7.5) Ur Specific [place] (1.000-1.030) Urine Protein (Negative) Urine Glucose (UA) (Negative) Urine Ketones (Negative) Urine Blood (Negative) Urine Nitrite (Negative) Urine Bilirubin (Negative) Urine Urobilinogen (Negative) Ur Leukocyte Esterase (Negative) Urine WBC (Auto) (0-5) /hpf Urine RBC (Auto) (0-4) /hpf U Hyaline Cast (Auto) (0-5) /lpf U Epithel Cells (Auto) (0-5) /lpf Urine Bacteria (Auto) (Negative) Nasal Screen MRSA (PCR) (Negative) Influenza Type A (PCR) (Neg) Influenza Type B (PCR) (Neg) Blood Type O Positive Antibody Screen NEGATIVE 05/14/18 05/14/18 05/14/18 Range/Units 11:19 11:15 04:53 Hgb (12.0-16.0) g/dL Hct (37-47) % Sodium (136-145) mmol/L Potassium (3.5-5.1) mmol/L Chloride (98-107) mmol/L Carbon Dioxide (21-32) mmol/L Anion Gap (3-11) BUN (7-18) mg/dl Creatinine (0.6-1.2) mg/dl Est Cr Clr Drug Dosing ml/min Est GFR ( Amer) Est GFR (Non-Af Amer) BUN/Creatinine Ratio (10-20) Glucose (70-99) mg/dl Calcium (8.5-10.1) mg/dl Magnesium (1.8-2.4) mg/dl Total Bilirubin (0.2-1) mg/dl Direct Bilirubin (0-0.2) mg/dl AST (15-37) U/L ALT (12-78) U/L Alkaline Phosphatase (45-117) U/L Total Protein (6.4-8.2) gm/dl Albumin (3.4-5.0) gm/dl Urine Color Yellow Urine Appearance Clear (Clear) Urine pH 5.0 (4.5-7.5) Ur Specific [place] 1.038 H (1.000-1.030) Urine Protein Negative (Negative) Urine Glucose (UA) Negative (Negative) Urine Ketones Negative (Negative) Urine Blood Trace H (Negative) Urine Nitrite Negative (Negative) Urine Bilirubin Negative (Negative) Urine Urobilinogen Negative (Negative) Ur Leukocyte Esterase 1+ H (Negative) Urine WBC (Auto) 5-10 H (0-5) /hpf Urine RBC (Auto) 0-4 (0-4) /hpf U Hyaline Cast (Auto) 0 (0-5) /lpf U Epithel Cells (Auto) 20-30 H (0-5) /lpf Urine Bacteria (Auto) Negative (Negative) Nasal Screen MRSA (PCR) Negative (Negative) Influenza Type A (PCR) Neg for Influ A (Neg) Influenza Type B (PCR) Neg for Influ B (Neg) Blood Type Antibody Screen Diagnostic Findings CXR and Chest CT images personally reviewed by me and agree with the following reports: XR chest 1V portable CLINICAL HISTORY: Shortness of breath. Tachycardia. COMPARISON STUDY: 07/20/2017 FINDINGS: There is a right-sided A-Port catheter. The heart is at the upper limits of normal in size. There are left mid and lower lung zone airspace opacity suspicious for a pneumonia. Right basilar airspace opacities have a more linear configuration and are likely atelectatic. There is no overt failure. Trace pleural effusions are suspected.[ IMPRESSION: 1. Left mid and lower lung zone airspace opacity suspicious for a pneumonia. Clinical and radiographic follow-up is recommended 2. Right basilar opacities likely representing subsegmental atelectatic change CT angio chest PE protocol CT DOSE: 339.72 mGy.cm HISTORY: Chest pain PE TECHNIQUE: Multiaxial CT images of the chest were performed following the intravenous administration of contrast to evaluate the pulmonary arteries. Maximal intensity projection images were also obtained. A dose lowering technique was utilized adhering to the principles of ALARA. COMPARISON STUDY: 08/25/2017 FINDINGS: Thoracic aorta is normal. The pulmonary vasculature enhances appropriately. There are no significant filling defects. Mild peribronchial thickening throughout. Bibasilar parenchymal infiltrative change. Central catheter in superior vena cava. IMPRESSION: 1. No evidence of pulmonary embolus. 2. Mid lung and bibasilar parenchymal infiltrative change Code Status & VTE Plan Code Status FULL CODE
[2018-05-14] MEDS ORDERED: ALUMINUM/MAGNESIUM SUSP 30 ML UDC PO PRN (10:20)
[2018-05-14] MEDS ORDERED: POLYETHYLENE (MIRALAX) 17 GM PACK PO PRN (10:20)
[2018-05-14] MEDS ORDERED: LORazepam 1 MG TAB PO PRN (10:20)
[2018-05-14] MEDS ORDERED: ACETAMINOPHEN 325 MG TAB PO PRN (10:20)
[2018-05-14] MEDS: PIPERACILLIN/TAZOBACTAM 3.375 GM in DEXTROSE 5% 100 ML IV SCH ×2 (11:06→19:40)
[2018-05-14] MEDS: ENOXAPARIN INJ 40 MG/0.4 ML SYR SQ SCH ×2 (11:06→11:12)
[2018-05-14] MEDS: PANTOprazole 40 MG TAB PO SCH (11:06)
[2018-05-14] MEDS: FOLIC ACID 1 MG TAB PO SCH (11:06)
[2018-05-14] MEDS: VENLAFAXINE HCL XR 37.5 MG CAPXR PO SCH (11:06)
[2018-05-14] MEDS: fentaNYL 75 MCG/HR TDSY TD SCH (11:08)
[2018-05-14] MEDS: SODIUM CHLORIDE 0.9% 1000ML 1,000 ML IV SCH ×2 (11:09→21:14)
[2018-05-14 11:56] LABS: Appearance Urine Clear (Clear); Bacteria Urine Automated Negative (Negative); Bilirubin Urine Negative (Negative); Blood Urine Trace (Negative); Cast Urine Automated 0 /lpf (0-5); Color Urine Yellow; Epithelial Cell Urine Auto 20-30 /lpf (0-5); Glucose Urine UA Negative (Negative); Ketones Urine Negative (Negative); Leukocyte Esterase Urine 1+ (Negative); Nitrite Urine Negative (Negative); Protein Urine Negative (Negative); RBC Urine Automated 0-4 /hpf (0-4); Specific Gravity Urine 1.038 (1.000-1.030); Urobilinogen Urine Negative (Negative)
[2018-05-14] MEDS: VANCOMYCIN HCL 1,250 MG in SODIUM CHLORIDE 0.9% 250 ML IV SCH ×2 (13:07→22:37)
[2018-05-14] MEDS: OXYCODONE HCL IR 5 MG TAB (IMMEDIATE RELEASE) PO PRN (13:07)
[2018-05-14] MEDS ORDERED: BUTALBITAL/ACETAMIN/CAFFEINE TAB PO PRN (13:30)
--- NOTE | 2018-05-14 14:14 | Consultation Report ---
DATE OF CONSULTATION: 05/14/2018 PULMONARY MEDICINE CONSULTATION REASON FOR CONSULTATION: Bronchopneumonia in a patient with advanced bronchogenic neoplasm. HISTORY OF PRESENT ILLNESS: A 42-year-old white female, patient of Dr. Jada Melendez, who was admitted through the Emergency Room early this morning because of progressive symptoms of dyspnea. She states her symptoms began approximately 4 days ago and it progressed to the point where she had pleuritic discomfort in the mid chest area and radiating to the right and left chest region with any kind of inspiratory effort and it was not relieved with positional change. She has had a dry cough. She last underwent chemotherapy on 05/02 and developed as expected neutropenia. She is now on a 2-week on and 2-week off schedule, goes to [facility] in [place] for her chemotherapy. She has also received Gamma Knife therapy to the brain on 03/06. The patient's was in attendance and gave additional history to me. She has seen Dr. De Oliveira in the past here and had her care assumed at the [facility]. She is from the [facility]. She received SRT, completed on 07/05/2017 to the brain, having received 3000 cGy. She was started on IV vancomycin in the ER and was given 1 dose of IV Zosyn. I have been asked to see the patient in consultation. The patient presented on 05/25/2017 with 1-2 months history of chest and right upper quadrant pain with a CTA of the chest revealing a consolidative infiltrate versus focal mass in the medial aspect of the left base measuring 3.1 x 2.0 cm along with bilateral hilar and mediastinal lymphadenopathy. She was admitted here on 05/31/2017. There were also appeared multiple hypodensities within the right as well as the left hepatic lobes, which were new from 2016 with the largest lesion measuring 2.8 cm. She had a palpable high right cervical lymph node, which was excised on 06/02/2017 revealing metastatic adenocarcinoma that was diffusely positive for TTF-1 and Napsin A consistent with lung adenocarcinoma. Testing revealed two Exon 18 EGFR mutations, one that was 2125 G greater than A ([id number]) and the second one 2155 G greater than A ([id number]). She was negative for ALK or ROS-1 rearrangements and PD-L1 expression was high (TPS at 90%). MRI of the brain on 06/22/2017 revealed multiple infra and supra-tentorial enhancing lesions consistent with metastatic disease and once again we completed Gamma Knife whole brain radiation in 06/2017. She was then started with Afatinib based on the inclusion of the less common EGFR mutations from the LUX-Lung trials. She began therapy in mid 06/2017, but tolerated it poorly with fatigue, rash and weakness despite adjustment in the dosing. CT scan on 08/25/2017 demonstrated response in her lung mass and mediastinal and hilar adenopathy but marked progression in the hepatic metastases. She was rushed to the ER at [facility] with acute abdominal pain in late August and early September, felt to be secondary to the hepatic mass compressing her celiac axis and received SBRT to the largest metastasis at that time and was then started on carboplatin, pemetrexed and pembrolizumab. She has completed 4 cycles of triple therapy and a post-treatment PET scan demonstrated a near complete radiographic response. She apparently was last seen by Dr. De Oliveira on 12/06/2017, she looked good. She was pain-free and eating again, although she did have an episode of acute pericarditis that was possibly immune related but was continued on pembrolizumab without any additional issues. Dr. De Oliveira notes that the patient's thoracic disease was sensitive to EGFR-targeted therapy, but the hepatic disease was not, possibly representing a different clone of her disease at that site, although that would seem unusual so early in her course. She was then transitioned to maintenance pemetrexed and pembrolizumab. She has continued with therapy there in [place], apparently having hospitalizations in [place] in the interim. The patient relates that it was unclear whether the hospitalization last fall was from pneumonia from a bacterial cause or drug induced. Those records have not sent for. The last note from the radiation oncology here was on 01/05/2018 and apparently patient did undergo Gamma Knife therapy in the interim. She was continued on Keytruda. MRI of the brain on 06/22/2017 showed 6 enhancing lesions, the 2 largest were an 8 mm ring-enhancing lesion in the right middle cerebellar peduncle as well as an 8 mm lesion in the left lateral cerebellar hemisphere. The stereotactic radiotherapy to the brain 07/05/2017 where she received 3000 cGy was completed. For details of past medical history, medications, family and social history, I refer you to current and past records. PHYSICAL EXAMINATION: GENERAL: Reveals a chronically ill-appearing white female, of slow mentation, complaining of pleuritic pain but exhibiting no signs of respiratory distress. VITAL SIGNS: Blood pressure 111/76, pulse 91 and regular, respiratory rate 18, temperature 36.7, O2 sat 94% on room air. SKIN: Numerous lesions and acne on the face and upper posterior thorax. HEENT: Atraumatic, normocephalic. PERRLA. Alopecia noted with a scarf on the head. NECK: Neck veins are not distended at 45 degrees. No obvious site of adenopathy in the supra or infraclavicular areas. LUNGS: Velcro rales bilaterally, especially in the left mid to posterior lung field. No audible wheezing. CARDIAC: Regular rhythm. I do not appreciate a gallop. ABDOMEN: Soft, protuberant. No evidence of hepatosplenomegaly. EXTREMITIES: Trace to +1 pitting edema, no clubbing, peripheral cyanosis. NEUROLOGIC: Intact. No lateralizing signs. LABORATORY DATA: Currently, the H and H are 8.5 and 25 this morning at 0501 that was at point of care; it was 10.3 and 31.8 drawn in the ER with a white count of 5800. There were 59% neutrophils, 5.8% immature granulocytes, clearly a leftward shift. CTA done on admission was reviewed, showed no evidence of pulmonary thromboembolic disease, peribronchial thickening throughout with bibasilar parenchymal infiltrative change. Plain chest x-ray showed left mid and lower lung zone airspace opacity suspicious for pneumonia with right basilar opacities, possibly representing subsegmental atelectatic changes. Last brain MRI on 01/02/2018 showed progressive metastatic disease. Blood cultures are pending. Influenza type A and B PCR negative. 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 At this point in time, I need to review all serial CAT scans and x-rays and obtain the records from [facility] at the [facility] since the note from Dr. De Oliveira and the radiation oncologist beginning with 12/2017 onward in order to fill in the blanks. Discuss further with Dr. Rodriguez after I have had a chance to peruse those records and old films. Thank you very much for this consultation.
--- NOTE | 2018-05-14 14:58 | Pharmacy Report ---
Pharmacy Abx Initial Consult - Date of Service May 14, 2018 - Pharmacy Dosing Scope Date of Consult: 05/14/18 Consultation requested by: Dr. Rodriguez Pharmacy is consulted to initiate vancomycin and Zosyn IV dosing therapy, order appropriate labs and adjust drug dose/frequency. - Subjective The patient is a 42 year old F admitted on 05/14/18 08:38. - Objective Height: 5 ft 8 in Weight: 76 kg Vital Signs (Past 12hrs): Vital Signs Temp Pulse Pulse Resp BP BP Pulse Ox 05/14/18 10:25 36.7 C 91 H 18 111/76 94 05/14/18 09:44 95 H 18 102/81 95 05/14/18 09:01 93 H 18 116/76 95 05/14/18 07:14 101 H 20 118/81 95 05/14/18 05:07 37.3 C 103 H 22 125/86 98 05/14/18 05:00 96 05/14/18 04:24 37.4 C 127 H 20 117/77 91 Lab Results (24hrs): Laboratory Tests (24 Hours) 05/14/18 05/14/18 04:49 04:49 WBC 5.84 Neut # (Auto) 3.45 Creatinine 0.49 L Est Cr Clr Drug Dosing 150.9 Micro Results: 05/14/18 04:45 Blood Culture - Pending Blood 05/14/18 04:49 Blood Culture - Pending Blood - Risk Factors for Resistance * Immunocompromised (chemotherapy) - Assessment & Plan Assessment 42 year old F admitted today for shortness of breath and chest pain. She has a history of stage IV lung cancer with mets to the liver and brain. Her CT showed multi lobar pneumonia and she has been started on broad-spectrum antibiotics in the form of vanc + Zosyn. MRSA swab is negative but Dr. Rodriguez would like to continue vancomycin for at least two days due to patient's clinical picture Plan Vancomycin IV * Estimated PK Parameters: Vd 0.7 L/kg, Guillermo 0.104 hr-1, t1/2 6.6 hr * Loading dose: 2000 mg (26 mg/kg) - was given in the ER * Maintenance dose: 1250 mg IV (16 mg/kg) every 8 hours * Goal trough level : 15 to 20 mcg/mL * Trough level ordered for 05/15/18 prior to the 5th dose Piperacillin/tazobactam * 4.5 g bolus administered over 30 minutes, then 3.375 g IV extended infusion every 8 hours for CrCl greater than 20 mL/min. Pharmacy will continue to follow and will adjust dose/frequency as necessary. Thank you.
[2018-05-14] MEDS: CHECK FENTANYL PATCH PLACEMENT SCH (16:19)
[2018-05-14] MEDS: ALBUT/IPRATROP 3MG/0.5MG NEB 3 ML VIAL NEB SCH (19:51)
[2018-05-14] MEDS: OLANZapine 10 MG TAB PO SCH (21:15)
--- NOTE | 2018-05-14 22:08 | Consultation Report ---
DATE OF CONSULTATION: 05/14/2018 REASON FOR CONSULTATION: A 42-year-old female patient with metastatic nonsmall cell lung cancer. HISTORY OF PRESENT ILLNESS: Jose is a pleasant but very unfortunate 42-year-old female patient with history of stage IV nonsmall cell lung cancers involving the PANEL INSTALLER and liver. She had been seen by Dr. Jhonathan De Oliveira I believe Dr. Carrillo initially. Dr. De Oliveira has not seen her since 11/2017. She now follows consistently with the medical oncology department in [place] ([facility]), Dr. Kennedy to be specific. Apparently, Jose was admitted to [facility] earlier today because of subacute onset shortness of breath and hypoxia. She also describes pain on inspiration. She denies any preceding fevers or chills. CTA of the chest was performed, which revealed nonspecific patchy infiltrates, but no evidence of pulmonary embolism. The patient, again, is currently under the care of Dr. Kennedy at [facility] and had been receiving Abraxane and Cyramza, her last dose administered on 05/02/2018. According to Jose, she has received 4 courses. I suspect that is weekly Abraxane with 1 week off and she claims to currently be on her break week. Again, she has not followed up with our oncology department since departing [facility] and she plans on following up with Dr. Kennedy on 05/23/2018. She was originally diagnosed in 05/2017, at which time had received SBRT in June of that year, specifically, 3000 cGy. Treatments to date include afatinib. She also received a combination carboplatin, pemetrexed and pembrolizumab; again, most recently on Abraxane and Cyramza. PAST MEDICAL HISTORY: Significant for cystic gallbladder disease, left ulnar neuritis, gastroenteritis, metastatic lung cancer, endometriosis. She has also had gamma knife to treat her PANEL INSTALLER disease. PAST SURGICAL HISTORY: Includes hysterectomy, section, tonsillectomy and laparoscopy. CURRENT MEDICATIONS: As follows: Effexor 37.5 mg p.o. q. daily, Protonix 40 mg p.o. q. daily, oxycodone 15 mg p.o. q. 4 hours p.r.n., olanzapine 10 mg p.o. at bedtime, lorazepam 1 mg p.o. q. 6 hours, loperamide 2 mg p.o. q. 3 hours p.r.n. for diarrhea, granisetron 1 patch topically every 5 days, folic acid 1 mg p.o. q. daily, fentanyl topical patch 75 mcg topically p.o. q. 72 hours. ALLERGIES: No known drug allergies. FAMILY HISTORY: Positive for seizure disorder, hypertension, heart disease, diabetes and various cancers. SOCIAL HISTORY: The patient is with his significant other. She is a current everyday smoker, nondrinker, non-illicit drug user. REVIEW OF SYSTEMS: Again, most prominent for shortness of breath, hypoxia and inspirational chest pain. Negative for fevers, chills. Her weight and appetite have remained stable. SKIN: No rashes or lesions. HEENT: Negative for headaches, lightheadedness or dizziness. No acute visual deficits. No hearing deficits. No sinus symptoms, sore throat or dysphagia. LYMPH: Negative for lymphoproliferative disease. CARDIAC: No history of coronary artery disease. No current angina or palpitations. PULMONARY: As per HPI. No cough. No hemoptysis presently reported. GASTROINTESTINAL: Negative for abdominal pain, nausea, vomiting, diarrhea or constipation, hematochezia or melena of stools. GENITOURINARY: No hematuria, dysuria, urinary incontinence. PSYCHIATRIC: Positive for anxiety. ENDOCRINE: Negative for diabetes or thyroid disease. NEUROLOGIC: Negative for seizure, stroke, or migraine headaches. HEMATOLOGIC: Cytopenias attributable to chemotherapy. PHYSICAL EXAMINATION: GENERAL: Very pleasant, ill-appearing 42-year-old female in no acute distress. VITAL SIGNS: Temperature 36.7, pulse 91, respiratory rate 18, blood pressure 111/76. SKIN: Warm, dry, noncyanotic without petechia, rash or ecchymosis. HEENT: Head atraumatic, normocephalic. Eyes: PERRLA, EOMI. Sclerae nonicteric. No conjunctival injection. Nares are patent without rhinorrhea or discharge. Throat is clear. Tongue is midline. Mucous membranes are moist. NECK: Supple without JVD or thyromegaly. LYMPH: No cervical, supraclavicular, axillary or inguinal palpable nodes. HEART: Regular rate and rhythm. No clicks, rubs, murmurs or gallops. LUNGS: Clear to auscultation bilaterally. ABDOMEN: Soft, nontender, nondistended, without palpable hepatosplenomegaly. EXTREMITIES: No calf tenderness or swelling. No clubbing, cyanosis or edema. NEUROLOGICALLY: Grossly intact. LABORATORY DATA: WBC count 5840, hemoglobin 10.3, platelet count 195,000. Sodium 135, potassium 3.9, chloride 101, CO2 25, creatinine 0.49, BUN 7. CTA of the chest reveals no evidence of pulmonary embolus mid lung and bibasilar parenchymal infiltrate and changes. IMPRESSION: 1. Suspected pneumonia. 2. Metastatic nonsmall cell lung cancer (PANEL INSTALLER and hepatic mets). 3. Suspected pneumonia. 4. Hypoxemia. PLAN: I was asked to visit with Jose at bedside by Dr. Rodriguez. I briefly spoke to Dr. De Oliveira about this young lady who he has not seen since 11/2017. She is now under the care of Dr. Kennedy medical oncologist at [facility] in [place]. Her most recent chemotherapy was administered on 05/02/2018 consisting of Abraxane and Cyramza. According to Dr. 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 Again, Jose is now under the care of Dr. Kennedy and has a scheduled followup for the 05/23/2018. According to Hiralgamaljohn, she wants to continue following with Dr. Kennedy and therefore will not make arrangements for her to see Dr. De Oliveira moving forward. I agree with empirically treating her for pneumonia. Antibiotics are currently being administered. Her hemoglobin and hematocrit were somewhat low on admission again not surprising because for her present regimen. Obviously if oxygen carrying capacity is needed, I would not object to a transfusion of a couple units packed RBCs. Her overall prognosis is not good obviously. Again, I personally do not feel comfortable engaging in a comfort care for patient that I personally have not been following. Frankly from an oncologic perspective, there is a little that I can offer her. I would be more than happy to help out with any particular issues she encounters along the way. Again with a relatively close followup with Dr. Kennedy, I would just stabilize her medically and allow her to return to [place] for further recommendations regarding her long-term care. Thank you very much for allowing us to participate in her care. JULIO CÉSAR
[2018-05-15] MEDS: ALBUT/IPRATROP 3MG/0.5MG NEB 3 ML VIAL NEB SCH ×3 (00:06→07:09)
[2018-05-15] MEDS: CHECK FENTANYL PATCH PLACEMENT SCH ×3 (00:11→15:41)
[2018-05-15 01:52] LABS: Hematocrit (blood only) 25.8 % (37-47); Hemoglobin 8.4 g/dL (12.0-16.0)
[2018-05-15 02:14] LABS: Albumin Level 1.9 gm/dl (3.4-5.0); BUN Creatinine Ratio 13.9 (10-20); Calcium 7.7 mg/dl (8.5-10.1); Creatinine Clr Calc Pharmacy 160.7 ml/min; Est GFR (African American) 142.2; Est GFR (Non-African American) 122.7; Magnesium 1.8 mg/dl (1.8-2.4); Potassium 3.8 mmol/L (3.5-5.1)
[2018-05-15] MEDS: PIPERACILLIN/TAZOBACTAM 3.375 GM in DEXTROSE 5% 100 ML IV SCH ×3 (02:20→18:58)
[2018-05-15 02:24] LABS: Bilirubin,Total 0.8 mg/dl (0.2-1); Total Protein 5.1 gm/dl (6.4-8.2)
[2018-05-15 02:28] LABS: Bilirubin Direct 0.5 mg/dl (0-0.2)
--- NOTE | 2018-05-15 03:50 | Progress Note ---
Date of Service May 15, 2018 Assessment & Plan (1) Multifocal pneumonia: Was called to evaluate patient. Increased O2 demand, dyspnea. Reviewed CXR--diffused opacities throughout On exam, the patient had crackles over left lung field. Normal respiratory rate on 6 L NC. Patient was febrile, 101 Plan 1. Pulmonary edema -Hold fluids, temporarily -Give Lasix 20 IV -Continue ABX, continue breathing treatments -Tylenol for fever -Follow HR and BP--any signs of instability call me, will restart fluids -If breathing continues to worsen, start BIPAP per respiratory protocol Physical Exam Vital Signs (Past 24 Hours): Last Vital Signs Temp 36.7 C 05/14/18 23:06 Pulse 93 H 05/15/18 00:06 Resp 18 05/15/18 00:06 BP 100/68 05/14/18 23:06 Pulse Ox 95 05/15/18 00:52
[2018-05-15] MEDS ORDERED: FUROSEMIDE 20 MG in SYRINGE 0 ML IV ONE (04:00)
[2018-05-15] MEDS ORDERED: ACETAMINOPHEN 325 MG TAB PO STA (04:54)
[2018-05-15] MEDS: SODIUM CHLORIDE 0.9% 1000ML 1,000 ML IV SCH ×3 (05:27→21:10)
[2018-05-15] MEDS ORDERED: AZITHROMYCIN 500 MG in DEXTROSE 5% 250 ML IV ONE (06:15)
[2018-05-15] MEDS: VANCOMYCIN HCL 1,250 MG in SODIUM CHLORIDE 0.9% 250 ML IV SCH ×3 (06:16→20:06)
--- NOTE | 2018-05-15 06:23 | XRay Report ---
XR chest 1V portable CLINICAL HISTORY: sob dyspnea COMPARISON STUDY: 05/14/2018 FINDINGS: Unchanging left basilar parenchymal infiltrative change. Unchanging segmental atelectasis r ight base. Components of pulmonary vascular congestion are present. IMPRESSION: Unchanging parenchymal infiltrate left base. Unchanging segmental atelectasis right base . The above report was generated using voice recognition software. It may contain grammatical, syntax or spelling errors. Electronically signed by: Andrea Zamora M.D. 05/15/2018 6:21 AM
[2018-05-15 07:55] LABS: Hematocrit (blood only) 28.1 % (37-47); Hemoglobin 9.2 g/dL (12.0-16.0); Mean Corpuscular Hgb Conc 32.7 g/dL (32-36); Mean Corpuscular Volume 97.9 fL (80-100); Mean Platelet Volume 9.8 fL (7.4-10.4); Nucleated RBC # (auto) 0.03 K/uL (0-0); Nucleated RBC % (auto) 0.5 %; Platelet Count 155 K/uL (130-400); RDW Coefficient of Variation 19.6 % (11.5-14.5); RDW Standard Deviation 67.4 fL (36.4-46.3); Red Blood Count 2.87 M/uL (4.2-5.4); White Blood Count 6.57 K/uL (4.8-10.8)
--- NOTE | 2018-05-15 08:05 | Progress Note ---
DATE: 05/15/2018 PULMONARY MEDICINE PROGRESS NOTE Additional records gleaned from last visit to the [facility] in [place]/[facility] on 02/22/2018 as per referral by the patient's primary care physician, Dr. Kody Kennedy. The patient has metastatic nonsmall cell lung cancer, adenocarcinoma of the left lower lobe diagnosed in May 2017 [id number] M1b with metastasis to brain, initially treated with SRS at [facility] in June 2017 and managed at that time on Alimta/pembrolizumab. The patient presented at that time with 21 new subcentimeter intracranial metastases, receiving 30 Gy in 5 fractions to 6 intracranial metastases with hypofractionated partial brain irradiation. Stereotactic radiosurgery utilizing gamma knife at [facility] was also recommended. Dr. Trejo's notation states that the most recent chemotherapy administered on 05/02/2018 consisted of Abraxane and Cyramza. 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 She is currently scheduled to see Dr. De Oliveira forward. Dr. Trejo who saw the patient in Dr. De Oliveira's absence suggested a transfusion. Reevaluate today and review patient's CT scan with radiology.
[2018-05-15] MEDS: FOLIC ACID 1 MG TAB PO SCH (08:13)
[2018-05-15] MEDS: PANTOprazole 40 MG TAB PO SCH (08:13)
[2018-05-15] MEDS: VENLAFAXINE HCL XR 37.5 MG CAPXR PO SCH (08:13)
[2018-05-15] MEDS: ENOXAPARIN INJ 40 MG/0.4 ML SYR SQ SCH (08:16)
[2018-05-15 08:30] LABS: Anisocytosis Present; Basophils # (auto) 0.01 K/uL (0-0.2); Basophils % (auto) 0.2 %; Immature Granulocytes # (auto) 0.13 K/uL (0.00-0.02); Lymphocytes # (auto) 1.16 K/uL (1.2-3.4); Lymphocytes % (auto) 17.7 %; Monocytes # (auto) 0.59 K/uL (0.11-0.59); Neutrophils # (auto) 4.68 K/uL (1.4-6.5); Neutrophils % (auto) 71.1 %; Polychromasia 1+
--- NOTE | 2018-05-15 10:47 | Hospitalist Progress Note ---
Date of Service May 15, 2018 Assessment & Plan (1) Multifocal pneumonia: Typical vs atypical bacterial pathogens vs nonbacterial (fungal, etc) vs inflammatory pneumonitis due to chemo vs other (vs combination of factors). Appreciate heme/onc and pulmonary consultations. Day #2 of Zosyn, Vanco, and azithromycin for atypical coverage. Blood cultures thus far negative. Despite her c/o dyspnea her O2 sats, respiratory rates, etc remain stable today. Defer to pulmonary if patient will need bronch. Repeat cxr today also stable. Present on Admission?: Yes (2) Acute respiratory failure with hypoxia: Secondary to infectious pneumonia and/or inflammatory pneumonitis. Appreciate Dr. Llanos's consultation. He added high-dose IV decadron today - agree w/ such. Cont IV abx therapy -day #2 today. Supportive care. 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 s/p gamma knife therapy in 02/2018 for recurrent brain mets at [facility]. Patient reports no head imaging since then. Has had headaches since weaning of steroids [address] head obtained today - no obvious new mets. If headaches/etc persist then obtain MRI brain. Has failed multiple chemotherapy and immunotherapy regimens Current regimen -Cyramza and Abraxane therapy- last dose 05/02/18. Follows with Dr. Kennedy - [facility]. has followed with Dr. De Oliveira at [facility]. Appreciate Brooklynn Escalona and Yennifer recommendations CBC in am Spoke with pharmacy - cyramza and abraxane can cause bleeding but it is largely due to antineoplastic effects on bone marrow and causing thrombocytopenia no absolute contraindication to DVT proph w/ heparin will counselor aid patient on this high risk of DVT Present on Admission?: Yes (4) Immunocompromised patient: secondary to lung CA on chemotherapy (5) Elevated alkaline phosphatase level: Due to liver mets? Could she have bone mets as well? follow. (6) Anemia: daily CBC hold on PRBCs today (7) Chest pain on breathing: Pleuritic pain likely due to pneumonia. No PEs on CTA chest. Has prior h/o pericarditis - echo w/o effusion - this doesn't rule out pericarditis but patient does not have worsening of symptoms in supine position thus pericarditis not suspected. Incentive spirometry. Titrate pain meds. (8) Depression: Continue olanzapine 10mg po qhs. Consider psych consult. (9) Tachycardia: change duonebs to xopenex/atrovent. check TSH in am. suspect some of tachycardia is due to acute hypoxic resp failure. follow on tele. echo with preserved EF. (10) Chronic pain syndrome: cont fentanyl patches add bowel regimen of senna with miralax (11) DVT prophylaxis: High risk for DVT given ongoing malignancy Lovenox 40mg SQ daily see discussion above re: pt concern of bleeding on DVT proph plan of care d/w Dr. escalona, Dr. De Oliveira, and Dr. Llanos total time today - 70 minutes including coordinating care, looking at records, ordering tests, etc. Subjective Met with patient / this am during AM rounds. patient c/o dyspnea. she was expecting faster improvement in her pulmonary symptoms and was dejected about how she felt today. she continues to have mid-chest/central pleuritic pain. denies lateral chest pain. no orthopnea. she reports having weaned off decadron as of 2 weeks ago. had been taking this for weeks-months due to concern of inflammatory pneumonitis as a result of past chemotherapy. c/o constipation in addition to the above. Constitutional: + fever (last pm), + fatigue and + anorexia Respiratory: + cough, + dyspnea, + dyspnea on exertion and + pain on inspiration; no hemoptysis Cardiovascular: as per Subjective / HPI and + chest pain Gastrointestinal: no abdominal pain, no nausea and no vomiting Psychiatric: + depression and + abnormal sleep pattern Physical Exam Vital Signs (Past 24 Hours): Last Vital Signs Temp 36.8 C 05/15/18 07:51 Pulse 72 05/15/18 07:51 Resp 20 05/15/18 07:51 BP 109/75 05/15/18 07:51 Pulse Ox 95 05/15/18 07:51 Constitutional: + ill appearing; + not well developed, + not well nourished and no acute distress brito facies with acne ENMT: external ear and nose normal, oropharynx normal no thrush plaques Respiratory: normal respiratory effort; no respiratory distress Auscultation: + crackles (both bases); no rhonchi and no wheezes Cardiovascular: Rate/Rhythm: regular rhythm and + tachycardic Heart Sounds: normal S1 and normal S2; no murmur Vessels: posterior tibial pulses present and dorsalis pedis pulses present; no JVD Gastrointestinal (Abdomen): normal bowel sounds, soft, nontender, no hepatosplenomegaly Inspection/Auscultation: + abdomen distended (mild) Skin: pallor, facial acne Psychiatric: Orientation: alert; + not oriented x 3 (did not know the day) Mood: + depressed mood Results & Data Laboratory Results Laboratory Results - last 24 hr 05/15/18 05/15/18 05/15/18 01:35 01:35 01:43 WBC RBC Hgb 8.4 L Hct 25.8 L MCV MCH MCHC RDW Std Deviation RDW Coeff of Cosmo Plt Count MPV Immature Gran % (Auto) Neut % (Auto) Lymph % (Auto) Barber % (Auto) Eos % (Auto) Baso % (Auto) Immature Gran # (Auto) Neut # (Auto) Lymph # (Auto) Barber # (Auto) Eos # (Auto) Baso # (Auto) Absolute Nucleated RBC Nucleated RBC % (auto) Polychromasia Anisocytosis Sodium 139 Potassium 3.8 Chloride 108 H Carbon Dioxide 27 Anion Gap 4.0 BUN 6 L Creatinine 0.46 L Est Cr Clr Drug Dosing 160.7 Est GFR ( Amer) 142.2 Est GFR (Non-Af Amer) 122.7 BUN/Creatinine Ratio 13.9 Glucose 96 Calcium 7.7 L Magnesium 1.8 Total Bilirubin 0.8 Direct Bilirubin 0.5 H D AST 44 H ALT 53 Alkaline Phosphatase 263 H Total Protein 5.1 L Albumin 1.9 L Vancomycin Trough Blood Type O Positive Antibody Screen NEGATIVE 05/15/18 05/15/18 07:43 13:15 WBC 6.57 RBC 2.87 L Hgb 9.2 L Hct 28.1 L MCV 97.9 MCH 32.1 MCHC 32.7 RDW Std Deviation 67.4 H RDW Coeff of Cosmo 19.6 H Plt Count 155 MPV 9.8 Immature Gran % (Auto) 2.0 Neut % (Auto) 71.1 Lymph % (Auto) 17.7 Barber % (Auto) 9.0 Eos % (Auto) 0.0 Baso % (Auto) 0.2 Immature Gran # (Auto) 0.13 H Neut # (Auto) 4.68 Lymph # (Auto) 1.16 L Barber # (Auto) 0.59 Eos # (Auto) 0.00 Baso # (Auto) 0.01 Absolute Nucleated RBC 0.03 H Nucleated RBC % (auto) 0.5 Polychromasia 1+ Anisocytosis Present Sodium Potassium Chloride Carbon Dioxide Anion Gap BUN Creatinine Est Cr Clr Drug Dosing Est GFR ( Amer) Est GFR (Non-Af Amer) BUN/Creatinine Ratio Glucose Calcium Magnesium Total Bilirubin Direct Bilirubin AST ALT Alkaline Phosphatase Total Protein Albumin Vancomycin Trough 11.2 Blood Type Antibody Screen Diagnostic Findings cxr - b/l infiltrates unchanged from prior chest x-ray. (1) Anemia Anemia type: unspecified type Qualified Code(s): D64.9 - Anemia, unspecified (2) Depression Depression Type: unspecified Qualified Code(s): F32.9 - Major depressive disorder, single episode, unspecified
--- NOTE | 2018-05-15 11:57 | Progress Note ---
DATE: 05/15/2018 PULMONARY MEDICINE PROGRESS NOTE Chart reviewed, patient examined. SUBJECTIVE: The patient feels extremely dyspneic, is lying on her right side with midsternal chest discomfort that is pleuritic in nature. I reviewed her old records from the [facility] as well as Dr. De Oliveira's last record and Dr. Trejo's notation as well. The patient has undergone bronchoscopic evaluation in the fall, according to the patient's , they did not feel that the x-ray findings were bacterial infection, but rather chemotherapy-induced lung disease and weaned from her Decadron just over the past 2 weeks. Historically, the patient has felt the best when taking Decadron, especially the days of chemotherapy when she is prophylactically treated with 16 mg of Decadron before the dosing. The current CAT scan of the chest clearly shows marked increase in pneumonic infiltrate and felt this is quite extensive while the left lower lobe findings could represent lymphangitic carcinomatosis, I think that would be unlikely and I still think at this point we are looking at a bacterial etiology or perhaps even an opportunistic infection given her immunosuppression. Nevertheless, the antibiotic selection is excellent and in addition to aerosolized bronchodilator, we will add IV Decadron to her regimen. Her overall prognosis is poor.
--- NOTE | 2018-05-15 12:05 | CT Scan Report ---
CT head/brain wo con CLINICAL HISTORY: History of brain metastasis status post gamma knife surgery. Headaches. COMPARISON STUDY: MRI dated 01/02/2018, CT scan dated 11/28/2008 TECHNIQUE: Axial CT of the brain is performed from the vertex to the skull base. IV contrast was not administered for this examination. A dose lowering technique was utilized adhering to the principles of ALARA. CT DOSE: 537.48 mGy.cm FINDINGS: No intra or extra-axial mass lesions are visualized. There is no CT evidence of acute cortical infarc tion. There is no evidence of midline shift. There is no acute hemorrhage. No calvarial fractures ar e visualized. There is a small calcific density in the region of the right cerebellar peduncle. This previously cor responded to a ring-enhancing lesion. This likely represents a treated metastasis. There is no evidence of pathologic ventricular dilatation. There is no evidence of acute sinusitis IMPRESSION: 1. Small calcification in the region of the right cerebellar peduncle, likely corresponding to a anthony junior metastasis 2. No evidence of acute hemorrhage 3. No definite intracranial masses. It should be noted that a contrast MRI is much more sensitive for the detection of metastatic disease. Electronically signed by: Preston Dumont M.D. 05/15/2018 12:03 PM
[2018-05-15] MEDS: DEXAMETHASONE SOD PHOSPHATE 6 MG in SYRINGE 0 ML IV SCH ×3 (12:07→23:40)
[2018-05-15] MEDS: POLYETHYLENE (MIRALAX) 17 GM PACK PO SCH (12:08)
[2018-05-15] MEDS: SENNA 8.6 MG TAB PO SCH (12:08)
[2018-05-15] MEDS ORDERED: VANCOMYCIN TROUGH ONE (13:30)
[2018-05-15] MEDS ORDERED: XOPENEX/ATROVENT 1.25mg/0.5MG NEB COMBO NEB SCH (14:00)
[2018-05-15] MEDS: IPRATROPIUM BROMIDE NEB SOLN 0.02% 2.5 ML VIAL INH SCH ×2 (14:11→20:12)
[2018-05-15] MEDS: LEVALBUTEROL 1.25MG/0.5ML NEB INH SCH ×2 (14:11→20:12)
--- NOTE | 2018-05-15 14:50 | Pharmacy Report ---
Pharmacy Abx Dose Short Note - Date of Service May 15, 2018 - Assessment & Plan Assessment 42 year old F receiving vancomycin, Zosyn and now Zithromax for treatment of pneumonia in the setting of stage IV lung cancer. Day # 2 of vancomycin and Zosyn therapy. Day #1 of Zithromax therapy. Blood cultures still pending. MRSA swab negative but vancomycin being continued for at least 48 hours SCr stable, remains at 0.46 mg/dL today Plan Vancomycin * Trough level of 11.2 mcg/mL is subtherapeutic * Change to 1250 mg IV every 6 hours * Goal trough level for pneumonia : 15 to 20 mcg/mL * Trough level ordered for: 05/16/18 prior to the 4th dose. Hesitant to wait longer to obtain trough in setting of q6h dosing. Pharmacy will continue to follow and will adjust dose/frequency as necessary. Thank you.
[2018-05-15] MEDS: HYDROmorphone INJ 1 MG/ML SYRINGE IV PRN ×3 (15:56→22:03)
[2018-05-15] MEDS: OLANZapine 10 MG TAB PO SCH (21:09)
[2018-05-15] MEDS: HEPARIN 100 UNIT/ML 5ML FLUSH FLUSH PRN (22:31)
[2018-05-16] MEDS: CHECK FENTANYL PATCH PLACEMENT SCH ×4 (00:01→22:14)
[2018-05-16] MEDS: LEVALBUTEROL 1.25MG/0.5ML NEB INH SCH ×4 (01:59→20:24)
[2018-05-16] MEDS: IPRATROPIUM BROMIDE NEB SOLN 0.02% 2.5 ML VIAL INH SCH ×4 (01:59→20:24)
[2018-05-16] MEDS: PIPERACILLIN/TAZOBACTAM 3.375 GM in DEXTROSE 5% 100 ML IV SCH ×3 (02:03→18:43)
[2018-05-16] MEDS: VANCOMYCIN HCL 1,250 MG in SODIUM CHLORIDE 0.9% 250 ML IV SCH ×4 (02:03→19:37)
[2018-05-16] MEDS: AZITHROMYCIN 250 MG in DEXTROSE 5% 250 ML IV SCH (05:43)
[2018-05-16] MEDS: DEXAMETHASONE SOD PHOSPHATE 6 MG in SYRINGE 0 ML IV SCH ×4 (05:43→23:27)
[2018-05-16] MEDS: HYDROmorphone INJ 1 MG/ML SYRINGE IV PRN ×5 (06:00→21:17)
[2018-05-16 06:44] LABS: Hematocrit (blood only) 27.7 % (37-47); Mean Corpuscular Hgb Conc 32.5 g/dL (32-36); Mean Corpuscular Volume 98.9 fL (80-100); Mean Platelet Volume 10.8 fL (7.4-10.4); Nucleated RBC # (auto) 0.02 K/uL (0-0); Nucleated RBC % (auto) 0.3 %; Platelet Count 201 K/uL (130-400); RDW Coefficient of Variation 19.6 % (11.5-14.5); RDW Standard Deviation 69.6 fL (36.4-46.3); White Blood Count 5.91 K/uL (4.8-10.8)
[2018-05-16 06:58] LABS: BUN Creatinine Ratio 11.4 (10-20); Calcium 8.7 mg/dl (8.5-10.1); Creatinine Clr Calc Pharmacy 152.1 ml/min; Est GFR (African American) 134.9; Est GFR (Non-African American) 116.4; Potassium 3.8 mmol/L (3.5-5.1)
[2018-05-16] MEDS: FOLIC ACID 1 MG TAB PO SCH (07:53)
[2018-05-16] MEDS: SENNA 8.6 MG TAB PO SCH (07:53)
[2018-05-16] MEDS: VENLAFAXINE HCL XR 37.5 MG CAPXR PO SCH (07:53)
[2018-05-16] MEDS: POLYETHYLENE (MIRALAX) 17 GM PACK PO SCH (07:53)
[2018-05-16] MEDS: ENOXAPARIN INJ 40 MG/0.4 ML SYR SQ SCH (07:54)
[2018-05-16] MEDS: PANTOprazole 40 MG TAB PO SCH (09:04)
[2018-05-16] MEDS: SODIUM CHLORIDE 0.9% 1000ML 1,000 ML IV SCH (10:35)
[2018-05-16] MEDS ORDERED: VANCOMYCIN TROUGH ONE (13:30)
--- NOTE | 2018-05-16 15:29 | Pharmacy Report ---
Pharmacy Abx Dose Short Note - Date of Service May 16, 2018 - Assessment & Plan Assessment * 42 yo F with pneumonia * PMH stage IV lung cancer * On Zosyn (day 3), vancomycin (day 3) and azithromycin (day 2) * Cultures * Blood cultures NGTD * Nasal MRSA swab negative (increased risk of false negative with pulmonary obstruction / cancer) * SCr stable Vancomycin * Goal vancomycin trough 15-20 mcg/mL * Trough of 15.2 mcg/mL is therapeutic * Patient is receiving a significant amount of vancomycin at a tighter than usual interval of q6h. This is appropriate for now as evidenced by a therapeutic trough today, but will obtain an early repeat level to ensure this more aggressive dose doesn't cause significant accumulation Plan * Continue vancomycin 1250 mg IV q6h * Repeat trough 05/17 @ 1330 Pharmacy will continue to follow and will adjust dose/frequency as necessary. Thank you.
[2018-05-16] MEDS ORDERED: SANCUSO EXT ONE ×2 (16:00)
--- NOTE | 2018-05-16 18:01 | Progress Note ---
DATE: 05/16/2018 TIME: 15:00. Chart reviewed, patient examined. ASSESSMENT/SUBJECTIVE: The patient is still quite listless, but appears less dyspneic and more alert today. She was started on IV Decadron in addition to her antibiotics and pulmonary toilet yesterday (see previous note). She has been placed on IV Zosyn, vancomycin and azithromycin. Blood cultures have been negative. She remains with stage IV adenocarcinoma of the lung with metastasis to liver and brain diagnosed in May 2017. She is status post gamma knife therapy in February 2018 for recurrent brain metastasis at [facility] in [place]. OBJECTIVE: CURRENT VITAL SIGNS: Blood pressure 113/68, pulse 115 and regular, respiratory rate 17, temperature 36.4, O2 sat 93% on 4 liters. SKIN: With eruptions on face, neck and upper chest, presumably from chemotherapy itch or steroid induced acne. Alopecia is noted. NECK: Neck veins not distended at 45 degrees. LUNGS: Still with egophony left base, but distant P and A. CARDIAC: Regular rhythm. I do not appreciate a gallop. ABDOMEN: Soft, scaphoid. No evidence of hepatosplenomegaly. EXTREMITIES: Trace pedal edema bilat. No cyanosis. LABORATORY DATA: Echocardiogram showed normal LVEF, no significant valvular problems, no discernible pericardial effusion. White count 5900, H and H 9 and 27. The patient apparently was transfused. OVERALL ASSESSMENT: A 42-year-old stage IV adenocarcinoma to the liver and brain, currently on triple antibiotic therapy, high dose steroid therapy and pulmonary toilet with some modest improvement within the past 24 hours. Would continue current therapy and we will follow daily with you. CORAZOND
[2018-05-16] MEDS: OLANZapine 10 MG TAB PO SCH (19:41)
[2018-05-16] MEDS ORDERED: NON-FORMULARY PATIENT'S OWN MED SCH (19:45)
--- NOTE | 2018-05-16 21:20 | Hospitalist Progress Note ---
Date of Service May 16, 2018 Assessment & Plan (1) Multifocal pneumonia: Overall appears clinically improved today. Typical vs atypical bacterial pathogens vs nonbacterial (fungal, etc) vs inflammatory pneumonitis due to chemo vs other (vs combination of factors). Appreciate heme/onc and pulmonary consultations. Day #3 of Zosyn, Vanco, and azithromycin for atypical coverage. Blood cultures cont to be negative. Cont steroids for possible inflammatory pneumonitis related to prior chem otherapy use. Present on Admission?: Yes (2) Acute respiratory failure with hypoxia: Secondary to infectious pneumonia and/or inflammatory pneumonitis. Appreciate Dr. Llanos's consultation. Cont IV abx therapy -day #3 today. Cont IV decadron - day #2 today. Looks a little better today. (3) Lung cancer metastatic to brain: Stage IV adenocarcinoma of lung with mets to liver and brain - diagnosed in 05/2017. s/p gamma knife therapy in 02/2018 for recurrent brain mets at [facility]. CT head obtained yesterday - no obvious new mets. If headaches/etc persist then obtain MRI brain. Has failed multiple chemotherapy and immunotherapy regimens Current regimen -Cyramza and Abraxane therapy- last dose 05/02/18. Follows with Dr. Kennedy - [facility]. has followed with Dr. De Oliveira at [facility]. Appreciate Brooklynn Trejo and Yennifer recommendations Dr De Oliveira spoke with the cancer center at [facility] and they are pleased with current care plan we have in place at this time; new new recs from [place] Spoke with pharmacy - cyramza and abraxane can cause bleeding but it is largely due to antineoplastic effects on bone marrow and causing thrombocytopenia no absolute contraindication to DVT proph w/ heparin patient counseled about this today and she IS willing to take DVT proph given her high risk of VTE (4) Immunocompromised patient: secondary to lung CA on chemotherapy (5) Elevated alkaline phosphatase level: Due to liver mets? Could she have bone mets as well? follow. (6) Anemia: daily CBC H/H stable and acceptable today (7) Chest pain on breathing: Pleuritic pain likely due to pneumonia. No PEs on CTA chest. Has prior h/o pericarditis - echo w/o effusion - doubt pericarditis Incentive spirometry. Titrate pain meds. (8) Depression: Continue olanzapine 10mg po qhs. Consider psych consult but pt thus far declining. (9) Tachycardia: improved today. xopenex in farnaz of albuterol helping. TSH wnl. H/H stable. follow. 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 stable overnight with NSR or sinus tach Constitutional: + fatigue; no fever Respiratory: + cough and + dyspnea; no hemoptysis Cardiovascular: as per Subjective / HPI and + chest pain Gastrointestinal: no abdominal pain and no constipation (had 2 stools today) Physical Exam Vital Signs (Past 24 Hours): Last Vital Signs Temp 36.4 C L 05/16/18 18:55 Pulse 98 H 05/16/18 20:26 Resp 16 05/16/18 20:26 BP 122/82 05/16/18 18:55 Pulse Ox 97 05/16/18 20:26 Constitutional: + ill appearing; + not well developed, + not well nourished and no acute distress but looks a bit better today ENMT: external ear and nose normal, oropharynx normal Respiratory: normal respiratory effort; no respiratory distress Auscultation: + crackles (both bases); no rhonchi and no wheezes Cardiovascular: Rate/Rhythm: regular rhythm and + tachycardic Heart Sounds: normal S1 and normal S2; no murmur Vessels: posterior tibial pulses present and dorsalis pedis pulses present; no JVD Gastrointestinal (Abdomen): normal bowel sounds, soft, nontender, no hepatosplenomegaly Psychiatric: Orientation: alert and oriented x 3 Mood: + depressed mood (but a little more cheery today) Results & Data Laboratory Results Laboratory Results - last 24 hr 05/16/18 05/16/18 05/16/18 06:02 06:02 13:24 WBC 5.91 RBC 2.80 L Hgb 9.0 L Hct 27.7 L MCV 98.9 MCH 32.1 MCHC 32.5 RDW Std Deviation 69.6 H RDW Coeff of Cosmo 19.6 H Plt Count 201 MPV 10.8 H Absolute Nucleated RBC 0.02 H Nucleated RBC % (auto) 0.3 Sodium 143 Potassium 3.8 Chloride 111 H Carbon Dioxide 25 Anion Gap 7.0 BUN 6 L Creatinine 0.54 L Est Cr Clr Drug Dosing 152.1 Est GFR ( Amer) 134.9 Est GFR (Non-Af Amer) 116.4 BUN/Creatinine Ratio 11.4 Glucose 139 H Calcium 8.7 TSH 0.341 Vancomycin Trough 15.2 (1) Anemia Anemia type: unspecified type Qualified Code(s): D64.9 - Anemia, unspecified (2) Depression Depression Type: unspecified Qualified Code(s): F32.9 - Major depressive disorder, single episode, unspecified
[2018-05-16] MEDS: HEPARIN 100 UNIT/ML 5ML FLUSH FLUSH PRN (22:07)
[2018-05-17] MEDS: HYDROmorphone INJ 1 MG/ML SYRINGE IV PRN ×5 (00:19→21:14)
[2018-05-17] MEDS: VANCOMYCIN HCL 1,250 MG in SODIUM CHLORIDE 0.9% 250 ML IV SCH ×4 (01:46→21:12)
[2018-05-17] MEDS: PIPERACILLIN/TAZOBACTAM 3.375 GM in DEXTROSE 5% 100 ML IV SCH ×3 (01:51→19:34)
[2018-05-17] MEDS: OXYCODONE HCL IR 5 MG TAB (IMMEDIATE RELEASE) PO PRN (01:54)
[2018-05-17] MEDS: IPRATROPIUM BROMIDE NEB SOLN 0.02% 2.5 ML VIAL INH SCH ×4 (01:59→19:33)
[2018-05-17] MEDS: LEVALBUTEROL 1.25MG/0.5ML NEB INH SCH ×4 (02:00→19:33)
[2018-05-17] MEDS: DEXAMETHASONE SOD PHOSPHATE 6 MG in SYRINGE 0 ML IV SCH ×3 (05:45→18:01)
[2018-05-17] MEDS: AZITHROMYCIN 250 MG in DEXTROSE 5% 250 ML IV SCH (05:46)
[2018-05-17 06:05] LABS: Hematocrit (blood only) 25.3 % (37-47); Hemoglobin 8.1 g/dL (12.0-16.0); Mean Platelet Volume 10.3 fL (7.4-10.4); Nucleated RBC # (auto) 0.05 K/uL (0-0); Nucleated RBC % (auto) 0.5 %; Platelet Count 214 K/uL (130-400); RDW Coefficient of Variation 20.2 % (11.5-14.5); RDW Standard Deviation 71.7 fL (36.4-46.3); Red Blood Count 2.53 M/uL (4.2-5.4); White Blood Count 9.68 K/uL (4.8-10.8)
[2018-05-17 06:43] LABS: BUN Creatinine Ratio 17.4 (10-20); Calcium 8.2 mg/dl (8.5-10.1); Creatinine Clr Calc Pharmacy 188.7 ml/min; Est GFR (African American) 144.3; Est GFR (Non-African American) 124.5; Potassium 4.2 mmol/L (3.5-5.1)
[2018-05-17] MEDS: SENNA 8.6 MG TAB PO SCH (09:04)
[2018-05-17] MEDS: PANTOprazole 40 MG TAB PO SCH (09:04)
[2018-05-17] MEDS: CHECK FENTANYL PATCH PLACEMENT SCH ×3 (09:04→23:26)
[2018-05-17] MEDS: VENLAFAXINE HCL XR 37.5 MG CAPXR PO SCH (09:05)
[2018-05-17] MEDS: POLYETHYLENE (MIRALAX) 17 GM PACK PO SCH (09:05)
[2018-05-17] MEDS: FOLIC ACID 1 MG TAB PO SCH (09:05)
[2018-05-17] MEDS: ENOXAPARIN INJ 40 MG/0.4 ML SYR SQ SCH (09:05)
[2018-05-17] MEDS: HEPARIN 100 UNIT/ML 5ML FLUSH FLUSH PRN (09:06)
[2018-05-17] MEDS: fentaNYL 75 MCG/HR TDSY TD SCH (11:13)
[2018-05-17] MEDS ORDERED: VANCOMYCIN TROUGH ONE (13:30)
--- NOTE | 2018-05-17 15:16 | Pharmacy Report ---
Pharmacy Abx Dose Short Note - Date of Service May 17, 2018 - Assessment & Plan Assessment * 42 yo F with pneumonia * PMH stage IV lung cancer * On Zosyn (day 4), vancomycin (day 4) and azithromycin (day 3) * Cultures * Blood cultures NGTD * Nasal MRSA swab negative (increased risk of false negative with pulmonary obstruction / cancer) * SCr stable Vancomycin * Goal vancomycin trough 15-20 mcg/mL * Trough of 19 mcg/mL is therapeutic * Patient is receiving a significant amount of vancomycin at a tighter than usual interval of q6h. * While this level is approaching the high end of goal, it is slightly falsely elevated d/t the timing of her doses and lab draw. * This dosing regimen appears to be appropriate at this time. Plan * Continue vancomycin 1250 mg IV q6h * Will order another level in a couple of days if patient remains on vancomycin therapy. * Consider adjusting to a q8h regimen. Pharmacy will continue to follow and will adjust dose/frequency as necessary. Thank you.
--- NOTE | 2018-05-17 19:51 | Hospitalist Progress Note ---
Date of Service May 17, 2018 Assessment & Plan (1) Multifocal pneumonia: Stable/slow improvement. Typical vs atypical bacterial pathogens vs nonbacterial (fungal, etc) vs inflammatory pneumonitis due to chemo vs other (vs combination of factors). Appreciate heme/onc and pulmonary consultations. Day #4 of Zosyn, Vanco, and azithromycin for atypical coverage. Stop zithromax after tomorrow's dose. Blood cultures negative. Cont steroids for possible inflammatory pneumonitis related to prior chemotherapy use. (2) Acute respiratory failure with hypoxia: Secondary to infectious pneumonia and/or inflammatory pneumonitis. Appreciate Dr. Llanos's consultation. Cont IV abx therapy -day #4 today. Cont IV decadron - day #3 today - but wean to q8h dosing. Slowly improving. (3) Lung cancer metastatic to brain: Stage IV adenocarcinoma of lung with mets to liver and brain - diagnosed in 05/2017. s/p gamma knife therapy in 02/2018 for recurrent brain mets at [facility]. CT head obtained this admission - no obvious new mets. If headaches/etc persist then obtain MRI brain. Has failed multiple chemotherapy and immunotherapy regimens Current regimen -Cyramza and Abraxane therapy- last dose 05/02/18. Follows with Dr. Kennedy - [facility]. has followed with Dr. De Oliveira at [facility]. Appreciate Brooklynn Trejo and Yennifer recommendations Dr De Oliveira spoke with the cancer center at [facility] and they are pleased with current care plan we have in place at this time; new new recs from [place] (4) Immunocompromised patient: secondary to lung CA on chemotherapy (5) Elevated alkaline phosphatase level: Due to liver mets? Could she have bone mets as well? follow. repeat later this admission. (6) Anemia: daily CBC H/H stable would not Tx at this time (7) Chest pain on breathing: Pleuritic pain likely due to pneumonia. No PEs on CTA chest. Has prior h/o pericarditis - echo w/o effusion - doubt pericarditis however. Incentive spirometry. Titrate pain meds. Overall her pain is improving. (8) Depression: Continue olanzapine 10mg po qhs. Consider psych consult but pt thus far declining. (9) Tachycardia: TSH wnl. H/H stable. follow. if tele is stable overnight can likely move to med/surg tomorrow. (10) Chronic pain syndrome: cont fentanyl patches cont bowel regimen of senna with miralax (11) DVT prophylaxis: Lovenox 40mg SQ daily patient is finally taking PT,OT evals updated progressing albeit slowly care d/w Dr Llanos today Subjective tele - NSR with periods of sinus tach-- latter has been much less patient feeling better minimal cough less pleuritic pain while working with therapy today she did desaturate quickly and had POTTER /daughter at bedside today; questions answered eating better overall Constitutional: + fatigue; no fever Respiratory: + dyspnea on exertion Cardiovascular: as per Subjective / HPI, + chest pain and + edema; no orthopnea and no paroxysmal nocturnal dyspnea Gastrointestinal: no abdominal pain Physical Exam Vital Signs (Past 24 Hours): Last Vital Signs Temp 36.3 C L 05/17/18 15:43 Pulse 71 05/17/18 19:34 Resp 18 05/17/18 19:34 BP 139/88 05/17/18 15:43 Pulse Ox 96 05/17/18 19:34 Constitutional: + ill appearing; + not well developed, + not well nourished and no acute distress again looks a little better than previous ENMT: external ear and nose normal, oropharynx normal Respiratory: normal respiratory effort; no respiratory distress Auscultation: + crackles (both bases); no rhonchi and no wheezes Cardiovascular: Rate/Rhythm: regular rate and regular rhythm Heart Sounds: normal S1 and normal S2; no murmur Vessels: posterior tibial pulses present and dorsalis pedis pulses present; no JVD Extremities: + edema (<1+ b/l) Gastrointestinal (Abdomen): normal bowel sounds, soft, nontender, no hepatosplenomegaly Psychiatric: Orientation: alert and oriented x 3 Results & Data Laboratory Results Laboratory Results - last 24 hr 05/17/18 05/17/18 05/17/18 05:38 05:38 13:17 WBC 9.68 RBC 2.53 L Hgb 8.1 L Hct 25.3 L MCV 100.0 MCH 32.0 MCHC 32.0 RDW Std Deviation 71.7 H RDW Coeff of Cosmo 20.2 H Plt Count 214 MPV 10.3 Absolute Nucleated RBC 0.05 H Nucleated RBC % (auto) 0.5 Sodium 143 Potassium 4.2 Chloride 113 H Carbon Dioxide 29 Anion Gap 1.0 L BUN 8 Creatinine 0.44 L Est Cr Clr Drug Dosing 188.7 Est GFR ( Amer) 144.3 Est GFR (Non-Af Amer) 124.5 BUN/Creatinine Ratio 17.4 Glucose 129 H Calcium 8.2 L Vancomycin Trough 19.0 (1) Anemia Anemia type: unspecified type Qualified Code(s): D64.9 - Anemia, unspecified (2) Depression Depression Type: unspecified Qualified Code(s): F32.9 - Major depressive disorder, single episode, unspecified
[2018-05-17] MEDS: OLANZapine 10 MG TAB PO SCH (21:13)
[2018-05-18] MEDS: HYDROmorphone INJ 1 MG/ML SYRINGE IV PRN ×6 (00:12→21:23)
[2018-05-18] MEDS: DEXAMETHASONE SOD PHOSPHATE 6 MG in SYRINGE 0 ML IV SCH ×3 (01:07→17:39)
[2018-05-18] MEDS: VANCOMYCIN HCL 1,250 MG in SODIUM CHLORIDE 0.9% 250 ML IV SCH ×4 (01:08→19:39)
[2018-05-18] MEDS: LEVALBUTEROL 1.25MG/0.5ML NEB INH SCH ×4 (01:47→19:44)
[2018-05-18] MEDS: IPRATROPIUM BROMIDE NEB SOLN 0.02% 2.5 ML VIAL INH SCH ×4 (01:48→19:44)
[2018-05-18] MEDS: PIPERACILLIN/TAZOBACTAM 3.375 GM in DEXTROSE 5% 100 ML IV SCH ×3 (03:54→18:29)
[2018-05-18] MEDS: AZITHROMYCIN 250 MG in DEXTROSE 5% 250 ML IV SCH (05:29)
[2018-05-18 06:05] LABS: Hemoglobin 8.4 g/dL (12.0-16.0); Mean Corpuscular Hgb Conc 31.1 g/dL (32-36); Mean Corpuscular Volume 102.3 fL (80-100); Mean Platelet Volume 9.9 fL (7.4-10.4); Nucleated RBC # (auto) 0.18 K/uL (0-0); Nucleated RBC % (auto) 1.5 %; Platelet Count 240 K/uL (130-400); RDW Coefficient of Variation 20.5 % (11.5-14.5); RDW Standard Deviation 74.7 fL (36.4-46.3); Red Blood Count 2.64 M/uL (4.2-5.4); White Blood Count 11.38 K/uL (4.8-10.8)
[2018-05-18 06:41] LABS: BUN Creatinine Ratio 15.4 (10-20); Calcium 8.2 mg/dl (8.5-10.1); Creatinine Clr Calc Pharmacy 134.8 ml/min; Est GFR (African American) 128.9; Est GFR (Non-African American) 111.2; Potassium 4.1 mmol/L (3.5-5.1)
[2018-05-18] MEDS: SENNA 8.6 MG TAB PO SCH (09:20)
[2018-05-18] MEDS: VENLAFAXINE HCL XR 37.5 MG CAPXR PO SCH (09:20)
[2018-05-18] MEDS: PANTOprazole 40 MG TAB PO SCH (09:20)
[2018-05-18] MEDS: CHECK FENTANYL PATCH PLACEMENT SCH ×5 (09:20→23:25)
[2018-05-18] MEDS: FOLIC ACID 1 MG TAB PO SCH (09:21)
[2018-05-18] MEDS: ENOXAPARIN INJ 40 MG/0.4 ML SYR SQ SCH (09:21)
[2018-05-18] MEDS: POLYETHYLENE (MIRALAX) 17 GM PACK PO SCH (09:21)
[2018-05-18] MEDS: FUROSEMIDE 20 MG TAB PO SCH (10:09)
[2018-05-18] MEDS: HEPARIN 100 UNIT/ML 5ML FLUSH FLUSH PRN (15:07)
[2018-05-18] MEDS ORDERED: LORazepam 1 MG TAB ONE (15:26)
[2018-05-18] MEDS: LORazepam 1 MG TAB PO SCH ×2 (15:28→20:51)
--- NOTE | 2018-05-18 16:01 | XRay Report ---
XR chest 2V routine CLINICAL HISTORY: b/l pneumonia, interval change COMPARISON STUDY: 05/15/2018 FINDINGS: Cardiac and mediastinal contours remain stable. There is a right-sided A-Port catheter unch anged in position. There are persistent bilateral pulmonary airspace opacities similar to the prior s tudy. There are trace bilateral pleural effusions.[ IMPRESSION: No significant change in the persistent bilateral pulmonary airspace opacities. Trace ple ural effusions are suspected. Electronically signed by: Preston Dumont M.D. 05/18/2018 3:59 PM
[2018-05-18] MEDS: fentaNYL 12 MCG/HR TDSY TD SCH (16:20)
[2018-05-18] MEDS: fentaNYL 75 MCG/HR TDSY TD SCH (16:20)
[2018-05-18] MEDS: NYSTATIN SUSP 500,000 U/5 ML UDC PO SCH ×2 (17:00→20:52)
[2018-05-18] MEDS: OXYCODONE HCL IR 5 MG TAB (IMMEDIATE RELEASE) PO PRN (19:40)
[2018-05-18] MEDS: OLANZapine 10 MG TAB PO SCH (20:52)
--- NOTE | 2018-05-18 21:09 | Hospitalist Progress Note ---
Date of Service May 18, 2018 Assessment & Plan (1) Benzodiazepine withdrawal: patient w/o her usual ativan for 5+ days. many of her sx's today (anxiety, tremors, etc) likely due to such. resume ativan 1mg BID -- first dose now. Present on Admission?: No (2) Multifocal pneumonia: Stable/slow improvement. Typical vs atypical bacterial pathogens vs nonbacterial (fungal, etc) vs inflammatory pneumonitis due to chemo vs other (vs combination of factors). Appreciate heme/onc and pulmonary consultations. Day #5 of Zosyn, Vanco, and azithromycin for atypical coverage. Stop zithromax today. Blood cultures negative. Cont steroids for possible inflammatory pneumonitis related to prior chemotherapy use. Repeat cxr today due to pt complaint of worsening pulmonary sx's. (3) Acute respiratory failure with hypoxia: Secondary to infectious pneumonia and/or inflammatory pneumonitis. Appreciate Dr. Llanos's consultation. Cont IV abx therapy -day #5 today. Cont IV decadron - day #4 today - leave at q8h today; perhaps q12h tomorrow. repeat cxr today. 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 s/p gamma knife therapy in 02/2018 for recurrent brain mets at [facility]. CT head obtained this admission - no obvious new mets. If headaches/etc persist then obtain MRI brain. Has failed multiple chemotherapy and immunotherapy regimens Current regimen -Cyramza and Abraxane therapy- last dose 05/02/18. Follows with Dr. Kennedy - [facility]. has followed with Dr. De Oliveira at [facility]. Appreciate Brooklynn Trejo and Yennifer recommendations Dr De Oliveira spoke with the cancer center at [facility] and they are pleased with current care plan we have in place at this time; new new recs from [place] (5) Immunocompromised patient: secondary to lung CA on chemotherapy (6) Elevated alkaline phosphatase level: Due to liver mets? Could she have bone mets as well? follow. repeat later this admission. (7) Anemia: daily CBC H/H acceptable MCV is high - check b12/folate AM (8) Chest pain on breathing: Pleuritic pain likely due to pneumonia. No PEs on CTA chest. Has prior h/o pericarditis - echo w/o effusion - doubt pericarditis however. Incentive spirometry. Titrate fentanyl patch to 88mcg q3days (9) Depression: Continue olanzapine 10mg po qhs. Consider psych consult but pt thus far declining. (10) Tachycardia: TSH wnl. H/H stable. improved. some tachycardia could be ativan withdrawal as well. (11) Chronic pain syndrome: cont fentanyl patches but titrate to 88mcg q3days cont bowel regimen of senna with miralax (12) DVT prophylaxis: Lovenox 40mg SQ daily PT,OT evals ok to d/c tele - move to med/surg Subjective patient crying when I entered her room. when I asked what was wrong she said "it's my breathing. I'm upset because I'm not doing better." she was very shaky, anxious during the visit. pleuritic chest pain is similar to previous visits. reports has been on the 75mcg dose of fentanyl "for months." tele mainly with NSR. occasional sinus tach. reports she typically takes 1mg of ativan BID but hasn't had any in 5 days. Constitutional: no fever Respiratory: + cough, + dyspnea, + dyspnea on exertion and + pain on inspiration; no wheezing Cardiovascular: as per Subjective / HPI, + chest pain and + edema; no orthopnea and no paroxysmal nocturnal dyspnea Gastrointestinal: no abdominal pain, no nausea, no vomiting and no constipation Physical Exam Vital Signs (Past 24 Hours): Last Vital Signs Temp 36.6 C 05/18/18 19:00 Pulse 70 05/18/18 19:00 Resp 20 05/18/18 19:00 BP 135/84 05/18/18 19:00 Pulse Ox 95 05/18/18 19:00 Constitutional: + ill appearing; + not well developed, + not well nourished and no acute distress anxious, shaky, tearful -- but not in distress ENMT: external ear and nose normal, oropharynx normal Respiratory: normal respiratory effort; no respiratory distress Auscultation: + crackles (both bases); no rhonchi and no wheezes Cardiovascular: Rate/Rhythm: regular rate and regular rhythm Heart Sounds: normal S1 and normal S2; no murmur Vessels: posterior tibial pulses present and dorsalis pedis pulses present; no JVD Extremities: + edema (1+ b/l) Gastrointestinal (Abdomen): normal bowel sounds, soft, nontender, no hepatosplenomegaly Neurologic: tremors noted Psychiatric: Orientation: alert and oriented x 3 Mood: + depressed mood and + anxious mood Results & Data Laboratory Results Laboratory Results - last 24 hr 05/18/18 05/18/18 05/18/18 05:48 05:48 12:10 WBC 11.38 H RBC 2.64 L Hgb 8.4 L Hct 27.0 L MCV 102.3 H MCH 31.8 MCHC 31.1 L RDW Std Deviation 74.7 H RDW Coeff of Cosmo 20.5 H Plt Count 240 MPV 9.9 Absolute Nucleated RBC 0.18 H Nucleated RBC % (auto) 1.5 Sodium 140 Potassium 4.1 Chloride 107 Carbon Dioxide 27 Anion Gap 6.0 BUN 10 Creatinine 0.62 Est Cr Clr Drug Dosing 134.8 Est GFR ( Amer) 128.9 Est GFR (Non-Af Amer) 111.2 BUN/Creatinine Ratio 15.4 Glucose 191 H POC Glucose 202 H Calcium 8.2 L (1) Anemia Anemia type: unspecified type Qualified Code(s): D64.9 - Anemia, unspecified (2) Depression Depression Type: unspecified Qualified Code(s): F32.9 - Major depressive disorder, single episode, unspecified (3) Benzodiazepine withdrawal Complication of substance-induced condition: with unspecified complication Qualified Code(s): F13.239 - Sedative, hypnotic or anxiolytic dependence with withdrawal, unspecified
[2018-05-19] MEDS: LEVALBUTEROL 1.25MG/0.5ML NEB INH SCH ×4 (01:45→19:13)
[2018-05-19] MEDS: IPRATROPIUM BROMIDE NEB SOLN 0.02% 2.5 ML VIAL INH SCH ×4 (01:45→19:13)
[2018-05-19] MEDS: PIPERACILLIN/TAZOBACTAM 3.375 GM in DEXTROSE 5% 100 ML IV SCH ×3 (02:18→18:49)
[2018-05-19] MEDS: DEXAMETHASONE SOD PHOSPHATE 6 MG in SYRINGE 0 ML IV SCH ×3 (02:18→17:50)
[2018-05-19] MEDS: VANCOMYCIN HCL 1,250 MG in SODIUM CHLORIDE 0.9% 250 ML IV SCH ×4 (02:18→18:01)
[2018-05-19] MEDS: HYDROmorphone INJ 1 MG/ML SYRINGE IV PRN ×5 (02:27→23:01)
[2018-05-19] MEDS: AZITHROMYCIN 250 MG in DEXTROSE 5% 250 ML IV SCH (06:36)
[2018-05-19 08:02] LABS: Estimated Average Glucose 100 mg/dl; Hemoglobin A1C 5.1 % (4.5-5.6)
[2018-05-19 08:03] LABS: Creatinine Clr Calc Pharmacy 149.6 ml/min; Est GFR (African American) 133.3
[2018-05-19] MEDS: CHECK FENTANYL PATCH PLACEMENT SCH ×4 (08:27→17:00)
[2018-05-19] MEDS: FOLIC ACID 1 MG TAB PO SCH (08:31)
[2018-05-19] MEDS: VENLAFAXINE HCL XR 37.5 MG CAPXR PO SCH (08:31)
[2018-05-19] MEDS: LACTOBACILLUS ACIDOPHILUS (FLORANEX) TAB PO SCH ×3 (08:31→16:58)
[2018-05-19] MEDS: ENOXAPARIN INJ 40 MG/0.4 ML SYR SQ SCH (08:32)
[2018-05-19] MEDS: SENNA 8.6 MG TAB PO SCH (08:32)
[2018-05-19] MEDS: NYSTATIN SUSP 500,000 U/5 ML UDC PO SCH ×4 (08:32→20:17)
[2018-05-19] MEDS: PANTOprazole 40 MG TAB PO SCH (08:32)
[2018-05-19] MEDS: FUROSEMIDE 20 MG TAB PO SCH (08:32)
[2018-05-19] MEDS: POLYETHYLENE (MIRALAX) 17 GM PACK PO SCH (08:33)
[2018-05-19] MEDS: LORazepam 1 MG TAB PO SCH ×2 (08:34→20:16)
[2018-05-19] MEDS: HEPARIN 100 UNIT/ML 5ML FLUSH FLUSH PRN ×3 (08:46→23:01)
[2018-05-19 08:58] LABS: Folate (Folic Acid) 10.9 ng/ml (>5.38)
--- NOTE | 2018-05-19 12:10 | Progress Note ---
DATE: 05/19/2018 PULMONARY MEDICINE PROGRESS NOTE Chart reviewed, patient examined and assessed. SUBJECTIVE: Feels poorly and feels quite dyspneic even with minimal exertion. Very discouraged. This is day 6 of IV Zosyn, vancomycin and azithromycin. She is on high-dose steroid therapy. She unfortunately has stage IV adenocarcinoma of the lung with mets to liver and brain (see previous notation). She has failed chemotherapy and immunotherapy regimens and her current therapy is Cyramza and Abraxane therapy. OBJECTIVE: CURRENT VITAL SIGNS: Blood pressure 146/91, pulse 66 and regular, respiratory rate 18, temperature 36.8, O2 sat 99% on 3 liters. SKIN: Without lesions except for acneiform eruptions on face and posterior thorax. NECK: Neck veins are not distended at 45 degrees. No adenopathy in the supra or infraclavicular area. LUNGS: Rales with some rhonchi at the bases. CARDIAC: Regular rhythm. I do not appreciate a gallop. ABDOMEN: Soft, protuberant. EXTREMITIES: No significant pedal edema, clubbing, or cyanosis. NEUROLOGICAL: Intact. No lateralizing signs. LABORATORY DATA: Chest x-ray persistently shows diffuse opacities, left greater than right. No overt signs of failure. Hemoglobin is 8.7. OVERALL ASSESSMENT: A 42-year-old with stage IV adenocarcinoma with metastasis to liver and brain, possible drug-induced lung disease versus infectious etiology. It is hard to know how aggressive to be with this patient given that she appears to have plateaued with her symptoms and is not showing significant improvement at this point in time, we will discuss further with oncology and primary care service.Bronchoscopic eval w BAL and TBX might provide additional information perhaps. MTDD
--- NOTE | 2018-05-19 14:25 | Pharmacy Report ---
Pharmacy Abx Dose Short Note - Date of Service May 19, 2018 - Assessment & Plan Laboratory Tests 05/19/18 07:23 Vancomycin Trough 24.1 Assessment 42 year old F receiving Vancomycin 1250mg q6 and Zosyn 3.375gm q8 for treatment of Pneumonia Day #6 of antimicrobial therapy. Plan Vancomycin * Trough level of 24.1 mcg/mL is supratherapeutic * Change to 1250 mg IV every 8 hours * Goal trough level for Pneumonia : 15 to 20 mcg/mL * Trough level will not be ordered at this time. Will order if Vanco treatment is extended Pharmacy will continue to follow and will adjust dose/frequency as necessary. Thank you.
[2018-05-19] MEDS: OXYCODONE HCL IR 5 MG TAB (IMMEDIATE RELEASE) PO PRN (18:00)
[2018-05-19] MEDS: OLANZapine 10 MG TAB PO SCH (20:17)
--- NOTE | 2018-05-19 22:05 | Hospitalist Progress Note ---
Date of Service May 19, 2018 Assessment & Plan (1) Benzodiazepine withdrawal: resolved s/p resumption of ativan 1mg PO BID (2) Multifocal pneumonia: Stable/slow improvement. Typical vs atypical bacterial pathogens vs nonbacterial (fungal, etc) vs inflammatory pneumonitis due to chemo vs other (vs combination of factors). Appreciate heme/onc and pulmonary consultations. Day #6 of Luis [facility] Toro. Previously finished 5-day course of zithromax. Blood cultures negative. Cont steroids for possible inflammatory pneumonitis related to prior chemotherapy use. Repeat cxr today is stable/unchanged. (3) Acute respiratory failure with hypoxia: Secondary to infectious pneumonia and/or inflammatory pneumonitis. Appreciate Dr. Llanos's consultation. Cont IV abx therapy -day #6 today. Cont IV decadron - day #6 today - leave at q8h today. repeat cxr today stable/unchanged. 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 s/p gamma knife therapy in 02/2018 for recurrent brain mets at [facility]. CT head obtained this admission - no obvious new mets. Has failed multiple chemotherapy and immunotherapy regimens Current regimen -Cyramza and Abraxane therapy- last dose 05/02/18. Follows with Dr. Kennedy - [facility]. Has followed with Dr. De Oliveira at [facility]. Dr De Oliveira spoke with the cancer center at [facility] and they are in ageement with current care plan we have in place at this time; new new recs from [place]. (5) Elevated alkaline phosphatase level: Due to liver mets? Bone mets as well? follow. repeat later this admission. (6) Anemia: H/H acceptable today. b12/folate wnl. (7) Chest pain on breathing: Pleuritic pain likely due to pneumonia. No PEs on CTA chest. Has prior h/o pericarditis - echo w/o effusion - doubt pericarditis however. Incentive spirometry. Titrated fentanyl patch to 88mcg q3days yesterday with good response to such. (8) Depression: Continue olanzapine 10mg po qhs. Continue effexor - consider increase. Patient previously declined psych consult. 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 (9) Tachycardia: resolved. ok to d/c telemetry. was likely due to ativan withdrawal, pulmonary issues, pain, etc. (10) Chronic pain syndrome: cont fentanyl patches at 88mcg q3days had nice response to this increase cont bowel regimen of senna with miralax (11) DVT prophylaxis: Lovenox 40mg SQ daily PT,OT evals appreciated wean o2 fiance updated by phone 05/19/18 Subjective patient had a better day today. less pain overall. less pleuritic chest pain. less anxiety w/ scheduled ativan. eating ok. no worsening of dyspnea. no crying spells. Constitutional: no fever Respiratory: + dyspnea on exertion; no cough Cardiovascular: as per Subjective / HPI, + chest pain and + edema; no orthopnea and no paroxysmal nocturnal dyspnea Gastrointestinal: no abdominal pain and no constipation Physical Exam Vital Signs (Past 24 Hours): Last Vital Signs Temp 37.1 C 05/19/18 19:00 Pulse 67 05/19/18 19:00 Resp 20 05/19/18 19:00 BP 130/82 05/19/18 19:00 Pulse Ox 99 05/19/18 19:00 Constitutional: + ill appearing; + not well developed, + not well nourished and no acute distress looks much better than yesterday; less shaky, more calm ENMT: external ear and nose normal, oropharynx normal Mouth: + oral mucosal abnormality (less thrush plaques today) Respiratory: normal respiratory effort; no respiratory distress Auscultation: + crackles (both bases - minimal today); no rhonchi and no wheezes Cardiovascular: Rate/Rhythm: regular rate and regular rhythm Heart Sounds: normal S1 and normal S2; no murmur Vessels: posterior tibial pulses present and dorsalis pedis pulses present; no JVD Extremities: + edema (trace b/l) Gastrointestinal (Abdomen): normal bowel sounds, soft, nontender, no hepatosplenomegaly Psychiatric: Orientation: alert and oriented x 3 Affect: + flat affect Mood: + depressed mood Results & Data Laboratory Results Laboratory Results - last 24 hr 05/19/18 05/19/18 05/19/18 07:23 07:23 07:23 Hgb 8.7 L Creatinine 0.56 L Est Cr Clr Drug Dosing 149.6 Est GFR ( Amer) 133.3 Est GFR (Non-Af Amer) 115.0 Estimat Average Glucose Hemoglobin A1c Vitamin B12 Folate Vancomycin Trough 24.1 05/19/18 05/19/18 07:23 07:23 Hgb Creatinine Est Cr Clr Drug Dosing Est GFR ( Amer) Est GFR (Non-Af Amer) Estimat Average Glucose 100 Hemoglobin A1c 5.1 Vitamin B12 1271 H Folate 10.90 Vancomycin Trough (1) Anemia Anemia type: unspecified type Qualified Code(s): D64.9 - Anemia, unspecified (2) Depression Depression Type: unspecified Qualified Code(s): F32.9 - Major depressive disorder, single episode, unspecified (3) Benzodiazepine withdrawal Complication of substance-induced condition: with unspecified complication Qualified Code(s): F13.239 - Sedative, hypnotic or anxiolytic dependence with withdrawal, unspecified
[2018-05-20] MEDS: CHECK FENTANYL PATCH PLACEMENT SCH ×8 (00:38→23:11)
[2018-05-20] MEDS: IPRATROPIUM BROMIDE NEB SOLN 0.02% 2.5 ML VIAL INH SCH ×4 (01:37→22:14)
[2018-05-20] MEDS: LEVALBUTEROL 1.25MG/0.5ML NEB INH SCH ×4 (01:38→22:15)
[2018-05-20] MEDS: VANCOMYCIN HCL 1,250 MG in SODIUM CHLORIDE 0.9% 250 ML IV SCH ×3 (02:41→17:54)
[2018-05-20] MEDS: PIPERACILLIN/TAZOBACTAM 3.375 GM in DEXTROSE 5% 100 ML IV SCH ×3 (02:41→17:54)
[2018-05-20] MEDS: DEXAMETHASONE SOD PHOSPHATE 6 MG in SYRINGE 0 ML IV SCH ×3 (02:41→17:50)
[2018-05-20 06:15] LABS: Hematocrit (blood only) 29.8 % (37-47); Hemoglobin 9.4 g/dL (12.0-16.0); Mean Corpuscular Hgb Conc 31.5 g/dL (32-36); Mean Corpuscular Volume 102.4 fL (80-100); Mean Platelet Volume 10.3 fL (7.4-10.4); Nucleated RBC # (auto) 0.25 K/uL (0-0); Nucleated RBC % (auto) 2.5 %; Platelet Count 232 K/uL (130-400); RDW Coefficient of Variation 20.5 % (11.5-14.5); RDW Standard Deviation 73.9 fL (36.4-46.3); Red Blood Count 2.91 M/uL (4.2-5.4); White Blood Count 9.69 K/uL (4.8-10.8)
[2018-05-20 06:42] LABS: BUN Creatinine Ratio 21.6 (10-20); Calcium 8.3 mg/dl (8.5-10.1); Creatinine Clr Calc Pharmacy 150.7 ml/min; Est GFR (African American) 134.1; Est GFR (Non-African American) 115.7; Magnesium 2.2 mg/dl (1.8-2.4); Potassium 3.9 mmol/L (3.5-5.1)
[2018-05-20] MEDS: LACTOBACILLUS ACIDOPHILUS (FLORANEX) TAB PO SCH ×3 (07:39→17:49)
[2018-05-20] MEDS: HEPARIN 100 UNIT/ML 5ML FLUSH FLUSH PRN ×2 (07:39→14:51)
[2018-05-20] MEDS: HYDROmorphone INJ 1 MG/ML SYRINGE IV PRN ×2 (07:39→21:11)
[2018-05-20] MEDS: FOLIC ACID 1 MG TAB PO SCH (07:40)
[2018-05-20] MEDS: FUROSEMIDE 20 MG TAB PO SCH (07:40)
[2018-05-20] MEDS: VENLAFAXINE HCL XR 37.5 MG CAPXR PO SCH (07:40)
[2018-05-20] MEDS: LORazepam 1 MG TAB PO SCH ×2 (07:40→21:11)
[2018-05-20] MEDS: ENOXAPARIN INJ 40 MG/0.4 ML SYR SQ SCH (07:40)
[2018-05-20] MEDS: POLYETHYLENE (MIRALAX) 17 GM PACK PO SCH (07:41)
[2018-05-20] MEDS: PANTOprazole 40 MG TAB PO SCH (07:41)
[2018-05-20] MEDS: NYSTATIN SUSP 500,000 U/5 ML UDC PO SCH ×4 (07:41→21:11)
[2018-05-20] MEDS: SENNA 8.6 MG TAB PO SCH (07:41)
--- NOTE | 2018-05-20 09:37 | Progress Note ---
DATE: 05/20/2018 PULMONARY MEDICINE PROGRESS NOTE Chart reviewed, the patient examined. SUBJECTIVE: The patient states she feels slightly better today, less congested and dyspneic. O2 sats have improved. She tried ambulating yesterday, but was extremely orthostatic. Apparently, she went to some benzodiazepine withdrawal and the Ativan was restarted along with her fentanyl. Looking at I believe day 6 of her antibiotic therapy and day 5 of IV Decadron. OBJECTIVE: CURRENT VITAL SIGNS: Blood pressure 161/95, pulse 59 and regular, respiratory rate 20, temperature 37.1, O2 sat 94% on room air. SKIN: No difference, unchanged. HEENT: Atraumatic, normocephalic. PERRLA. LUNGS: Rales at both bases, but generally clear. CARDIAC: Regular rate and rhythm. I do not appreciate a gallop. ABDOMEN: Soft, protuberant. EXTREMITIES: No significant pedal edema, clubbing or cyanosis. NEUROLOGICAL: The patient is somewhat slow of mentation, but oriented x3. No lateralizing signs. LABORATORY DATA: Last chest x-ray on 05/18 showed no significant change in the persistent bilateral pulmonary airspace opacities, trace pleural effusions are noted. Chest x-ray is pending today. Most recent white count 9600, H and H 9.4 and 29.8. OVERALL ASSESSMENT: A 42-year-old with stage IV metastatic adenocarcinoma to the liver and brain admitted with diffuse pulmonary infiltrate, seems somewhat better, still remains quite ill. Oxygenation has improved and I would convert her to oral antibiotics today and reduced the dose of her steroid, but would maintain her on some dose of Decadron or prednisone prior to discharge. I do not believe instrumentation or further workup including transbronchial biopsy would be indicated at this point in time.
--- NOTE | 2018-05-20 11:03 | XRay Report ---
XR chest 1V portable CLINICAL HISTORY: pneumonia dyspnea COMPARISON STUDY: 05/18/2018 FINDINGS: Unchanged bibasilar parenchymal infiltrative change. Mid and upper lungs are clear. Central catheter remains in superior vena cava. IMPRESSION: Stable bibasilar parenchymal infiltrative change The above report was generated using voice recognition software. It may contain grammatical, syntax or spelling errors. Electronically signed by: Andrea Zamora M.D. 05/20/2018 11:00 AM
[2018-05-20] MEDS: OXYCODONE HCL IR 5 MG TAB (IMMEDIATE RELEASE) PO PRN ×2 (11:36→19:29)
--- NOTE | 2018-05-20 21:01 | Hospitalist Progress Note ---
Date of Service May 20, 2018 Assessment & Plan (1) Multifocal pneumonia: Resolving clinically. O2 has been weaned off. Typical vs atypical bacterial pathogens; vs nonbacterial (fungal, etc); vs inflammatory pneumonitis due to chemo ; vs other (vs combination of factors). Appreciate heme/onc and pulmonary consultations. Day #7 of Luis [place] Toro today -- stop abx after tonight's doses. Previously finished 5-day course of zithromax. Blood cultures negative. Cont steroids for possible inflammatory pneumonitis related to prior chemotherapy use. Will wean from q8h to q12h dosing. Then will need prolonged course of steroids following discharge - defer length to pulmonary. Present on Admission?: Yes (2) Acute respiratory failure with hypoxia: Secondary to infectious pneumonia and/or inflammatory pneumonitis. Resolved. Off O2 as of today. Appreciate Dr. Llanos's consultation. STOP IV abx therapy today as today is day #7/7. Cont IV decadron - day #7 today - wean to q12h dosing. repeat cxr today stable. (3) Lung cancer metastatic to brain: Stage IV adenocarcinoma of lung with mets to liver and brain - diagnosed in 05/2017. s/p gamma knife therapy in 02/2018 for recurrent brain mets at [facility]. CT head obtained this admission - no obvious new mets. Has failed multiple chemotherapy and immunotherapy regimens. Current regimen -Cyramza and Abraxane therapy- last dose 05/02/18. Follows with Dr. Kennedy - [facility]. Receives all chemo in [place]. Her next run of chemo was scheduled for this week - will need to be deferred. Has followed with Dr. De Oliveira at [facility] in the distant past. Dr De Oliveira spoke with the cancer center at [facility] last week and they are in agreement with current care plan we have in place. Present on Admission?: Yes (4) Elevated alkaline phosphatase level: Due to liver mets? Bone mets as well? repeat LFTs in am tomorrow. (5) Benzodiazepine withdrawal: resolved s/p resumption of ativan 1mg PO BID (6) Anemia: H/H again acceptable today. (7) Chest pain on breathing: Pleuritic pain likely due to pneumonia. No PEs on CTA chest. Has prior h/o pericarditis - echo w/o effusion - doubt pericarditis however. Incentive spirometry. Titrated fentanyl patch to 88mcg q3days 2 days ago with good response to such. (8) Depression: Continue olanzapine 10mg po qhs. Continue effexor xr but INCREASE to 75mg daily. Patient previously declined psych consult. 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 (9) Tachycardia: resolved. was likely due to ativan withdrawal, pulmonary issues, pain, etc. (10) Chronic pain syndrome: cont fentanyl patches at 88mcg q3days had nice response to this increase cont bowel regimen of senna with miralax (11) Edema: 2nd to hypoalbuminemia. Cont lasix 20mg po qam. Tolerating this w/ stable labs. (12) DVT prophylaxis: Lovenox 40mg SQ daily PT,OT shanelle appreciated fiance updated by phone 05/19/18 home next 1-2 days?? Subjective Patient had blinds drawn during the early afternoon and had the lights off. She was awake upon my arrival. She admitted to feeling very depressed about her current situation. She was not expecting any visitors today. We talked about increasing her effexor and she was not opposed to such. She inadvertantly had pulled off her O2 about 1 hour prior to my visit. I checked her O2 sats and they were 95% in RA. She denied any new complaints. She admitted to feeling nervous about going home soon. She said "I just want more time to be with my family." Constitutional: + fatigue and + weakness; no anorexia Respiratory: + dyspnea on exertion (mild) and + pain on inspiration (improving); no dyspnea (at rest ) Cardiovascular: no orthopnea and no paroxysmal nocturnal dyspnea Gastrointestinal: no abdominal pain Psychiatric: + depression and + anxiety Physical Exam Vital Signs (Past 24 Hours): Last Vital Signs Temp 36.4 C L 05/20/18 16:31 Pulse 70 05/20/18 16:31 Resp 16 05/20/18 16:31 BP 123/82 05/20/18 16:31 Pulse Ox 94 05/20/18 16:31 Constitutional: + ill appearing; + not well developed, + not well nourished and no acute distress ENMT: external ear and nose normal, oropharynx normal (thrush resolved; MMM) Respiratory: normal respiratory effort; no respiratory distress Auscultation: + rales (scant bases ); no rhonchi and no wheezes Cardiovascular: Rate/Rhythm: regular rate and regular rhythm Heart Sounds: normal S1 and normal S2; no murmur Vessels: posterior tibial pulses present and dorsalis pedis pulses present; no JVD Extremities: + edema (trace b/l) Gastrointestinal (Abdomen): normal bowel sounds, soft, nontender, no hepatosplenomegaly Skin: no rashes, warm and dry Psychiatric: Orientation: alert and oriented x 3 Affect: + flat affect Results & Data Laboratory Results Laboratory Results - last 24 hr 05/20/18 05/20/18 05:50 05:50 WBC 9.69 RBC 2.91 L Hgb 9.4 L Hct 29.8 L MCV 102.4 H MCH 32.3 MCHC 31.5 L RDW Std Deviation 73.9 H RDW Coeff of Cosmo 20.5 H Plt Count 232 MPV 10.3 Absolute Nucleated RBC 0.25 H Nucleated RBC % (auto) 2.5 Sodium 140 Potassium 3.9 Chloride 106 Carbon Dioxide 32 Anion Gap 2.0 L BUN 12 Creatinine 0.55 L Est Cr Clr Drug Dosing 150.7 Est GFR ( Amer) 134.1 Est GFR (Non-Af Amer) 115.7 BUN/Creatinine Ratio 21.6 H Glucose 142 H Calcium 8.3 L Magnesium 2.2 Diagnostic Findings chest x-ray -- no change from prior study; bibasilar infiltrates (1) Benzodiazepine withdrawal Complication of substance-induced condition: with unspecified complication Qualified Code(s): F13.239 - Sedative, hypnotic or anxiolytic dependence with withdrawal, unspecified (2) Anemia Anemia type: unspecified type Qualified Code(s): D64.9 - Anemia, unspecified (3) Depression Depression Type: unspecified Qualified Code(s): F32.9 - Major depressive disorder, single episode, unspecified (4) Edema Edema type: unspecified Qualified Code(s): R60.9 - Edema, unspecified
[2018-05-20] MEDS: OLANZapine 10 MG TAB PO SCH (21:11)
[2018-05-20] MEDS ORDERED: KETOROLAC 30 MG/ML VIAL IV ONE (22:20)
[2018-05-21] MEDS: IPRATROPIUM BROMIDE NEB SOLN 0.02% 2.5 ML VIAL INH SCH ×4 (02:13→19:29)
[2018-05-21] MEDS: LEVALBUTEROL 1.25MG/0.5ML NEB INH SCH ×4 (02:14→19:29)
[2018-05-21] MEDS: DEXAMETHASONE SOD PHOSPHATE 6 MG in SYRINGE 0 ML IV SCH ×2 (03:42→17:28)
[2018-05-21] MEDS: HEPARIN 100 UNIT/ML 5ML FLUSH FLUSH PRN ×6 (03:42→23:56)
[2018-05-21] MEDS: KETOROLAC TROMETHAMINE 15 MG/ML VIAL IV PRN ×3 (06:02→23:56)
[2018-05-21 06:16] LABS: Albumin Level 2.3 gm/dl (3.4-5.0); BUN Creatinine Ratio 25.6 (10-20); Calcium 8.1 mg/dl (8.5-10.1); Creatinine Clr Calc Pharmacy 156.3 ml/min; Est GFR (African American) 135.7; Est GFR (Non-African American) 117.1; Potassium 4.2 mmol/L (3.5-5.1)
[2018-05-21 06:18] LABS: Albumin Globulin Ratio 0.8 (0.9-2); Bilirubin,Total 0.5 mg/dl (0.2-1); Total Protein 5.3 gm/dl (6.4-8.2)
--- NOTE | 2018-05-21 09:47 | Hospitalist Progress Note ---
Date of Service May 21, 2018 Assessment & Plan (1) Multifocal pneumonia: Resolving clinically. O2 has been weaned off. Appreciate heme/onc and pulmonary consultations. Completed course of Zosyn and Vanco Previously finished 5-day course of zithromax. Blood cultures negative. Cont steroids for possible inflammatory pneumonitis related to prior chemotherapy use taper steroids as able (2) Acute respiratory failure with hypoxia: Secondary to infectious pneumonia and/or inflammatory pneumonitis. Resolved. Appreciate Dr. Llanos's consultation. Cont IV decadron - day #7 today - wean to q12h dosing eventually looking towards oral dosing. 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 s/p gamma knife therapy in 02/2018 for recurrent brain mets at [facility]. CT head obtained this admission - no obvious new mets. Has failed multiple chemotherapy and immunotherapy regimens. Current regimen -Cyramza and Abraxane therapy- last dose 05/02/18. Follows with Dr. Kennedy - [facility]. Receives all chemo in [place]. Her next run of chemo was scheduled for this week - will need to be deferred. Has followed with Dr. De Oliveira at [facility] in the distant past. Dr De Oliveira spoke with the cancer center at [facility] last week and they are in agreement with current care plan we have in place. (4) Elevated alkaline phosphatase level: Likely multifactorial remaining in the 250 range (5) Benzodiazepine withdrawal: resolved s/p resumption of ativan 1mg PO BID may be slightly to IV doses patient seems sedate during my visit (6) Anemia: H/H stable in the 9-10 g range (7) Chest pain on breathing: Pleuritic pain likely due to pneumonia. Remains intermittent but improving No PEs on CTA chest. Has prior h/o pericarditis - echo w/o effusion -no EKG criteria consistent with this Incentive spirometry. Titrated fentanyl patch to 88mcg q3days (8) Depression: Continue olanzapine 10mg po qhs. Increased Effexor xr to 75mg daily. Patient previously declined psych consult. 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 (9) Tachycardia: resolved. was likely due to ativan withdrawal, pulmonary issues, pain, etc. (10) Chronic pain syndrome: cont fentanyl patches at 88mcg q3days cont bowel regimen of senna with miralax when asked patient about my additional cathartic agents (11) Edema: 2nd to hypoalbuminemia. Cont lasix 20mg po qam. Tolerating this w/ stable labs. (12) DVT prophylaxis: Lovenox 40mg SQ daily Subjective Patient was lying in semi-recumbent position when I went to the room her blinds were drawn she says she does not feel ready to go home she feels weak and tired I asked her what we could improve she said that she still is having some shortness of breath and some minor chest discomfort. Is having less coughing. I discussed who is her caregiver at home she states that her youngest daughter who is 18 years old is her primary caregiver at home Review of Systems ROS: Patient appears chronically ill as would be consistent with her metastatic malignancy No double vision blurry vision No problems with speech or swallowing No palpitations, complains of some chest wall pain but no chest pressure No Wheezing does complain of dyspnea on exertion Mild abdominal pain with mild nausea but no vomiting complains of constipation but refuses cathartic agents No burning urine urine frequency or changes in color No focal joint pain or muscle pain No skin rashes or oral lesions No unusual bruising or bleeding No focused back pain or numbness or loss of strength No changes in memory or confusion Physical Exam Vital Signs (Past 24 Hours): Last Vital Signs Temp 36.4 C L 05/21/18 07:28 Pulse 58 L 05/21/18 07:28 Resp 18 05/21/18 07:28 BP 139/86 05/21/18 07:28 Pulse Ox 97 05/21/18 07:28 the patient appeared chronically ill consistent with her malignancy Vital signs as documented. Head exam is unremarkable. normocephalic, atraumatic Neck is without jugular venous distension, thyromegaly, or lymphademopathy Lungs are clear but diminished bilaterally no focal air loss Cardiac exam reveals Rhythm is regular. First and second heart sounds normal. Abdominal exam reveals normal bowel sounds, soft mildly tender Extremities are mild to moderately edematous and both pedal pulses are present Neurologic exam is A&Ox3, no focal deficits, strength is equal but weak bilaterally Psychologically seems depressed Skin is warm Dry without bruises or lesions (1) Anemia Anemia type: unspecified type Qualified Code(s): D64.9 - Anemia, unspecified (2) Depression Depression Type: unspecified Qualified Code(s): F32.9 - Major depressive disorder, single episode, unspecified (3) Edema Edema type: unspecified Qualified Code(s): R60.9 - Edema, unspecified (4) Benzodiazepine withdrawal Complication of substance-induced condition: with unspecified complication Qualified Code(s): F13.239 - Sedative, hypnotic or anxiolytic dependence with withdrawal, unspecified
[2018-05-21] MEDS: CHECK FENTANYL PATCH PLACEMENT SCH ×6 (10:20→23:58)
[2018-05-21] MEDS: ENOXAPARIN INJ 40 MG/0.4 ML SYR SQ SCH (10:45)
[2018-05-21] MEDS: VENLAFAXINE HCL XR 75 MG CAPXR PO SCH (10:45)
[2018-05-21] MEDS: FUROSEMIDE 20 MG TAB PO SCH (10:45)
[2018-05-21] MEDS: LORazepam 1 MG TAB PO SCH ×2 (10:45→21:13)
[2018-05-21] MEDS: LACTOBACILLUS ACIDOPHILUS (FLORANEX) TAB PO SCH ×3 (10:45→17:38)
[2018-05-21] MEDS: FOLIC ACID 1 MG TAB PO SCH (10:45)
[2018-05-21] MEDS: SENNA 8.6 MG TAB PO SCH (10:46)
[2018-05-21] MEDS: NYSTATIN SUSP 500,000 U/5 ML UDC PO SCH ×4 (10:46→21:13)
[2018-05-21] MEDS: POLYETHYLENE (MIRALAX) 17 GM PACK PO SCH (10:46)
[2018-05-21] MEDS: PANTOprazole 40 MG TAB PO SCH (10:46)
--- NOTE | 2018-05-21 12:27 | Progress Note ---
DATE: 05/21/2018 TIME: 11:05 a.m. SUBJECTIVE: The patient was sleeping when I came into the room, but she awakened fairly easily. She states that she is much less short of breath than when she first presented a week ago or so. She also has less chest pain than prior. She denies much cough. She has no sputum production. She states her appetite is okay. OBJECTIVE: GENERAL: The patient appears very weak. She was somewhat lethargic. HEENT: Pupils were reactive. Nares were clear. Mouth exam unremarkable. No lymph nodes palpable. VITAL SIGNS: Temperature is 36.4, cardiac rate 58 per minute. Blood pressure 139/86. HEART: Rhythm regular. LUNGS: Auscultation of the lung park revealed them to be clear. I had some difficulty getting her to take deep breaths. She was in no distress. Respiratory rate 18. Saturation 97% on room air. EXTREMITIES: Showed no cyanosis, clubbing, or edema. LABORATORY DATA: Electrolytes today show sodium 141, potassium 4.2, chloride 107, bicarb 33. The bicarbonate has been climbing. On 05/18/2018, the bicarbonate was 27. BUN today is 13 with a creatinine of 0.53. AST was 51, ALT 102, alkaline phosphatase 256. Comparison with 05/15/2018, the AST is slightly higher, ALT is almost doubled, alkaline phosphatase is slightly decreased. IMAGING DATA: Chest x-ray done yesterday shows relatively unchanged bibasilar parenchymal infiltrates. I believe compared with the x-ray done at admission on May 14, it appears to me that the infiltrates previously seen in the left mid lung area have improved somewhat. Right side is about the same. IMPRESSION: 1. Stage IV metastatic adenocarcinoma with mets to liver and brain. 2. Bilateral pulmonary infiltrates - mildly improved. COMMENTS AND RECOMMENDATIONS: I am seeing the patient for the first time. Dr. Llanos felt that he did not believe instrumentation or further workup would be helpful. She is currently on dexamethasone 6 mg q. 12 hours IV. She previously had been on 6 mg q.8h. Would gradually taper this and change to oral. Reportedly, she had been off of dexamethasone for a while before coming to the hospital, but had been on dexamethasone earlier this winter. The exact reason for that is not known to me. She ultimately will be following up with her physicians in [place] and they likely would be in a better position to determine how long she should be maintained on the dexamethasone.
[2018-05-21] MEDS: fentaNYL 75 MCG/HR TDSY TD SCH (17:29)
[2018-05-21] MEDS: fentaNYL 12 MCG/HR TDSY TD SCH (17:29)
[2018-05-21] MEDS ORDERED: Nursing to Pharmacy Communication ONE (18:33)
[2018-05-21] MEDS ORDERED: GRANISETRON TD SCH (19:00)
[2018-05-21] MEDS: HYDROmorphone INJ 1 MG/ML SYRINGE IV PRN ×2 (19:47→22:51)
[2018-05-21] MEDS: OLANZapine 10 MG TAB PO SCH (21:13)
[2018-05-22] MEDS: LEVALBUTEROL 1.25MG/0.5ML NEB INH SCH ×3 (01:55→13:45)
[2018-05-22] MEDS: IPRATROPIUM BROMIDE NEB SOLN 0.02% 2.5 ML VIAL INH SCH ×3 (01:55→13:45)
[2018-05-22] MEDS ORDERED: DEXAMETHASONE SOD PHOSPHATE 4 MG in SYRINGE 0 ML IV SCH (06:00)
[2018-05-22] MEDS: HEPARIN 100 UNIT/ML 5ML FLUSH FLUSH PRN ×2 (06:28→13:58)
[2018-05-22 07:12] VITALS: O2SAT 94
[2018-05-22] MEDS: CHECK FENTANYL PATCH PLACEMENT SCH ×2 (08:36)
[2018-05-22] MEDS: LACTOBACILLUS ACIDOPHILUS (FLORANEX) TAB PO SCH ×2 (08:37→11:46)
[2018-05-22] MEDS: PANTOprazole 40 MG TAB PO SCH (08:37)
[2018-05-22] MEDS: VENLAFAXINE HCL XR 75 MG CAPXR PO SCH (08:37)
[2018-05-22] MEDS: LORazepam 1 MG TAB PO SCH (08:39)
[2018-05-22] MEDS: NYSTATIN SUSP 500,000 U/5 ML UDC PO SCH ×2 (08:40→11:46)
[2018-05-22] MEDS: FOLIC ACID 1 MG TAB PO SCH (08:40)
[2018-05-22] MEDS: FUROSEMIDE 20 MG TAB PO SCH (08:41)
[2018-05-22] MEDS: ENOXAPARIN INJ 40 MG/0.4 ML SYR SQ SCH (08:41)
[2018-05-22] MEDS: SENNA 8.6 MG TAB PO SCH (08:43)
[2018-05-22] MEDS: POLYETHYLENE (MIRALAX) 17 GM PACK PO SCH (08:43)
--- NOTE | 2018-05-22 10:52 | Progress Note ---
DATE: 05/22/2018 PULMONARY PROGRESS NOTE TIME: 10:20 a.m. SUBJECTIVE: The patient is feeling better today. She is much more alert. She states she is not short of breath. She is not complaining of pain. Her overall demeanor seemed much more positive today. OBJECTIVE: GENERAL: The patient was comfortable at rest. She was alert. VITAL SIGNS: Heart rate 59 per minute. Rhythm regular. Blood pressure 119/79. LUNGS: Lung park were clear bilaterally. Respiratory rate 16. Saturation 94% on room air. Temperature is 37 degrees. EXTREMITIES: Showed no cyanosis, clubbing or edema. LABORATORY DATA: No lab studies were done today. IMPRESSION: 1. Lung carcinoma - stage IV. 2. Metastatic disease, liver and brain. 3. Bilateral pulmonary infiltrates - partially resolved. COMMENTS AND RECOMMENDATIONS: The patient indicated she is anxious to go home. I have no objection from a pulmonary perspective. As noted previously would change to oral Decadron at 4 mg q. 12. Would allow her cancer doctors in [place] to taper the prednisone as they feel appropriate. We will see again if requested.
[2018-05-22 11:29] VITALS: PULSE 88; TEMP 98.4
--- NOTE | 2018-05-22 13:21 | Discharge Summary ---
Date of Service May 22, 2018 Admission HPI Per Admitting Provider This patient is a 42-year-old female with a history of 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 She was found to be hypoxic and had multi lobar pneumonia on CT of the chest. She did not have a PE on the CT angiogram. She denies sore throat, does have a mild headache, denies cough, denies abdominal pain or diarrhea. She does have chronic joint pains which do not seem to be worse than usual. No new rashes. Her last dose of chemotherapy was on 05/02 she is currently receiving Abraxane and Cyramza. She follows with an oncologist in [place] at [facility] named Dr. Kennedy. Principal Diagnosis pneumonia metastatic lung cancer to brain and liver Discharge Exam Constitutional well developed and average body habitus Eyes no conjunctival abnormality and no scleral abnormality Neck normal visual inspection and trachea midline Respiratory normal respiratory effort; no respiratory distress Auscultation: lungs clear to auscultation bilaterally Cardiovascular RRR, no murmur, no edema Gastrointestinal (Abdomen) normal bowel sounds, soft, nontender, no hepatosplenomegaly Musculoskeletal no cyanosis or clubbing, extremities motor strength 5/5 Discharge Data Allergies Allergy/AdvReac Type Severity Reaction Status Date / Time No Known Allergies Allergy Verified 05/14/18 06:39 Consultations 05/14/18 05:53 ED Decision to Admit Stat 05/14/18 10:20 Consult Hematology Routine Consult Pulmonology Routine 05/22/18 13:18 Burn CD for patient Stat Ordered Studies 05/14/18 05:21 CT angio chest PE protocol Urgent 05/15/18 10:42 CT head/brain wo con Routine Hospital Course (1) Multifocal pneumonia: Resolving clinically. O2 has been weaned off. Completed course of Zosyn and Vanco Previously finished 5-day course of zithromax. Blood cultures negative. Cont steroids for possible inflammatory pneumonitis related to prior chemotherapy use taper steroids as able (2) Acute respiratory failure with hypoxia: Secondary to infectious pneumonia and/or inflammatory pneumonitis. Resolved. Appreciate Dr. Llanos's consultation. Cont IV decadron - - wean to q12h dosing eventually looking for oncology to determine final taper repeat cxr 05/20, stable (3) Lung cancer metastatic to brain: Stage IV adenocarcinoma of lung with mets to liver and brain - diagnosed in 05/2017. s/p gamma knife therapy in 02/2018 for recurrent brain mets at [facility]. CT head obtained this admission - no obvious new mets. Has failed multiple chemotherapy and immunotherapy regimens. Current regimen -Cyramza and Abraxane therapy- last dose 05/02/18. Follows with Dr. Kennedy - [facility]. Receives all chemo in [place]. Her next run of chemo was scheduled for this week - will need to be deferred. Has followed with Dr. De Oliveira at [facility] in the distant past. Dr De Oliveira spoke with the cancer center at [facility] last week and they are in agreement with current care plan we have in place. (4) Elevated alkaline phosphatase level: Likely multifactorial remaining in the 250 range (5) Benzodiazepine withdrawal: resolved s/p resumption of ativan 1mg PO BID (6) Anemia: H/H stable in the 9-10 g range (7) Chest pain on breathing: Pleuritic pain likely due to pneumonia. Remains intermittent but improving No PEs on CTA chest. Has prior h/o pericarditis - echo w/o effusion -no EKG criteria consistent with this Incentive spirometry. Titrated fentanyl patch to 88mcg q3days (8) Depression: Continue olanzapine 10mg po qhs. Increased Effexor xr to 75mg daily. Patient previously declined psych consult. 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 (9) Tachycardia: resolved. was likely due to ativan withdrawal, pulmonary issues, pain, etc. (10) Chronic pain syndrome: cont fentanyl patches at 88mcg q3days cont bowel regimen of senna with miralax when asked patient about my additional cathartic agents (11) Edema: 2nd to hypoalbuminemia. Cont lasix 20mg po qam. Tolerating this w/ stable labs. (12) DVT prophylaxis: Lovenox 40mg SQ daily Total Time Total Time Spent Total Time Spent (In Minutes): greater than 30 minutes were required to prepare discharge Discharge Plan Discharge Items Patient Disposition: Home - Home Health Services Reason For Visit: PNEUMONIA,ACUTE HYPOXIA,RESPIRATORY FAILURE Discharge Diagnosis: pneuomonia Discharge Goals: Decrease discomfort, Diagnostic testing and Improve disease control Activity: Resume your previous activity Non-emergency contact: Primary Care Provider and Oncologist Call non-emergency contact if: you have any medication questions Follow-up/Referrals: Jada Melendez, [Primary Care Provider] - Diet: Regular Addtl Provider Instructions: please follow up with your oncologist provider in [place] Prescriptions: New dexamethasone [Decadron] 4 mg tablet 4 mg PO BID Qty: 60 RF: 0 furosemide 20 mg Tablet 20 mg PO QAM Qty: 30 RF: 0 Continued fentanyl [Duragesic] 75 mcg/hr patch 72 hour 1 patch TD Q72H RF: 0 venlafaxine 37.5 mg capsule,extended release 24hr 37.5 mg PO QAM RF: 0 pantoprazole 40 mg tablet,delayed release (DR/EC) 40 mg PO QAM RF: 0 folic acid 1 mg tablet 1 mg PO DAILY RF: 0 olanzapine 10 mg tablet 10 mg PO HS RF: 0 oxycodone 15 mg tablet 15 mg PO Q4 PRN (Reason: Pain) RF: 0 lorazepam 1 mg tablet 1 mg PO Q6 PRN (Reason: Anxiety) RF: 0 Sancuso 3.1 mg/24 hour patch weekly 1 patch topical .CHANGE EVERY 5 DAYS RF: 0 loperamide 2 mg Capsule 2 mg PO Q3H PRN (Reason: Nausea) RF: 0 Stand-Alone Forms: [facility] Discharge Orders: Discharge Order (Routine); Ordered 05/22/18 Ordered By: Adama Llanes Admission Data Admit Date/Time: 05/14/18 08:38 Attending Provider: Adama Llanes Admit Provider: Paz Rodriguez Primary Care Provider: Jada Melendez Other Providers: Ruben Singletary ; Jhonathan De Oliveira ; Ash Llanos ; Alex Roland Service: Medical
[2018-05-22 13:46] VITALS: BP 119/79
--- NOTE | 2018-05-22 14:45 | Discharge Summary ---
Date of Service May 22, 2018 Admission HPI Per Admitting Provider This patient is a 42-year-old female with a history of 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 She was found to be hypoxic and had multi lobar pneumonia on CT of the chest. She did not have a PE on the CT angiogram. She denies sore throat, does have a mild headache, denies cough, denies abdominal pain or diarrhea. She does have chronic joint pains which do not seem to be worse than usual. No new rashes. Her last dose of chemotherapy was on 05/02 she is currently receiving Abraxane and Cyramza. She follows with an oncologist in [place] at [facility] named Dr. Kennedy. Principal Diagnosis pneumonia metastatic lung cancer to brain and liver Discharge Exam Constitutional well developed and average body habitus Eyes no conjunctival abnormality and no scleral abnormality Neck normal visual inspection and trachea midline Respiratory normal respiratory effort; no respiratory distress Auscultation: lungs clear to auscultation bilaterally Cardiovascular RRR, no murmur, no edema Gastrointestinal (Abdomen) normal bowel sounds, soft, nontender, no hepatosplenomegaly Musculoskeletal no cyanosis or clubbing, extremities motor strength 5/5 Discharge Data Allergies Allergy/AdvReac Type Severity Reaction Status Date / Time No Known Allergies Allergy Verified 05/14/18 06:39 Consultations 05/14/18 05:53 ED Decision to Admit Stat 05/14/18 10:20 Consult Hematology Routine Consult Pulmonology Routine 05/22/18 13:18 Burn CD for patient Stat Ordered Studies 05/14/18 05:21 CT angio chest PE protocol Urgent 05/15/18 10:42 CT head/brain wo con Routine Hospital Course (1) Multifocal pneumonia: Resolving clinically. O2 has been weaned off. Completed course of Zosyn and Vanco Previously finished 5-day course of zithromax. Blood cultures negative. Cont steroids for possible inflammatory pneumonitis related to prior chemotherapy use taper steroids as able (2) Acute respiratory failure with hypoxia: Secondary to infectious pneumonia and/or inflammatory pneumonitis. Resolved. Appreciate Dr. Llanos's consultation. Cont po decadron - - wean to q12h dosing eventually looking for oncology to determine final taper repeat cxr 05/20, stable (3) Lung cancer metastatic to brain: Stage IV adenocarcinoma of lung with mets to liver and brain - diagnosed in 05/2017. s/p gamma knife therapy in 02/2018 for recurrent brain mets at [facility]. CT head obtained this admission - no obvious new mets. Has failed multiple chemotherapy and immunotherapy regimens. Current regimen -Cyramza and Abraxane therapy- last dose 05/02/18. Follows with Dr. Kennedy - [facility]. Receives all chemo in [place]. Her next run of chemo was scheduled for this week - will need to be deferred. Has followed with Dr. De Oliveira at [facility] in the distant past. Dr De Oliveira spoke with the cancer center at [facility] last week and they are in agreement with current care plan we have in place. (4) Elevated alkaline phosphatase level: Likely multifactorial remaining in the 250 range (5) Benzodiazepine withdrawal: resolved s/p resumption of ativan 1mg PO BID (6) Anemia: H/H stable in the 9-10 g range (7) Chest pain on breathing: Pleuritic pain likely due to pneumonia. Remains intermittent but improving No PEs on CTA chest. Has prior h/o pericarditis - echo w/o effusion -no EKG criteria consistent with this Incentive spirometry. continue fentanyl patch (8) Depression: Continue olanzapine 10mg po qhs. Increased Effexor xr to 75mg daily. Patient previously declined psych consult. 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 (9) Tachycardia: resolved. was likely due to ativan withdrawal, pulmonary issues, pain, etc. (10) Chronic pain syndrome: cont fentanyl patches at 88mcg q3days cont bowel regimen of senna with miralax when asked patient about my additional cathartic agents (11) Edema: 2nd to hypoalbuminemia. Cont lasix 20mg po qam. Tolerating this w/ stable labs. (12) DVT prophylaxis: Lovenox 40mg SQ daily Total Time Total Time Spent Total Time Spent (In Minutes): greater than 30 minutes were required to prepare discharge Discharge Plan Discharge Items Patient Disposition: Home - Home Health Services Reason For Visit: PNEUMONIA,ACUTE HYPOXIA,RESPIRATORY FAILURE Discharge Diagnosis: pneuomonia Discharge Goals: Decrease discomfort, Diagnostic testing and Improve disease control Activity: Resume your previous activity Non-emergency contact: Primary Care Provider and Oncologist Call non-emergency contact if: you have any medication questions Follow-up/Referrals: Jada Melendez, [Primary Care Provider] - Diet: Regular Addtl Provider Instructions: please follow up with your oncologist provider in [place] Prescriptions: New dexamethasone [Decadron] 4 mg tablet 4 mg PO BID Qty: 60 RF: 0 furosemide 20 mg Tablet 20 mg PO QAM Qty: 30 RF: 0 venlafaxine 37.5 mg capsule,extended release 24hr 75 mg PO QAM Qty: 60 RF: 3 Continued fentanyl [Duragesic] 75 mcg/hr patch 72 hour 1 patch TD Q72H RF: 0 pantoprazole 40 mg tablet,delayed release (DR/EC) 40 mg PO QAM RF: 0 folic acid 1 mg tablet 1 mg PO DAILY RF: 0 olanzapine 10 mg tablet 10 mg PO HS RF: 0 oxycodone 15 mg tablet 15 mg PO Q4 PRN (Reason: Pain) RF: 0 lorazepam 1 mg tablet 1 mg PO Q6 PRN (Reason: Anxiety) RF: 0 Sancuso 3.1 mg/24 hour patch weekly 1 patch topical .CHANGE EVERY 5 DAYS RF: 0 loperamide 2 mg Capsule 2 mg PO Q3H PRN (Reason: Nausea) RF: 0 Stand-Alone Forms: [facility] Discharge Orders: Discharge Order (Routine); Ordered 05/22/18 Ordered By: Adama Llanes Admission Data Admit Date/Time: 05/14/18 08:38 Attending Provider: Adama Llanes Admit Provider: Paz Rodriguez Primary Care Provider: Jada Melendez Other Providers: Ruben Singletary ; Jhonathan De Oliveira ; Ash Llanos ; Alex Rloand Service: Medical Other Interventions: Discharge Summary Assessment (RN) Last Done: 05/22/18 13:44
== END 2018-05-22 16:05 | disposition home or self-care (01) | DRG 193 ==
LOC: ED 04:22 → SUATTDRO 08:38 → 2N 08:38 → 4E 05-18 17:08